=== PATIENT | female | born 2005 | race Caucasian/White ===

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

== ENCOUNTER → 2025-06-28 | Outpatient (CLI) | payer BC, SELFPAY ==
--- OUTSIDE RECORDS SUMMARY | 2025-06-28 11:46 | XMS RPT_ITS | CCD ---
Author Organization [facility] Care Team Providers [facility] Name Role Phone Katelin Morel MD Primary Care Provider Dr. Mel Fabian Primary Care Provider Dr. Mel Fabian Referring Provider MARY Kline Attending Provider Katelin Morel MD Primary Care Provider Dean Jackson MD Unavailable Katelin Morel MD Primary Care Provider Dean Jackson MD Unavailable Dean Jackson MD Unavailable Katelin Morel MD Primary Care Provider MARÍA SALEEM Attending Unavailable KATELIN MOREL Primary Care Unavailable LESLYE GALICIA Referring Unavailable Dr. Katelin Morel MD Primary Care Provider Dr. Katelin Morel MD Referring Provider Heriberto Kline Attending Provider Katelin Morel Primary Care Unavailable Heriberto Kline Attending Unavailable Katelin Morel Referring Unavailable Justina Brooks Attending Unavailable Katelin Morel Referring Unavailable Katelin Morel Primary Care Unavailable Shaw Lucero MD Primary Care Provider LAUREN FOSTER Attending Unavailable SHAW LUCERO Primary Care Unavailable LAUREN FOSTER Referring Unavailable SHAW LUCERO Primary Care Unavailable BEAU MARIE Attending Unavailable BEAU MARIE Referring Unavailable KATELIN MOREL Primary Care Unavailable BEAU MARIE Referring Unavailable KATELIN MOREL C Primary Care Unavailable AILIN GALO Attending Unavailable AILIN GALO Referring Unavailable JUVENAL MORELA C Primary Care Unavailable MARIEBEAU MARIN Attending Unavailable JUVENAL MORELA C Primary Care Unavailable MORELJUVENALA C Referring Unavailable MOREL, KATELIN C Primary Care Unavailable JACKELIN REGALADO Attending Unavailable KATELIN MOREL C Primary Care Unavailable MARIEBEAU MARIN P Referring Unavailable MARIEBEAU MARIN P Referring Unavailable JUVENAL MORELA C Primary Care Unavailable JUVENAL MORELA C Primary Care Unavailable JEMMA PALUMBO Referring Unavailable MOREL, KATELIN C Primary Care Unavailable PHYSICIAN, NONE Primary Care Physician Unavailab le WOOD DO~[id number], WOOD VICKI A Attending Unavailable WOOD DO~[id number], WOOD VICKI A Admitting Unavailable JUVENAL MORELA Primary Care Unavailable YULIA BAUM, JUAN Consulting Unavailable UYLIA BAUM, JUAN Consulting Unavailable ADRIEL, KATELIN Consulting Unavailable MOREL, KATELIN Consulting Unavailable WOOD DO, VICKI A Consulting Unavailable WOOD DO, VICKI A Consulting Unavailable MONIKA DO, BEN N Consulting Unavailabl e WOOD DO~[id number], WOOD VICKI A Attending Unavailable WOOD DO~[id number], WOOD VICKI A Admitting Unavailable NONE, NONE Primary Care Unavailable MONIKA DO BEN N Consulting Unavailabl e NONE, NONE Consulting Unavailable NURSEREFERRAL, NURSEREFERRAL Consulting Anaid vailable WOOD DO, VICKI A Consulting Unavailable WOOD DO, VICKI A Consulting Unavailable PHYSICIAN, NONE Primary Care Unavailable GOLDMANSUBHA GALVIN-BLU, ALYSSIA Attending Unavail able GOLDMAN SCALES INSPECTOR-SENIOR BENEFITS ANALYST, ALYSSIA Attending Unavail able PHYSICIAN, NONE Primary Care Unavailable Allergies Allergy Classification Reported Allergen(s) Allergy Type Date of Onset Reaction(s) Facility (20 sources) Seasonal allergy; Translations: [SEASONAL ALLERGIES] Propensity to adverse reactions 8 Shortness of Breath, Cough [facility] Medications Current Medications Medication Drug Class(es) Dates Sig (Normalized) Sig (Original) Administered Medications Medication Order MAR Action Action Date Dose Rate Site tuberculin skin test (TST-PPD), purified protein derivative, intradermal Intradermal Given 04/03/2024 10:05 EDT 0.1 mL Right Lower Forearm (1 source) Administered Medications Medication Order MAR Action Action Date Dose Rate Site tuberculin skin test (TST-PPD), purified protein derivative, intradermal Intradermal Given 04/03/2024 10:05 EDT 0.1 mL Right Lower Forearm Administered Medications Medication Order MAR Action Action Date Dose Rate Site tuberculin skin test (TST-PPD), purified protein derivative, intradermal Intradermal Given 03/26/2024 15:30 EDT 0.1 mL Left Lower Forearm (1 source) Administered Medications Medication Order MAR Action Action Date Dose Rate Site tuberculin skin test (TST-PPD), purified protein derivative, intradermal Intradermal Given 03/26/2024 15:30 EDT 0.1 mL Left Lower Forearm [id number] actuat albuterol 0.09 mg/actuat metered dose inhaler (20 sources) beta2-Adrenergic Agonist Start: 01-12-2022 End: 06-19-2024 take 2 puff(s) by inhalation every six hours as needed for wheezing albuterol HFA (PROVENTIL HFA, VENTOLIN HFA) 90 mcg/actuation inhaler Inhale 2 Puffs as instructed every 6 hours as needed for wheezing/shortness of breath. 1 Each 03/21/2024 Active Start: 01-11-2022 End: 01-12-2022 take 2 puff(s) by inhalation every six hours as needed for wheezing ProAir RespiClick 90 mcg/actuation breath activated (albuterol sulfate) Inhale 2 Puffs as instructed every 6 hours as needed for wheezing/shortness of breath. 1 Inhaler 0 01/11/2022 01/12/2022 Discontinued Start: 11-26-2020 Albuterol Sulf ate Active 2 INH INHALATION EVERY 6 HOURS November 26, 2020 4:07pm Start: 11-26-2020 Albuterol Sulf ate 90 mcg/actuation aerosol powdr breath activated Active 2 NMA INHALATION EVERY 6 HOURS as needed for sob November 26, 2020 1:00am Start: 06-01-2020 End: 09-01-2022 albuterol HFA (PROVENTIL HFA , VENTOLIN HFA) 90 mcg/actuation inhaler Inhale 2 Puffs as instructed. 0 06/01/2020 09/01/2022 Discontinued (Duplicate Entry) Comment on above: Inhale 2 Puffs as in structed every 6 hours as needed for wheezing/shortness of breath. Inhale 2 Puffs as in structed. Albuterol (Eqv-Proventil HFA) 90 mcg/inh inhalation aerosol (2 sources) Start: take 2 puff(s) by inhalation four times daily as needed Albuterol (Eqv-Proventil HFA) 90 mcg/inh inhalation aerosol USE 2 PUFFS USING INHALER 4 TIMES A DAY FOR 3 DAYS THEN ONLY NEEDED FOR COUGH. Start Date: 06/12/25 Status: Ordered Medication Dispense Status: Completed Total Allowed Fills: 1 Fills Dispensed: 0 cetirizine hydrochloride 10 mg oral capsule (9 sources) Histamine-1 Receptor Antagonist Start: take 1 capsule by mouth once daily Cetirizine (Zyrtec) 10 mg capsule Active 10 MG PO DAILY November 26, 2020 4:08pm Start: 09-21-2020 End: 11-23-2023 take 1 tablet by mouth once daily cetirizine (ZYRTEC) 10 mg tablet Take 1 tablet by mouth once daily. 0 09/21/2020 11/23/2023 Discontinued Comment on above: Take 1 tablet by [facility] once daily. dextromethorphan hydrobromide 1 mg/ml oral solution (1 source) Uncompetitive P-kiszzb-W-aspartate Receptor Antagonist, Sigma-1 Agonist Start: take 10 mg by mouth every six hours as needed Dextromethorphan Hbr (Vicks Dayquil Cough) 5 mg/5 mL syrup Active 10 mg PO EVERY 6 HOURS as needed September 20, 2022 1:00am fludrocortisone acetate 0.1 mg oral tablet (7 sources) Start: 024 End: take 1 tablet by mouth once daily fludrocortisone (FLORINEF) 0.1 mg tablet Take 1 tablet by mouth once daily. 30 tablet 2 10/22/2024 01/20/2025 Active FLUoxetine 40 mg oral capsule (20 sources) Serotonin Reuptake Inhibitor Start: 023 End: FLUoxetine 40 mg oral capsule Dose : 40 mg = 1 cap(s), Oral, qDay, # 90 cap(s), 0 Refill(s) Start Date: 06/12/25 Status: Ordered Medication Dispense Status: Completed Quantity: 90.0 Unit: cap(s) Total Allowed Fills: 1 Fills Dispensed: 0 Start: 07-13-2023 End: 08-19-2023 take 2 tablets by mouth once daily, then take 3 tablets by mouth once daily FLUoxetine 10 mg tablet Take 2 tablets by mouth once daily for 7 days, THEN 3 tablets once daily. 90 tablet 1 07/13/2023 08/19/2023 Active Start: 06-09-2023 End: 08-08-2023 take 1 tablet by mouth once daily FLUOXETINE 10 mg tablet TAKE 1 TABLET BY MOUTH EVERY DAY 90 tablet 1 07/03/2023 07/13/2023 Discontinued Comment on above: Take 1 tablet by [facility] once daily. Take 2 tablets by [facility] once daily for 7 days, THEN 3 tablets once daily. TAKE 1 TABLET BY LAURYN EVERY DAY Take 1 capsule by [facility] once daily. hydrOXYzine hydrochloride 25 mg oral tablet (13 sources) Antihistamine Start: 11-23-19 End: 02-21-20 take 1 tablet by mouth every twenty-four hours as needed hydrOXYzine HCl (ATARAX) 25 mg tablet Take 1 tablet by mouth at bedtime as needed. 90 tablet 0 11/23/2023 02/21/2024 Active Start: 07-13-2023 End: 09-08-2023 take 1 tablet by mouth every eight hours as needed hydrOXYzine HCl (ATARAX) 25 mg tablet TAKE 1 TABLET BY MOUTH THREE TIMES DAILY NEEDED FOR ANXIETY (AND SLEEP DIFFICULTIES.). 270 tablet 1 08/09/2023 09/08/2023 Active Comment on above: Take 1 tablet by mouth three times daily as needed for anxiety (and sleep difficulties.). Take 1 tablet by lauryn at bedtime as needed. ibuprofen 200 mg oral capsule (2 sources) Nonsteroidal Anti-inflammatory Drug Start: 018 take 200 mg by mouth three times daily Ibuprofen Active 200 MG PO THREE TIMES A DAY May 02, 2018 4:24pm iv contrast (will be provided with radiology test) (4 sources) Start: 024 End: 025 inject 1 dose intravenously once iv contrast (will be provided with radiology test) MRI Brain Inject, intravenously, once for 1 dose.No IV access, insert saline lock prior to beginning of sedation, infusion, injection of imaging exam.Discontinue saline lock post exam. If Pt. has a central line or IVAD, may access for administration according to line specific nursing protocol.Once exam is complete flush line and de-access according to line specific nursing protocol in the MR contrast administration guidelines link 1 Each 10/22/2024 10/23/2024 Active Start: 10-22-2024 End: 10-23-2024 iv contrast (will be provide d with radiology test) MRV Brain Inject, intravenously, once for 1 dose. No IV access, insert saline lock prior to the beginning of sedation, infusion, injection of imaging exam. Discontinue saline lock post exam. If Pt. has a central line or IVAD, may access for administration according to line specific nursing protocol. Once exam is complete flush line and de-access according to line specific nursing protocol in the MR contrast administration guidelines link. 1 Each 10/22/2024 10/23/2024 Active midodrine hydrochloride 5 mg oral tablet (20 sources) alpha-Adrenergic Agonist Start: 06-11-2024 End: 06-10-2026 take 1 tablet by mouth three times daily midodrine 5 mg oral tablet TAKE 1 TABLET BY MOUTH THREE TIMES A DAY Start Date: 06/12/25 Status: Ordered Medication Dispense Status: Completed Total Allowed Fills: 1 Fills Dispensed: 0 Start: 10-17-2023 End: 06-11-2024 take 1 tablet by mouth three times daily Midodrine 2.5 mg tablet Active 2.5 mg PO THREE TIMES A DAY March 13, 2024 12:00am Comment on above: Take 1 tablet by lauryn th three times a day. take 1 tablet by lauryn three times a day pantoprazole 40 mg delayed release oral tablet (20 sources) Proton Pump Inhibitor take 1 tablet by mouth once daily pantoprazole DR (PROTONIX) 40 mg tablet Take 40 mg by mouth once daily. Active Comment on above: Take 40 mg by mouth once daily. perflutren lipid microspheres 1.3 mL in NaCl (PF) 0.9% 10 mL injection (DEFINITY) (16 sources) Start: 2 End: 4 perflutren lipid microspheres 1.3 mL in NaCl (PF) 0.9% 10 mL injection (DEFINITY) rizatriptan 10 mg oral tablet (5 sources) Serotonin-1b and Serotonin-1d Receptor Agonist Start: 4 End: 5 take 1 tablet by mouth every two hours as needed for headache rizatriptan (MAXALT) 10 mg tablet Take 1 tablet (10 mg) by mouth as needed (at onset of headache. May repeat after 2 hours.). Do not exceed 30 mg per day. 10 tablet 2 10/22/2024 11/21/2024 Active 125 ml sodium chloride 9 mg/ml prefilled syringe (16 sources) Start: 2 End: 4 sodium chloride 0.9 % (flush) 10 mL (BD POSIFLUSH) sodium fluoride 0.011 mg/mg toothpaste (20 sources) Start: 4 sodium fluoride 1.1 % dental cream DISPENSE A SMALL AMOUNT INTO TOOTH SLOT TRAY AND WEAR FOR 5 MINUTES 02/28/2024 Active traZODone hydrochloride 50 mg oral tablet (20 sources) Serotonin Reuptake Inhibitor Start: 5 take 1 tablet by mouth once daily at bedtime traZODone 50 mg oral tablet TAKE 1 TABLET BY MOUTH EVERYDAY AT BEDTIME Start Date: 06/12/25 Status: Ordered Medication Dispense Status: Completed Total Allowed Fills: 1 Fills Dispensed: 0 Start: 04-30-2024 End: 08-02-2024 take 1 tablet by mouth once daily at bedtime traZODone (DESYREL) 50 mg tablet Take 1 tablet by mouth daily at bedtime. 90 tablet 1 08/02/2024 Active Completed/Discontinued Medications Medication Drug Class(es) Dates Sig (Normalized) Sig (Original) acetylcholine 10% solution - [facility] (2 sources) Start: 01-02-2023 acetylcholine 10% solution - [facility] albuterol 0.833 mg/ml / ipratropium bromide 0.167 mg/ml inhalation solution (1 source) Anticholinergic, beta2-Adrenergic Agonist Start: 07-01-2022 End: 07-06-2022 take 1 mL by inhalation every four hours Ipratropium-Albute rol 0.5 mg-3 mg(2.5 mg base)/3 mL solution for nebulization Discontinued 3 mL INHALATION Q4H 180 5 0 July 01, 2022 12:00am July 05, 2022 12:00am July 06, 2022 12:03am azithromycin 250 mg oral tablet (1 source) Macrolide Antimicrobial Start: 07-01-2022 End: 08-11-2022 take 2-5 tablets by mouth once daily Azithromycin 250 mg tablet Discontinued 0 PO .COMPLEX 6 0 July 01, 2022 12:00am August 11, 2022 7:52am take 500 mg today (day 1), then 250 mg for 4 days (days 2-5) PO benzonatate 100 mg oral capsule (2 sources) Non-narcotic Antitussive Start: 06-11-2018 End: 02-27-2019 take 100 mg by mouth three times daily Benzonatate Discontinued 100 MG PO THREE TIMES A DAY June 11, 2018 4:16pm February 27, 2019 4:08pm Dexamethasone (2 sources) Corticosteroid Start: 10-12-2019 End: 07-18-2020 Dexamethasone Discontinued 0 PO per package directions October 12, 2019 10:49am July 18, 2020 10:56am PO PER PKG DIR Start: 10-12-2019 End: 07-18-2020 Dexamethasone 1.5 mg (21 tab s) tablets,dose pack Discontinued 0 PO per package directions 21 October 12, 2019 1:00am July 18, 2020 10:56am PO PER PKG DIR 120 actuat fluticasone propionate 0.11 mg/actuat metered dose inhaler (20 sources) Corticosteroid Start: 01-10-2022 End: 03-21-2024 take 2 puff(s) by inhalation twice daily as needed fluticasone (FLOVENT HFA) 110 mcg/actuation inhaler Inhale 2 Puffs as instructed two times a day as needed (seasonal allergies). 0 01/10/2022 03/21/2024 Discontinued Start: 01-10-2022 End: 09-01-2022 FLOVENT HFA 110 mcg/actuatio n inhaler Comment on above: Inhale 2 Puffs as in structed twice daily. methylPREDNISolone 4 mg oral tablet (1 source) Corticosteroid Start: 2021 End: 2021 take 1 tablet by mouth once Methylprednisolone (Medrol (Ken)) 4 mg tablets,dose pack Discontinued 4 mg PO per package directions 21 6 0 July 01, 2022 12:00am July 06, 2022 12:00am July 07, 2022 12:03am omeprazole 20 mg delayed release oral tablet (7 sources) Proton Pump Inhibitor End: 2021 Omeprazole Magnesium 20 mg tablet Take 20 mg by mouth. 0 09/01/2022 Discontinued (Changing Therapy/Dosage Form) Comment on above: Take 20 mg by mouth. polymyxin b [id number] unt/ml / trimethoprim 1 mg/ml ophthalmic solution (1 source) Dihydrofolate Reductase Inhibitor Antibacterial, Polymyxin-class Antibacterial Start: 2022 End: 2022 Polymyxin B Sulf-Trimethoprim (Polytrim) 10,000 unit- 1 mg/mL drops Discontinued 1 NMA OPHTHALMIC Q3H 10 7 0 February 03, 2023 12:00am February 09, 2023 12:00am February 10, 2023 12:04am while awake; do not exceed 6 doses in 24 hours predniSONE 10 mg oral tablet (4 sources) Start: 2021 End: 2022 predniSONE (DELTASONE) 10 mg tablet sulfamethoxazole 800 mg / trimethoprim 160 mg oral tablet (2 sources) Dihydrofolate Reductase Inhibitor Antibacterial, Sulfonamide Antimicrobial Start: 2019 End: 2020 take 1 tablet by mouth twice daily Sulfamethoxazole-Trimet hoprim Discontinued 1 TABLET PO TWICE A DAY 10 July 20, 2020 5:31pm November 26, 2020 4:07pm Start: 07-20-2020 End: 11-26-2020 Sulfamethoxazole-Trimethopri m 800-160 mg tablet Discontinued 1 {tbl} PO TWICE A DAY 10 0 July 20, 2020 12:00am November 26, 2020 4:07pm Problems Active Problems Problem Classification Problem Date Documented Date Episodic/Chronic Abdominal pain (4 sources) Left flank pain; Translations: [Unspecified abdominal pain] 04-10-2024 Episodic Administrative/socia l admission (3 sources) Special examination status; Translations: [Encounter for examination for participation in sport] Onset: 04-30-2025 05-20-2020 Episodic Anxiety disorders (6 sources) Generalized anxiety disorder; Translations: [Generalized anxiety disorder] Chronic Asthma (1 source) Asthmatic bronchitis; Translations: [Unspecified asthma with (acute) exacerbation] 07-01-2022 Chronic Blindness and vision defects (2 sources) Visual impairment; Translations: [Unspecified visual loss] Onset: 10-22-2024 10-22-2024 Chronic Cardiac dysrhythmias (7 sources) Postural orthostatic tachycardia syndrome ; Translations: [POTS (postural orthostatic tachycardia syndrome)] Chronic Cardiac dysrhythmias (1 source) Tachycardia; Translations: [Tachycardia, unspecified] Episodic Chronic obstructive pulmonary disease and bronchiectasis (2 sources) Bronchitis; Translations: [Bronchitis, not specified as acute or chronic] 06-11-2018 Episodic Conditions associated with dizziness or vertigo (6 sources) Dizziness; Translations: [Dizziness and giddiness] Episodic Esophageal disorders (20 sources) Gastroesophageal reflux disease; Translations: [Gastro-esophageal reflux disease without esophagitis] Onset: 05-08-2024 03-21-2024 Chronic Headache; including migraine (3 sources) Tension-type headache; Translations: [Tension-type headache, unspecified, not intractable] Chronic Immunizations and screening for infectious disease (20 sources) Patient encounter status; Translations: [Encounter for screening for COVID-19] Onset: 06-10-2025 Episodic Inflammation; infection of eye (except that caused by tuberculosis or sexually transmitteddisease) (1 source) Acute infectious conjunctivitis; Translations: [Unspecified acute conjunctivitis, unspecified eye] 02-03-2023 Episodic Malaise and fatigue (1 source) Fatigue; Translations: [Other fatigue] Episodic Menstrual disorders (4 sources) Irregular periods; Translations: [Irregular menstruation, unspecified] Onset: 06-10-2025 06-10-2025 Chronic Mood disorders (5 sources) Severe major depression, single episode, without psychotic features; Translations: [Major depressive disorder, single episode, severe without psychotic features] 06-08-2023 Chronic Nervous system congenital anomalies (4 sources) Disorder of autonomic nervous system; 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 Other circulatory disease (1 source) Low blood pressure; Translations: [Hypotension, unspecified] 06-14-2024 Episodic Other ear and sense organ disorders (1 source) Tinnitus of left ear; Translations: [Tinnitus, left ear] Episodic Other endocrine disorders (1 source) Hypoglycemia; Translations: [Hypoglycemia, unspecified] 01-12-2024 Chronic Other injuries and conditions due to external causes (4 sources) Injury of nose; Translations: [Unspecified injury of nose, initial encounter] 12-27-2024 Episodic Other injuries and conditions due to external causes (1 source) Injury of head; Translations: [Unspecified injury of head, initial encounter] 12-27-2024 Episodic Other nervous system disorders (1 source) Idiopathic peripheral neuropathy; Translations: [Hereditary and idiopathic neuropathy, unspecified] Chronic Other nervous system disorders (1 source) Polyneuropathy; Translations: [Polyneuropathy, unspecified] Chronic Other nervous system disorders (1 source) Neuropathy; Translations: [Polyneuropathy, unspecified] Chronic Other nervous system disorders (1 source) Skin sensation disturbance; Translations: [Unspecified disturbances of skin sensation] Episodic Other nervous system disorders (1 source) Tremor; Translations: [Tremor, unspecified] Episodic Other nervous system disorders (2 sources) Intermittent tremor; Translations: [Tremor, unspecified] 01-24-2024 Episodic Other non-traumatic joint disorders (1 source) Pain in wrist; Translations: [Pain in unspecified wrist] 08-11-2022 Episodic Other nutritional; endocrine; and metabolic disorders (1 source) History of iron deficiency; Translations: [Personal history of other endocrine, nutritional and metabolic disease] 06-10-2025 Episodic Other nutritional; endocrine; and metabolic disorders (1 source) Personal history of other endocrine, nutritional and metabolic disease; Translations: [History of iron deficiency] Onset: 06-10-2025 Episodic Other upper respiratory disease (1 source) Nasal discharge; Translations: [Other specified disorders of nose and nasal sinuses] 10-26-2024 Episodic Other upper respiratory disease (1 source) Nasal congestion; Translations: [Nasal congestion] 10-26-2024 Episodic Other upper respiratory disease (1 source) Nasal congestion; Translations: [Nasal congestion] Onset: 04-30-2025 Episodic Other upper respiratory disease (1 source) Other specified disorders of nose and nasal sinuses; Translations: [Other specified disorders of nose and nasal sinuses] Onset: 04-30-2025 Episodic Residual codes; unclassified (1 source) Insomnia; Translations: [Insomnia, unspecified] Episodic Residual codes; unclassified (1 source) Pale complexion; Translations: [Pallor] 01-24-2024 Episodic Residual codes; unclassified (2 sources) Difficulty sleeping ; Translations: [Sleep disorder, unspecified] 04-30-2024 Episodic Residual codes; unclassified (1 source) Pain; Translations: [Pain, unspecified] 08-11-2022 Episodic Screening and history of mental health and substance abuse codes (2 sources) Encounter for screening for depression; Translations: [Encounter for screening examination for other mental health and behavioral disorders] Onset: 06-10-2025 Episodic Sprains and strains (10 sources) Strain of knee; Translations: [Strain of unspecified muscle(s) and tendon(s) at lower leg level, right leg, initial encounter] 08-11-2022 Episodic Superficial injury; contusion (1 source) Contusion of nose; Translations: [Contusion of nose, initial encounter] 12-27-2024 Episodic Unclassified (1 source) OPENED IN ERROR 06-27-2023 Unclassified (1 source) NO SHOW 01-24-2024 Unclassified (1 source) Patient encounter status 06-10-2025 Unclassified (1 source) POTS (postural orthostatic tachycardia syndrome); Translations: [POTS (postural orthostatic tachycardia syndrome)] Onset: 10-22-2024 Unclassified (1 source) Chronic migraine with aura without status migrainosus, not intractable; Translations: [Chronic migraine with aura without status migrainosus, not intractable] Onset: 10-22-2024 Unclassified (1 source) ENCOUNT FOR SCREENING FOR COVID-19; Translations: [ENCOUNT FOR SCREENING FOR COVID-19] Onset: 09-09-2024 Past or Other Problems Problem Classification Problem Date Documented Da te Episodic/Chronic Nutritional deficiencies (3 sources) Nutritional deficiency state; Translations: [Nutritional deficiency, unspecified] Onset: 10-22-2024 Episodic Other circulatory disease (1 source) Hypotension, unspecified; Translations: [Hypotension, unspecified hypotension type] Onset: 06-14-2024 Episodic Other injuries and conditions due to external causes (1 source) Unspecified injury of nose, initial encounter; Translations: [Nasal injury, initial encounter] Onset: 12-27-2024 Episodic Other upper respiratory infections (9 sources) Viral upper respiratory tract infection; Translations: [Acute upper respiratory infection, unspecified] Onset: 09-04-2024 10-26-2024 Episodic Residual codes; unclassified (3 sources) Transient alteration of awareness; Translations: [Transient alteration of awareness] Onset: 10-22-2024 10-22-2024 Episodic Syncope (16 sources) Loss of consciousness; Translations: [Syncope and collapse] Onset: 10-22-2024 Episodic Unclassified (1 source) 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 COMPARISON: None HISTORY: ORDERING SYSTEM PROVIDED HISTORY: Reason for Exam: ovarian lesion? per pt was told this at ED appt but no TVUS completed. All images are recorded and archived. FINDINGS: Measurements: Uterus: 7.1 x 5.7 x 4.4 cm Endometrial stripe: 8 mm Right Ovary:By 0.7 x 5.2 x 4.5 cm Left Ovary: 3.5 x 2.4 x 2.6 cm Ultrasound Findings: Uterus: Uterus demonstrates normal myometrial echotexture. Endometrial stripe: Endometrial stripe is within normal limits. Right Ovary: Right ovary contains a septated anechoic focus measuring 4.7 x 4.4 x 3.4 cm. No solid component identified. Left Ovary: Left ovary is within normal limits. Both ovaries demonstrate appropriate venous and arterial blood flow with Doppler assessment. Free Fluid: No evidence of free fluid. IMPRESSION: 1. 4.7 cm septated cyst right ovary. Recommend follow-up pelvic US in 3-6 months. 2. No acute pelvic process. 3. Normal Doppler flow within the ovaries. Interpreted by: Trip Garduno DO Preliminary Report By: Trip Garduno DO Electronically signed By Trip Garduno DO Dictated Date: 06/25/2025 9:46:37 AM Prelim Date: 06/25/2025 9:48:34 AM Sign Date: 06/25/2025 9:48:34 AM Ordering Provider: ALYSSIA GOLDMAN [facility] CBC W Auto Differential pane l (Bld)on 06-21-2025 Basophils (Bld) [#/Vol] 0.05 10*3/uL Normal <=0.70 [facility] Comment on above: Performed By: #### 5 7021-8 #### [facility] [address] [place] [address] [employer] GRANTIA [id number] Basophils/100 WBC (Bld) 0.5 % Normal <=2.0 [facility] Comment on above: Performed By: #### 5 7021-8 #### [facility] [address] [place] [address] [employer] - [employer] GRANTIA [id number] Eosinophils (Bld) [#/Vol] 0.30 10*3/uL Normal <=0.70 [facility] Comment on above: Performed By: #### 5 7021-8 #### [place] [address] [place] [address] [employer] - [employer] CABRERA [id number] Eosinophils/100 WBC (Bld) 3.1 % Normal <=10.0 [facility] Comment on above: Performed By: #### 5 7021-8 #### [place] [address] [place] [address] [employer] GRANTIA [id number] Erythrocyte distribution width (RBC) [Entitic vol] 42.0 fL Normal 36.4-46.3 [facility] Comment on above: Performed By: #### 5 7021-8 #### [place] [address] [place] [address] [employer] - [employer] GRANTIA [id number] Hematocrit (Bld) [Volume fraction] 34.7 % Low 37.0-47.0 [facility] Comment on above: Performed By: #### 5 7021-8 #### [facility] [address] [place] [address] Director [employer] - [employer] CABRERA [id number] Hemoglobin (Bld) [Mass/Vol] 11.8 g/dL Low 12.0-16.0 [facility] Comment on above: Performed By: #### 5 7021-8 #### [place] [address] [place] [address] [employer] CABRERA [id number] Immature granulocytes (Bld) [#/Vol] 0.03 10*3/uL Normal <=0.10 [facility] Comment on above: Performed By: #### 5 7021-8 #### [place] [address] [facility]. [place] [address] Director Of [employer] - [employer] Ledesma CLIA [id number] Immature granulocytes/100 WBC (Bld) 0.30 % Normal <=1.50 [facility] Comment on above: Performed By: #### 5 7021-8 #### [address] [place] [address] Director Of [employer] - [employer] Ledesma CLIA [id number] Lymphocytes (Bld) [#/Vol] 2.52 10*3/uL Normal 1.20-3.40 [facility] Comment on above: Performed By: #### 5 7021-8 #### [address] [place] [address] Director [employer] - [employer] Ledesma CLIA [id number] Lymphocytes/100 WBC (Bld) 26.4 % Normal 20.0-40.0 [facility] Comment on above: Performed By: #### 5 7021-8 #### [address] [place] [address] [employer] - [employer] GRANTIA [id number] MCH (RBC) [Entitic mass] 28.0 pg Normal 27.0-31.0 [facility] Comment on above: Performed By: #### 5 7021-8 #### [address] [place] [address] Director [employer] - [employer] Ledesma CLIA [id number] MCHC (RBC) [Mass/Vol] 34.0 g/dL Normal 32.0-36.0 [facility] Comment on above: Performed By: #### 5 7021-8 #### [address] [place] [address] Director Of [employer] - [employer] Ledesma CLIA [id number] MCV (RBC) [Entitic vol] 82.2 fL Normal 80.0-100.0 [facility] Comment on above: Performed By: #### 5 7021-8 #### [facility] [address] [place] [address] Director Of [employer] - [employer] Ledesma CLIA [id number] Monocytes (Bld) [#/Vol] 0.79 10*3/uL High 0.10-0.60 [facility] Comment on above: Performed By: #### 5 7021-8 #### [address] [place] [address] Director [employer] - [employer] Ledesma CLIA [id number] Monocytes/100 WBC (Bld) 8.3 % High <=8.0 [facility] Comment on above: Performed By: #### 5 7021-8 #### [address] [place] [address] Director [employer] - [employer] Ledesma CLIA [id number] Neutrophils (Bld) [#/Vol] 5.85 10*3/uL Normal 1.40-6.50 [facility] Comment on above: Performed By: #### 5 7021-8 #### [address] [place] [address] Director Of [employer] - [employer] Ledesma CLIA [id number] Neutrophils/100 WBC (Bld) 61.4 % Normal 50.0-70.0 [facility] Comment on above: Performed By: #### 5 7021-8 #### [address] [place] [address] Director Of [employer] - [employer] Ledesma CLIA [id number] Nucleated RBC (Bld) [#/Vol] 0.00 10*3/uL Normal <=0.10 [facility] Comment on above: Performed By: #### 5 7021-8 #### [address] [place] [address] Director [employer] - [employer] Ledesma CLIA [id number] Platelet mean volume (Bld) [Entitic vol] 9.7 fL Normal 9.0-13.0 [facility] Comment on above: Performed By: #### 5 7021-8 #### [facility] [address] [place] [address] Director [employer] - [employer] Ledesma CLIA [id number] Platelets (Bld) [#/Vol] 257 10*3/uL Normal 130-400 [facility] Comment on above: Performed By: #### 5 7021-8 #### [facility] [address] [place] [address] Director Of [employer] - [employer] Nicholasrell CLIA [id number] RBC (Bld) [#/Vol] 4.22 10*6/uL Normal 4.00-6.30 [facility] Comment on above: Performed By: #### 5 7021-8 #### [facility] [address] [facility] [place] [address] [facility] [id number] WBC (Bld) [#/Vol] 9.54 10*3/uL Normal 4.80-10.80 [facility] Comment on above: Performed By: #### 5 7021-8 #### [address] [place] [address] Director Of [employer] - [employer] Nicholasrell CLIA [id number] CT ABDOMEN AND PELVIS WITH C [facility] 06-21-2025 CT ABDOMEN AND PELVIS WITH CONTRAST EXAMINATION: CT ABDOMEN AND PELVIS WITH CONTRAST, 06/21/2025 1:25 AM PDT HISTORY: Abdominal pain COMPARISON: CT abdomen/pelvis 09/01/2023. TECHNIQUE: CT scan of the abdomen and pelvis was performed following IV contrast. CT dose reduction technique was used, including Automated Exposure Control. Total exam DLP 242.05 mGy-cm. FINDINGS: The lung bases are clear. The abdominal aorta is normal in caliber. There are several stable tiny nonenhancing liver lesions, consistent with simple cysts. No focal lesions in the spleen, kidneys, adrenal glands, and pancreas. No abnormal bowel dilation. The appendix is normal in caliber. There is a heterogeneous right adnexal lesion which has a somewhat tubular shape and is surrounded by free fluid. This lesion measures approximately 6.2 x 3.8 x 3.5 cm. There are small amounts of free fluid in the bilateral paracolic gutters and in the pelvic cul-de-sac. No abdominal or pelvic lymphadenopathy. No extraluminal free air. IMPRESSION: Heterogeneous right adnexal lesion which has a somewhat tubular shape and is surrounded by free fluid, in addition to small scattered areas of free fluid in the pelvis and lower abdomen. This raises question of a dilated fallopian tube, ruptured ovarian cyst, or tubo-ovarian abscess. Pelvic ultrasound is recommended. Normal [facility] Comprehensive metabolic 2000 panelon 06-21-2025 Albumin [Mass/Vol] 3.6 g/dL Normal 3.4-5.0 [facility] Comment on above: Performed By: #### 2 4323-8, LIPASE #### [facility] [address] [place] [address] [employer] - [employer] Ledesma CLIA [id number] ALP [Catalytic activity/Vol] 55 U/L Normal 50-136 [facility] Comment on above: Performed By: #### 2 4323-8, LIPASE #### [address] [place] [address] [employer] - [employer] Ledesma CLIA [id number] ALT [Catalytic activity/Vol] 17 U/L Normal 14-59 [facility] Comment on above: Performed By: #### 2 4323-8, LIPASE #### [place] [address] [place] [address] Director [employer] - [employer] Ledesma CLIA [id number] Anion gap [Moles/Vol] 10.0 mmol/L Normal <=15.0 [facility] Comment on above: Performed By: #### 2 4323-8, LIPASE #### [facility] [address] [place] [address] Director [employer] - [employer] Ledesma CLIA [id number] AST [Catalytic activity/Vol] 28 U/L Normal 15-37 [facility] Comment on above: Performed By: #### 2 4323-8, LIPASE #### [facility] [address] [place] [address] [employer] - [employer] Ledesma CLIA [id number] Bilirubin [Mass/Vol] 0.4 mg/dL Normal 0.2-1.0 [facility] Comment on above: Performed By: #### 2 4323-8, LIPASE #### [facility] [address] [place] [address] [employer] - [employer] Ledesma CLIA [id number] Calcium [Mass/Vol] 8.9 mg/dL Normal 8.5-10.1 [facility] Comment on above: Performed By: #### 2 4323-8, LIPASE #### [facility] [address] [place] [address] [employer] - [employer] Ledesma CLIA [id number] Chloride [Moles/Vol] 104 mmol/L Normal 98-107 [facility] Comment on above: Performed By: #### 2 4323-8, LIPASE #### [facility] [address] [place] [address] [employer] - [employer] Ledesma CLIA [id number] CO2 [Moles/Vol] 26 mmol/L Normal 21-32 [facility] Comment on above: Performed By: #### 2 4323-8, LIPASE #### [facility] [address] [place] [address] Director [employer] - [employer] Ledesma CLIA [id number] Creatinine [Mass/Vol] 0.72 mg/dL Normal 0.51-0.95 [facility] Comment on above: Performed By: #### 2 4323-8, LIPASE #### [facility] [address] [place] [address] Director [employer] - [employer] Ledesma CLIA [id number] GFR/1.73 sq M.predicted MDRD (S/P/Bld) [Vol rate/Area] mL/min/{1.73_m2} Normal >=60 [facility] Comment on above: Performed By: #### 2 4323-8, LIPASE #### [facility] [address] [place] [address] Director [employer] - [employer] Ledesma CLIA [id number] Glucose [Mass/Vol] 85 mg/dL Normal 74-106 [facility] Comment on above: Performed By: #### 2 4323-8, LIPASE #### [facility] [address] [place] [address] [employer] CABRERA [id number] HGFR GLOMERULAR FILTRATION RATE INTERPRETATION~The eGFR is calculated using the MDRD equation.~This equation has been validated in patients with chronic kidney disease;~however, it underestimates the GFR in healthy patients with GFR's over 60 mL/min.~The equation is not valid in children under the age of 18.~NOTE: Criteria for Chronic Kidney Disease:~ ~1. Kidney damage for at least three months, as defined~by structural or functional abnormalities of the kidney,~with or without decreased glomerular filtration rate, manifested by either:~* Pathological abnormalities or~* Markers of Kidney damage, including abnormalities in~the composition of the blood or urine or abnormalities in imaging tests.~ ~2. GFR <60 mL/min/1.73 m squared for at least three months, with or without kidney damage.~ Normal [facility] Comment on above: Performed By: #### 2 4323-8, LIPASE #### [facility] [address] [place] [address] [employer] CABRERA [id number] Potassium [Moles/Vol] 3.6 mmol/L Normal 3.5-5.1 [facility] Comment on above: Performed By: #### 2 4323-8, LIPASE #### [facility] [address] [place] [address] [employer] CABRERA [id number] Protein [Mass/Vol] 7.0 g/dL Normal 6.4-8.2 [facility] Comment on above: Performed By: #### 2 4323-8, LIPASE #### [facility] [address] [place] [address] [employer] - [employer] GRANTIA [id number] Sodium [Moles/Vol] 140 mmol/L Normal 136-145 [facility] Comment on above: Performed By: #### 2 4323-8, LIPASE #### [facility] [address] [place] [address] [employer] CABRERA [id number] Urea nitrogen [Mass/Vol] 12 mg/dL Normal 7-17 [facility] Comment on above: Performed By: #### 2 4323-8, LIPASE #### [facility] [address] [place] [address] [employer] GRANTIA [id number] LIPASEon 06-21-2025 LIPASES 36 U/L Normal 13-75 [facility] Comment on above: Performed By: #### 2 4323-8, LIPASE #### [facility] [address] [place] [address] [employer] GRANTIA [id number] URINALYSIS with reflex to CU LTUREon 06-21-2025 DOMO Normal [facility] Comment on above: Performed By: #### U AR #### [facility] [address] [place] [address] [employer] GRANTIA [id number] Performed for [facility] [address] [place], [place] [address] ASP Normal [facility] Comment on above: Performed By: #### U AR #### [facility] [address] [place] [address] [employer] GRANTIA [id number] Performed for [facility] [address] [place], [place] [address] Bacteria LM Ql (Urine sed) Normal TRACE [facility] Comment on above: Performed By: #### U AR #### [facility] [address] [place] [address] Director [employer] - [employer] Ledesma CLIA [id number] Performed for [facility] [address] [place], [place] [address] Bilirubin (U) [Mass/Vol] Negative Normal NEGATIVE [facility] Comment on above: Performed By: #### U AR #### [facility] [address] [place] [address] Director [employer] GRANTIA [id number] Performed for [facility] [address] [place], [place] [address] BROAD Normal [facility] Comment on above: Performed By: #### U AR #### [facility] [address] [place], [place] [address] [employer] CABRERA [id number] Performed for [facility] [address] [place], [place] [address] Calcium carbonate crystals LM Ql (Urine sed) Normal NONE SEEN [facility] Comment on above: Performed By: #### U AR #### [facility] [address] [place] [address] [employer] CABRERA [id number] Performed for [facility] [address] [place], [place] [address] Calcium oxalate crystals LM Ql (Urine sed) Normal FEW [facility] Comment on above: Performed By: #### U AR #### [facility] [address] [place] [address] [employer] CABRERA [id number] Performed for [facility] [address] [place], [place] [address] Calcium phosphate crystals LM Ql (Urine sed) Normal NONE SEEN [facility] Comment on above: Performed By: #### U AR #### [facility] [address] [place] [address] [employer] CABRERA [id number] Performed for [facility] [address] [place], [place] [address] Clarity (U) Clear Normal CLEAR [facility] Comment on above: Performed By: #### U AR #### [facility] [address] [place], [place] [address] [employer] CABRERA [id number] Performed for [facility] [address] [place], [place] [address] Color (U) Yellow Normal YELLOW [facility] Comment on above: Performed By: #### U AR #### [facility] [address] [place], [place] [address] [employer] CABRERA [id number] Performed for [facility] [address] [place], [place] [address] Cystine crystals LM.HPF (Urine sed) [#/Area] Normal NONE SEEN [facility] Comment on above: Performed By: #### U AR #### [facility] [address] [place], [place] [address] [employer] CABRERA [id number] Performed for [facility] [address] [place], [place] [address] EPIC Normal [facility] Comment on above: Performed By: #### U AR #### [facility] [address] [place], [place] [address] [employer] CABRERA [id number] Performed for [facility] [address] [place], [place] [address] Epithelial cells.renal LM.HPF (Urine sed) [#/Area] Normal NONE SEEN [facility] Comment on above: Performed By: #### U AR #### [facility] [address] [place] [address] [employer] CABRERA [id number] Performed for [facility] [address] [place], [place] [address] FAT Normal [facility] Comment on above: Performed By: #### U AR #### [facility] [address] [place] [address] [employer] CABRERA [id number] Performed for [facility] [address] [place], [place] [address] Fatty casts LM.LPF (Urine sed) [#/Area] Normal NONE SEEN [facility] Comment on above: Performed By: #### U AR #### [facility] [address] [place], [place] [address] [employer] CABRERA [id number] Performed for [facility] [address] [place], [place] [address] Glucose Test strip (U) [Mass/Vol] Negative Normal NEGATIVE [facility] Comment on above: Performed By: #### U AR #### [facility] [address] [place] [address] [employer] CABRERA [id number] Performed for [facility] [address] [place], [place] [address] GRAN Normal [facility] Comment on above: Performed By: #### U AR #### [facility] [address] [place], [place] [address] [employer] CABRERA [id number] Performed for [facility] [address] [place], [place] [address] HMICRO MICROSCOPIC Normal [facility] Comment on above: Performed By: #### U AR #### [facility] [address] [place], [place] [address] [employer] CABRERA [id number] Performed for [facility] [address] [place], [place] [address] Hyaline casts (Urine sed) [#/Area] Normal 0-8 [facility] Comment on above: Performed By: #### U AR #### [facility] [address] [place] [address] [employer] CABRERA [id number] Performed for [facility] [address] [place], [place] [address] Ketones (U) [Mass/Vol] Negative Normal NEGATIVE [facility] Comment on above: Performed By: #### U AR #### [facility] [address] [place], [place] [address] [employer] CABRERA [id number] Performed for [facility] [address] [place], [place] [address] Leucine crystals LM Ql (Urine sed) Normal NONE SEEN [facility] Comment on above: Performed By: #### U AR #### [facility] [address] [place], [place] [address] [employer] CABRERA [id number] Performed for [facility] [address] [place], [place] [address] Leukocyte esterase Qn (U) Negative Normal TRACE [facility] Comment on above: Performed By: #### U AR #### [facility] [address] [place], [place] [address] [employer] CABRERA [id number] Performed for [facility] [address] [place], [place] [address] Microscopic observation Gram stain Nom (Unsp spec) Normal NONE SEEN [facility] Comment on above: Performed By: #### U AR #### [facility] [address] [place], [place] [address] [employer] CABRERA [id number] Performed for [facility] [address] [place], [place] [address] Mucus Ql (Urine sed) Normal TRACE [facility] Comment on above: Performed By: #### U AR #### [facility] [address] [place], [place] [address] [employer] CABRERA [id number] Performed for [facility] [address] [place], [place] [address] Nitrite Ql (U) Negative Normal NEGATIVE [facility] Comment on above: Performed By: #### U AR #### [facility] [address] [place] [address] [employer] CABRERA [id number] Performed for [facility] [address] [place], [place] [address] OVFB Normal [facility] Comment on above: Performed By: #### U AR #### [facility] [address] [place], [place] [address] [employer] CABRERA [id number] Performed for [facility] [address] [place], [place] [address] pH (U) 7.0 [pH] Normal 5.5-7.5 [facility] Comment on above: Performed By: #### U AR #### [facility] [address] [place], [place] [address] [employer] GRANTIA [id number] Performed for [facility] [address] [place], [place] [address] Protein (U) [Mass/Vol] Negative Normal NEGATIVE [facility] Comment on above: Performed By: #### U AR #### [facility] [address] [place] [address] [employer] CABRERA [id number] Performed for [facility] [address] [place], [place] [address] RBC (U) [#/Vol] Negative Normal NEGATIVE [facility] Comment on above: Performed By: #### U AR #### [facility] [address] [place], [place] [address] [employer] CABRERA [id number] Performed for [facility] [address] [place], [place] [address] RBC casts LM.LPF (Urine sed) [#/Area] Normal NONE SEEN [facility] Comment on above: Performed By: #### U AR #### [facility] [address] [place] [address] [employer] CABRERA [id number] Performed for [facility] [address] [place], [place] [address] RBC LM.HPF (Urine sed) [#/Area] Normal 0-4 [facility] Comment on above: Performed By: #### U AR #### [facility] [address] [place] [address] [employer] CABRERA [id number] Performed for [facility] [address] [place], [place] [address] RBCC Normal [facility] Comment on above: Performed By: #### U AR #### [facility] [address] [place] [address] [employer] CABRERA [id number] Performed for [facility] [address] [place], [place] [address] Specific gravity (U) [Rel density] 1.020 Normal 1.010-1.035 [facility] Comment on above: Performed By: #### U AR #### [facility] [address] [place] [address] Director Of Restaurant Operations - Beth CABRERA [id number] Performed for [facility] [address] [place], [place] [address] Spermatozoa LM Ql (Urine sed) Normal NONE SEEN [facility] Comment on above: Performed By: #### U AR #### [facility] [address] [place] [address] Director Of Restaurant Operations - Beth CABRERA [id number] Performed for [facility] [address] [place], [place] [address] SQUAMOUS EPITHELIALS Normal 0-5 [facility] Comment on above: Performed By: #### U AR #### [facility] [address] [place] [address] Director Of Restaurant Operations - Beth CABRERA [id number] Performed for [facility] [address] [place], [place] [address] Transitional cells LM.LPF (Urine sed) [#/Area] Normal NONE SEEN [facility] Comment on above: Performed By: #### U AR #### [facility] [address] [place] [address] Director Of Restaurant Operations - Beth CABRERA [id number] Performed for [facility] [address] [place], [place] [address] TRIP PHOSPHATE CRYST Normal [facility] Comment on above: Performed By: #### U AR #### [facility] [address] [place] [address] Director Of Restaurant Operations - Beth CABRERA [id number] Performed for [facility] [address] [place], [place] [address] Tyrosine crystals LM Ql (Urine sed) Normal NONE SEEN [facility] Comment on above: Performed By: #### U AR #### [facility] [address] [place] [address] Director Of Restaurant Operations - Beth CABRERA [id number] Performed for [facility] [address] [place], [place] [address] Urate crystals LM Ql (Urine sed) Normal NONE SEEN [facility] Comment on above: Performed By: #### U AR #### [facility] [address] [place] [address] Director Of Restaurant Operations - Beth CABRERA [id number] Performed for [facility] [address] [place], [place] [address] Urobilinogen Qn (U) Normal <=1.0 [facility] Comment on above: Result Comment: 1.0 E.U./dL Performed By: #### U AR #### [facility] [address] [place] [address] Director Of Restaurant Operations - Beth CABRERA [id number] Performed for [facility] [address] [place], [place] [address] Waxy casts LM Ql (Urine sed) Normal NONE SEEN [facility] Comment on above: Performed By: #### U AR #### [facility] [address] [place] [address] Director Of Restaurant Operations - Beth CABRERA [id number] Performed for [facility] [address] [place], [place] [address] WBC casts LM.LPF (Urine sed) [#/Area] Normal NONE SEEN [facility] Comment on above: Performed By: #### U AR #### [facility] [address] [place] [address] Director Of Restaurant Operations - Beht CABRERA [id number] Performed for [facility] [address] [place], [place] [address] WBC LM.HPF (Urine sed) [#/Area] Normal 0-5 [facility] Comment on above: Performed By: #### U AR #### [facility] [address] [place] [address] Director Of Restaurant Operations - Beth CABRERA [id number] Performed for [facility] [address] [place], [place] [address] Yeast.budding LM.HPF (Urine sed) [#/Area] Normal NONE SEEN [facility] Comment on above: Performed By: #### U AR #### [facility] [address] [place] [address] Director Of Restaurant Operations - Beth CABRERA [id number] Performed for [facility] [address] [place], [place] [address] Yeast.pseudohyphae LM Ql (Urine sed) Normal NONE SEEN [facility] Comment on above: Performed By: #### U AR #### [facility] [address] [place] [address] Director Of Restaurant Operations - Beth CABRERA [id number] Performed for [facility] [address] [place], [place] [address] URINE QUALITATIVEo n 06-21-2025 HCG ( test) Ql (U) Negative Normal NEGATIVE [facility] Comment on above: Performed By: #### 2 106-3 #### [facility] [address] [place], [place] [address] Director Of Restaurant Operations - Beth CABRERA [id number] 17OHPon 06-19-2025 17-OH Progesterone LCMS 173 ng/dL Normal [facility] Comment on above: Result Comment: Adul t Female Follicular 15 - 70 Luteal 35 - 290 This test was developed and its performance characteristics determined by [facility]. It has not been cleared or approved by the Food and Drug Administration. Performed At: [address] [id number] Archie Alcala MD Ph:[phone] Performed By: #### 0 [address] #### [address] [address] #### E2, LH, TESTO, FSH #### [place] [id number] E2on 06-12-2025 Estradiol Level 535.09 pg/mL Normal [facility] Comment on above: Result Comment: Adult Female E2 Reference Ranges: Follicular phase 19.5 - 144.2 pg/mL Midcycle 63.9 - 356.7 pg/mL Luteal phase 55.8 - 214.2 pg/mL Post menopausal 0 - 33.2 pg/mL Performed By: #### 0 [address]673 #### [address] [address] #### E2, LH, TESTO, FSH #### [place] [id number] FSHon 06-12-2025 FSH 4.3 mIU/mL Normal [facility] Comment on above: Result Comment: Adul t Female FSH Reference Ranges (09/15/99): Follicular phase 2.5 - 10.2 mIU/mL Midcycle phase 3.4 - 33.4 mIU/mL Luteal phase 1.5 - 9.1 mIU/mL Post menopausal 23.0 -116.3 mIU/mL Adult Male: 1.4 - 18.1 mIU/mL Performed By: #### 0 [address] #### [facility] [address] [place], [place] [address] #### E2, LH, TESTO, FSH #### [facility] [address] [place] [address] LABORATORYOrdered By: SYSTEM SYSTEM on 06-12-2025 E2 [Mass/Vol] 535.09 pg/mL Invalid Interpretation Code [facility] Comment on above: Interpretive Data: Adult Female E2 Reference Ranges: Follicular phase 19.5 - 144.2 pg/mL Midcycle 63.9 - 356.7 pg/mL Luteal phase 55.8 - 214.2 pg/mL Post menopausal 0 - 33.2 pg/mL Follitropin Qn 4.3 m[IU]/mL Invalid Interpretation Code [facility] Comment on above: Interpretive Data: A dult Female FSH Reference Ranges (09/15/99): Follicular phase 2.5 - 10.2 mIU/mL Midcycle phase 3.4 - 33.4 mIU/mL Luteal phase 1.5 - 9.1 mIU/mL Post menopausal 23.0 -116.3 mIU/mL Adult Male: 1.4 - 18.1 mIU/mL Lutropin Qn 19.9 m[IU]/mL Invalid Interpretation Code [facility] Comment on above: Interpretive Data: * *Note - New Reference Range in effect 20 Adult Female LH Reference Ranges: Follicular phase 1.9 - 12.5 mIU/mL Midcycle phase 8.7 - 76.3 mIU/mL Luteal phase 0.5 - 16.9 mIU/mL Post menopausal 5.0 - 55.2 mIU/mL Testosterone [Mass/Vol] 27.20 ng/dL Normal 15.06 - 42.41 ng/dL [facility] Comment on above: Interpretive Data: N ormal Reference Ranges for Females: Female Premenopause Org83-995.01-47.94 ng/dL Female Postmenopause Rai77-38<7.00-45.62 ng/dL LHon 06-12-2025 LH 19.9 mIU/mL Normal [facility] Comment on above: Result Comment: No te - New Reference Range in effect 20 Adult Female LH Reference Ranges: Follicular phase 1.9 - 12.5 mIU/mL Midcycle phase 8.7 - 76.3 mIU/mL Luteal phase 0.5 - 16.9 mIU/mL Post menopausal 5.0 - 55.2 mIU/mL Performed By: #### 0 [address]60 #### [address] [address] #### E2, LH, TESTO, FSH #### [place] [address] TESTOon 06-12-2025 Testosterone Lvl 27.20 ng/dL Normal 15.06-42.41 [facility] Comment on above: Result Comment: Norm al Reference Ranges for Females: Female Premenopause Age 21-60 9.01-47.94 ng/dL Female Postmenopause Age 45-89 <7.00-45.62 ng/dL Performed By: #### 0 [address] #### [place] [address] #### E2, LH, TESTO, FSH #### [place] [address] CBC W Auto Differential pane l (Bld)on 06-10-2025 Basophils (Bld) [#/Vol] 0.05 10*3/uL Normal <0.11 [facility] Comment on above: Order Comment: Speci men Type: BLOOD SPECIMENOrdering Facility: [facility] Address: [address] [place] [address] Performed By: #### 5 7021-8 ####[facility] LABCLIA [id number] [address] [place] Basophils/100 WBC (Bld) 0.6 % Normal [facility] Comment on above: Order Comment: Speci men Type: BLOOD SPECIMENOrdering Facility: [facility] Address: [address] [place] [address] Performed By: #### 5 7021-8 ####[facility]CLIA [id number] [address], [place] [address] [place] Differential cell count method Nom (Bld) Auto Normal [facility] Comment on above: Order Comment: Speci men Type: BLOOD SPECIMENOrdering Facility: [facility] Address: [address] [place] [address] Performed By: #### 5 7021-8 ####[facility]CLIA [id number] [address], [place] [address] [place] Eosinophils (Bld) [#/Vol] 0.26 10*3/uL Normal <0.46 [facility] Comment on above: Order Comment: Speci men Type: BLOOD SPECIMENOrdering Facility: [facility] Address: [address] [place] [address] Performed By: #### 5 7021-8 ####[facility]CLIA [id number] [place] [address] [place] Eosinophils/100 WBC (Bld) 3.2 % Normal [facility] Comment on above: Order Comment: Speci men Type: BLOOD SPECIMENOrdering Facility: [facility] Address: [address] [place] [address] Performed By: #### 5 7021-8 ####[facility] [id number] [address], [place] [address] [place] Erythrocyte distribution width (RBC) [Ratio] 13.7 % Normal 11.5-15.0 [facility] Comment on above: Order Comment: Speci men Type: BLOOD SPECIMENOrdering Facility: [facility] Address: [address] [place] [address] Performed By: #### 5 7021-8 ####[facility]IA [id number] [address], [facility] [place] Hematocrit (Bld) [Volume fraction] 33.8 % Low 36.0-46.0 [facility] Comment on above: Order Comment: Speci men Type: BLOOD SPECIMENOrdering Facility: [facility] Address: [address] [place] [address] Performed By: #### 5 7021-8 ####[facility]CLIA [id number] [place] [address] [place] Hemoglobin (Bld) [Mass/Vol] 11.4 g/dL Low 11.5-15.5 [facility] Comment on above: Order Comment: Speci men Type: BLOOD SPECIMENOrdering Facility: [facility] Address: [address] [place] [address] Performed By: #### 5 7021-8 ####[facility] LABCLIA [id number] [place] [address] [place] Immature granulocytes (Bld) [#/Vol] 10*3/uL Normal <0.10 [facility] Comment on above: Order Comment: Speci men Type: BLOOD SPECIMENOrdering Facility: [facility] Address: [address] [place] [address] Performed By: #### 5 7021-8 ####[facility] LABCLIA [id number] [place] [address] [place] Immature granulocytes/100 WBC (Bld) 0.2 % Normal [facility] Comment on above: Order Comment: Speci men Type: BLOOD SPECIMENOrdering Facility: [facility] Address: [address] [place] [address] Performed By: #### 5 7021-8 ####[facility]CLIA [id number] [place] [id number] [place] Lymphocytes (Bld) [#/Vol] 1.96 10*3/uL Normal 1.00-4.00 [facility] Comment on above: Order Comment: Speci men Type: BLOOD SPECIMENOrdering Facility: [facility] Address: [address] [place] [address] Performed By: #### 5 7021-8 ####[facility] LABCLIA [id number] [place] [address] [place] Lymphocytes/100 WBC (Bld) 24.1 % Normal [facility] Comment on above: Order Comment: Speci men Type: BLOOD SPECIMENOrdering Facility: [facility] Address: [address] [place] [address] Performed By: #### 5 7021-8 ####[facility] LABIA [id number] [place] [address] [place] MCH (RBC) [Entitic mass] 28.3 pg Normal 26.0-34.0 [facility] Comment on above: Order Comment: Speci men Type: BLOOD SPECIMENOrdering Facility: [facility] Address: [address] [place] [address] Performed By: #### 5 7021-8 ####[facility] [id number] [place] [address] [place] MCHC (RBC) [Mass/Vol] 33.7 g/dL Normal 30.5-36.0 [facility] Comment on above: Order Comment: Speci men Type: BLOOD SPECIMENOrdering Facility: [facility] Address: [address] [place] [address] Performed By: #### 5 7021-8 ####[facility] [id number] [place] [address] [place] MCV (RBC) [Entitic vol] 83.9 fL Normal 80.0-100.0 [facility] Comment on above: Order Comment: Speci men Type: BLOOD SPECIMENOrdering Facility: [facility] Address: [address] [place] [address] Performed By: #### 5 7021-8 ####[facility] LABIA [id number] [place] [address] [place] Monocytes (Bld) [#/Vol] 0.58 10*3/uL Normal <0.87 [facility] Comment on above: Order Comment: Speci men Type: BLOOD SPECIMENOrdering Facility: [facility] Address: [address] [place] [address] Performed By: #### 5 7021-8 ####[facility]CLIA [id number] [address] [address] [place] Monocytes/100 WBC (Bld) 7.1 % Normal [facility] Comment on above: Order Comment: Speci men Type: BLOOD SPECIMENOrdering Facility: [facility] Address: [address] [place] [address] Performed By: #### 5 7021-8 ####[facility]CLIA [id number] [address], [facility] [place] Neutrophils (Bld) [#/Vol] 5.26 10*3/uL Normal 1.45-7.50 [facility] Comment on above: Order Comment: Speci men Type: BLOOD SPECIMENOrdering Facility: [facility] Address: [address] [place] [address] Performed By: #### 5 7021-8 ####[facility]CLIA [id number] [place] [id number] [place] Neutrophils/100 WBC (Bld) 64.8 % Normal [facility] Comment on above: Order Comment: Speci men Type: BLOOD SPECIMENOrdering Facility: [facility] Address: [address] [place] [address] Performed By: #### 5 7021-8 ####[facility]CLIA [id number] [address] [address] [place] Nucleated RBC (Bld) [#/Vol] 10*3/uL Normal <0.01 [facility] Comment on above: Order Comment: Speci men Type: BLOOD SPECIMENOrdering Facility: [facility] Address: [address] [place], [place] [address] Performed By: #### 5 7021-8 ####[facility] LABCLIA [id number] [place] [address] [place] Nucleated RBC/100 WBC (Bld) [Ratio] 0.0 /100 WBC Normal [facility] Comment on above: Order Comment: Speci men Type: BLOOD SPECIMENOrdering Facility: [facility] Address: [address] [place] [address] Performed By: #### 5 7021-8 ####[facility] LABCLIA [id number] [place] [address] [place] Platelet mean volume (Bld) [Entitic vol] 10.6 fL Normal 9.0-12.7 [facility] Comment on above: Order Comment: Speci men Type: BLOOD SPECIMENOrdering Facility: [facility] Address: [address] [place] [address] Performed By: #### 5 7021-8 ####[facility]IA [id number] [place] [address] [place] Platelets (Bld) [#/Vol] 268 10*3/uL Normal 150-400 [facility] Comment on above: Order Comment: Speci men Type: BLOOD SPECIMENOrdering Facility: [facility] Address: [address] [place] [address] Performed By: #### 5 7021-8 ####[facility] LABIA [id number] [place] [address] [place] RBC (Bld) [#/Vol] 4.03 10*6/uL Normal 3.90-5.20 [facility] Comment on above: Order Comment: Speci men Type: BLOOD SPECIMENOrdering Facility: [facility] Address: [address] [place] [address] Performed By: #### 5 7021-8 ####[facility] LABCLIA [id number] [place] [address] [place] WBC (Bld) [#/Vol] 8.13 10*3/uL Normal 3.70-11.00 [facility] Comment on above: Order Comment: Speci men Type: BLOOD SPECIMENOrdering Facility: [facility] Address: [address] [place] [address] Performed By: #### 5 7021-8 ####[facility] LABCLIA [id number] [place]A RICO [address] [facility] CNOVon 06-10-2025 CNOV Office Visit (INTMWS) ARELYJOSAFAT Jg ([id number]) 3 F Date Time Provider Department 06/10/25 3:20 PM LAUREN FOSTER INTMWS During your visit today, we recorded the following information about you: Pulse Respiration Blood pressure Weight 76/minute 16/minute 100/68 82.1 kg Height 1.665 m Lauren Foster APRN.JOURNALISM INSTRUCTOR 06/10/2025 4:42 PM Signed Subjective Patient ID: Nicole is a 19 year old female who presents for Establish Care. HPI Nicole Mcgee is a 19-year-old female with a history of POTS, anxiety, depression, and anemia, presenting for an initial visit and evaluation of menometrorrhagia and epistaxis. Menometrorrhagia: - Three menstrual periods within the last three weeks. - First period ended on 05/15; currently on the third period. - Each period lasts 3-5 days with heavy bleeding. - Reports one episode of bleeding through a super tampon within an hour. - Denies previous intermenstrual spotting. - Not currently seeing a package line operator; previous visit was 1-2 years ago. - Denies sexual activity; hesitant about using oral contraceptives due to potential side effects and concerns about exacerbating POTS. - Experiencing acne breakouts. Epistaxis: - Epistaxis 2-3 times daily for the past week. - Bleeding occurs from both nostrils, lasting from 30 seconds to a few minutes. - Denies use of supplemental oxygen or nasal devices. Anemia: - Taking iron supplements every other day, but reports inconsistent adherence. - Denies constipation or other side effects from iron supplementation. POTS: - Managed with midodrine, reports it is helpful. - Stays active and increases dietary sodium intake. Anxiety and Depression: - Managed with fluoxetine (Prozac), reports improvement. - Previously saw a psychiatrist via online visits; plans to resume once school schedule is settled. Reactive Hypoglycemia: - Suspected diagnosis; seen by rheumatology but found visits too expensive. - Eating and drinking normally. - Family history of diabetes. 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 - Expected graduation in 2027. Objective BP 100/68 Pulse 76 Resp 16 Ht 166.5 cm (5' 5.55) Wt 82.1 kg (181 lb) LMP 04/17/2024 (Approximate) BMI 29.62 kg/m? Physical Exam Vitals and nursing note reviewed. Constitutional: Appearance: Normal appearance. HENT: Head: Normocephalic and atraumatic. Eyes: Conjunctiva/sclera: Conjunctivae normal. Neck: Thyroid: No thyroid mass or thyromegaly. Vascular: Normal carotid pulses. No carotid bruit or JVD. Cardiovascular: Rate and Rhythm: Normal rate and regular rhythm. Pulses: Carotid pulses are 2+ on the right side and 2+ on the left side. Radial pulses are 2+ on the right side and 2+ on the left side. Heart sounds: Normal heart sounds. Pulmonary: Effort: Pulmonary effort is normal. Breath sounds: Normal breath sounds. Abdominal: General: Bowel sounds are normal. Palpations: Abdomen is soft. Musculoskeletal: Right lower leg: No edema. Left lower leg: No edema. Skin: General: Skin is warm and dry. Neurological: General: No focal deficit present. Mental Status: She is alert and oriented to person, place, and time. Latest Ref Rng 06/12/2024 06/14/2024 10/22/2024 WBC 3.70 - 11.00 k/uL 8.78 8.82 RBC 3.90 - 5.20 m/uL 4.40 4.73 Hemoglobin 11.5 - 15.5 g/dL 11.5 12.3 Hematocrit 36.0 - 46.0 % 35.9 (L) 38.0 MCV 80.0 - 100.0 fL 81.6 80.3 MCH 26.0 - 34.0 pg 26.1 26.0 MCHC 30.5 - 36.0 g/dL 32.0 32.4 RDW-CV 11.5 - 15.0 % 14.0 14.8 Platelet Count 150 - 400 k/uL 285 285 MPV 9.0 - 12.7 fL 10.2 10.2 Neut% % 66.5 64.0 Abs Neut (ANC) 1.45 - 7.50 k/uL 5.84 5.64 Lymph% % 22.9 24.1 Abs Lymph 1.00 - 4.00 k/uL 2.01 2.13 Freestone% % 6.7 7.7 Abs Freestone <0.87 k/uL 0.59 0.68 Eosin% % 3.2 3.5 Abs Eosin <0.46 k/uL 0.28 0.31 Baso% % 0.5 0.5 Abs Baso <0.11 k/uL 0.04 0.04 Immature Gran % % 0.2 0.2 IMMATURE GRANS (ABS) <0.10 k/uL <0.03 <0.03 NRBC /100 WBC 0.0 0.0 Absolute nRBC <0.01 k/uL <0.01 <0.01 DTYPE Auto Auto Protein, Total 6.3 - 8.0 g/dL 7.6 7.6 Albumin 3.9 - 4.9 g/dL 4.3 4.5 Calcium 8.5 - 10.2 mg/dL 9.7 9.5 Bilirubin, Total 0.2 - 1.3 mg/dL <0.2 (L) 0.2 Alkaline Phosphatase 34 - 123 U/L 70 64 AST 13 - 35 U/L 27 25 ALT 7 - 38 U/L 22 14 Glucose 74 - 99 mg/dL 80 72 (L) BUN 7 - 21 mg/dL 11 15 Creatinine 0.58 - 0.96 mg/dL 0.67 0.73 Sodium 136 - 144 mmol/L 137 137 Potassium 3.7 - 5.1 mmol/L 4.2 4.3 Chloride 98 - 107 mmol/L 102 103 CO2 22 - 30 mmol/L 25 22 Anion Gap 8 - 15 mmol/L 10 12 eGFR >=60 mL/min/1.73m? 129 121 TB Nil <=8.00 IU/mL <0.00 TB1 Ag minus Nil <0.35 IU/mL 0.00 TB2 Ag minus Nil <0.35 IU/mL 0.00 TB Result Negative Mitogen minus Nil >=0.50 IU/mL >10.00 TB Interpretation Infection with M. tuberculosis complex is unlikely. If latent tuberculosis infec (more content not included)... Normal [facility] Comprehensive metabolic 2000 panelon 06-10-2025 Albumin [Mass/Vol] 4.2 g/dL Normal 3.9-4.9 [facility] Comment on above: Order Comment: Speci men Type: BLOOD SPECIMENOrdering Facility: [facility] Address: [address] [place] [address] Performed By: #### 2 4323-8, 78950-4, 3034-6, 3016-3 ####[facility] LABIA [id number] [place] [address] [place] ALP [Catalytic activity/Vol] 59 U/L Normal 34-123 [facility] Comment on above: Order Comment: Speci men Type: BLOOD SPECIMENOrdering Facility: [facility] Address: [address] [place] [address] Performed By: #### 2 4323-8, 95586-5, 3034-6, 3016-3 ####[facility] LABIA [id number] [place] [address] [place] ALT [Catalytic activity/Vol] 16 U/L Normal 7-38 [facility] Comment on above: Order Comment: Speci men Type: BLOOD SPECIMENOrdering Facility: [facility] Address: [address] [place] [address] Performed By: #### 2 4323-8, 42936-1, 3034-6, 3016-3 ####[facility] LABIA [id number] [place] [id number] [place] Anion gap [Moles/Vol] 11 mmol/L Normal 8-15 [facility] Comment on above: Order Comment: Speci men Type: BLOOD SPECIMENOrdering Facility: [facility] Address: [address] [place] [address] Performed By: #### 2 4323-8, 17829-9, 3034-6, 3016-3 ####[facility] LABCLIA [id number] [place] [id number] [place] AST [Catalytic activity/Vol] 22 U/L Normal 13-35 [facility] Comment on above: Order Comment: Speci men Type: BLOOD SPECIMENOrdering Facility: [facility] Address: [address] [place] [address] Performed By: #### 2 4323-8, 47098-6, 3034-6, 3016-3 ####[facility] LABIA [id number] [place] [address] [place] Bilirubin [Mass/Vol] 0.3 mg/dL Normal 0.2-1.3 [facility] Comment on above: Order Comment: Speci men Type: BLOOD SPECIMENOrdering Facility: [facility] Address: [address] [place] [address] Performed By: #### 2 4323-8, 18066-1, 3034-6, 3016-3 ####[facility] LABCLIA [id number] [place] [id number] [place] Calcium [Mass/Vol] 9.6 mg/dL Normal 8.5-10.2 [facility] Comment on above: Order Comment: Speci men Type: BLOOD SPECIMENOrdering Facility: [facility] Address: [address] [place] [address] Performed By: #### 2 4323-8, 91681-4, 3034-6, 3016-3 ####[facility] LABCLIA [id number] [place] [id number] [place] Chloride [Moles/Vol] 102 mmol/L Normal 98-107 [facility] Comment on above: Order Comment: Speci men Type: BLOOD SPECIMENOrdering Facility: [facility] Address: [address] [place] [address] Performed By: #### 2 4323-8, 77617-1, 3034-6, 3016-3 ####[facility] LABCLIA [id number] [place] [address] [place] CO2 [Moles/Vol] 25 mmol/L Normal 22-30 [facility] Comment on above: Order Comment: Speci men Type: BLOOD SPECIMENOrdering Facility: [facility] Address: [address] [place] [address] Performed By: #### 2 4323-8, 31123-5, 3034-6, 3016-3 ####[facility] LABIA [id number] [place] [address] [place] Creatinine [Mass/Vol] 0.68 mg/dL Normal 0.58-0.96 [facility] Comment on above: Order Comment: Speci men Type: BLOOD SPECIMENOrdering Facility: [facility] Address: [address] [place] [address] Performed By: #### 2 4323-8, 19470-1, 3034-6, 3016-3 ####[facility] LABIA [id number] [place] [address] [place] eGFRcr SerPlBld CKD-EPI 2020 128 mL/min/1.73m??? Normal >=60 [facility] Comment on above: Order Comment: Speci men Type: BLOOD SPECIMENOrdering Facility: [facility] Address: [address] [place] [address] Result Comment: Pearl mated Glomerular Filtration Rate (eGFR) is calculated using the 2020 CKD-EPI creatinine equation. This equation utilizes serum creatinine, sex, and age as parameters. The creatinine assay has traceable calibration to isotope dilution-mass spectrometry. Refer to KDIGO guidelines for clinical interpretation. In patients with unstable renal function, e.g. those with acute kidney injury, the eGFR may not accurately reflect actual GFR. Performed By: #### 2 4323-8, 80785-5, 3033-6, 6-3 ####[facility] LABCLIA [id number] [facility]K [id number] [place] [address] [place] Glucose [Mass/Vol] 77 mg/dL Normal 74-99 [facility] Comment on above: Order Comment: Wilian gomez Type: BLOOD SPECIMENOrdering Facility: [facility] Address: [address] [place] [address] Result Comment: The [place] Diabetes Association (ADA) provides guidance for cutoff values for fasting glucose and random glucose. The ADA defines fasting as no caloric intake for at least 8 hours. Fasting plasma glucose results between 100 to 125 mg/dL indicate increased risk for diabetes (prediabetes). Fasting plasma glucose results greater than or equal to 126 mg/dL meet the criteria for diagnosis of diabetes. In the absence of unequivocal hyperglycemia, results should be confirmed by repeat testing. In a patient with classic symptoms of hyperglycemia or hyperglycemic crisis, random plasma glucose results greater than or equal to 200 mg/dL meet the criteria for diagnosis of diabetes. Reference: Standards of Medical Care in Diabetes 2016, [place] Diabetes Association. Diabetes Care. 2016.39(Suppl 1). Performed By: #### 2 4323-8, 01279-9, 3033-6, 6-3 ####[facility] LABCLIA [id number] [facility]UES[facility]ALK [address] [address] [place] Potassium [Moles/Vol] 4.2 mmol/L Normal 3.7-5.1 [facility] Comment on above: Order Comment: Wilian gomez Type: BLOOD SPECIMENOrdering Facility: [facility] Address: [address] [place] [address] Performed By: #### 2 4323-8, 05844-2, 3033-6, 6-3 ####[facility] LABCLIA [id number] [facility] EASTK [id number] [place] [address] [place] Protein [Mass/Vol] 7.2 g/dL Normal 6.3-8.0 [facility] Comment on above: Order Comment: Speci men Type: BLOOD SPECIMENOrdering Facility: [facility] Address: [address] [place] [address] Performed By: #### 2 4323-8, 26483-5, 3034-6, 3016-3 ####[facility] LABCLIA [id number] [place] [address] [place] Sodium [Moles/Vol] 138 mmol/L Normal 136-144 [facility] Comment on above: Order Comment: Speci men Type: BLOOD SPECIMENOrdering Facility: [facility] Address: [address] [place] [address] Performed By: #### 2 4323-8, 14886-2, 3034-6, 3016-3 ####[facility] LABIA [id number] [place] [address] [place] Urea nitrogen [Mass/Vol] 8 mg/dL Normal 7-21 [facility] Comment on above: Order Comment: Speci men Type: BLOOD SPECIMENOrdering Facility: [facility] Address: [address] [place] [address] Performed By: #### 2 4323-8, 71529-8, 3034-6, 3016-3 ####[facility] LABIA [id number] [place] [id number] [place] Ferritin SerPl-mCncon 2024 Ferritin [Mass/Vol] 16.7 ng/mL Normal 14.7-205.1 [facility] Comment on above: Order Comment: Speci men Type: BLOOD SPECIMENOrdering Facility: [facility] Address: [address] [place] [address] Performed By: #### 2 276-4 ####[facility] LABCLIA [id number] [place] [id number] [place] HCV Ab Ser Qlon 06-10-2025 HCV Ab Ql (S) Negative Normal Negative [facility] Comment on above: Order Comment: Speci men Type: BLOOD SPECIMENOrdering Facility: [facility] Address: [address] [place] [address] Result Comment: The result suggests no evidence of infection with Hepatitis C virus. Should recent infection be suspected, repeat testing may be considered 4-6 weeks after this draw. Performed By: #### 1 6128-1 ####[facility] LABIA [id number] [place] [address] [place] Iron and Iron binding capaci ty panelon 06-10-2025 Iron [Mass/Vol] 90 ug/dL Normal 41-186 [facility] Comment on above: Order Comment: Speci men Type: BLOOD SPECIMENOrdering Facility: [facility] Address: [address] [place] [address] Performed By: #### 2 4323-8, 64494-9, 3034-6, 3016-3 ####[facility] LABIA [id number] [place] [address] [place] Iron binding capacity [Mass/Vol] 411 ug/dL High 232-386 [facility] Comment on above: Order Comment: Speci men Type: BLOOD SPECIMENOrdering Facility: [facility] Address: [address] [place] [address] Performed By: #### 2 4323-8, 22605-1, 3034-6, 3016-3 ####[facility] LABIA [id number] [place] [id number] [place] Iron/TIBC [Molar ratio] 21.9 % Normal 15.0-57.0 [facility] Comment on above: Order Comment: Speci men Type: BLOOD SPECIMENOrdering Facility: [facility] Address: [address] [place] [address] Performed By: #### 2 4323-8, 40173-3, 3034-6, 3016-3 ####[facility] LABCLIA [id number] [address] [address] [place] TSH SerPl-aCncon 06-10-2025 TSH Qn 1.710 m[IU]/L Normal 0.510-4.300 [facility] Comment on above: Order Comment: Wilian gomez Type: BLOOD SPECIMENOrdering Facility: [facility] Address: [address] [place] [address] Result Comment: If t he patient is , TSH reference range varies by gestational period: First Trimester (weeks 9-12): 0.180-2.990 mIU/L Second Trimester: 0.110-3.980 mIU/L Third Trimester: 0.480-4.710 mIU/L Ming García et al. A Practical Approach for the Verifications and Determination of Site- and Trimester-Specific Reference Intervals for Thyroid Function tests in . Thyroid, 2019:29:3:412-420. Armand Arredondo, et al. 2017 Guidelines of the [place] Thyroid Association for the Diagnosis and Management of Thyroid Disease during and the . Thyroid, 2017:27:3:315-389. Performed By: #### 2 4323-8, 09769-4, 3034-6, 3016-3 ####[facility] LABIA [id number] [address] [address] [place] Transferrin SerPl-mCncon Transferrin [Mass/Vol] 350 mg/dL Normal 200-360 [facility] Comment on above: Order Comment: Wilian gomez Type: BLOOD SPECIMENOrdering Facility: [facility] Address: [address] [place], [place] [address] Performed By: #### 2 4323-8, 73325-5, 3034-6, 3016-3 ####[facility] [id number] [address] [address] [place] Urgent Care Visit Reporton 0 04-30-2025 Urgent Care Visit Report [facility] [address] , [address] [place], [place] [address] OFFICE VISIT Date of Service: 04/30/25 MR#: [id number] Acct: [id number] Name: JOSAFAT MCGEE Rep #: [id number] : 2005 Provider: MARY Fowler Age/Sex: 19/F Location: [facility] Status: Signed Intake Vital Signs 10/26/24 09:53 Height 5 ft 7 in Intake Visit Reasons: PE/NON DOT PHYSICAL/[place] Chief Complaint: [place] Physical Allergies No Known Allergies Allergy (Verified 10/26/24 10:27) Nurse's Note: [place] Physical [facility] Medical History (Updated 04/30/25 @ 15:43 by MARY Benz) Physical exam, pre-employment Sprain of right hand Vertigo POTS (postural orthostatic tachycardia syndrome) Acute frontal sinusitis, unspecified Contact with and (suspected) exposure to other viral communicable diseases URI (upper respiratory infection) Right wrist sprain Sprain of right index finger Sprain of right thumb Encounter for screening for COVID-19 Hx of ovarian cyst Seasonal allergies Asthma 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 Family History Unknown Diabetes Hypertension CAD (coronary artery disease) Cancer Heart disease CVA (cerebral vascular accident) Non Hodgkin's lymphoma Alzheimer's dementia Social History current occupation: [employer] Smoking Status: Never smoker alcohol intake: never substance use type: does not use what type of physical activity do you participate in: aerobics and weight training seatbelt use: always HPI HPI Chief Complaint: [place] Physical Details: JOSAFAT MCGEE, is a 19 F who presents to the office today for Office Procedures Physical Exam Coding PE Coding Pre-employment PE: Yes Coding Level of Care Code Attention Class C Driver Diagnoses Physical exam, pre-employment Z02.1 Assessment and Plan Assessment and Plan (1) Physical exam, pre-employment: Status: Acute 04/30/25 1544 Date Heriberto M Wyles PA PA Cosigner Signature: Date (if applicable) CC: Normal [facility] CNOVon 12-27-2024 CNOV Office Visit (UCWSTR) JOSAFAT MCGEE ([id number]) 3 F Date Time Provider Department 12/27/24 9:00 AM JEMMA PALUMBO [facility] During your visit today, we recorded the following information about you: Temperature Pulse Respiration Blood pressure 98.1 degrees 59/minute 18/minute 109/76 Weight 78.9 kg Jemma Palumbo APRN.SENIOR BENEFITS ANALYST 12/27/2024 10:42 AM Signed This note was created using Eurofficeriter. Subjective Josafat Mcgee is a 19 year old female. 19 year old female with PMH GRAHAM presents for nasal injury Acute onset 12/25/24 She was stunting while cheerleding Endorses that the formation fell, Ultimately another persons head struck hers +injury to nose +laceration +swelling Denies LOC Denies headache Denies neck pain Denies abdominal pain Denies N/V/D Denies seeking medical treatment at that time Just want to see if it is broke or not The history is provided by the patient. No foreign language instructor was used. Head Injury The incident occurred 2 days ago. The injury mechanism was a direct blow. There was no loss of consciousness. The volume of blood lost was minimal. The quality of the pain is described as sharp. The pain is at a severity of 5/10. The pain is moderate. The pain has been constant since the injury. Pertinent negatives include no numbness, no blurred vision, no vomiting, no tinnitus, no disorientation, no weakness and no memory loss. Treatment prior to arrival: n/a. She has tried nothing for the symptoms. The treatment provided no relief. PAST MEDICAL HISTORY Diagnosis Date Asthma Family history of seizure disorder Ovarian cyst POTS (postural orthostatic tachycardia syndrome) Seasonal allergies Vasovagal syncope PAST SURGICAL HISTORY Procedure Laterality Date FINGER SURGERY HX ALLERGIES Seasonal Allergies MEDICATIONS fludrocortisone (FLORINEF) 0.1 mg tablet Take 1 tablet by mouth once daily. FLUoxetine (PROZAC) 40 mg capsule Take 1 capsule by mouth once daily. traZODone (DESYREL) 50 mg tablet Take 1 tablet by mouth daily at bedtime. sodium fluoride 1.1 % dental cream DISPENSE A SMALL AMOUNT INTO TOOTH SLOT TRAY AND WEAR FOR [address] (PROTONIX) 40 mg tablet Take 40 mg by mouth once daily. albuterol HFA (PROVENTIL HFA, VENTOLIN HFA) 90 mcg/actuation inhaler Inhale 2 Puffs as instructed every 6 hours as needed for wheezing/shortness of breath. FAMILY HISTORY Problem Relation Age of Onset other (Venous insufficiency) Mother No Known Problems Father Arthritis Maternal Grandmother Coronary Artery Disease Maternal Grandfather COPD Maternal Grandfather Diabetes Maternal Grandfather Hypertension Maternal Grandfather Hypoglycemia Paternal Grandmother other (non-Hodgkins lymphoma) Paternal Grandmother Coronary Artery Disease Paternal Grandfather Social History Tobacco Use Smoking status: Never Smokeless tobacco: Never Vaping Use Vaping status: Never Used Substance Use Topics Alcohol use: Not Currently Drug use: Never Review of Systems Constitutional: Negative for activity change, diaphoresis, fatigue and fever. HENT: Negative for tinnitus. +nasal injury Eyes: Negative for blurred vision. Respiratory: Negative for apnea, cough, choking, chest tightness and shortness of breath. Cardiovascular: Negative for chest pain, palpitations and leg swelling. Gastrointestinal: Negative for abdominal pain, diarrhea, nausea and vomiting. Musculoskeletal: Negative for arthralgias, back pain and gait problem. Skin: Negative for color change, pallor, rash and wound. Allergic/Immunologic : Negative for environmental allergies, food allergies and immunocompromised state. Neurological: Negative for dizziness, facial asymmetry, weakness, numbness and headaches. Hematological: Negative for adenopathy. Does not bruise/bleed easily. Psychiatric/Behavior al: Negative for agitation, behavioral problems and memory loss. Objective BP 109/76 Pulse (!) 59 Temp 36.7 ?C (98.1 ?F) Resp 18 Wt 78.9 kg (173 lb 15.1 oz) LMP 04/17/2024 (Approximate) SpO2 100% BMI 28.08 kg/m? Physical Exam Vitals and nursing note reviewed. Constitutional: General: She is not in acute distress. Appearance: Normal appearance. She is normal weight. She is not ill-appearing, toxic-appearing or diaphoretic. HENT: Head: Normocephalic and atraumatic. Comments: NO periorbital ecchymoses Right Ear: Ear canal and external ear normal. Left Ear: Ear canal and external ear normal. Nose: Nose normal. No congestion or rhinorrhea. Mouth/Throat: Mouth: Mucous membranes are moist. Pharynx: No oropharyngeal exudate or posterior oropharyngeal erythema. Eyes: General: Right eye: No discharge. Left eye: No discharge. Extraocular Movements: Extraocular movements intact. Conjunctiva/sclera: Conjunctivae normal. Pupils: Pupils are equal (more content not included)... 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 TECHNIQUE: XR NASAL BONES 3V PA/LAT X2 COMPARISON: None FINDINGS: Nasal bone is intact. No fracture. Paranasal sinuses, mastoid air cells and nasal cavities are clear. No foreign body. IMPRESSION: No acute abnormality Hand Laster: BJ Transcribe Date/Time: Dec 27 2024 9:10A Dictated by : ZACK RIOS MD This examination was interpreted and the report reviewed and electronically signed by: ZACK RIOS MD on Dec 27 2024 9:10AM EST [id number] Normal [facility] XR Nasal bones 3 [facility] Radiology Study observation (narrative) [facility] IMPRESSION: No acute abnormality Hand Laster: PSCB Transcribe Date/Time: Dec 27 2024 9:10A Dictated by : ZACK RIOS MD This examination was interpreted and the report reviewed and electronically signed by: ZACK RIOS MD on Dec 27 2024 9:10AM [facility] DIVISION OF RADIOLOGY * * *Final Report* * * DATE OF EXAM: Dec 27 2024 9:08AM WOX [id number] - XR NASAL BONES 3V PA/LAT X2 / PROCEDURE REASON: Nasal injury, initial encounter * * * * Physician Interpretation * * * * PROCEDURE: Nasal lungs INDICATION: Nasal injury, initial encounter .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 TECHNIQUE: XR NASAL BONES 3V PA/LAT X2 COMPARISON: None FINDINGS: Nasal bone is intact. No fracture. Paranasal sinuses, mastoid air cells and nasal cavities are clear. No foreign body. 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 TECHNIQUE: XR NASAL BONES 3V PA/LAT X2 COMPARISON: None FINDINGS: Nasal bone is intact. No fracture. Paranasal sinuses, mastoid air cells and nasal cavities are clear. No foreign body. IMPRESSION IMPRESSION: No acute abnormality Hand Laster: PSCB Transcribe Date/Time: Dec 27 2024 9:10A Dictated by : ZACK RIOS MD This examination was interpreted and the report reviewed and electronically signed by: ZACK RIOS MD on Dec 27 2024 9:10AM EST [facility] XR Nasal bones 3 ViewsOrdere d By: [facility] Provider on 12-27-2024 [facility] Urgent Care Visit Reporton 0 10-26-2024 Urgent Care Visit Report [facility] [address], [address] [place] [address] OFFICE VISIT Date of Service: 10/26/24 MR#: [id number] Acct: [id number] Name: JOSAFAT MCGEE Rep #: [id number] : 2005 Provider: OSMAN Brooks Age/Sex: 19/F Location: [facility] Status: Signed Intake Vital Signs 10/26/24 09:53 10/26/24 10:20 Height 5 ft 7 in BP 102/68 Blood Pressure Location Rt brachial Position Sitting Respiration 12 Pulse 97 Pulse Source NIBP Temp 100.0 F H Temp Source Oral Pulse Oximetry (%) 97 Oxygen Delivery Method room air Intake Visit Reasons: SORE THROAT/COUGH Chief Complaint: sore throat/cough Skin Washer Required: No Is patient in pain?: No Allergies No Known Allergies Allergy (Verified 10/26/24 10:27) Medications ???Medication ???Instructions ???Recorded ???Confirmed ???Type ibuprofen 200 mg capsule 200 mg PO TID PRN Pain 05/02/18 02/03/23 History albuterol sulfate 90 mcg/actuation 2 inh inhalation Q6H PRN sob 11/26/20 02/03/23 History breath activated powder inhaler cetirizine 10 mg capsule (Zyrtec) 10 mg PO DAILY PRN allergies 11/26/20 02/03/23 History dextromethorphan HBr 5 mg/5 mL 10 mg PO Q6H PRN 09/20/22 02/03/23 History oral syrup (Vicks DayQuil Cough) fluoxetine 40 mg capsule 40 mg PO QDAY 03/13/24 03/13/24 History midodrine 2.5 mg tablet 2.5 mg PO TID 03/13/24 03/13/24 History Is last menstrual period known: No Post menopausal: No Patient : No Have you fallen in the past year?: No PFSH Medical History (Updated 10/26/24 @ 10:37 by OSMAN Dacosta) Sprain of right hand Vertigo POTS (postural orthostatic tachycardia syndrome) Acute frontal sinusitis, unspecified Contact with and (suspected) exposure to other viral communicable diseases URI (upper respiratory infection) Right wrist sprain Sprain of right index finger Sprain of right thumb Encounter for screening for COVID-19 Hx of ovarian cyst Seasonal allergies Asthma 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 Family History Unknown Diabetes Hypertension CAD (coronary artery disease) Cancer Heart disease CVA (cerebral vascular accident) Non Hodgkin's lymphoma Alzheimer's dementia Social History current occupation: [employer] Smoking Status: Never smoker alcohol intake: never substance use type: does not use what type of physical activity do you participate in: aerobics and weight training seatbelt use: always HPI HPI Chief Complaint: sore throat/cough Details: JOSAFAT MCGEE, is a 19 F who presents to the office today for sore throat and cough, patient states had flu on Monday, her symptoms for sore throat, cough and bilat ear pain began on Monday. Patient declined viral testing. -did not test for flu- just thought flu because she gets every year -works at [employer]- discussed risk of covid/flu/rsv- she still declined testing -sx bilateral ear pain, headache, ST of and on, congestion, runny nose, cough wet- yellow -no fever or chills- didn't know had temp right now -+ myalgias -sob on occasion hx of asthma- laying down and activity- no resp distress -last albuterol inhaler use yesterday -would like an atb ROS Const Constitutional: Positive for other (ROS negative x6 except what was placed in HPI) Exam Const General: cooperative, comfortable and no acute distress Orientation: alert, awake and oriented x3 HENMT Head: normal to inspection and normocephalic Ears: hearing grossly normal bilaterally, external ears normal and TM's normal bilaterally Nose: external nose normal and other (+ congestion and rhinorrhea- moderate ) Face and sinus: normal facial exam, sinuses nontender and face symmetric Mouth: oral mucosae normal, lip normal, tongue normal, oropharynx normal and moist mucous membranes Throat: posterior oropharynx normal, tonsils normal, uvula midline and postnasal drainage Neck Neck: normal visual inspection, full ROM and no lymphadenopathy Resp Effort Inspection: normal respiratory effort, able to speak in complete sentences and symmetric chest movement Auscultation: Bilateral: Clear to Auscultation, Left: Clear to Auscultation and Right: Clear to Auscultation Other: talking in full sentences- no resp distress Cardio Rate: regular rate Rhythm: regular rhythm Heart Sounds: S1 normal and S2 normal GI Auscultation: normal bowel sounds Palpation: soft Skin General: no rashes or lesions noted and turgor normal Neuro General: patient alert, patient awake and patient oriented x3 Cognition: normal cognition Speech: speech normal Psych (more content not included)... [facility] [facility] Telephone (PEDSWS) JOSAFAT MCGEE ([id number]) 3 F Date Time Provider Department 10/24/24 KATELIN MOREL PEDSWS During your visit today, we recorded the following information about you: Allergies As of Date: 10/24/2024 Noted Allergy Reaction SEASONAL ALLERGIES 01/12/2008 3 - Cough Date Reviewed: 10/22/2024 Reviewed by: Beau Marie APRN.[facility] - Fully Assessed Prescriptions as of 10/29/2024 - fludrocortisone (FLORINEF) 0.1 mg tablet Take 1 tablet by mouth once daily. - rizatriptan (MAXALT) 10 mg tablet Take 1 tablet (10 mg) by mouth as needed (at onset of headache. May repeat after 2 hours.). Do not exceed 30 mg per day. - FLUoxetine (PROZAC) 40 mg capsule Take 1 capsule by mouth once daily. - traZODone (DESYREL) 50 mg tablet Take 1 tablet by mouth daily at bedtime. - sodium fluoride 1.1 % dental cream DISPENSE A SMALL AMOUNT INTO TOOTH SLOT TRAY AND WEAR FOR 5 MINUTES - albuterol HFA (PROVENTIL HFA, VENTOLIN HFA) 90 mcg/actuation inhaler Inhale 2 Puffs as instructed every 6 hours as needed for wheezing/shortness of breath. - pantoprazole DR (PROTONIX) 40 mg tablet Take 40 mg by mouth once daily. Problem List As Of Date 10/24/2024 Noted Resolved Gastroesophageal reflux disease [K21.9] 05/08/2024 Encounter Status:Closed by KATELIN MOREL on 10/29/24 Normal [facility] CBC W Auto Differential pane l (Bld)on 10-22-2024 Basophils (Bld) [#/Vol] 0.04 10*3/uL Normal <0.11 [facility] Comment on above: Order Comment: Speci men Type: BLOOD SPECIMENOrdering Facility: [facility] Address: [address] [place] [address] Performed By: #### 5 7021-8 ####[facility] LABCLIA [id number] [place] [address] [place] Basophils/100 WBC (Bld) 0.5 % Normal [facility] Comment on above: Order Comment: Speci men Type: BLOOD SPECIMENOrdering Facility: [facility] Address: [address] [place] [address] Performed By: #### 5 7021-8 ####[facility] LABCLIA [id number] [place] [address] [place] Differential cell count method Nom (Bld) Auto Normal [facility] Comment on above: Order Comment: Speci men Type: BLOOD SPECIMENOrdering Facility: [facility] Address: [address] [place] [address] Performed By: #### 5 7021-8 ####[facility] LABCLIA [id number] [place] [address] [place] Eosinophils (Bld) [#/Vol] 0.31 10*3/uL Normal <0.46 [facility] Comment on above: Order Comment: Speci men Type: BLOOD SPECIMENOrdering Facility: [facility] Address: [address] [place] [address] Performed By: #### 5 7021-8 ####[facility] LABCLIA [id number] [place] [id number] [place] Eosinophils/100 WBC (Bld) 3.5 % Normal [facility] Comment on above: Order Comment: Speci men Type: BLOOD SPECIMENOrdering Facility: [facility] Address: [address] [place] [address] Performed By: #### 5 7021-8 ####[facility] LABCLIA [id number] [place] [address] [place] Erythrocyte distribution width (RBC) [Ratio] 14.8 % Normal 11.5-15.0 [facility] Comment on above: Order Comment: Speci men Type: BLOOD SPECIMENOrdering Facility: [facility] Address: [address] [place] [address] Performed By: #### 5 7021-8 ####[facility] LABCLIA [id number] [place] [address] [place] Hematocrit (Bld) [Volume fraction] 38.0 % Normal 36.0-46.0 [facility] Comment on above: Order Comment: Speci men Type: BLOOD SPECIMENOrdering Facility: [facility] Address: [address] [place] [address] Performed By: #### 5 7021-8 ####[facility] LABCLIA [id number] [place] [address] [place] Hemoglobin (Bld) [Mass/Vol] 12.3 g/dL Normal 11.5-15.5 [facility] Comment on above: Order Comment: Speci men Type: BLOOD SPECIMENOrdering Facility: [facility] Address: [address] [place] [address] Performed By: #### 5 7021-8 ####[facility] LABCLIA [id number] [place] [address] [place] Immature granulocytes (Bld) [#/Vol] 10*3/uL Normal <0.10 [facility] Comment on above: Order Comment: Speci men Type: BLOOD SPECIMENOrdering Facility: [facility] Address: [address] [place] [address] Performed By: #### 5 7021-8 ####[facility] LABCLIA [id number] [place] [address] [place] Immature granulocytes/100 WBC (Bld) 0.2 % Normal [facility] Comment on above: Order Comment: Speci men Type: BLOOD SPECIMENOrdering Facility: [facility] Address: [address] [place] [address] Performed By: #### 5 7021-8 ####[facility] LABIA [id number] [place] [address] [place] Lymphocytes (Bld) [#/Vol] 2.13 10*3/uL Normal 1.00-4.00 [facility] Comment on above: Order Comment: Speci men Type: BLOOD SPECIMENOrdering Facility: [facility] Address: [address] [place] [address] Performed By: #### 5 7021-8 ####[facility] LABIA [id number] [place] [address] [place] Lymphocytes/100 WBC (Bld) 24.1 % Normal [facility] Comment on above: Order Comment: Speci men Type: BLOOD SPECIMENOrdering Facility: [facility] Address: [address] [place] [address] Performed By: #### 5 7021-8 ####[facility] LABCLIA [id number] [place] [address] [place] MCH (RBC) [Entitic mass] 26.0 pg Normal 26.0-34.0 [facility] Comment on above: Order Comment: Speci men Type: BLOOD SPECIMENOrdering Facility: [facility] Address: [address] [place] [address] Performed By: #### 5 7021-8 ####[facility] LABCLIA [id number] [place] [address] [place] MCHC (RBC) [Mass/Vol] 32.4 g/dL Normal 30.5-36.0 [facility] Comment on above: Order Comment: Speci men Type: BLOOD SPECIMENOrdering Facility: [facility] Address: [address] [place] [address] Performed By: #### 5 7021-8 ####[facility] LABIA [id number] [place] [address] [place] MCV (RBC) [Entitic vol] 80.3 fL Normal 80.0-100.0 [facility] Comment on above: Order Comment: Speci men Type: BLOOD SPECIMENOrdering Facility: [facility] Address: [address] [place] [address] Performed By: #### 5 7021-8 ####[facility] LABCLIA [id number] [place] [address] [place] Monocytes (Bld) [#/Vol] 0.68 10*3/uL Normal <0.87 [facility] Comment on above: Order Comment: Speci men Type: BLOOD SPECIMENOrdering Facility: [facility] Address: [address] [place] [address] Performed By: #### 5 7021-8 ####[facility] LABIA [id number] [place] [address] [place] Monocytes/100 WBC (Bld) 7.7 % Normal [facility] Comment on above: Order Comment: Speci men Type: BLOOD SPECIMENOrdering Facility: [facility] Address: [address] [place] [address] Performed By: #### 5 7021-8 ####[facility] LABCLIA [id number] [place] [address] [place] Neutrophils (Bld) [#/Vol] 5.64 10*3/uL Normal 1.45-7.50 [facility] Comment on above: Order Comment: Speci men Type: BLOOD SPECIMENOrdering Facility: [facility] Address: [address] [place] [address] Performed By: #### 5 7021-8 ####[facility] LABCLIA [id number] [place] [address] [place] Neutrophils/100 WBC (Bld) 64.0 % Normal [facility] Comment on above: Order Comment: Speci men Type: BLOOD SPECIMENOrdering Facility: [facility] Address: [address] [place] [address] Performed By: #### 5 7021-8 ####[facility] LABCLIA [id number] [place] [address] [place] Nucleated RBC (Bld) [#/Vol] 10*3/uL Normal <0.01 [facility] Comment on above: Order Comment: Speci men Type: BLOOD SPECIMENOrdering Facility: [facility] Address: [address] [place] [address] Performed By: #### 5 7021-8 ####[facility] LABCLIA [id number] [place] [address] [place] Nucleated RBC/100 WBC (Bld) [Ratio] 0.0 /100 WBC Normal [facility] Comment on above: Order Comment: Speci men Type: BLOOD SPECIMENOrdering Facility: [facility] Address: [address] [place] [address] Performed By: #### 5 7021-8 ####[facility] LABCLIA [id number] [place] [address] [place] Platelet mean volume (Bld) [Entitic vol] 10.2 fL Normal 9.0-12.7 [facility] Comment on above: Order Comment: Speci men Type: BLOOD SPECIMENOrdering Facility: [facility] Address: [address] [place] [address] Performed By: #### 5 7021-8 ####[facility] LABCLIA [id number] [place] [address] [place] Platelets (Bld) [#/Vol] 285 10*3/uL Normal 150-400 [facility] Comment on above: Order Comment: Speci men Type: BLOOD SPECIMENOrdering Facility: [facility] Address: [address] [place] [address] Performed By: #### 5 7021-8 ####[facility] [id number] [place] [address] [place] RBC (Bld) [#/Vol] 4.73 10*6/uL Normal 3.90-5.20 [facility] Comment on above: Order Comment: Speci men Type: BLOOD SPECIMENOrdering Facility: [facility] Address: [address] [place] [address] Performed By: #### 5 7021-8 ####[facility] [id number] [place] [address] [place] WBC (Bld) [#/Vol] 8.82 10*3/uL Normal 3.70-11.00 [facility] Comment on above: Order Comment: Speci men Type: BLOOD SPECIMENOrdering Facility: [facility] Address: [address] [place] [address] Performed By: #### 5 7021-8 ####[facility] [id number] [place] [address] [place] CNOVon 10-22-2024 CNOV Office Visit (NENMMN) JOSAFAT MCGEE ([id number]) 3 F Date Time Provider Department 10/22/24 11:00 AM BEAU MARIE NENMMN During your visit today, we recorded the following information about you: Pulse Blood pressure Weight Height 70/minute 107/59 83.2 kg 1.676 m Beau Marie, SCALES INSPECTOR.SENIOR BENEFITS ANALYST 10/22/2024 11:46 AM Signed [facility] Neuromuscular Medicine Follow-Up/Establishe d Patient Visit Chief Complaint/Issues: Josafat Mcgee is a 19 year old handed right-handed female seen in the [facility] for Neuromuscular medicine for: Follow up POTS Brief HPI /Most Recent Department Assessment and Plan: Seen most recently for follow up 06/14/2024: In the interim did not increase midodrine dose, taking 2.5 mg TID. Reports having some episodes of hypotension SBP 80s mmHg without trigger. We discuss she will keep a log and let me know if this recurs. Will check labs today. 1) Labs 2) Increase midodrine 5 mg TID Today, October 22, 2024: Patient roomed over 7 minutes into visit slot due to late arrival. Portions of history, exam, and plan are shortened to accommodate this. Recommended patient make another appointment to discuss additional concerns not addressed today. Since last visit, she was has had a few episodes where she has darkening of vision fading to black, lasting less than a minute total. Reports this has happened while seated and resting, or laying down. Estimates in total, she has had 5+ episodes in the span 2-3 months. After the episode she does get a headache. She does typically get headaches pretty often. Had an episode of high BP and high HR, was on steroids and breathing treatments at that time (08/2024). BP is back to normal on midodrine, taking 5 mg TID. Headache Description Onset: Teens Total headache days per month: Almost daily (has been high frequency for ~2 months) Headache free days: Yes Duration of attacks: 1 hour - 5 hours Severity of headaches? Mild-severe Onset to Peak: build up over time Location: frontal region Aura: Gets vision darkening lasting ~1-2 minutes, followed by a headache within 5 minutes. Accompanying symptoms: photophobia, phonophobia, nausea. Quality:pressure and squeezing. Worse with activity: Yes Triggers: Strong smells (marijuana smoke) Cough/sneeze/valsalv a as trigger: No Positional changes: No Most common time of day for headache to begin: Anytime A few months ago had a fainting episode. She had been flying. Had prodromal symptoms of feeling zoney, spinning dizziness. She sometimes has loss of awareness. Santa Claus like she was going to pass out but didn't. Mom says she looked pale. She was sweating. Her fingers locked up. She was able to communicate that she felt faint, but then was zoning out. Reports she does not remember this. Sometimes has zoning out episodes where she does pass out, and sometimes has zoning out where she does not lose consciousness but may stare off, feels unaware of what is going on around her. Most recent episode of passing out was before her final exams a few weeks ago. She was in her room getting ready, was in bed, sat up to get ready. She felt lightheaded and the room was spinning. Unsure how long she is typically unconscious. Never had incontinence, mouth maceration. Sometimes she is a little confused after events, but not always. She feels wiped out and fatigued, sometimes has to sleep. After an event she can move and talk normally. No history of concussions. Maternal grandmother has a history of seizures, and would also have fainting spells which were undiagnosed. PMH PAST MEDICAL HISTORY Diagnosis Date Asthma Ovarian cyst POTS (postural orthostatic tachycardia syndrome) Seasonal allergies Vasovagal syncope PAST SURGICAL HISTORY Procedure Laterality Date FINGER SURGERY HX ALLERGIES Allergen Reactions Seasonal Allergies Cough Social History Tobacco Use Smoking status: Never Smokeless tobacco: Never Vaping Use Vaping status: Never Used Substance Use Topics Alcohol use: Not Currently Drug use: Never FAMILY HISTORY Problem Relation Age of Onset other (Venous insufficiency) Mother No Known Problems Father Arthritis Maternal Grandmother Coronary Artery Disease Maternal Grandfather COPD Maternal Grandfather Diabetes Maternal Grandfather Hypertension Maternal Grandfather Hypoglycemia Paternal Grandmother other (non-Hodgkins lymphoma) Paternal Grandmother Coronary Artery Disease Paternal Grandfather Current management of orthostatic condition Conservative Measures: Increased water intake (2-2.5 liters of water daily) Increased salt intake (3-5 grams daily) Compression stockings Cardiac Rehab / Progressive exercise Shared medical appointment with Dr. Ean Webb head of bed Continue armand (more content not included)... Normal [facility] Josse 10-22-2024 BLUN Telephone (NENMMN) ANAMARIASHAWN ZULETAGAJULIA Gregorio ([id number]) 3 F Date Time Provider Department 10/22/24 BEAU MARIE NENMMN During your visit today, we recorded the following information about you: Wil Doan RN 10/22/2024 1:01 PM Signed Per request per JADE Grant.SENIOR BENEFITS ANALYST , patient called to inform her that Beau states : that we can fax the referral I placed to an outside facility if she finds an Epileptologist she would prefer to see closer to home. Patient replied that she thinks everything got worked out. She has an appointment 10-25-23 with [facility] as noted below. Message forwarded to JADE Grant.BLU Doan RN, BSN Allergies As of Date: 10/22/2024 Noted Allergy Reaction SEASONAL ALLERGIES 01/12/2008 3 - Cough Date Reviewed: 10/22/2024 Reviewed by: Beau Marie, SCALES INSPECTOR.SENIOR BENEFITS ANALYST - Fully Assessed Prescriptions as of 10/22/2024 - iv contrast (will be provided with radiology test) MRI Brain Inject, intravenously, once for 1 dose.No IV access, insert saline lock prior to beginning of sedation, infusion, injection of imaging exam.Discontinue saline lock post exam. If Pt. has a central line or IVAD, may access for administration according to line specific nursing protocol.Once exam is complete flush line and de-access according to line specific nursing protocol in the MR contrast administration guidelines link - iv contrast (will be provided with radiology test) MRV Brain Inject, intravenously, once for 1 dose. No IV access, insert saline lock prior to the beginning of sedation, infusion, injection of imaging exam. Discontinue saline lock post exam. If Pt. has a central line or IVAD, may access for administration according to line specific nursing protocol. Once exam is complete flush line and de-access according to line specific nursing protocol in the MR contrast administration guidelines link. - fludrocortisone (FLORINEF) 0.1 mg tablet Take 1 tablet by mouth once daily. - rizatriptan (MAXALT) 10 mg tablet Take 1 tablet (10 mg) by mouth as needed (at onset of headache. May repeat after 2 hours.). Do not exceed 30 mg per day. - FLUoxetine (PROZAC) 40 mg capsule Take 1 capsule by mouth once daily. - traZODone (DESYREL) 50 mg tablet Take 1 tablet by mouth daily at bedtime. - sodium fluoride 1.1 % dental cream DISPENSE A SMALL AMOUNT INTO TOOTH SLOT TRAY AND WEAR FOR 5 MINUTES - albuterol HFA (PROVENTIL HFA, VENTOLIN HFA) 90 mcg/actuation inhaler Inhale 2 Puffs as instructed every 6 hours as needed for wheezing/shortness of breath. - pantoprazole DR (PROTONIX) 40 mg tablet Take 40 mg by mouth once daily. Problem List As Of Date 10/22/2024 Noted Resolved Gastroesophageal reflux disease [K21.9] 05/08/2024 Encounter Status:Closed by WIL DOAN on 10/22/24 Normal [facility] Comprehensive metabolic 2000 panelon 10-22-2024 Albumin [Mass/Vol] 4.5 g/dL Normal 3.9-4.9 [facility] Comment on above: Order Comment: Speci men Type: BLOOD SPECIMENOrdering Facility: [facility] Address: [address] [place] [address] Performed By: #### 2 276-4, 13060-4, 25139-5 ####[facility] LABCLIA [id number] [facility] [place] [id number] [address] [place] ALP [Catalytic activity/Vol] 64 U/L Normal 34-123 [facility] Comment on above: Order Comment: Speci men Type: BLOOD SPECIMENOrdering Facility: [facility] Address: [address] [place] [address] Performed By: #### 2 276-4, 20400-7, 92841-3 ####[facility] LABCLIA [id number] [place] [id number] [place] ALT [Catalytic activity/Vol] 14 U/L Normal 7-38 [facility] Comment on above: Order Comment: Speci men Type: BLOOD SPECIMENOrdering Facility: [facility] Address: [address] [place] [address] Performed By: #### 2 276-4, 04203-3, 78331-3 ####[facility] LABCLIA [id number] [place] [address] [place] Anion gap [Moles/Vol] 12 mmol/L Normal 8-15 [facility] Comment on above: Order Comment: Speci men Type: BLOOD SPECIMENOrdering Facility: [facility] Address: [address] [place] [address] Performed By: #### 2 276-4, 83547-4, 68388-3 ####[facility] LABCLIA [id number] [place] [address] [place] AST [Catalytic activity/Vol] 25 U/L Normal 13-35 [facility] Comment on above: Order Comment: Speci men Type: BLOOD SPECIMENOrdering Facility: [facility] Address: [address] [place] [address] Performed By: #### 2 276-4, 25511-0, 81040-4 ####[facility] LABCLIA [id number] [place] [address] [place] Bilirubin [Mass/Vol] 0.2 mg/dL Normal 0.2-1.3 [facility] Comment on above: Order Comment: Speci men Type: BLOOD SPECIMENOrdering Facility: [facility] Address: [address] [place] [address] Performed By: #### 2 276-4, 70750-6, 93519-2 ####[facility] LABCLIA [id number] [place] [id number] [place] Calcium [Mass/Vol] 9.5 mg/dL Normal 8.5-10.2 [facility] Comment on above: Order Comment: Speci men Type: BLOOD SPECIMENOrdering Facility: [facility] Address: [address] [place] [address] Performed By: #### 2 276-4, 17311-7, 17967-8 ####[facility] LABCLIA [id number] [place] [id number] [place] Chloride [Moles/Vol] 103 mmol/L Normal 98-107 [facility] Comment on above: Order Comment: Speci men Type: BLOOD SPECIMENOrdering Facility: [facility] Address: [address] [place] [address] Performed By: #### 2 276-4, 08156-9, 67394-5 ####[facility] LABCLIA [id number] [place] [address] [place] CO2 [Moles/Vol] 22 mmol/L Normal 22-30 [facility] Comment on above: Order Comment: Speci men Type: BLOOD SPECIMENOrdering Facility: [facility] Address: [address] [place] [address] Performed By: #### 2 276-4, 85074-8, 35399-1 ####[facility] LABCLIA [id number] [place] [address] [place] Creatinine [Mass/Vol] 0.73 mg/dL Normal 0.58-0.96 [facility] Comment on above: Order Comment: Speci men Type: BLOOD SPECIMENOrdering Facility: [facility] Address: [address] [place] [address] Performed By: #### 2 276-4, 19159-5, 87549-4 ####[facility] LABCLIA [id number] [address] [address] [place] Creatinine and Glomerular filtration rate.predicted panel (S/P/Bld) 121 mL/min/1.73m??? Normal >=60 [facility] Comment on above: Order Comment: Wilian gomez Type: BLOOD SPECIMENOrdering Facility: [facility] Address: [address] [place] [address] Result Comment: Pearl mated Glomerular Filtration Rate (eGFR) is calculated using the 2020 CKD-EPI creatinine equation. This equation utilizes serum creatinine, sex, and age as parameters. The creatinine assay has traceable calibration to isotope dilution-mass spectrometry. Refer to KDIGO guidelines for clinical interpretation. In patients with unstable renal function, e.g. those with acute kidney injury, the eGFR may not accurately reflect actual GFR. Performed By: #### 2 276-4, 03174-1, 53102-6 ####[facility] LABIA [id number] [place] [address] [place] Glucose [Mass/Vol] 72 mg/dL Low 74-99 [facility] Comment on above: Order Comment: Wilian gomez Type: BLOOD SPECIMENOrdering Facility: [facility] Address: [address] [place] [address] Result Comment: The [place] Diabetes Association (ADA) provides guidance for cutoff values for fasting glucose and random glucose. The ADA defines fasting as no caloric intake for at least 8 hours. Fasting plasma glucose results between 100 to 125 mg/dL indicate increased risk for diabetes (prediabetes). Fasting plasma glucose results greater than or equal to 126 mg/dL meet the criteria for diagnosis of diabetes. In the absence of unequivocal hyperglycemia, results should be confirmed by repeat testing. In a patient with classic symptoms of hyperglycemia or hyperglycemic crisis, random plasma glucose results greater than or equal to 200 mg/dL meet the criteria for diagnosis of diabetes. Reference: Standards of Medical Care in Diabetes 2016, [place] [employer] Association. Diabetes Care. 2016.39(Suppl 1). Performed By: #### 2 276-4, 52844-9, 88470-5 ####[facility] LABIA [id number] [place] [id number] [place] Potassium [Moles/Vol] 4.3 mmol/L Normal 3.7-5.1 [facility] Comment on above: Order Comment: Speci men Type: BLOOD SPECIMENOrdering Facility: [facility] Address: [address] [place] [address] Performed By: #### 2 276-4, 09702-8, 71082-3 ####[facility] LABCLIA [id number] [place] [address] [place] Protein [Mass/Vol] 7.6 g/dL Normal 6.3-8.0 [facility] Comment on above: Order Comment: Speci men Type: BLOOD SPECIMENOrdering Facility: [facility] Address: [address] [place] [address] Performed By: #### 2 276-4, 11152-1, 79180-6 ####[facility] LABCLIA [id number] [place] [address] [place] Sodium [Moles/Vol] 137 mmol/L Normal 136-144 [facility] Comment on above: Order Comment: Speci men Type: BLOOD SPECIMENOrdering Facility: [facility] Address: [address] [place] [address] Performed By: #### 2 276-4, 33138-9, 05629-7 ####[facility] LABCLIA [id number] [place] [address] [place] Urea nitrogen [Mass/Vol] 15 mg/dL Normal 7-21 [facility] Comment on above: Order Comment: Speci men Type: BLOOD SPECIMENOrdering Facility: [facility] Address: [address] [place] [address] Performed By: #### 2 276-4, 98652-5, 32667-7 ####[facility] LABCLIA [id number] [place] [id number] [place] Ferritin SerPl-mCncon 2023 Ferritin [Mass/Vol] 14.1 ng/mL Low 14.7-205.1 [facility] Comment on above: Order Comment: Speci men Type: BLOOD SPECIMENOrdering Facility: [facility] Address: [address] [place], [place] [address] Performed By: #### 2 276-4, 04002-4, 62025-8 ####[facility] LABCLIA [id number] [place] [id number] [place] Iron and Iron binding capaci ty panelon 10-22-2024 Iron [Mass/Vol] 67 ug/dL Normal 41-186 [facility] Comment on above: Order Comment: Speci men Type: BLOOD SPECIMENOrdering Facility: [facility] Address: [address] [place] [address] Performed By: #### 2 276-4, 97886-7, 20679-0 ####[facility] LABIA [id number] [place] [address] [place] Iron binding capacity [Mass/Vol] 470 ug/dL High 232-386 [facility] Comment on above: Order Comment: Speci men Type: BLOOD SPECIMENOrdering Facility: [facility] Address: [address] [place] [address] Performed By: #### 2 276-4, 24011-4, 70460-3 ####[facility] LABIA [id number] [place] [address] [place] Iron/TIBC [Molar ratio] 14.3 % Low 15.0-57.0 [facility] Comment on above: Order Comment: Speci men Type: BLOOD SPECIMENOrdering Facility: [facility] Address: [address] [place] [address] Performed By: #### 2 276-4, 26538-8, 48031-5 ####[facility] LABIA [id number] [place] [id number] [place] CHEST AND LATERAL OR 2 VIEWS on 09-04-2024 CHEST AND LATERAL OR 2 VIEWS EXAM: CHEST AND LATERAL OR 2 VIEWS REASON FOR EXAM: Female, 19 years, shortness of breath or wheezing. TECHNIQUE: PA and lateral views of the chest are performed. COMPARISON: None. FINDINGS: The lungs are expanded and clear. Normal pleura. Normal size heart. Normal mediastinum and laura. Normal visualized pulmonary arteries. Normal visualized aortic arch and descending thoracic aorta. Normal visualized thoracic spine. Normal visualized ribs, clavicles, and shoulders. There is no demonstrated abnormality of the visualized soft tissue structures of the upper abdomen. IMPRESSION: Normal examination of the chest. Normal [facility] VIRAL RESPIRATORY QUAD PLEXo n 09-04-2024 CORONAVIRUS 19 Not detected Normal NOT DETECTED [facility] Comment on above: Performed By: #### Q UADPLX #### [facility] [address] [place] [address] Director Of Restaurant Operations - Beth CABRERA [id number] Influenza A Not detected Normal NOT DETECTED [facility] Comment on above: Performed By: #### Q UADPLX #### [facility] [address] [place] [address] Director Of Restaurant Operations - Beth CABRERA [id number] Influenza B Not detected Normal NOT DETECTED [facility] Comment on above: Performed By: #### Q UADPLX #### [facility] [address] [place] [address] Director Of Restaurant Operations - Beth CABRERA [id number] RSV Ag Ql (Nose) Not detected Normal NOT DETECTED [facility] Comment on above: Performed By: #### Q UADPLX #### [facility] [address] [facility] [place] [address] Director Of Restaurant Operations - Beth CABRERA [id number] [facility] 06-20-[address] [facility] Telephone (PEDSWS) JOSAFAT MCGEE ([id number]) 3 F Date Time Provider Department 06/20/24 KATELIN MOREL PEDSWS During your visit today, we recorded the following information about you: Allergies As of Date: 06/20/2024 Noted Allergy Reaction SEASONAL ALLERGIES 01/12/2008 3 - Cough Date Reviewed: 06/14/2024 Reviewed by: Beau Pineda APRN.SENIOR BENEFITS ANALYST - Fully Assessed Primary Visit Diagnosis:Iron deficiency [E61.1] Order(s):IRON AND TIBC [SQIRON] Order #: [id number] FUTURE FERRITIN [SQFERR] Order #: [id number] FUTURE COMPLETE BLOOD COUNT AND DIFFERENTIAL [SQCBCDIF] Order #: [id number] FUTURE Prescriptions as of 06/20/2024 - midodrine (PROAMITINE) 5 mg tablet Take 1 tablet by mouth three times a day. - traZODone (DESYREL) 50 mg tablet TAKE 1 TABLET BY MOUTH EVERYDAY AT BEDTIME - FLUoxetine (PROZAC) 40 mg capsule Take 1 capsule by mouth once daily. - sodium fluoride 1.1 % dental cream DISPENSE A SMALL AMOUNT INTO TOOTH SLOT TRAY AND WEAR FOR 5 MINUTES - albuterol HFA (PROVENTIL HFA, VENTOLIN HFA) 90 mcg/actuation inhaler Inhale 2 Puffs as instructed every 6 hours as needed for wheezing/shortness of breath. - pantoprazole DR (PROTONIX) 40 mg tablet Take 40 mg by mouth once daily. Problem List As Of Date 06/20/2024 Noted Resolved Gastroesophageal reflux disease [K21.9] 05/08/2024 Encounter Status:Closed by KATELIN MOREL on 06/20/24 Normal [facility] CBC W Auto Differential pane l (Bld)on 06-14-2024 Basophils (Bld) [#/Vol] 0.04 10*3/uL [facility] Basophils/100 WBC (Bld) 0.5 % [facility] Differential cell count method Nom (Bld) Auto [facility] Eosinophils (Bld) [#/Vol] 0.28 10*3/uL [facility] Eosinophils/100 WBC (Bld) 3.2 % [facility] Erythrocyte distribution width (RBC) [Ratio] 14.0 % 11.5 - 15.0 % [facility] Hematocrit (Bld) [Volume fraction] 35.9 % Low 36.0 - 46.0 % [facility] Hemoglobin (Bld) [Mass/Vol] 11.5 g/dL 11.5 - 15.5 g/dL [facility] Immature granulocytes (Bld) [#/Vol] NINF [facility] Immature granulocytes/100 WBC (Bld) 0.2 % [facility] Interpretation and review of laboratory results Abnormal [facility] Lymphocytes (Bld) [#/Vol] 2.01 10*3/uL [facility] Lymphocytes/100 WBC (Bld) 22.9 % [facility] MCH (RBC) [Entitic mass] 26.1 pg 26.0 - 34.0 pg [facility] MCHC (RBC) [Mass/Vol] 32.0 g/dL 30.5 - 36.0 g/dL [facility] MCV (RBC) [Entitic vol] 81.6 fL 80.0 - 100.0 fL [facility] Monocytes (Bld) [#/Vol] 0.59 10*3/uL [facility] Monocytes/100 WBC (Bld) 6.7 % [facility] Neutrophils (Bld) [#/Vol] 5.84 10*3/uL [facility] Neutrophils/100 WBC (Bld) 66.5 % [facility] Nucleated RBC (Bld) [#/Vol] NINF [facility] Nucleated RBC/100 WBC (Bld) [Ratio] 0.0 % /100 WBC [facility] Platelet mean volume (Bld) [Entitic vol] 10.2 fL 9.0 - 12.7 fL [facility] Platelets (Bld) [#/Vol] 285 10*3/uL [facility] RBC (Bld) [#/Vol] 4.40 10*6/uL 3.90 - 5.2 0 m/uL [facility] WBC (Bld) [#/Vol] 8.78 10*3/uL [facility] Basophils (Bld) [#/Vol] 0.04 10*3/uL Normal <0.11 [facility] Comment on above: Order Comment: Speci men Type: BLOOD SPECIMENOrdering Facility: [facility] Address: [address] [place] [address] Performed By: #### 5 7021-8 ####[facility] LABCLIA [id number] [address] [place] Basophils/100 WBC (Bld) 0.5 % Normal [facility] Comment on above: Order Comment: Speci men Type: BLOOD SPECIMENOrdering Facility: [facility] Address: [address] [place] [address] Performed By: #### 5 7021-8 ####[facility] LABCLIA [id number] [place] [address] [place] Differential cell count method Nom (Bld) Auto Normal [facility] Comment on above: Order Comment: Speci men Type: BLOOD SPECIMENOrdering Facility: [facility] Address: [address] [place] [address] Performed By: #### 5 7021-8 ####[facility] LABCLIA [id number] [place] [address] [place] Eosinophils (Bld) [#/Vol] 0.28 10*3/uL Normal <0.46 [facility] Comment on above: Order Comment: Speci men Type: BLOOD SPECIMENOrdering Facility: [facility] Address: [address] [place] [address] Performed By: #### 5 7021-8 ####[facility] LABCLIA [id number] [place] [address] [place] Eosinophils/100 WBC (Bld) 3.2 % Normal [facility] Comment on above: Order Comment: Speci men Type: BLOOD SPECIMENOrdering Facility: [facility] Address: [address] [place] [address] Performed By: #### 5 7021-8 ####[facility] LABCLIA [id number] [place] [address] [place] Erythrocyte distribution width (RBC) [Ratio] 14.0 % Normal 11.5-15.0 [facility] Comment on above: Order Comment: Speci men Type: BLOOD SPECIMENOrdering Facility: [facility] Address: [address] [place] [address] Performed By: #### 5 7021-8 ####[facility] LABCLIA [id number] [place] [address] [place] Hematocrit (Bld) [Volume fraction] 35.9 % Low 36.0-46.0 [facility] Comment on above: Order Comment: Speci men Type: BLOOD SPECIMENOrdering Facility: [facility] Address: [address] [place] [address] Performed By: #### 5 7021-8 ####[facility] LABCLIA [id number] [place] [address] [place] Hemoglobin (Bld) [Mass/Vol] 11.5 g/dL Normal 11.5-15.5 [facility] Comment on above: Order Comment: Speci men Type: BLOOD SPECIMENOrdering Facility: [facility] Address: [address] [place] [address] Performed By: #### 5 7021-8 ####[facility] LABCLIA [id number] [place] [address] [place] Immature granulocytes (Bld) [#/Vol] 10*3/uL Normal <0.10 [facility] Comment on above: Order Comment: Speci men Type: BLOOD SPECIMENOrdering Facility: [facility] Address: [address] [place] [address] Performed By: #### 5 7021-8 ####[facility] LABCLIA [id number] [place] [address] [place] Immature granulocytes/100 WBC (Bld) 0.2 % Normal [facility] Comment on above: Order Comment: Speci men Type: BLOOD SPECIMENOrdering Facility: [facility] Address: [address] [place] [address] Performed By: #### 5 7021-8 ####[facility] LABCLIA [id number] [place] [address] [place] Lymphocytes (Bld) [#/Vol] 2.01 10*3/uL Normal 1.00-4.00 [facility] Comment on above: Order Comment: Speci men Type: BLOOD SPECIMENOrdering Facility: [facility] Address: [address] [place] [address] Performed By: #### 5 7021-8 ####[facility] LABCLIA [id number] [place] [address] [place] Lymphocytes/100 WBC (Bld) 22.9 % Normal [facility] Comment on above: Order Comment: Speci men Type: BLOOD SPECIMENOrdering Facility: [facility] Address: [address] [place] [address] Performed By: #### 5 7021-8 ####[facility] LABCLIA [id number] [place] [address] [place] MCH (RBC) [Entitic mass] 26.1 pg Normal 26.0-34.0 [facility] Comment on above: Order Comment: Speci men Type: BLOOD SPECIMENOrdering Facility: [facility] Address: [address] [place] [address] Performed By: #### 5 7021-8 ####[facility] LABIA [id number] [place] [address] [place] MCHC (RBC) [Mass/Vol] 32.0 g/dL Normal 30.5-36.0 [facility] Comment on above: Order Comment: Speci men Type: BLOOD SPECIMENOrdering Facility: [facility] Address: [address] [place] [address] Performed By: #### 5 7021-8 ####[facility] LABCLIA [id number] [place] [address] [place] MCV (RBC) [Entitic vol] 81.6 fL Normal 80.0-100.0 [facility] Comment on above: Order Comment: Speci men Type: BLOOD SPECIMENOrdering Facility: [facility] Address: [address] [place] [address] Performed By: #### 5 7021-8 ####[facility] LABCLIA [id number] [place] [address] [place] Monocytes (Bld) [#/Vol] 0.59 10*3/uL Normal <0.87 [facility] Comment on above: Order Comment: Speci men Type: BLOOD SPECIMENOrdering Facility: [facility] Address: [address] [place] [address] Performed By: #### 5 7021-8 ####[facility] LABCLIA [id number] [place] [address] [place] Monocytes/100 WBC (Bld) 6.7 % Normal [facility] Comment on above: Order Comment: Speci men Type: BLOOD SPECIMENOrdering Facility: [facility] Address: [address] [place] [address] Performed By: #### 5 7021-8 ####[facility] LABCLIA [id number] [place] [address] [place] Neutrophils (Bld) [#/Vol] 5.84 10*3/uL Normal 1.45-7.50 [facility] Comment on above: Order Comment: Speci men Type: BLOOD SPECIMENOrdering Facility: [facility] Address: [address] [place] [address] Performed By: #### 5 7021-8 ####[facility] LABCLIA [id number] [place] [address] [place] Neutrophils/100 WBC (Bld) 66.5 % Normal [facility] Comment on above: Order Comment: Speci men Type: BLOOD SPECIMENOrdering Facility: [facility] Address: [address] [place] [address] Performed By: #### 5 7021-8 ####[facility] LABCLIA [id number] [place] [address] [place] Nucleated RBC (Bld) [#/Vol] 10*3/uL Normal <0.01 [facility] Comment on above: Order Comment: Speci men Type: BLOOD SPECIMENOrdering Facility: [facility] Address: [address] [place] [address] Performed By: #### 5 7021-8 ####[facility] LABCLIA [id number] [place] [address] [place] Nucleated RBC/100 WBC (Bld) [Ratio] 0.0 /100 WBC Normal [facility] Comment on above: Order Comment: Speci men Type: BLOOD SPECIMENOrdering Facility: [facility] Address: [address] [place] [address] Performed By: #### 5 7021-8 ####[facility] LABCLIA [id number] [place] [address] [place] Platelet mean volume (Bld) [Entitic vol] 10.2 fL Normal 9.0-12.7 [facility] Comment on above: Order Comment: Speci men Type: BLOOD SPECIMENOrdering Facility: [facility] Address: [address] [place] [address] Performed By: #### 5 7021-8 ####[facility] LABCLIA [id number] [place] [address] [place] Platelets (Bld) [#/Vol] 285 10*3/uL Normal 150-400 [facility] Comment on above: Order Comment: Speci men Type: BLOOD SPECIMENOrdering Facility: [facility] Address: [address] [place] [address] Performed By: #### 5 7021-8 ####[facility] LABCLIA [id number] [place] [address] [place] RBC (Bld) [#/Vol] 4.40 10*6/uL Normal 3.90-5.20 [facility] Comment on above: Order Comment: Speci men Type: BLOOD SPECIMENOrdering Facility: [facility] Address: [address] [place] [address] Performed By: #### 5 7021-8 ####[facility] LABIA [id number] [place] [address] [place] WBC (Bld) [#/Vol] 8.78 10*3/uL Normal 3.70-11.00 [facility] Comment on above: Order Comment: Speci men Type: BLOOD SPECIMENOrdering Facility: [facility] Address: [address] [place] [address] Performed By: #### 5 7021-8 ####[facility] LABCLIA [id number] [address] [place] CNOVon 06-14-2024 CNOV Office Visit (NEADMN) JOSAFAT MCGEE ([id number]) 3 F Date Time Provider Department 06/14/24 12:00 PM BEAU PINEDA During your visit today, we recorded the following information about you: Pulse Blood pressure Weight Height 74/minute 114/65 85.2 kg 1.676 m Beau Pineda, SCALES INSPECTOR.SENIOR BENEFITS ANALYST 06/14/2024 12:[address] [facility] Follow-Up/Establishe d Patient Visit Chief Complaint/Issues: Josafat Mcgee is a 18 year old handed right-handed female seen in the [facility] for: Follow up POTS Brief HPI /Most Recent Department Assessment and Plan: Seen initially for symptom onset after undiagnosed viral illness in 2019. EPS tilt in 10/2022 demonstrating POTS and vasovagal syncope. Also reported vertiginous symptoms consistent with BPPV, as well as aural fullness and L sided tinnitus. Reportedly had unilateral hearing loss on local audiogram, but ENT did not recommend MRI IAC. Seen most recently for follow up 01/12/2024: Midodrine 2.5 mg TID started last visit, and working very well in the interim. She reports having syncopal episodes only ~1x per week. She does note more issues with low BG. We discuss reactive hypoglycemia is a common occurrence with POTS and ANS dysfunction. She does endorse some intermittent paresthesias, will monitor BG at home (does have a monitor). 1) Labs 2) Consult to endocrinology 3) Dietary considerations: -Try to eat smaller, more frequent meals (4-6x per day). -Try for lower carb diet. 4) Reactive hypoglycemia info sent via [facility] --- Endocrinology follow up, 02/16/2024, Dr. Pedraza: ASSESSMENT : 18 year old female who is presenting for evaluation of hypoglycemia, which has been ruled out from further investigation due to blood glucose levels recorded on glucometer, showing lowest being 74 mg/dl which is normal. Due to multiple symptoms, we checked 24 hr urine catecholamines and metanephrines however the lab only ran metanephrines which are normal. I discussed repeating 24 hr urine catecholamines to rule out the reason for her symptoms related to endocrine issues. Also discussed this is a rare entity that we are checking for. I explained that we checked metabolites of two neurotransmitters, but not the other one (dopamine) She prefers to not do the urine collection again for the test due to rarity of the condition and metabolites being normal expecting the catecholamines will also be normal. I have reordered the labs in case she would liek to do, as she was okay to do the test initially She asks again about hypoglycemia due to blood glucose levels in 70s, and again I explained this is not concerning for hypoglycemia especially in a non-diabetic. FOLLOW UP: 1 week if doing labs, otherwise PRN --- Today, June 14, 2024: Since last visit, has had a few flare ups of symptoms. Was having lower blood pressure last week. BP is getting 87/47 mmHg. This was while laying down, resting but not sleeping. Not sick, menstrual cycle, over-heated. She had felt cold all day. Has been very hydrated. Currently doing 5 mg TID. Has still been taking 2.5 mg TID since last appointment. PMH PAST MEDICAL HISTORY No date: Asthma No date: Ovarian cyst No date: POTS (postural orthostatic tachycardia syndrome) No date: Seasonal allergies No date: Vasovagal syncope PAST SURGICAL HISTORY No date: FINGER SURGERY HX ALLERGIES Allergen Reactions Seasonal Allergies Cough Social History Tobacco Use Smoking status: Never Smokeless tobacco: Never Vaping Use Vaping status: Never Used Substance Use Topics Alcohol use: Not Currently Drug use: Never FAMILY HISTORY Problem Relation Age of Onset other (Venous insufficiency) Mother No Known Problems Father Arthritis Maternal Grandmother Coronary Artery Disease Maternal Grandfather COPD Maternal Grandfather Diabetes Maternal Grandfather Hypertension Maternal Grandfather Hypoglycemia Paternal Grandmother other (non-Hodgkins lymphoma) Paternal Grandmother Coronary Artery Disease Paternal Grandfather Current management of orthostatic condition Conservative Measures: Increased water intake (2-2.5 liters of water daily) Increased salt intake (3-5 grams daily) Compression stockings Cardiac Rehab / Progressive exercise Shared medical appointment with Dr. Ean Webb head of bed Continue with mental health care Medications Current Outpatient Medications on File Prior to Visit Medication Sig midodrine (PROAMITINE) 5 mg tablet Take 1 tablet by mouth three times a day. traZODone (DESYREL) 50 mg tablet TAKE 1 TABLET BY MOUTH EVERYDAY AT BEDTIME FLUoxetine (PROZAC) 40 mg capsule Take 1 capsule by mouth once daily. sodium fluoride 1.1 % dental cream DISPENSE A SMALL AMOUNT INTO TOOTH SLOT TRAY AND WEAR FOR (more content not included)... Normal [facility] Comprehensive metabolic 2000 panelon 06-14-2024 Albumin [Mass/Vol] 4.3 g/dL Normal 3.9-4.9 [facility] [facility] Comment on above: Order Comment: Wilian gomez Type: BLOOD SPECIMENOrdering Facility: [facility] Address: [address] [place] [address] Performed By: #### 2 4323-8, 11070-0, 3024-7, 3016-3 ####[facility] LABCLIA [id number] [place] [address] [place] ALP [Catalytic activity/Vol] 70 U/L Normal 34-123 [facility] Comment on above: Order Comment: Wilian gomez Type: BLOOD SPECIMENOrdering Facility: [facility] Address: [address] [place] [address] Performed By: #### 2 4323-8, 22813-6, 3024-7, 3016-3 ####[facility] LABCLIA [id number] [place] [address] [place] ALT [Catalytic activity/Vol] 22 U/L Normal 7-38 [facility] Comment on above: Order Comment: Speci men Type: BLOOD SPECIMENOrdering Facility: [facility] Address: [address] [place] [address] Performed By: #### 2 4323-8, 46370-3, 3024-7, 3016-3 ####[facility] LABCLIA [id number] [place] [address] [place] Anion gap [Moles/Vol] 10 mmol/L Normal 8-15 [facility] Comment on above: Order Comment: Speci men Type: BLOOD SPECIMENOrdering Facility: [facility] Address: [address] [place] [address] Performed By: #### 2 4323-8, 78511-7, 3024-7, 3016-3 ####[facility] LABCLIA [id number] [place] [address] [place] AST [Catalytic activity/Vol] 27 U/L Normal 13-35 [facility] Comment on above: Order Comment: Speci men Type: BLOOD SPECIMENOrdering Facility: [facility] Address: [address] [place] [address] Performed By: #### 2 4323-8, 17031-9, 3024-7, 3016-3 ####[facility] LABCLIA [id number] [place] [address] [place] Bilirubin [Mass/Vol] mg/dL Low 0.2-1.3 [facility] Comment on above: Order Comment: Speci men Type: BLOOD SPECIMENOrdering Facility: [facility] Address: [address] [place], [place] [address] Performed By: #### 2 4323-8, 00261-7, 3024-7, 3016-3 ####[facility] LABCLIA [id number] [address] [address] [place] Calcium [Mass/Vol] 9.7 mg/dL Normal 8.5-10.2 [facility] Comment on above: Order Comment: Speci men Type: BLOOD SPECIMENOrdering Facility: [facility] Address: [address] [place], [place] [address] Performed By: #### 2 4323-8, 96098-0, 3024-7, 3016-3 ####[facility] LABIA [id number] [place] [address] [place] Chloride [Moles/Vol] 102 mmol/L Normal 98-107 [facility] Comment on above: Order Comment: Speci men Type: BLOOD SPECIMENOrdering Facility: [facility] Address: [address] [place] [address] Performed By: #### 2 4323-8, 97015-3, 3024-7, 3016-3 ####[facility] LABIA [id number] [place] [address] [place] CO2 [Moles/Vol] 25 mmol/L Normal 22-30 [facility] Comment on above: Order Comment: Speci men Type: BLOOD SPECIMENOrdering Facility: [facility] Address: [address] [place], [place] [address] Performed By: #### 2 4323-8, 25109-0, 3024-7, 3016-3 ####[facility] LABIA [id number] [place] [id number] [place] Creatinine [Mass/Vol] 0.67 mg/dL Normal 0.58-0.96 [facility] Comment on above: Order Comment: Speci men Type: BLOOD SPECIMENOrdering Facility: [facility] Address: [facility] [place] [id number] Performed By: #### 2 4323-8, 32663-0, 3024-7, 3016-3 ####[facility] LABIA [id number] [place] [address] [place] Creatinine and Glomerular filtration rate.predicted panel (S/P/Bld) 129 mL/min/1.73m??? Normal >=60 [facility] Comment on above: Order Comment: Wilian gomez Type: BLOOD SPECIMENOrdering Facility: [facility] Address: [address] [place] [address] Result Comment: Pearl mated Glomerular Filtration Rate (eGFR) is calculated using the 2020 CKD-EPI creatinine equation. This equation utilizes serum creatinine, sex, and age as parameters. The creatinine assay has traceable calibration to isotope dilution-mass spectrometry. Refer to KDIGO guidelines for clinical interpretation. In patients with unstable renal function, e.g. those with acute kidney injury, the eGFR may not accurately reflect actual GFR. Performed By: #### 2 4323-8, 92628-8, 3024-7, 3016-3 ####[facility] LABCLIA [id number] [place] [id number] [place] Glucose [Mass/Vol] 80 mg/dL Normal 74-99 [facility] Comment on above: Order Comment: Wilian gomez Type: BLOOD SPECIMENOrdering Facility: [facility] Address: [address] [place] [address] Result Comment: The [place] Diabetes Association (ADA) provides guidance for cutoff values for fasting glucose and random glucose. The ADA defines fasting as no caloric intake for at least 8 hours. Fasting plasma glucose results between 100 to 125 mg/dL indicate increased risk for diabetes (prediabetes). Fasting plasma glucose results greater than or equal to 126 mg/dL meet the criteria for diagnosis of diabetes. In the absence of unequivocal hyperglycemia, results should be confirmed by repeat testing. In a patient with classic symptoms of hyperglycemia or hyperglycemic crisis, random plasma glucose results greater than or equal to 200 mg/dL meet the criteria for diagnosis of diabetes. Reference: Standards of Medical Care in Diabetes 2016, [place] [employer] Association. Diabetes Care. 2016.39(Suppl 1). Performed By: #### 2 4323-8, 18080-6, 3024-7, 3016-3 ####[facility] LABCLIA [id number] [address] [address] [place] Potassium [Moles/Vol] 4.2 mmol/L Normal 3.7-5.1 [facility] Comment on above: Order Comment: Speci men Type: BLOOD SPECIMENOrdering Facility: [facility] Address: [address] [place] [address] Performed By: #### 2 4323-8, 51809-2, 3024-7, 6-3 ####[facility] LABIA [id number] [place] [id number] [place] Protein [Mass/Vol] 7.6 g/dL Normal 6.3-8.0 [facility] Comment on above: Order Comment: Speci men Type: BLOOD SPECIMENOrdering Facility: [facility] Address: [address] [place] [address] Performed By: #### 2 4323-8, 10718-8, 3024-7, 6-3 ####[facility] LABIA [id number] [place] [id number] [place] Sodium [Moles/Vol] 137 mmol/L Normal 136-144 [facility] Comment on above: Order Comment: Speci men Type: BLOOD SPECIMENOrdering Facility: [facility] Address: [address] [place], [place] [address] Performed By: #### 2 4323-8, 80367-6, 3024-7, 3016-3 ####[facility] LABCLIA [id number] [address] [address] [place] Urea nitrogen [Mass/Vol] 11 mg/dL Normal 7-21 [facility] Comment on above: Order Comment: Speci men Type: BLOOD SPECIMENOrdering Facility: [facility] Address: [address] [place] [address] Performed By: #### 2 4323-8, 90764-8, 3024-7, 3016-3 ####[facility] LABCLIA [id number] [address] [address] [place] Ferritin SerPl-mCncon 2023 Ferritin [Mass/Vol] 13.7 ng/mL Low 14.7-205.1 [facility] Comment on above: Order Comment: Speci men Type: BLOOD SPECIMENOrdering Facility: [facility] Address: [address] [place] [address] Performed By: #### 2 276-4 ####[facility] LABCLIA [id number] [place] [address] [place] Iron and Iron binding capaci ty panelon 06-14-2024 Iron [Mass/Vol] 31 ug/dL Low 41-186 [facility] Comment on above: Order Comment: Speci men Type: BLOOD SPECIMENOrdering Facility: [facility] Address: [address] [place] [address] Performed By: #### 2 4323-8, 45303-5, 3024-7, 3016-3 ####[facility] LABIA [id number] [place] [address] [place] Iron binding capacity [Mass/Vol] 464 ug/dL High 232-386 [facility] Comment on above: Order Comment: Speci men Type: BLOOD SPECIMENOrdering Facility: [facility] Address: [address] [place] [address] Performed By: #### 2 4323-8, 31073-4, 3024-7, 3016-3 ####[facility] LABCLIA [id number] [place] [id number] [place] Iron/TIBC [Molar ratio] 6.7 % Low 15.0-57.0 [facility] Comment on above: Order Comment: Speci men Type: BLOOD SPECIMENOrdering Facility: [facility] Address: [address] [place] [address] Performed By: #### 2 4323-8, 59695-7, 3024-7, 3016-3 ####[facility] LABCLIA [id number] [place] [address] [place] T4 Free SerPl-mCncon 024 Free T4 [Mass/Vol] 1.0 ng/dL Normal 0.9-1.7 [facility] Comment on above: Order Comment: Wilian gomez Type: BLOOD SPECIMENOrdering Facility: [facility] Address: [address] [place] [address] Performed By: #### 2 4323-8, 02154-4, 3024-7, 3016-3 ####[facility] LABCLIA [id number] [place] [address] [place] TSH SerPl-aCncon 06-14-2024 TSH Qn 2.320 m[IU]/L Normal 0.510-4.300 [facility] Comment on above: Order Comment: Wilian gomez Type: BLOOD SPECIMENOrdering Facility: [facility] Address: [address] [place] [address] Result Comment: If t he patient is , TSH reference range varies by gestational period: First Trimester (weeks 9-12): 0.180-2.990 mIU/L Second Trimester: 0.110-3.980 mIU/L Third Trimester: 0.480-4.710 mIU/L Ming García et al. A Practical Approach for the Verifications and Determination of Site- and Trimester-Specific Reference Intervals for Thyroid Function tests in . Thyroid, 2019:29:3:412-420. Armand Arredondo, et al. 2017 Guidelines of the [place] Thyroid Association for the Diagnosis and Management of Thyroid Disease during and the . Thyroid, 2017:27:3:315-389. Reference ranges were not locally established for this patient's age group. The normal values are based on the following source: Tyler W, Ondina V. Reference Ranges for Adults and Children: Pre-analytical Considerations. [facility] Performed By: #### 2 4323-8, 47465-8, 3024-7, 3016-3 ####[facility] LABCLIA [id number] [facility] [place] [address] [place] ANES POSTPROC EVALon 024 ANES POSTPROC EVAL HNO ID: [id number] Author: KAMRAN LÓPEZ MD Service: Anesthesiology Author Type: Anesthesiologist Type: Anesthesia Postprocedure Evaluation Filed: 05/08/2024 15:03 Note Text: POST ANESTHESIA EVALUATION NOTE : 2005 Procedure Summary Date: 05/08/24 Room / Location: [facility] Anesthesia Start: 1424 Anesthesia Stop: 1447 Procedure: EGD DIAGNOSTIC Diagnosis: Gastroesophageal reflux disease, unspecified whether esophagitis present (Heartburn) Scheduled Providers: Timur Bello MD; Ritika Mcintyre MD; María Saleem APRN.[employer]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 Last Vitals Vitals Value Taken Time BP 95/51 05/08/24 1445 Temp 36.1 ?C (97 ?F) 05/08/24 1444 Pulse 56 05/08/24 1458 Resp 21 05/08/24 1458 SpO2 97 % 05/08/24 1458 Vitals shown include unfiled device data. Post Anesthesia Patient Status Patient Evaluation: PACU. PACU/ICU Patient Condition: stable. Anticipated Disposition: phase 2 then home. Neurological Status: aware and responsive. Pulmonary Status: breathing comfortably on room air Airway Control: returned to baseline unsupported. Cardiovascular Status: stable. Pain Management: clinically adequate - multimodal analgesia pain management approach Postoperative Hydration: acceptable. Intraoperative Events: no significant anesthesia events Recommendation: continue current plan of care. Anesthesia Observations No Documentation SIGNATURE: Kamran López MD PATIENT NAME: Josafat Mcgee DATE: May 08, 2024 TIME: 2:59 PM CSN: [id number] Normal [facility] ANES PRE-OPon 05-08-2024 ANES PRE-OP HNO ID: [id number] Author: KAMRAN LÓPEZ MD Service: Anesthesiology Author Type: Anesthesiologist Type: Anesthesia Preprocedure Evaluation Filed: 05/08/2024 16:49 Note Text: ANESTHESIOLOGY DAY OF SURGERY NOTE : 2005 Procedure Information Date/Time: 05/08/24 1500 Scheduled providers: Timur Bello MD; Ritika Mcintyre MD; María Saleem APRN.SALES SYSTEMS ENGINEER Procedure: EGD DIAGNOSTIC Location: [facility] Estimated body mass index is 29.6 kg/m? as calculated from the following: Height as of this encounter: 170.2 cm (5' 7). Weight as of this encounter: 85.7 kg (189 lb). Most recent hematocrit and potassium results: Hematocrit 39.9 01/12/2022 Potassium 4.2 01/12/2024 Relevant Problems No relevant active problems I - PHYSICAL EVALUATION AIRWAY Patient intubated: No. Tracheostomy tube not present Mallampati: I. TM distance: >3 FB. Neck ROM: full ROM without neurological symptoms. Mouth opening: adequate. Short neck: no. Thick neck: no Correia present: no DENTAL Dental findings: teeth intact. Additional exam findings: no II - ANESTHESIA PLAN ASA Score: 2 Anesthetic Plan: MAC The patient is not a current smoker. NPO Status: adequate Beta Kirby Monitoring Plan Monitoring plan: standard ASA. Post Procedure Analgesic Plan Postoperative analgesic plan: parenteral or oral opioids. Informed Consent Anesthetic risks, benefits, alternatives, personnel and consent discussed: yes. Patient / Responsible Libertarian agrees to proceed: yes Patient / Surrogate agrees to blood products: blood products not planned Significant changes in the patient condition since the History and Physical, not otherwise documented in primary service progress note: no. Potential Anesthesia issues that may suggest increased risk of complications or contraindication to planned procedure: none. Vitals Value Taken Time BP 111/66 05/08/24 1302 Pulse 65 05/08/24 1302 Resp 16 05/08/24 1302 Temp 37.1 ?C (98.8 ?F) 05/08/24 1302 SpO2 99 % 05/08/24 1302 Outpatient Medications as of 05/08/2024 Medication Sig FLUoxetine (PROZAC) 40 mg capsule Take 1 capsule by mouth once daily. traZODone (DESYREL) 50 mg tablet Take 1 tablet by mouth daily at bedtime. sodium fluoride 1.1 % dental cream DISPENSE A SMALL AMOUNT INTO TOOTH SLOT TRAY AND WEAR FOR 5 MINUTES albuterol HFA (PROVENTIL HFA, VENTOLIN HFA) 90 mcg/actuation inhaler Inhale 2 Puffs as instructed every 6 hours as needed for wheezing/shortness of breath. midodrine (PROAMATINE) 2.5 mg tablet take 1 tablet by mouth three times a day pantoprazole DR (PROTONIX) 40 mg tablet Take 40 mg by mouth once daily. No current facility-administere d medications on file as of 05/08/2024. I have interviewed and examined the patient. I have reviewed the medical record and/or the pre-anesthesia evaluation, pertinent labs, and test results. This contains updated information obtained within 48 hours of Surgery/Procedure. SIGNATURE: Ritika Mcintyre MD PATIENT NAME: Josafat Mcgee DATE: May 08, 2024 TIME: 1:41 PM CSN: [id number] Normal [facility] EGD Study observation Roseanna mckay 05-08-2024 [facility] Patient Name: Josafat Mcgee Procedure Date: 05/08/2024 2:10 PM Date of : 2005 Admit Type: Outpatient Age: 18 Room: [facility] Gender: Female Note Status: Finalized Attending MD: Timur Bello MD, [id number] Procedure: Upper GI endoscopy Indications: Heartburn, Suspected gastro-esophageal reflux disease Providers: Timur Bello MD Patient Profile: This is a 18 year old female. Refer to note in patient chart for documentation of history and physical. Referring Physician: Leslye Galicia MD (Referring MD) Medicines: See the Anesthesia note for documentation of the administered medications Complications: No immediate complications. Estimated blood loss: Minimal. Requesting Provider: Procedure: Pre-Anesthesia Assessment: - Prior to the procedure, a History and Physical was performed, and patient medications and allergies were reviewed. The patient's tolerance of previous anesthesia was also reviewed. The risks and benefits of the procedure and the sedation options and risks were discussed with the patient. All questions were answered, and informed consent was obtained. Prior Anticoagulants: The patient has taken no anticoagulant or antiplatelet agents. ASA Grade Assessment: II - A patient with mild systemic disease. After reviewing the risks and benefits, the patient was deemed in satisfactory condition to undergo the procedure. After obtaining informed consent, the endoscope was passed under direct vision. Throughout the procedure, the patient's blood pressure, pulse, and oxygen saturations were monitored continuously. The Endoscope was introduced through the mouth, and advanced to the second part of duodenum. The upper GI endoscopy was accomplished without difficulty. The patient tolerated the procedure well. Moderate Sedation: The following parameters were monitored: oxygen saturation, heart rate, blood pressure, respiratory rate, EKG, adequacy of pulmonary ventilation, and response to care. MAC anesthesia was administered by the anesthesia team. Total Procedure Duration: 0 hours 6 minutes 0 seconds Findings: The Z-line was regular and was found 40 cm from the incisors. Biopsies were taken with a cold forceps for histology. The entire examined stomach was normal. Biopsies were taken with a cold forceps for Helicobacter pylori testing. The examined duodenum was normal. Biopsies for histology were taken with a cold forceps for evaluation of celiac disease. Impression: - Z-line regular, 40 cm from the incisors. Biopsied. - Normal stomach. Biopsied. - Normal examined duodenum. Biopsied. Recommendation: - Patient has a contact number available for emergencies. The signs and symptoms of potential delayed complications were discussed with the patient. Return to normal activities tomorrow. Written discharge instructions were provided to the patient. - Patient has a contact number available for emergencies. The signs and symptoms of potential delayed complications were discussed with the patient. Return to normal activities tomorrow. Written discharge instructions were provided to the patient. - Resume previous diet. - Continue present medications. - Await pathology results. - Repeat upper endoscopy PRN for surveillance. - Return to my office at appointment to be scheduled. Procedure Code(s): --- Professional --- 49349, Esophagogastroduoden oscopy, flexible, transoral; with biopsy, single or multiple Diagnosis Code(s): --- Professional --- R12, Heartburn CPT copyright 2020 [place] [employer]. All rights reserved. The codes documented in this report are preliminary an (more content not included)... [facility] Study observation (narrative) [facility] HISTORY PHYSICALon 4 HISTORY PHYSICAL HNO ID: [id number] Author: TIMUR BELLO MD Service: General Surgery Author Type: Physician Type: H&P Filed: 05/08/2024 14:24 Note Text: HISTORY AND PHYSICAL Josafat Mcgee 2005 REFERRING PHYSICIAN: Katelin Morel MD CHIEF COMPLAINT: Consult (GERD and chest pain. ) HPI: The patient is a 18 year old female referred for endoscopy. Josafat notes severe heartburn. This has been going on for about a year, but worsening in frequency and severity. She complains of a burning acid sensation and points to her esophagus. She also states that she will regurgitate solid food at times, but tried to prevent this. She notes water brash. She has tried antacid medications without much improved. She denies blood in emesis. She denies swallowing difficulties. She also note intermittent RUQ abdominal pain that radiates to the back. Josafat has not undergone prior endoscopy. PAST MEDICAL HISTORY PAST MEDICAL HISTORY Diagnosis Date Asthma Ovarian cyst POTS (postural orthostatic tachycardia syndrome) Seasonal allergies Vasovagal syncope PAST SURGICAL HISTORY PAST SURGICAL HISTORY Procedure Laterality Date FINGER SURGERY HX CURRENT MEDICATIONS Current Outpatient Medications Medication Sig sodium fluoride 1.1 % dental cream DISPENSE A SMALL AMOUNT INTO TOOTH SLOT TRAY AND WEAR FOR 5 MINUTES albuterol HFA (PROVENTIL HFA, VENTOLIN HFA) 90 mcg/actuation inhaler Inhale 2 Puffs as instructed every 6 hours as needed for wheezing/shortness of breath. midodrine (PROAMATINE) 2.5 mg tablet take 1 tablet by mouth three times a day FLUoxetine (PROZAC) 40 mg capsule Take 1 capsule by mouth once daily. pantoprazole DR (PROTONIX) 40 mg tablet Take 40 mg by mouth once daily. No current facility-administere d medications for this visit. ALLERGIES: Seasonal Allergies PERSONAL HISTORY: SOCIAL HISTORY Social History Tobacco Use Smoking status: Never Smokeless tobacco: Never Vaping Use Vaping Use: Never used Substance Use Topics Alcohol use: Not Currently Drug use: Never FAMILY HISTORY FAMILY HISTORY Problem Relation Age of Onset other (Venous insufficiency) Mother No Known Problems Father Arthritis Maternal Grandmother Coronary Artery Disease Maternal Grandfather COPD Maternal Grandfather Diabetes Maternal Grandfather Hypertension Maternal Grandfather Hypoglycemia Paternal Grandmother other (non-Hodgkins lymphoma) Paternal Grandmother Coronary Artery Disease Paternal Grandfather The review of systems data was entered by the nurse and reviewed by me Nursing Notes: Qi Bowman RN 04/08/2024 4:20 PM Signed REVIEW OF SYSTEMS: General: The patient NOTES fatigue, denies weight loss, denies weight gain, denies feeling hot, and NOTES feelings of cold. Eyes: The patient denies glaucoma, denies eye injury/surgery, wears glasses or contacts. Ear/Nose/Throat: The patient denies allergies, NOTES hayfever, denies ear infections, and denies bloody noses. Cardiovascular: The patient NOTES chest pain, denies heart disease, denies high blood pressure,denies cardiac stent, denies prior heart attack, denies irregular heart beat, denies high cholesterol, denies poor circulation, denies heart failure, other cardiac issues, denies claudication, denies cold feet, denies peripheral arterial stent. Respiratory: The patient denies tuberculosis, NOTES pneumonia, denies frequent cough, denies pulmonary embolism, NOTES shortness of breath, and denies coughing up blood. Gastrointestinal: The patient denies difficulty swallowing, NOTES acid reflux, denies ulcers, denies vomiting, denies jaundice/hepatitis, denies gallbladder problems, denies black or tarry stools, denies hemorrhoids, denies bleeding from rectum, denies diverticulitis, denies constipation, denies diarrhea, denies loss of stool control, and denies hernias. Kidney/Bladder: The patient denies kidney stones, NOTES urine infections, and denies bloody urine. Skin: The patient denies a history of skin cancer, denies bleeding/changing moles, and denies a history of skin rash. Neurologic: The patient denies a history of epilepsy/convulsions , denies headaches, denies head/spinal injuries, and denies stroke/TIA. Psychiatric: The patient denies psychiatric medications, NOTES depression, and denies voices, denies substance abuse. Endocrine: The patient denies thyroid disorders, denies diabetes, and denies hormonal problems. Hematologic: The patient denies a history of bruising, denies bleeding, and denies anemia, denies blood clots. Infections: The patient denies a history of measles and mumps, denies rheumatic fever, and denies sexually transmitted diseases. Musculoskeletal: The patient denies back pain/injury, denies back problems, denies sciatica, denies knee/foot trouble, denies arthritis, or denies gout. When was patient's last Mammogram screening? N/A Last Colonoscopy: None Rhon (more content not included)... Normal [facility] SURGICAL PATHOLOGYon 024 CASE REPORT [facility] Comment on above: Order Comment: Wilian gomez Type: TISSUE SPECIMEN Ordering Facility: [facility] Address: [address] [place] [address] Result Comment: Surg ical Pathology Report Case: [id number] Authorizing Provider: Timur Bello MD Collected: 05/08/2024 02:33 PM Ordering Location: [facility] Received: 05/08/2024 03:35 PM Pathologist: Divine Stone MD Specimens: A) - Small Bowel, Duodenum, Biopsy B) - Stomach, Biopsy, hp C) - Esophagus, Distal, Biopsy Performed By: #### S #### [facility] CLIA [id number] [address] [place] [address] FINAL DIAGNOSIS [facility] Comment on above: Order Comment: Wilian gomez Type: TISSUE SPECIMEN Ordering Facility: [facility] Address: [address] [place] [address] Result Comment: A. S mall Bowel, Duodenum, Biopsy -Duodenal mucosa with normal villous architecture and no significant histopathologic changes B. Stomach, Biopsy -Gastric oxyntic mucosa with no significant histopathologic changes, negative for Helicobacter pylori type organisms. C. Esophagus, Distal, Biopsy -Squamous mucosa with no significant histopathologic changes. Performed By: #### S #### [facility] CLIA [id number] [address] [place] [address] FINAL PERFORMING LAB [facility] Comment on above: Order Comment: Wilian gomez Type: TISSUE SPECIMEN Ordering Facility: [facility] Address: [address] [place] [address] Result Comment: Diag nostic interpretation performed at [facility], [address] [place] [address] CLIA# [id number] Community Outreach Director: Timothy H. Henricks, M.D. Performed By: #### S #### [facility] CLIA [id number] [address] [place] [address] [place] GROSS DESCRIPTION Normal [facility] Comment on above: Order Comment: Speci men Type: TISSUE SPECIMEN Ordering Facility: [facility] Address: [address] [place] [address] Result Comment: A. S mall Bowel, Duodenum, Biopsy Received in formalin is one piece of berger, soft tissue measuring 0.3 x 0.2 x 0.2 cm. Totally submitted in one cassette. B. Stomach, Biopsy Received in formalin is one piece of berger, soft tissue measuring 0.6 x 0.2 x 0.1 cm. Totally submitted in one cassette. C. Esophagus, Distal, Biopsy Received in formalin are multiple pieces of berger-white, soft tissue aggregating to 1.3 x 0.3 x 0.1 cm. Totally submitted in one cassettes. DB May 09, 2024 12:13 AM Gross examination performed at [facility], [address] [place] [address] Performed By: #### S #### [facility] CLIA [id number] [address] [place] [address] [place] Upper GI endoscopyon 17-2 024 Upper GI endoscopy [facility] G[facility]intestinal [facility] Patient Name: Josafat Mcgee Procedure Date: 05/08/2024 2:10 PM Date of : 2005 Admit Type: Outpatient Age: 18 Room: [facility] Gender: Female Note Status: Finalized Attending MD: Timur Bello MD, [id number] Procedure: Upper GI endoscopy Indications: Heartburn, Suspected gastro-esophageal reflux disease Providers: Timur Bello MD Patient Profile: This is a 18 year old female. Refer to note in patient chart for documentation of history and physical. Referring Physician: Leslye Galicia MD (Referring MD) Medicines: See the Anesthesia note for documentation of the administered medications Complications: No immediate complications. Estimated blood loss: Minimal. Requesting Provider: Procedure: Pre-Anesthesia Assessment: - Prior to the procedure, a History and Physical was performed, and patient medications and allergies were reviewed. The patient's tolerance of previous anesthesia was also reviewed. The risks and benefits of the procedure and the sedation options and risks were discussed with the patient. All questions were answered, and informed consent was obtained. Prior Anticoagulants: The patient has taken no anticoagulant or antiplatelet agents. ASA Grade Assessment: II - A patient with mild systemic disease. After reviewing the risks and benefits, the patient was deemed in satisfactory condition to undergo the procedure. After obtaining informed consent, the endoscope was passed under direct vision. Throughout the procedure, the patient's blood pressure, pulse, and oxygen saturations were monitored continuously. The Endoscope was introduced through the mouth, and advanced to the second part of duodenum. The upper GI endoscopy was accomplished without difficulty. The patient tolerated the procedure well. Moderate Sedation: The following parameters were monitored: oxygen saturation, heart rate, blood pressure, respiratory rate, EKG, adequacy of pulmonary ventilation, and response to care. MAC anesthesia was administered by the anesthesia team. Total Procedure Duration: 0 hours 6 minutes 0 seconds Findings: The Z-line was regular and was found 40 cm from the incisors. Biopsies were taken with a cold forceps for histology. The entire examined stomach was normal. Biopsies were taken with a cold forceps for Helicobacter pylori testing. The examined duodenum was normal. Biopsies for histology were taken with a cold forceps for evaluation of celiac disease. Impression: - Z-line regular, 40 cm from the incisors. Biopsied. - Normal stomach. Biopsied. - Normal examined duodenum. Biopsied. Recommendation: - Patient has a contact number available for emergencies. The signs and symptoms of potential delayed complications were discussed with the patient. Return to normal activities tomorrow. Written discharge instructions were provided to the patient. - Patient has a contact number available for emergencies. The signs and symptoms of potential delayed complications were discussed with the patient. Return to normal activities tomorrow. Written discharge instructions were provided to the patient. - Resume previous diet. - Continue present medications. - Await pathology results. - Repeat upper endoscopy PRN for surveillance. - Return to my office at appointment to be scheduled. Procedure Code(s): --- Professional --- 78682, Esophagogastroduoden oscopy, flexible, transoral; with biopsy, single or multiple Diagnosis Code(s): --- Professional --- R12, Heartburn CPT copyright 2020 [employer]. All rights reserved. The codes documented in this report are preliminary and upon online banking specialist review may be revised to meet current compliance requirements. Attending Participation: I personally performed the entire procedure. Scope In: 2:32:04 PM Scope Out: 2:38:04 PM MD Timur Barroso MD 05/08/2024 2:40:59 PM This report has been signed electronically by Timur Bello MD Number of Addenda: 0 Note Initiated On: 05/08/2024 2:10 PM Estimated Blood Loss: Estimated blood loss was minimal. Normal [facility] US Abdomen RUQon 04-29-2024 IMPRESSION: Normal sonographic appearance of the right upper quadrant. Hand Laster: ROBERTS CHAPELB Transcribe Date/Time: Apr 29 2024 8:24A Dictated by : JAVI ABURTO MD This examination was interpreted and the report reviewed and electronically signed by: JAVI ABURTO MD on Apr 29 2024 8:35AM [facility] DIVISION OF RADIOLOGY * * *Final Report* * * DATE OF EXAM: Apr 29 2024 7:26AM WRU 1032 - US ABD RIGHT UPPER QUADRANT / PROCEDURE REASON: RUQ abdominal pain * * * * Physician Interpretation * * * * EXAMINATION: RIGHT UPPER QUADRANT ULTRASOUND CLINICAL HISTORY: Right upper quadrant pain TECHNIQUE: Sonography of the right upper quadrant was performed. Images were obtained and stored in a permanent archive and interpreted remotely. MQ: URUQ_2 COMPARISON: None. RESULT: Pancreas: Normal sonographic appearance. Portions obscured: tail Liver: Echotexture: Normal, homogeneous. Echogenicity: Normal Surface contour: Smooth Lesions: None. Biliary: No intrahepatic biliary duct dilation. CBD: 0.2 cm at the hilum. Gallbladder: Normal caliber -Contents: No cholelithiasis -Wall: Normal -Other: No pericholecystic fluid. Right Kidney: Normal cortical echogenicity. No hydronephrosis. Ascites: None. DIVISION OF RADIOLOGY Provider, [facility] [place] - 04/29/2024 * * *Final Report* * * DATE OF EXAM: Apr 29 2024 7:26AM WRU 1032 - US ABD RIGHT UPPER QUADRANT / PROCEDURE REASON: RUQ abdominal pain * * * * Physician Interpretation * * * * EXAMINATION: RIGHT UPPER QUADRANT ULTRASOUND CLINICAL HISTORY: Right upper quadrant pain TECHNIQUE: Sonography of the right upper quadrant was performed. Images were obtained and stored in a permanent archive and interpreted remotely. MQ: URUQ_2 COMPARISON: None. RESULT: Pancreas: Normal sonographic appearance. Portions obscured: tail Liver: Echotexture: Normal, homogeneous. Echogenicity: Normal Surface contour: Smooth Lesions: None. Biliary: No intrahepatic biliary duct dilation. CBD: 0.2 cm at the hilum. Gallbladder: Normal caliber -Contents: No cholelithiasis -Wall: Normal -Other: No pericholecystic fluid. Right Kidney: Normal cortical echogenicity. No hydronephrosis. Ascites: None. IMPRESSION IMPRESSION: Normal sonographic appearance of the right upper quadrant. Hand Laster: BJ Transcribe Date/Time: Apr 29 2024 8:24A Dictated by : JAVI ABURTO MD This examination was interpreted and the report reviewed and electronically signed by: JAVI ABURTO MD on Apr 29 2024 8:35AM EST [facility] Study observation (narrative) [facility] US Abdomen RUQOrdered By: Cydney santoro Provider on 04-29-2024 [facility] Comprehensive metabolic 2000 panelon 01-12-2024 Albumin [Mass/Vol] 4.4 g/dL 3.9 - 4.9 g/dL [facility] ALP [Catalytic activity/Vol] 75 U/L 34 - 123 U/L [facility] ALT [Catalytic activity/Vol] 16 U/L 7 - 38 U/L [facility] Anion gap [Moles/Vol] 12 mmol/L 9 - 18 mmol/L [facility] AST [Catalytic activity/Vol] 27 U/L 13 - 35 U/L [facility] Bilirubin [Mass/Vol] 0.2 mg/dL 0.2 - 1 .3 mg/dL [facility] Calcium [Mass/Vol] 9.6 mg/dL 8.5 - 10. 2 mg/dL [facility] Chloride [Moles/Vol] 102 mmol/L 97 - 10 5 mmol/L [facility] CO2 [Moles/Vol] 23 mmol/L 22 - 30 mmol/L [facility] Creatinine [Mass/Vol] 0.71 mg/dL 0.58 - 0.96 mg/dL [facility] Estimated Glomerular Filtration Rate 126 mL/min/1.73m >=60 mL/min/1.73m [facility] Glucose [Mass/Vol] 82 mg/dL 74 - 99 mg/dL [facility] Potassium [Moles/Vol] 4.2 mmol/L 3.7 - 5.1 mmol/L [facility] Protein [Mass/Vol] 7.6 g/dL 6.3 - 8.0 g/dL [facility] Sodium [Moles/Vol] 137 mmol/L 136 - 144 mmol/L [facility] Urea nitrogen [Mass/Vol] 12 mg/dL 7 - 21 mg/dL [facility] HbA1c (Bld)on 01-12-2024 Average glucose Estimated from glycated hemoglobin (Bld) [Mass/Vol] 100 mg/dL [facility] HbA1c (Bld) [Mass fraction] 5.1 % 4.3 - 5.6 % [facility] CNOVon 04-07-2022 CNOV Office Visit (NEPEFV) NICOLE MCGEE ([id number]) 3 F Date Time Provider Department 04/07/22 1:00 PM MILAGRO HENDERSON During your visit today, we recorded the following information about you: Temperature Weight Height 97.6 degrees 77 kg 1.676 m Milagro Henderson MD 04/09/2022 10:36 AM Signed 16 1/2 year old Nicole Mcgee was seen in Pediatric Neurology clinic on 04/07/22 as a f/u of her prior visit on 01/12/22. She was accompanied by her mother. Background history: Nicole is a 16 1/2 year old girl with the following: ? - suspected dysautonomia symptomatic from 12/2016 when she had her first presyncope, she had covid in 06/2021 hence symptoms were not temporally related to covid - anxiety, never in counseling - LD in reading comprehension, gets extra help in school - hypermobility of joints - easy bruisability ? In the first visit with me in 12/2021 her neurological exam was normal except for impaired vibration sense distally in the LEs which brings up a possibility of neuropathy ( although it is somewhat odd that she has no other concomitant abnormality on exam and also that this would mean she has both small and large fiber involvement which is again odd ). Orthostatic vitals showed postural hypotension but I had a suspicion the very first SBP done in supine was slightly high owing to some anxiety as she came into the clinic. On recheck at the cardiology visit there vitals did not show any abnormal orthostatic change. Labs that day showed vit D borderline low, was advised supplementation, also TIBC was slightly high, hence advised MV+iron. ? ? ? Interval history: Cardiology eval with review of echo and Holter from previous hospital normal. On review it was noted that she uses a dieting ted, that she cannot keep up with regular meals owing to her schedule. Was suggested to see Adolescent Med which was not done. Borderline vit D level, iron studies normal except slightly high TIBC. Not started MV+iron or vit D. Had a syncope in 01/2022, was on a cruise to the [facility], was with her friends, felt dizzy and light-headed, vision became blurry, passed out when she got up to standing, does not recall any more details. Continues to feel dizzy ~ 2 times a week, always related to getting to upright posture. Drinks 60-70 oz water a day. Takes salt tabs daily. Did not start compression stockings. ROS: Constitutional: appetite normal, insomnia Eyes: glasses for myopia and astigmatism ENT: failed hearing test at ENT visit, will be rechecked GI: neg : neg Resp: neg Cardio: chest pain or palpitations postural or on walking better Hem: easy bruising no longer Allergy: as above Endocrine: 11 lbs weight gain in the last 3 months Musculoskeletal: right shoulder pops, hypermobility of some joints Neuro: as above Psych: anxiety and sadness just the same, did not see psychology as advised Skin: neg Home meds: Omeprazole Cetirizine Albuterol PRN Salt sticks 2 tabs in AM Social: She lives with both parents. Has a brother. Will start 12th grade at [employer] and [employer]. Will continue to be on IEP for reading comprehension. Last report card shows As and Bs. 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 Exam: General: Well-looking Weight 77 kg Orthostatic vitals: Supine BP 103/59, HR 78 Standing BP 99/59, HR 89 Spine normal curvature Neurologic: Mental state: alert and co-operative Cranial nerves: B/L pupils equal and reactive, visual mcdowell and fundi normal, ocular movts normal, V-motor and sensory normal, no facial weakness, grossly hearing normal, palatal movts normal, XI-normal, tongue normal Motor: bulk, tone and strength normal in all extremities Sensory: normal light touch, temp and position sense, vibration sense impaired in the distal LEs, also diminished pinprick sensation in the distal LEs compared to UEs DTRs: normal and symmetric Plantars: B/L flexor No abnormal cerebellar signs Gait: normal including stressed gait and tandem Romberg: negative Impression: Nicole is a 16 1/2 year old girl with the following: ? - suspected dysautonomia symptomatic from 12/2016 when she had her first presyncope, she had covid in 06/2021 hence symptoms were not temporally related to covid, continues to feel postural dizziness, in the interim had 1 syncope - anxiety, not started counseling - LD in reading comprehension, gets extra help in school - hypermobility of joints - easy bruisability, no longer an issue Her neurological exam is significant for diminution of pinprick and vibration sense in the distal LEs bringing up a possibility of peripheral neuropathy. Plan: Start MV+iron Start vit (more content not included)... Normal [facility] No Panel Informationon 01-29 POC SARS CoV-2 Antigen Negative [facility] Work Phone: Progress Noteon 09-22-2021 Blintze Roller Authentication Interface Message Text We had the pleasure of seeing Josafat Mcgee in the Heart Center at [facility] on September 22, 2021. As you know, Josafat is a 16 y.o. female seen in evaluation for dizziness and tachycardia. She was last seen by my colleague, Dr. Cheema, on December 18, 2020 for symptoms of non-cardiac chest pain. Josafat is accompanied by her mother who assisted in providing the history. She notes an almost 1 year history of dizziness, lightheadedness, and blurry vision primarily associated with position change. There is a possible history of syncope while taking a prolonged hot shower several months ago. There is no history of syncope with exertion. Josafat also notes daily palpitations occurring before or after her dizziness. She reports heart rates of 140-150 beats per minute by Apple Watch at times. Josafat notes unchanged intermittent sharp sternal chest pain. There is no history of shortness of breath or exertional intolerance. Past medical history was reviewed and is significant for asthma, allergic rhinitis, and GERD. Current medications are omeprazole, cetirizine, fluticasone, and albuterol. There are no known allergies. On review of systems, 10 of 14 systems were reviewed and were negative other than noted above. Family history was reviewed and is negative for congenital heart disease, premature coronary artery disease, and sudden . On review of social history Josafat lives with her family in [place], [place]. Physical exam showed: Weight 75.5 kg, 93 %ile (Z= 1.46) based on CDC (Girls, 2-20 Years) [id number] data using vitals from 09/22/2021. Height 165.1 cm, 63 %ile (Z= 0.33) based on [facility] [place][NOTE 2] (Girls, 2-20 Years) [id number] data based on Stature recorded on 09/22/2021. Heart rate was 80 beats per minute, respiratory rate was 16 breaths per minute, and blood pressure was 109/61 mmHg. In general, Josafat is acyanotic, well developed, well nourished, and in no acute distress. HEENT exam revealed that mucous membranes are moist. There is no thyromegaly or cervical lymphadenopathy. Respirations are comfortable. There is no use of accessory muscles. There are no retractions. Auscultation reveals good air movement bilaterally without wheezes, rales, or rhonchi. On palpation of the precordium, there are no lifts, heaves, or thrills. Auscultation reveals regular rate and rhythm with a normal S1 and physiologically split S2. There is no ejection click. There is no murmur, gallop, or rub. Radial and posterior tibial pulses are 2+, with no delay. Abdomen is soft, non-tender, and non-distended. There is no abdominal bruit. Liver is not palpable. Spleen is not palpable. Extremity exam reveals no cyanosis, clubbing, or edema. Extremities are warm and well perfused. Neurologic exam is grossly intact. There are no rashes or bruises on skin exam. A 12-lead ECG performed today that I personally reviewed is normal with sinus rhythm and a ventricular rate of 77, TX interval of 177 msec, QRS duration of 87 msec, QTc of 423 msec, QRS axis of +52 degrees, no atrial enlargement, no ventricular hypertrophy, and no ST/T changes. DIAGNOSES: 1. Orthostatic dizziness. A. Normal ECG. B. Normal echocardiogram (December 18, 2020). 2. Palpitations. ASSESSMENT: Josafat is a 16 y.o. female with symptoms most consistent with orthostatic dizziness with a normal cardiac examination, ECG, and echocardiogram. She will likely benefit from increased hydration. A trial of medication therapy with Florinef was also discussed. We will also evaluate for palpitations by Holter monitor. RECOMMENDATIONS: 1. Continue primary medical care as directed. 2. Recommend that Josafat drink a minimum of 80-100 ounces of caffeine free fluid daily. Discussed trial of Florinef. 3. No activity restrictions from a cardiovascular perspective. 4. No scheduled cardiology follow-up is required at this time. We will follow-up the Holter monitor results by Kurtis and arrange additional follow-up as needed or if Florinef trial is desired. Total encounter time was 40 minutes, which includes chart review, counseling, documentation and/or coordination of care. Normal [facility] Progress Noteon 08-24-2021 Blintze Roller Authentication Interface Message Text Patient ID: Josafat Mcgee is a 16 y.o. female. Her chief complaint(s) include: Fatigue Assessment 1. Near syncope 2. Dizziness 3. Tachycardia with heart rate 141-160 beats per minute Plan Josafat was seen today for fatigue. Diagnoses and all orders for this visit: Near syncope - Orthostatic blood pressure - AMB Referral To Cardiology; Future Dizziness - AMB Referral To Cardiology; Future Tachycardia with heart rate 141-160 beats per minute - AMB Referral To Cardiology; Future Orthostatics showed patient had significant increase in heart rate with change in position from lying down, sitting and standing. Instructed patient on importance of drinking at least 60 to 80 oz of fluids per day. To also increase salt in diet for now. Will have patient follow up with cardiology for further evaluation. Make sure to not skip meals and get plenty of sleep. Return if symptoms worsen or fail to improve. Subjective She is accompanied by her mother. Independent history obtained from mother (and patient). Fatigue This problem is new. The duration has been 1 year. The onset has been gradual (happening off/on). The patient's symptoms have included fatigue, headaches and abdominal pain. The patient's symptoms have included no fever, no decreased appetite, no decreased fluid intake (getting about 40oz/day), no difficulty sleeping, no congestion, no rhinorrhea, no sore throat, no cough, no bilateral ear pain, no diarrhea and no vomiting. (Near syncope, sometimes has sharp pain/chest discomfort). There have been no previous interventions. Review of Systems Cardiovascular: Positive for syncope. Objective Vital Signs 08/24/21 1524 08/24/21 1613 BP: 102/67 Pulse: 82 Weight: 75.5 kg Height: 165.1 cm Blood pressure (lay flat for > or equal to 5 minutes): 108/69 Pulse (lay flat for > or equal to 5 minutes): 77 Blood Pressure (stand at 1 minute interval): 107/75 Pulse (stand at 1 minute interval): 95 Blood Pressure (stand at 3 minute interval): 111/71 Pulse (stand at 3 minute interval): 105 Body mass index is 27.7 kg/m . Physical Exam Constitutional: She appears well. She is active. No distress. HENT: Head: Atraumatic. Ears: Right Ear: Tympanic membrane normal. Left Ear: Tympanic membrane normal. Nose: No nasal discharge. Mouth/Throat: Mucous membranes are moist. No pharynx erythema. Eyes: Conjunctivae are normal. Cardiovascular: Normal rate and regular rhythm. Heart murmur not heard. Pulmonary/Chest: Breath sounds normal. There is normal air entry. Neurological: She is alert. Coordination (slightly unsteady when standing on one foot) abnormal. Gait normal. Vitals reviewed: Blood pressure 102/67, pulse 82, height 165.1 cm, weight 75.5 kg. Normal [facility] Progress Noteon 12-22-2020 Blintze Roller Authentication Interface Message Text Patient ID: Josafat Mcgee is a 15 y.o. female. Her chief complaint(s) include: 15 YEAR WELL CHILD Assessment 1. Encounter for routine child health examination without abnormal findings 2. Exercise counseling 3. Encounter for dietary counseling and surveillance 4. Need for vaccination 5. Mild persistent asthma without complication Plan Josafat was seen today for 15 year well child. Diagnoses and all orders for this visit: Encounter for routine child health examination without abnormal findings - PHQ9 Assessment With Score - Health Risk Assessment - CRAFFT Exercise counseling Encounter for dietary counseling and surveillance Need for vaccination - Meningococcal ACWY (MENACTRA) - Influenza Vaccine 0.5 mL >= 6 mo Quadrivalent (PF) Mild persistent asthma without complication - fluticasone (FLOVENT HFA) 110 MCG/ACT 110 mcg inhaler; Inhale 2 Puffs into the lungs 2 times daily Mother gave verbal consent for menactra vaccine and influenza vaccine. Will hold until next year for the MenB. Discussed with patient the elevated PHQ-9 score. Patient states that the score is higher than what she is currently feeling since it asked questions from over the last year. She states she is doing much better over the last several months. I discussed counseling with her but she declined that at this time. Patient also not wanting to start medication. She has good support at home and feels she can talk with her mother if concerns. Patient denies any current suicidal ideations and in my clinical judgement is safe to go home. Will follow up in 1 to 2 months/sooner if worsening or concerns. Patient's asthma not under good control at this time. Will add flovent to regiment to better help with controlling her symptoms. Continue with the albuterol as needed. Asthma action plan updated. Return in about 1 year (around 12/22/2021) for well check, Form in bin, needs copy of vaccines for school/daycare. Subjective She is unaccompanied. 15 YEAR WELL CHILD Home: Josafat eats meals with family, has an adult to turn to for help and is permitted and able to make independent decisions. Josafat has no home risk identified and does not pay the bills. Education: Josafat is in 10th grade and is doing well, is getting along with peers, is meeting expectations and earns A's & B's. Eating: Josafat limits fast food, drinks non-sweetened liquids and has a calcium source. Josafat does not eat regular meals including fruits and vegetables and does not eat breakfast. Activities & Sports: Josafat has a job (going to start at [employer]), performs at least 1 hour of physical activity daily, plays team sports (cheerleading), participates in music programs (choir) and has drivers license. Josafat engages in screen time more than 2 hours daily. Drugs: Josafat does not use tobacco, does not use drugs, does not use alcohol and does not vape. Safety: Josafat has a violence free home, has peer relationships free from violence and uses seat belt. Josafat does not use helmet and does not use phone/text while driving. Sex: The patient has never had a sexual partner. The patient is interested in males. The patient has never had sex. The patient's sexual orientation is heterosexual. The patient's gender identity is cisgender. Suicidality: Josafat has ways to cope with stress, displays self-confidence, has problems with sleep, has depression (some) and has anxiety. Josafat does not have mood swings, has no suicidal ideation (not anymore), has no homicidal ideation and is not engaged in counseling. PHQ-9 Score: 17 Menstruation (Menarche: age 12) Menstruation: regular periods and moderate cramping Output Urine and Stool Pattern: Urine and Stool Pattern: Normal stool pattern, no constipation, normal urine pattern, no nocturnal enuresis. Stool Consistency: soft Sleep Sleeping Difficulty: difficulty falling asleep Hours of sleep at a time: 6 (to 8 hours if she's dian) Teen Anticipatory Guidance The following anticipatory guidance was reviewed during the visit: Nutrition: limit junk food/fast food and soft drinks. Safety: home safety and use safety helmet/gear with activities. Social: avoid or limit screen time and parental limits and consequences for unacceptable behavior. Health: age appropriate dental care, age appropriate sleep habits, elevated noise and hearing, avoid situations where drugs and alcohol are present, how to resist peer pressure to smoke, drink, use drugs, ask questions if concerned about feelings for same or opposite sex, contraception/practi ce safe sex/ use condoms, practice abstinence- the safest way to prevent and STDs, discuss athletic conditioning/ weight training/weight supplements, learn to manage time and activities and be responsible for attendance/ homework/ course selection. Screenings Previous Vaccine Reactions: No. Life events information wa (more content not included)... Normal [facility] Progress Noteon 12-18-2020 Blintze Roller Authentication Interface Message Text Josafat is a 15 y.o. female who is being seen today for a consultative service at the request of Inactive Address Pcp for our opinion or medical advice regarding chest pain. She is brought in by her mother who assisted in providing the history. History of Presenting Illness: Since past June 2020 , Josafat has been having intermittent chest pains. She describes a sharp sensation over the middle of the chest and left lower rib area which does not radiate to other parts of his body. Josafat has noticed that the sensation worsens with movement and improves with rest. The last episode was last night while getting ready for bed. She also has had intermittent tachycardia, up to 162 bpm at rest, reported by her smart watch. Josafat has undergone extensive workup of her symptoms without a clear cause yet. Josafat is thought to have had COVID-19 in September 2019. Her symptoms included fever, cough, shortness of breath, headache and fatigue and myalgia for about a week. She had about 7 days of fever. She was not hospitalized. Non-Cardiac ROS: GENERAL: No weight loss, lethargy, or fevers. SKIN: Negative for lesions or rashes All other systems reviewed and are negative except as detailed above. Past Medical/Surgical History: Patient Active Problem List Diagnosis Asthma, intermittent Allergic rhinitis, cause unspecified Finger lesion BMI (body mass index), pediatric, 85% to less than 95% for age Past Medical History: Diagnosis Date Allergy Asthma Allergy induced Fractures Past Surgical History: Procedure Laterality Date WRIST GANGLION EXCISION Left 01/25/2017 Excision mass radial aspect proximal interphalangeal joint left middle finger performed [place] Clark [place] [facility] [place] Medications: Current Outpatient Medications Medication Sig Dispense Refill albuterol (VENTOLIN) (2.5 MG/3ML) 0.083% nebulizer solution Use 3 mL (2.5 mg) by nebulization every 4 hours as needed for Shortness of Breath or Other (cough) 100 Ampule 1 albuterol 108 (90 Base) MCG/ACT inhaler Inhale 2 Puffs into the lungs every 6 hours as needed for Wheezing Use with spacer. 1 Inhaler 1 cetirizine (ZYRTEC) 10 MG tablet Take 1 Tab (10 mg) by mouth daily 30 Tab 11 fluticasone (FLONASE) 50 MCG/ACT nasal spray 1 [place] by Each Nare route daily 16 g 11 No current facility-administere d medications for this visit. Allergies: No Known Allergies Family History: Maternal grandfather has coronary artery disease. Paternal grandfather had stents placed. The family history is otherwise negative for congenital heart disease, sudden unexplained , arrhythmia, long QT syndrome, unexplained drowning, aneurysms, heart transplantation or pacemaker requirement at a young age on the maternal or paternal side of the family. Social History: Lives at home with family. Physical Exam: BP 124/61 (BP Site: Right Arm, Patient Position: Sitting, BP Cuff Size: Lg Adult) Pulse 81 Resp 28 Ht 166 cm Wt 76.5 kg BMI 27.76 kg/m GENERAL APPEARANCE: alert, in no distress SKIN: Acyanotic, no rash SKEL: No pectus HEENT: Normal sclera, moist mucus membranes. PULM: Lungs are clear to auscultation and there is no grunting, flaring or retracting CARDIAC: The precordium is normally active. No heave or thrill. The rate was regular with normal S1 and a physiologically splitting S2. No systolic, diastolic, or continuous murmurs in the supine, sitting, standing positions. No clicks, rub or gallop rhythm. Normal heart rate variability with position. ABDOMEN: Soft, non-tender with liver edge not palpable below the right costal margin EXTREMITIES: Normal upper and lower extremity pulses with no brachio-femoral delay; normal perfusion. No clubbing or peripheral edema Studies: 1. EKG (12/18/2020): Normal sinus rhythm. No pre-excitation, or ectopy. Normal QTc interval. No abnormalities in axes, intervals, or voltages (Normal ECG) 2. Echocardiogram (12/18/2020): Normal cardiac structure and function. IMPRESSION AND PLAN: 1. Chest pain does not appear to cardiac in etiology 2. No additional cardiac testing indicated at this time. 3. She has tenderness to palpation, consider musculoskeletal etiology as partly responsible for symptoms. If no improvement, with conservative measurements, may be reasonable to look into slipping rib. 4. No obvious contraindication to surgery or general anesthesia 5. Follow up with pediatric cardiology: As needed Trip Cheema MD Normal [facility] Transglutaminase IgAon 11-12 Transglutaminase IgA <1.2 Normal <4.0 (Negative) [facility] Comment on above: Order Comment: Is th is specimen being sent to an external lab?->No [id number]&Blood^\S\^Vein&Vein Result Comment: Test Performed by: [facility] [address] [place] [address] Transportation Associate: Steven Herring M.D. Ph.D.; CLIA# [id number] Performed By: #### T RGLA #### [place] [address] Immunoglobulin Aon 1 Immunoglobulin A 169 mg/dL Normal 61-348 [facility] Comment on above: Order Comment: Is th is specimen being sent to an external lab?->No [id number]&Blood^\S\^Vein&Vein Performed By: #### I GA #### [place] [address] C-Reactive Proteinon 021 C-Reactive Protein 0.5 mg/dL Normal 0.0-1.0 [facility] Comment on above: Order Comment: Is th is specimen being sent to an external lab?->No [id number]&Blood^\S\^Vein&Vein Result Comment: CRP determinations in neonates should be interpreted with caution. CRP may be elevated in circumstances not associated with inflammation (e.g. difficult delivery, pneumothorax). In premature neonates CRP levels may not rise to abnormal levels even if sepsis is present; some speculate that immature liver function decreases the ability to generate a CRP response. Performed By: #### C RP #### [place] [address] Comp Metabolic Panelon 11-10 Albumin [Mass/Vol] 4.9 g/dL High 3.2-4.5 [facility] Comment on above: Order Comment: Is th is specimen being sent to an external lab?->No [id number]&Blood^\S\^Vein&Vein Performed By: #### C MP #### [address] [address] ALP [Catalytic activity/Vol] 63 U/L Normal 48-111 [facility] Comment on above: Order Comment: Is th is specimen being sent to an external lab?->No [id number]&Blood^\S\^Vein&Vein Performed By: #### C MP #### [address] [address] ALT [Catalytic activity/Vol] 15 U/L Normal 0-31 [facility] Comment on above: Order Comment: Is th is specimen being sent to an external lab?->No [id number]&Blood^\S\^Vein&Vein Performed By: #### C MP #### [place] [address] AST [Catalytic activity/Vol] 20 U/L Normal 0-31 [facility] Comment on above: Order Comment: Is th is specimen being sent to an external lab?->No [id number]&Blood^\S\^Vein&Vein Performed By: #### C MP #### [place] [address] Bili,Total 0.5 mg/dl Normal 0.0-1.0 [facility] Comment on above: Order Comment: Is th is specimen being sent to an external lab?->No [id number]&Blood^\S\^Vein&Vein Performed By: #### C MP #### [place] [address] Calcium [Mass/Vol] 10.0 mg/dL Normal 7.6-11.0 [facility] Comment on above: Order Comment: Is th is specimen being sent to an external lab?->No [id number]&Blood^\S\^Vein&Vein Performed By: #### C MP #### [place] [address] Chloride [Moles/Vol] 99 mmol/L Normal 96-108 [facility] Comment on above: Order Comment: Is th is specimen being sent to an external lab?->No [id number]&Blood^\S\^Vein&Vein Performed By: #### C MP #### [place] [address] CO2 [Moles/Vol] 28.1 mmol/L Normal 22.0-29.0 [facility] Comment on above: Order Comment: Is th is specimen being sent to an external lab?->No [id number]&Blood^\S\^Vein&Vein Performed By: #### C MP #### [place] [address] Creatinine [Mass/Vol] 0.69 mg/dL Normal 0.50-1.00 [facility] Comment on above: Order Comment: Is th is specimen being sent to an external lab?->No [id number]&Blood^\S\^Vein&Vein Result Comment: Premature 0.3-1.0 mg/dL Performed By: #### C MP #### [place] [address] Glucose [Mass/Vol] 76 mg/dL Normal 70-99 [facility] Comment on above: Order Comment: Is th is specimen being sent to an external lab?->No [id number]&Blood^\S\^Vein&Vein Result Comment: Criteria for Diagnosis of Diabetes(Effective 03/28/11): Fasting specimen (no caloric intake for at least 8 hours). <100 mg/dl Normal 100-125 mg/dl Increased Risk for Diabetes >125 mg/dl Diagnostic for Diabetes Random Glucose (any time of day without regard to last meal). >=200 mg/dl plus Classic Symptoms of Diabetes Performed By: #### C MP #### [place] [address] Potassium [Moles/Vol] 4.1 mmol/L Normal 3.3-5.1 [facility] Comment on above: Order Comment: Is th is specimen being sent to an external lab?->No [id number]&Blood^\S\^Vein&Vein Performed By: #### C MP #### [place] [address] Protein [Mass/Vol] 8.4 g/dL High 6.0-8.0 [facility] Comment on above: Order Comment: Is th is specimen being sent to an external lab?->No [id number]&Blood^\S\^Vein&Vein Performed By: #### C MP #### [place] [address] Sodium [Moles/Vol] 137 mmol/L Normal 133-145 [facility] Comment on above: Order Comment: Is th is specimen being sent to an external lab?->No [id number]&Blood^\S\^Vein&Vein Performed By: #### C MP #### [place] [address] Urea nitrogen [Mass/Vol] 11 mg/dL Normal 4-19 [facility] Comment on above: Order Comment: Is th is specimen being sent to an external lab?->No [id number]&Blood^\S\^Vein&Vein Performed By: #### C MP #### [place] [address] Complete Blood Counton 11-10 Differential Complete Automated Normal [facility] Comment on above: Order Comment: Is th is specimen being sent to an external lab?->No [id number]&Blood^\S\^Vein&Vein Performed By: #### C BC #### [place] [address] Basophils/100 WBC (Bld) 0.60 % Normal 0.00-1.00 [facility] Comment on above: Order Comment: Is th is specimen being sent to an external lab?->No [id number]&Blood^\S\^Vein&Vein Performed By: #### C BC #### [place] [address] Eosinophils/100 WBC (Bld) 1.60 % Normal 0.00-3.00 [facility] Comment on above: Order Comment: Is th is specimen being sent to an external lab?->[place] [address]&Blood^\S\^Vein&Vein Performed By: #### C BC #### [place] [address] Erythrocyte distribution width (RBC) [Ratio] 12.8 % Normal 0.0-14.4 [facility] Comment on above: Order Comment: Is th is specimen being sent to an external lab?->No 21177&Blood^\S\^Vein&Vein Performed By: #### C BC #### [place] [address] Hematocrit (Bld) [Volume fraction] 38.4 % Normal 37.0-46.0 [facility] Comment on above: Order Comment: Is th is specimen being sent to an external lab?->No 53357&Blood^\S\^Vein&Vein Performed By: #### C BC #### [place] [address] Hemoglobin (Bld) [Mass/Vol] 13.2 g/dL Normal 12.0-15.0 [facility] Comment on above: Order Comment: Is th is specimen being sent to an external lab?->No [id number]&Blood^\S\^Vein&Vein Performed By: #### C BC #### [place] [address] Immature granulocytes/100 WBC (Bld) 0.20 % Normal [facility] Comment on above: Order Comment: Is th is specimen being sent to an external lab?->No 31060&Blood^\S\^Vein&Vein Result Comment: Danielle ture Granulocyte Percent includes promyelocytes, myelocytes, and metamyelocytes. IG% > 1.0 indicates a left shift is present. With automated differentials, bands are included in the neutrophil count and not in the Immature Granulocyte Percent. Performed By: #### C BC #### [address] [id number] Lymphocytes/100 WBC (Bld) 23.5 % Low 25.0-45.0 [facility] Comment on above: Order Comment: Is th is specimen being sent to an external lab?->[place] 54973&Blood^\S\^Vein&Vein Performed By: #### C BC #### [address] [address] MCH (RBC) [Entitic mass] 28.4 pg Normal 25.0-35.0 [facility] Comment on above: Order Comment: Is th is specimen being sent to an external lab?->No [id number]&Blood^\S\^Vein&Vein Performed By: #### C BC #### [address] [address] MCHC 34.4 % Normal 31.0-37.0 [facility] Comment on above: Order Comment: Is th is specimen being sent to an external lab?->No 11984&Blood^\S\^Vein&Vein Performed By: #### C BC #### [address] [id number] MCV (RBC) [Entitic vol] 82.8 fL Normal 78.0-96.0 [facility] Comment on above: Order Comment: Is th is specimen being sent to an external lab?->No [id number]&Blood^\S\^Vein&Vein Performed By: #### C BC #### [address] [id number] Monocytes/100 WBC (Bld) 5.70 % Normal 3.00-6.00 [facility] Comment on above: Order Comment: Is th is specimen being sent [place] an [place]?->[place] [id number]&Blood^\S\^Vein&Vein Performed By: #### C BC #### [address] [address] Neutrophils (Bld) [#/Vol] 6.4 10*3/uL Normal 1.8-7.5 [facility] Comment on above: Order Comment: Is th is specimen being sent to an external lab?->[place] [address]97&Blood^\S\^Vein&Vein Performed By: #### C BC #### [address] [address] Neutrophils/100 WBC (Bld) 68.4 % High 34.0-64.0 [facility] Comment on above: Order Comment: Is th is specimen being [place] an [place]?->[place] [id number]&Blood^\S\^Vein&Vein Performed By: #### C BC #### [address] [address] Nucleated RBC/100 WBC (Bld) [Ratio] 0.0 % Normal -1.0-0.0 [facility] Comment on above: Order Comment: Is th is specimen being sent to an external lab?->[place] [id number]&Blood^\S\^Vein&Vein Performed By: #### C BC #### [address] [address] Platelet mean volume (Bld) [Entitic vol] 10.0 fL Normal [facility] Comment on above: Order Comment: Is th is specimen being sent [place] an [place]?->[place] [address]&Blood^\S\^Vein&Vein Result Comment: MPV is platelet range and age dependent Performed By: #### C BC #### [address] [address] Platelets (Bld) [#/Vol] 313 10*3/uL Normal 150-450 [facility] Comment on above: Order Comment: Is th is specimen being sent to an external lab?->No 21890&Blood^\S\^Vein&Vein Performed By: #### C BC #### [place] [address] RBC 4.64 10E12/L Normal 4.10-4.80 [facility] Comment on above: Order Comment: Is th is specimen being sent to an external lab?->[place] [address]96&Blood^\S\^Vein&Vein Performed By: #### C BC #### [place] [address] WBC (Bld) [#/Vol] 9.4 10*3/uL Normal 4.5-13.0 [facility] Comment on above: Order Comment: Is th is specimen being sent to an external lab?->No 44579&Blood^\S\^Vein&Vein Performed By: #### C BC #### [place] [address] ESRon 11-10-2020 ESR Sed Rate 34 mm Normal [facility] Comment on above: Order Comment: Is th is specimen being sent to an external lab?->No 46785&Blood^\S\^Vein&Vein Performed By: #### S RATE #### [address] [address] Interpretation ----- Normal [facility] Comment on above: Order Comment: Is th is specimen being sent to an external lab?->No 85021&Blood^\S\^Vein&Vein Result Comment: Male Female Child 0-13 Child 0-13 Adult 0- 9 Adult 0-20 Performed By: #### S RATE #### [place] [address] HCG, Serumon 11-10-2020 HCG, Serum Negative Normal [facility] Comment on above: Order Comment: Is th is specimen being sent [place] an [place]?->[place] [id number]&Blood^\S\^Vein&Vein Result Comment: Nonp regnant females and males-Negative females-Positive Performed By: #### H CGS #### [facility] [address] [place] [address] Lipaseon 11-10-2020 Lipase [Catalytic activity/Vol] 24 U/L Normal 16-63 [facility] Comment on above: Order Comment: Is th is specimen being sent to an external lab?->No [id number]&Blood^\S\^Vein&Vein Performed By: #### L IPAS #### [facility] [address] [place] [address] Progress Noteon 11-10-2020 [employer]intze Roller Authentication Interface Message Text Patient ID: Josafat Mcgee is a 15 y.o. female. Her chief complaint(s) include: Abdominal Pain (most on left side, right sometimes, lower belly, random times-- note for school to have inhaler on her at all times) Assessment 1. Lower abdominal pain Plan Josafat was seen today for abdominal pain. Diagnoses and all orders for this visit: Lower abdominal pain - Venipuncture - C-reactive protein - Immunoglobulin A - Transglutaminase IgA - Complete Blood Count - Comprehensive metabolic panel - ESR - Lipase - hCG, serum; Future - hCG, serum Return for Well Visit and as needed. Will get labs for further assessment of abdominal pain. If no clear etiology based on labs, will plan for abdominal US for further evaluation, especially with hx painful ovarian cyst in the past. If no clear etiology from labs/US, will refer to GI for further evaluation. Subjective HPI Comments: Abdominal pain, sometimes severe and cause her to bend forward/curl up, cry from the pain. Seen for side pain a few months ago. Feels like the pain lately is different, a little lower in her abdomen. Now pain is mostly lower left abdomen, sometimes right abdomen. Coming and going, sometimes worse than others. Lasts minutes, variable. Doesn't seem to be related to certain foods. Happening a few times per week. Bad pain 5 days ago, was sitting petting the dogs when it happened. Sharp pain, crampy. Had ruptured ovarian cyst in the past. Eating okay. Normal urination and stools. No pain with urination or blood in urine. No back pain. Periods are okay. LMP was 10/31. No severe cramps. Last 3-4 days. No very heavy bleeding. Denies sexual activity. Pain relieved somewhat by curling into a ball. Lying flat or standing straight makes it worse. No vomiting. Sometimes nausea. No diarrhea or constipation. Occasionally gets pain that shoots up into chest. Was very sick in 10/10. Mom wondering if she had COVID then. Had flu A in 11/2019. Abdominal Pain The location of the pain is in the lower abdomen. The symptoms are aggravated by lying down. Symptoms are relieved by bending forward. Associated symptoms include nausea (sometimes). Associated symptoms do not include fever, fatigue, decreased appetite, weight loss, pallor, rash, headaches, sore throat, respiratory complaint, diarrhea, vomiting, amenorrhea, dark urine, dysuria, hematuria, urinary changes, vaginal bleeding and vaginal discharge. She is accompanied by her mother. Primary Care Review of Systems Objective Vital Signs 11/10/20 1536 Temp: 36.6 C (97.8 F) TempSrc: Temporal Weight: 77 kg There is no height or weight on file to calculate BMI. Physical Exam Constitutional: She appears well. She is active. No distress. HENT: Head: Atraumatic. Nose: No nasal discharge. Mouth/Throat: Mucous membranes are moist. Eyes: Conjunctivae are normal. Cardiovascular: Normal rate and regular rhythm. Heart murmur not heard. Pulmonary/Chest: Effort normal and breath sounds normal. There is normal air entry. No respiratory distress. She has no wheezes. She has no rhonchi. She has no rales. Abdominal: Soft. Bowel sounds are normal. She exhibits no distension and no mass. There is abdominal tenderness (mild generalized). There is no rebound and no guarding. Musculoskeletal: No pain, swelling, or limited range of motion at any joint. General: No tenderness. Comments: No CVA tenderness. Neurological: She is alert. She exhibits normal muscle tone. Gait normal. Skin: Capillary refill takes less than 3 seconds. Skin is warm. Skin is not pale. Findings: No rash. Normal [facility] Vital Signs Date Time Vital Sign Value Performing Clinician Johana orozco 06-10-2025 15:23-0400 Body height 166.5 cm Lauren Foster SCALES INSPECTOR.JOURNALISM INSTRUCTOR Work Phone: [facility] 06-10-2025 15:23-0400 Body mass index (BMI) [Ratio] 29.62 kg/m2 Lauren Foster SCALES INSPECTOR.JOURNALISM INSTRUCTOR Work Phone: [facility] 06-10-2025 15:23-0400 Body weight 82.1 kg Lauren Foster SCALES INSPECTOR.JOURNALISM INSTRUCTOR Work Phone: [facility] 06-10-2025 15:23-0400 Diastolic blood pressure 68 mm[Hg] Lauren Foster SCALES INSPECTOR.JOURNALISM INSTRUCTOR Work Phone: [facility] 06-10-2025 15:23-0400 Heart rate 76 /min Lauren Foster SCALES INSPECTOR.JOURNALISM INSTRUCTOR Work Phone: [facility] 06-10-2025 15:23-0400 Respiratory rate 16 /min Lauren Foster SCALES INSPECTOR.JOURNALISM INSTRUCTOR Work Phone: [facility] 06-10-2025 15:23-0400 Systolic blood pressure 100 mm[Hg] Lauren Foster SCALES INSPECTOR.JOURNALISM INSTRUCTOR Work Phone: [facility] 12-27-2024 08:50-0500 Body mass index (BMI) [Ratio] 28.08 kg/m2 Jemma Palumbo SCALES INSPECTOR.SENIOR BENEFITS ANALYST Work Phone: [facility] 12-27-2024 08:50-0500 Body temperature 98.1 [degF] Jemma Palumbo SCALES INSPECTOR.SENIOR BENEFITS ANALYST Work Phone: [facility] 12-27-2024 08:50-0500 Body weight 78.9 kg Jemma Palumbo SCALES INSPECTOR.SENIOR BENEFITS ANALYST Work Phone: [facility] 12-27-2024 08:50-0500 Diastolic blood pressure 76 mm[Hg] Jemma Palumbo SCALES INSPECTOR.SENIOR BENEFITS ANALYST Work Phone: [facility] 12-27-2024 08:50-0500 Heart rate 59 /min Jemma Palumbo SCALES INSPECTOR.SENIOR BENEFITS ANALYST Work Phone: [facility] 12-27-2024 08:50-0500 Respiratory rate 18 /min Jemma Palumbo SCALES INSPECTOR.SENIOR BENEFITS ANALYST Work Phone: [facility] 12-27-2024 08:50-0500 SaO2% (BldA) [Mass fraction] 100 % Jemma Palumbo SCALES INSPECTOR.SENIOR BENEFITS ANALYST Work Phone: [facility] 12-27-2024 08:50-0500 Systolic blood pressure 109 mm[Hg] Jemma Palumbo SCALES INSPECTOR.SENIOR BENEFITS ANALYST Work Phone: [facility] 10-22-2024 11:04-0500 Body height 167.6 cm Beau Marie SCALES INSPECTOR.SENIOR BENEFITS ANALYST Work Phone: [facility] 10-22-2024 11:04-0500 Body mass index (BMI) [Ratio] 29.61 kg/m2 Beau Marie SCALES INSPECTOR.SENIOR BENEFITS ANALYST Work Phone: [facility] 10-22-2024 11:04-0500 Body weight 83.2 kg Beau Marie SCALES INSPECTOR.SENIOR BENEFITS ANALYST Work Phone: [facility] 10-22-2024 11:04-0500 Diastolic blood pressure 59 mm[Hg] Beau Marie SCALES INSPECTOR.SENIOR BENEFITS ANALYST Work Phone: [facility] 10-22-2024 11:04-0500 Heart rate 70 /min Beau Marie SCALES INSPECTOR.SENIOR BENEFITS ANALYST Work Phone: [facility] 10-22-2024 11:04-0500 SaO2% (BldA) [Mass fraction] 100 % Beau Marie SCALES INSPECTOR.SENIOR BENEFITS ANALYST Work Phone: [facility] 10-22-2024 11:04-0500 Systolic blood pressure 107 mm[Hg] Beau Marie SCALES INSPECTOR.SENIOR BENEFITS ANALYST Work Phone: [facility] 06-14-2024 11:31-0400 Body height 167.6 cm Beau Benny SCALES INSPECTOR.SENIOR BENEFITS ANALYST Work Phone: [facility] 06-14-2024 11:31-0400 Body mass index (BMI) [Ratio] 30.32 kg/m2 Beau Benny SCALES INSPECTOR.SENIOR BENEFITS ANALYST Work Phone: [facility] 06-14-2024 11:31-0400 Body weight 85.2 kg Beau Pineda SCALES INSPECTOR.SENIOR BENEFITS ANALYST Work Phone: [facility] 06-14-2024 11:31-0400 Diastolic blood pressure 65 mm[Hg] Beau Pineda SCALES INSPECTOR.SENIOR BENEFITS ANALYST Work Phone: [facility] 06-14-2024 11:31-0400 Heart rate 74 /min Beau Pineda SCALES INSPECTOR.SENIOR BENEFITS ANALYST Work Phone: [facility] 06-14-2024 11:31-0400 SaO2% (BldA) [Mass fraction] 98 % Beau Pineda SCALES INSPECTOR.SENIOR BENEFITS ANALYST Work Phone: [facility] 06-14-2024 11:31-0400 Systolic blood pressure 114 mm[Hg] Beau Pineda SCALES INSPECTOR.SENIOR BENEFITS ANALYST Work Phone: [facility] 05-08-2024 15:41-0400 Body temperature 97.9 [degF] Timur Bello MD Work Phone: [facility] 05-08-2024 15:41-0400 Diastolic blood pressure 59 mm[Hg] Timur Bello MD Work Phone: [facility] 05-08-2024 15:41-0400 Respiratory rate 18 /min Timur Bello MD Work Phone: [facility] 05-08-2024 15:41-0400 SaO2% (BldA) [Mass fraction] 100 % Timur Bello MD Work Phone: [facility] 05-08-2024 15:41-0400 Systolic blood pressure 102 mm[Hg] Timur Bello MD Work Phone: [facility] 05-08-2024 15:30-0400 Heart rate 49 /min Timur Bello MD Work Phone: [facility] 05-08-2024 13:02-0400 Body height 170.2 cm Timur Bello MD Work Phone: [facility] 05-08-2024 13:02-0400 Body mass index (BMI) [Ratio] 29.6 kg/m2 Timur Bello MD Work Phone: [facility] 05-08-2024 13:02-0400 Body weight 85.73 kg Timur Bello MD Work Phone: [facility] 04-08-2024 16:17-0400 Body height 170.2 cm Leslye Galicia MD Work Phone: [facility] 04-08-2024 16:17-0400 Body mass index (BMI) [Ratio] 29.7 kg/m2 Leslye Galicia MD Work Phone: [facility] 04-08-2024 16:17-0400 Body temperature 97.39 [degF] Leslye Galicia MD Work Phone: [facility] 04-08-2024 16:17-0400 Body weight 86 kg Leslye Galicia MD Work Phone: [facility] 04-08-2024 16:17-0400 Diastolic blood pressure 58 mm[Hg] Leslye Galicia MD Work Phone: [facility] 04-08-2024 16:17-0400 Heart rate 86 /min Leslye Galicia MD Work Phone: [facility] 04-08-2024 16:17-0400 SaO2% (BldA) [Mass fraction] 99 % Leslye Galicia MD Work Phone: [facility] 04-08-2024 16:17-0400 Systolic blood pressure 98 mm[Hg] Leslye Galicia MD Work Phone: [facility] 03-21-2024 11:35-0400 Body height 166 cm Katelin Morel MD Work Phone: [facility] 03-21-2024 11:35-0400 Body mass index (BMI) [Ratio] 30.66 kg/m2 Katelin Morel MD Work Phone: [facility] 03-21-2024 11:35-0400 Body temperature 97.5 [degF] Katelin Morel MD Work Phone: [facility] 03-21-2024 11:35-0400 Body weight 84.48 kg Katelin Morel MD Work Phone: [facility] 03-21-2024 11:35-0400 Diastolic blood pressure 72 mm[Hg] Katelin Morel MD Work Phone: [facility] 03-21-2024 11:35-0400 Heart rate 70 /min Katelin Morel MD Work Phone: [facility] 03-21-2024 11:35-0400 Respiratory rate 16 /min Katelin Morel MD Work Phone: [facility] 03-21-2024 11:35-0400 Systolic blood pressure 106 mm[Hg] Katelin Morel MD Work Phone: [facility] 02-16-2024 16:36-0400 Body height 167.6 cm Kristen Pedraza MD Work Phone: [facility] 02-16-2024 16:36-0400 Body mass index (BMI) [Ratio] 30.02 kg/m2 Kristen Pedraza MD Work Phone: [facility] 02-16-2024 16:36-0400 Body weight 84.37 kg Kristen Pedraza MD Work Phone: [facility] 02-16-2024 16:36-0400 Diastolic blood pressure 78 mm[Hg] Kristen Pedraza MD Work Phone: [facility] 02-16-2024 16:36-0400 Heart rate 74 /min Kristen Pedraza MD Work Phone: [facility] 02-16-2024 16:36-0400 Respiratory rate 18 /min Krisetn Pedraza MD Work Phone: [facility] 02-16-2024 16:36-0400 SaO2% (BldA) [Mass fraction] 98 % Kristen Pedraza MD Work Phone: [facility] 02-16-2024 16:36-0400 Systolic blood pressure 108 mm[Hg] Kristen Pedraza MD Work Phone: [facility] 01-12-2024 11:18-0400 Body height 167.6 cm Beau Martinezman SCALES INSPECTOR.SENIOR BENEFITS ANALYST Work Phone: [facility] 01-12-2024 11:18-0400 Body weight 72.58 kg Beau Pineda SCALES INSPECTOR.SENIOR BENEFITS ANALYST Work Phone: [facility] 01-12-2024 11:18-0400 Diastolic blood pressure 57 mm[Hg] Beau Pineda SCALES INSPECTOR.SENIOR BENEFITS ANALYST Work Phone: [facility] 01-12-2024 11:18-0400 Heart rate 59 /min Beau Martinezmendoza MATTHEWN.SENIOR BENEFITS ANALYST Work Phone: [facility] 01-12-2024 11:18-0400 SaO2% (BldA) [Mass fraction] 99 % Beau Pineda SCALES INSPECTOR.SENIOR BENEFITS ANALYST Work Phone: [facility] 01-12-2024 11:18-0400 Systolic blood pressure 103 mm[Hg] Beau Pineda SCALES INSPECTOR.SENIOR BENEFITS ANALYST Work Phone: [facility] 06-08-2023 10:26-0400 Body height 166.8 cm Katelin Morel MD Work Phone: [facility] 06-08-2023 10:26-0400 Body mass index (BMI) [Percentile] Per age and sex 91.59 % Katelin Morel MD Work Phone: [facility] 06-08-2023 10:26-0400 Body temperature 98.2 [degF] Katelin Morel MD Work Phone: [facility] 06-08-2023 10:26-0400 Body weight 79.15 kg Katelin Morel MD Work Phone: [facility] 06-08-2023 10:26-0400 Diastolic blood pressure 52 mm[Hg] Katelin Morel MD Work Phone: [facility] 06-08-2023 10:26-0400 Heart rate 88 /min Katelin Morel MD Work Phone: [facility] 06-08-2023 10:26-0400 Respiratory rate 18 /min Katelin Morel MD Work Phone: [facility] 06-08-2023 10:26-0400 Systolic blood pressure 104 mm[Hg] Katelin Morel MD Work Phone: [facility] 01-12-2023 09:21-0400 Body height 170.2 cm Beau Benny GALVIN.SENIOR BENEFITS ANALYST Work Phone: [facility] 01-12-2023 09:21-0400 Body mass index (BMI) [Percentile] Per age and sex 84.81 % Beaumiky Pineda APRN.SENIOR BENEFITS ANALYST Work Phone: [facility] 01-12-2023 09:21-0400 Body weight 74.84 kg Beau Benny APRN.SENIOR BENEFITS ANALYST Work Phone: [facility] 01-12-2023 09:21-0400 Diastolic blood pressure 64 mm[Hg] Beaumiky Pineda APRN.SENIOR BENEFITS ANALYST Work Phone: [facility] 01-12-2023 09:21-0400 Heart rate 84 /min Beau Martinezmendzoa GALVIN.SENIOR BENEFITS ANALYST Work Phone: [facility] 01-12-2023 09:21-0400 Systolic blood pressure 93 mm[Hg] Beau Martinezmendoza GALVIN.SENIOR BENEFITS ANALYST Work Phone: [facility] 09-29-2022 08:45-0500 Body height 167.6 cm Shantell Albright MD Work Phone: [facility] 09-29-2022 08:45-0500 Body mass index (BMI) [Percentile] Per age and sex 89.63 % Shantell Albright MD Work Phone: [facility] 09-29-2022 08:45-0500 Body temperature 97.2 [degF] Shantell Albright MD Work Phone: [facility] 09-29-2022 08:45-0500 Body weight 76.48 kg Shantell Albright MD Work Phone: [facility] 09-29-2022 08:45-0500 Diastolic blood pressure 63 mm[Hg] Shantell Albright MD Work Phone: [facility] 09-29-2022 08:45-0500 Heart rate 78 /min Shantell Albright MD Work Phone: [facility] 09-29-2022 08:45-0500 Systolic blood pressure 107 mm[Hg] Shantell Albright MD Work Phone: [facility] 09-01-2022 08:51-0500 Body height 167.6 cm Dean Jackson MD Work Phone: [facility] 09-01-2022 08:51-0500 Body mass index (BMI) [Percentile] Per age and sex 90.3 % Dean Jackson MD Work Phone: [facility] 09-01-2022 08:51-0500 Body weight 77.11 kg Dean Jackson MD Work Phone: [facility] 09-01-2022 08:51-0500 Heart rate 55 /min Daen Jackson MD Work Phone: [facility] 04-07-2022 12:51-0400 Body height 167.6 cm Milagro Henderson MD Work Phone: [facility] 04-07-2022 12:51-0400 Body mass index (BMI) [Percentile] Per age and sex 90.67 % Milagro Henderson MD Work Phone: [facility] 04-07-2022 12:51-0400 Body temperature 97.59 [degF] Milagro Henderson MD Work Phone: [facility] 04-07-2022 12:51-0400 Body weight 76.97 kg Milagro Henderson MD Work Phone: [facility] 04-07-2022 12:51-0400 SaO2% (BldA) [Mass fraction] 99 % Milagro Henderson MD Work Phone: [facility] 01-12-2022 11:43-0400 Body height 166.4 cm Vlad Boyce MD Work Phone: [facility] 01-12-2022 11:43-0400 Body mass index (BMI) [Percentile] Per age and sex 86.84 % Vlad Boyce MD Work Phone: [facility] 01-12-2022 11:43-0400 Body temperature 97.9 [degF] Vlad Boyce MD Work Phone: [facility] 01-12-2022 11:43-0400 Body weight 71.8 kg Vlad Boyce MD Work Phone: [facility] 01-12-2022 11:43-0400 Respiratory rate 20 /min Vlad Boyce MD Work Phone: [facility] 01-12-2022 11:43-0400 SaO2% (BldA) [Mass fraction] 100 % Vlad Boyce MD Work Phone: [facility] Encounters Encounter Date Encounter Type Care Provider Facility Start: 06-25-2025 End: 06-25-2025 ambulatory NONE PHYSICIAN Facility:[facility] Start: 06-25-2025 End: 06-25-2025 Patient encounter procedure ALYSSIA GOLDMAN SCALES INSPECTOR-SENIOR BENEFITS ANALYST [facility] Start: 06-21-2025 End: 06-21-2025 Emergency department patient visit KAYLAH ADRIAN DO~[id number] Facility:[facility] Start: 06-12-2025 End: 06-12-2025 ambulatory ALYSSIA GOLDMAN APRN-BLU Facility:[facility] Start: 06-12-2025 End: 06-12-2025 Patient encounter procedure ALYSSIA GOLDMAN APRN-SENIOR BENEFITS ANALYST [facility] Start: 06-10-2025 End: 06-10-2025 ambulatory [facility] Facility:[facility] Start: 06-10-2025 End: 06-10-2025 Patient encounter procedure Lauren Foster KAMAR.JOURNALISM INSTRUCTOR Work Phone: [facility] Comment on above: Routine medical exam (Primary Dx); History of iron deficiency; Irregular menses; POTS (postural orthostatic tachycardia syndrome); Screening for depression; Encounter for screening examination for other mental health and behavioral disorders; Encounter for immunization; Screening for STD (sexually transmitted disease); Special screening examination for viral disease; Anxiety and depression; Menorrhagia with irregular cycle Start: 06-10-2025 End: 06-10-2025 Patient encounter status Lauren Foster SCALES INSPECTOR.JOURNALISM INSTRUCTOR Work Phone: [facility] Start: 06-10-2025 End: 06-10-2025 ambulatory [facility] Facility:[facility] Start: 06-10-2025 Encounter for genera l adult medical examination without abnormal findings [facility] Start: 06-09-2025 End: 06-09-2025 ambulatory Katelin Morel MD Work Phone: [facility] Comment on above: Period issues Start: 04-30-2025 End: 04-30-2025 Patient encounter procedure Heriberto Molina [place] [facility] Work Phone: Start: 04-30-2025 End: 04-30-[address] Katelin Morel MD Work Phone: [facility] Start: 12-27-2024 End: 12-27-2024 ambulatory KATELIN MOREL Facility:[facility] Start: 12-27-2024 End: 12-27-2024 Patient encounter procedure Jemma Palumbo SCALES INSPECTOR.SENIOR BENEFITS ANALYST Work Phone: [facility] Comment on above: Nasal injury, initia l encounter (Primary Dx); Contusion of nose, initial encounter; Injury of head, initial encounter Start: 12-27-2024 End: 12-27-2024 Subsequent hospital visit by physician [facility] Work Phone: Radiology Comment on above: Nasal injury, initia l encounter [S09.92XA] Start: 11-12-2024 End: 11-14-2024 ambulatory Katelin Morel MD Work Phone: [facility] Comment on above: Physical Start: 11-07-2024 End: 11-07-2024 ambulatory BEAUMIKY WRIGHTING Facility:[facility] Start: 10-26-2024 End: 10-26-2024 ambulatory Justina Brooks Facility:[facility] Start: 10-25-2024 End: 10-25-2024 Telemedicine consultation with patient Jackelin Regalado MD Work Phone: Neurology Start: 10-25-2024 End: 10-25-2024 ambulatory Jackelin Regalado MD Work Phone: Neurology Comment on above: Syncope, unspecified syncope type (Primary Dx); Transient loss of consciousness; Transient alteration of awareness Start: 10-24-2024 End: 10-29-2024 Telephone encounter Katelin Morel MD Work Phone: [facility] Start: 10-22-2024 End: 10-22-2024 Telephone encounter Beau Marie APRN.SENIOR BENEFITS ANALYST Work Phone: Neurology Start: 10-22-2024 End: 10-22-2024 ambulatory KATELIN MOREL Facility:[facility] Start: 10-22-2024 End: 10-22-2024 ambulatory BEAU MARIE Facility:[facility] Start: 10-22-2024 End: 10-22-2024 Patient encounter procedure Beau Marie SCALES INSPECTOR.SENIOR BENEFITS ANALYST Work Phone: Neurology Comment on above: POTS (postural ortho static tachycardia syndrome) (Primary Dx); Vision loss; Chronic migraine with aura without status migrainosus, not intractable; Transient loss of consciousness; Transient alteration of awareness Start: 09-23-2024 End: 09-24-2024 ambulatory Beau Marie SCALES INSPECTOR.SENIOR BENEFITS ANALYST Work Phone: Neurology Comment on above: Upcoming visit Start: 09-23-2024 End: 09-24-2024 E-mail encounter from caregiver Beau Marie APRN.SENIOR BENEFITS ANALYST Work Phone: Neurology Start: 09-04-2024 End: 09-04-2024 Emergency department patient visit BNE Masha FRANK DO Facility:[facility] Start: 08-02-2024 End: 08-02-2024 ambulatory AILIN GALO Facility:[facility] Start: 08-02-2024 End: 08-02-2024 [facility] Ailin Pride Vikramyoandydany SCALES INSPECTOR.SENIOR BENEFITS ANALYST Work Phone: Psychiatry Comment on above: EFRAÍN (generalized anx iety disorder) (Primary Dx); Recurrent major depressive disorder, in partial remission (HCC); Sleep difficulties Start: 07-31-2024 End: 08-01-2024 ambulatory Beau Marie SCALES INSPECTOR.SENIOR BENEFITS ANALYST Work Phone: Neurology Comment on above: POTS question Start: 07-04-2024 End: 07-04-2024 Refill Beau Pineda APRN.SENIOR BENEFITS ANALYST Work Phone: Neurology Comment on above: Med Change Request Start: 06-20-2024 End: 06-20-2024 Telephone encounter Katelin Morel MD Work Phone: [facility] Start: 06-17-2024 End: 06-17-2024 ambulatory Beau Pineda SCALES INSPECTOR.SENIOR BENEFITS ANALYST Work Phone: Neurology Comment on above: Labs Start: 06-17-2024 End: 06-17-2024 E-mail encounter from caregiver Beau Pineda APRN.SENIOR BENEFITS ANALYST Work Phone: Neurology Start: 06-14-2024 End: 06-14-2024 ambulatory BEAU MARIE Facility:[facility] Start: 06-14-2024 End: 06-14-2024 Patient encounter procedure Beau Pineda APRN.SENIOR BENEFITS ANALYST Work Phone: Neurology Comment on above: POTS (postural ortho static tachycardia syndrome) (Primary Dx); Hypotension, unspecified hypotension type Start: 06-13-2024 End: 06-14-2024 ambulatory Katelin Morel MD Work Phone: [facility] Comment on above: Immunization Start: 06-03-2024 ambulatory Beau donaldson APRN.SENIOR BENEFITS ANALYST Work Phone: Neurology Comment on above: Blood pressure Start: 05-24-2024 Refill Ailin sandoval SCALES INSPECTOR.SENIOR BENEFITS ANALYST Work Phone: Psychiatry Comment on above: Med Change Request Start: 05-19-2024 End: 06-12-2024 ambulatory Katelin Morel MD Work Phone: [facility] [place] Comment on above: Physical Start: 05-08-2024 ambulatory [facility] Facility:[facility] Start: 05-08-2024 End: 05-08-2024 Subsequent hospital visit by physician Timur Bello MD Work Phone: [facility] Comment on above: Gastroesophageal ref lux disease, unspecified whether esophagitis present [K21.9] Start: 05-02-2024 Telephone encounter Leslye Block MD Work Phone: General Surgery Comment on above: Patient Update Start: 04-30-2024 End: 04-30-2024 [facility] Ailin Galo SCALES INSPECTOR.SENIOR BENEFITS ANALYST Work Phone: Psychiatry Comment on above: EFRAÍN (generalized anx iety disorder) (Primary Dx); Major depressive disorder, recurrent episode, moderate (HCC); Sleep difficulties Start: 04-29-2024 End: 04-29-2024 Subsequent hospital visit by physician [facility] Work Phone: Radiology Comment on above: RUQ abdominal pain [ R10.11] Start: 04-08-2024 End: 04-08-2024 Patient encounter procedure Leslye Galicia MD Work Phone: General Surgery Comment on above: Gastroesophageal ref lux disease, unspecified whether esophagitis present; RUQ abdominal pain Start: 04-05-2024 End: 04-05-2024 Patient encounter procedure Nurse Dinesh Julien [facility] Comment on above: Screening-pulmonary TB (Primary Dx) Start: 04-03-2024 End: 04-03-2024 Patient encounter procedure Nurse Dinesh Julien [facility] Comment on above: Encounter for TB tin e test (Primary Dx) Start: 03-29-2024 End: 03-29-2024 Patient encounter procedure Nurse Pedshirley Julien [facility] Comment on above: PPD screening test ( Primary Dx) Start: 03-26-2024 End: 03-26-2024 Patient encounter procedure [facility] Comment on above: PPD screening test ( Primary Dx) Start: 03-21-2024 End: 03-21-2024 Patient encounter procedure Katelin Morel MD Work Phone: [facility] Comment on above: Encounter for genera l adult medical examination without abnormal findings (Primary Dx); Screening-pulmonary TB; Gastroesophageal reflux disease, unspecified whether esophagitis present Start: 03-21-2024 End: 03-21-2024 Patient encounter status Katelin Morel MD Work Phone: [facility] Start: 02-16-2024 End: 02-16-2024 Patient encounter procedure Kristen Pedraza MD Work Phone: Endocrinology Comment on above: Occasional tremors ( Primary Dx) Start: 01-25-2024 ambulatory Kristen Pedraza MD Work Phone: Endocrinology Comment on above: Repeat Urine Lab Start: 01-25-2024 E-mail encounter fro m caregiver Kristen Pedraza MD Work Phone: [facility] Start: 01-24-2024 End: 01-24-2024 ambulatory Ailin Galo APRN.SENIOR BENEFITS ANALYST Work Phone: Psychiatry Comment on above: NO SHOW (Primary Dx) Start: 01-24-2024 End: 01-24-2024 Telemedicine consultation with patient Ailin Galo APRN.SENIOR BENEFITS ANALYST Work Phone: [facility] Start: 01-23-2024 Telephone encounter Kristen Pedraza MD Work Phone: Endocrinology Comment on above: Patient Question ( H our urine done incorrectly) Start: 01-12-2024 ambulatory Beau donaldson APRN.SENIOR BENEFITS ANALYST Work Phone: Neurology Comment on above: Reactive hypoglycemi a info Start: 01-12-2024 E-mail encounter fro m caregiver Beau Pineda APRN.SENIOR BENEFITS ANALYST Work Phone: [facility] Start: 01-12-2024 End: 01-12-2024 Patient encounter procedure Beau Pineda SCALES INSPECTOR.SENIOR BENEFITS ANALYST Work Phone: Neurology Comment on above: POTS (postural ortho static tachycardia syndrome) (Primary Dx); Hypoglycemia; Vasovagal syncope Start: 01-08-2024 Refill Beau donaldson SCALES INSPECTOR.SENIOR BENEFITS ANALYST Work Phone: Neurology Comment on above: Refill Request Start: 12-15-2023 ambulatory Beau donaldson SCALES INSPECTOR.SENIOR BENEFITS ANALYST Work Phone: Neurology Comment on above: Medical Single Start: 12-13-2023 ambulatory Katelin Morel MD Work Phone: [facility] Comment on above: POTS Start: 11-23-2023 End: 11-23-2023 [facility] Ailin J Rajguru SCALES INSPECTOR.SENIOR BENEFITS ANALYST Work Phone: Psychiatry Comment on above: EFRAÍN (generalized anx iety disorder) (Primary Dx); Major depressive disorder, recurrent episode, moderate (HCC) Start: 08-09-2023 Refill Ailin J Joyr u SCALES INSPECTOR.SENIOR BENEFITS ANALYST Work Phone: Psychiatry Comment on above: Med Change Request Start: 07-13-2023 End: 07-13-2023 [facility] Ailin J Rajguru SCALES INSPECTOR.SENIOR BENEFITS ANALYST Work Phone: Psychiatry Comment on above: EFRAÍN (generalized anx iety disorder) (Primary Dx); Severe episode of recurrent major depressive disorder, without psychotic features (HCC) Start: 06-15-2023 ambulatory Katie Wade RN Neurolog y Start: 06-15-2023 E-mail encounter fro m caregiver Katie Wade RN [facility] Start: 06-09-2023 ambulatory Katelin Morel MD Work Phone: [facility] Comment on above: medication Start: 06-09-2023 E-mail encounter fro m caregiver Katelin Morel MD Work Phone: [facility] Start: 06-08-2023 Telephone encounter Radha west [facility] Work Phone: Psychology Start: 06-08-2023 End: 06-08-2023 Patient encounter procedure Katelin Morel MD Work Phone: [facility] [place] Comment on above: Current severe episo de of major depressive disorder without psychotic features without prior episode (HCC) (Primary Dx) Start: 01-23-2023 Orders Only Dean Jackson MD Work Phone: Cardiology Comment on above: POTS (postural ortho static tachycardia syndrome) (Primary Dx) Start: 01-12-2023 End: 01-12-2023 ambulatory [facility] Comment on above: Procedure Start: 01-12-2023 End: 01-12-2023 Patient encounter procedure Autonomic 2 Neur Main [facility] Start: 01-12-2023 End: 01-12-2023 ambulatory [facility] Comment on above: Procedure Start: 01-12-2023 End: 01-12-2023 Patient encounter procedure Autonomic 2 Neur Main [facility] Comment on above: POTS (postural ortho static tachycardia syndrome) (Primary Dx); Transient loss of consciousness; Dizziness; Orthostatic lightheadedness; Left-sided tinnitus; Disturbance of skin sensation; Fatigue, unspecified type; Tremulousness; Tension headache; Migraine with aura and without status migrainosus, not intractable Start: 01-09-2023 Telephone encounter Colin walker DO Work Phone: Neurology Comment on above: Procedure (Autonomic Med Prep For Autonomic Testing 01/12-QSART & ANS W/O TILT ) Start: 01-02-2023 End: 01-02-2023 ambulatory Dean Jackson MD Work Phone: Cardiology Comment on above: POTS (postural ortho static tachycardia syndrome) (Primary Dx); Transient loss of consciousness Start: 01-02-2023 End: 01-02-2023 Telemedicine consultation with patient Dean Jackson MD Work Phone: [facility] Start: 11-01-2022 End: 11-01-2022 Patient encounter procedure Syncope Opd Nurse Work Phone: Cardiology Comment on above: Transient loss of co nsciousness (Primary Dx); Dizziness; Lightheaded Start: 09-29-2022 End: 09-29-2022 Patient encounter procedure Shantell Albright MD Work Phone: Rheumatology Comment on above: Positive JUANITA (antinu clear antibody) (Primary Dx); Neuropathy Start: 09-01-2022 End: 09-01-2022 Patient encounter procedure Dean Jackson MD Work Phone: Cardiology Comment on above: Transient loss of co nsciousness (Primary Dx); Dizziness; Lightheaded Start: 04-22-2022 Telephone encounter Milagro haley MD Work Phone: Neurology Comment on above: Results (JUANITA +) Start: 04-19-2022 Orders Only Milagro Henderson MD Work Phone: Neurology Comment on above: Peripheral polyneuro grzegorz (Primary Dx) Start: 04-07-2022 End: 04-07-2022 Patient encounter procedure Milagro Henderson MD Work Phone: Neurology Comment on above: Idiopathic periphera l neuropathy (Primary Dx); Dysautonomia (HCC) Start: 02-07-2022 End: 02-07-[address] [facility] Start: 01-29-2022 End: 01-29-[address] Mel Fabian Work Phone: [facility] Start: 01-14-2022 Telephone encounter Milagro haley MD Work Phone: Neurology Comment on above: Results Start: 01-12-2022 Telephone encounter Milagro haley MD Work Phone: Neurology Comment on above: Treatment Planning ( non-pharmacologic treatment recommendations) Start: 01-12-2022 End: 01-12-2022 Patient encounter procedure Vlad Boyce MD Work Phone: Pediatric Cardiology Comment on above: Dysautonomia (HCC) ( Primary Dx); Generalized anxiety disorder; Poor nutrition; Insomnia, unspecified type; Tachycardia Start: 01-11-2022 Refill Katelin Morel MD Work Phone: [facility] [place] Comment on above: Refill Request Start: 01-10-2022 Refill Katelin Morel MD Work Phone: [facility] [place] Comment on above: Refill Request Procedures Date Procedure Procedure Detail Performing Clinician Start: 06-10-2025 Adult depression screening assessment Lauren Foster SCALES INSPECTOR.JOURNALISM INSTRUCTOR Work Phone: Start: 12-27-2024 Radex nasal bones complete minimum 3 views Jemma Palumbo SCALES INSPECTOR.SENIOR BENEFITS ANALYST Work Phone: Start: 05-08-2024 Esophagogastroduodenoscopy transoral diagnostic Leslye Galicia MD Work Phone: Start: 04-29-2024 Us abdominal real time w/image limited Leslye Galicia MD Work Phone: Start: 04-03-2024 Skin test tuberculosis intradermal Gonzalo Marcial MD Work Phone: Start: 03-26-2024 Skin test tuberculosis intradermal Gonzalo Marcial MD Work Phone: Start: 03-21-2024 Adult depression screening assessment Beau Marie SCALES INSPECTOR.SENIOR BENEFITS ANALYST Work Phone: Start: 02-07-[address] Mel Oreilly er Work Phone: Vascular neoplasm of skin (disorder) ALYSSIA CAROLINAKINSON SCALES INSPECTOR-SENIOR BENEFITS ANALYST Plan of Treatment Date Care Activity Detail Author Start: 07-11-2026 Urine microalbumin profile DTaP,Tdap,Td Vaccine (7 - Td or Tdap) [facility] Start: 06-10-2026 Anxiety Screening Anxiety Screening [facility] Start: 06-10-2026 Depression Screening Depression Screening [facility] Start: 06-10-2026 GC (Gonorrhea) Screening (18-) GC (Gonorrhea) Screening (18-) [facility] Comment on above: Postponed from 2022 (Postponed - N ot Clinically Indicated) Start: 06-10-2026 Screening for Chlamydia trachomatis Chlamydia Screening (-) [facility] Comment on above: Postponed from 2022 (Declined at t his time) Start: 06-23-2025 Influenza vaccination Influenza Vaccine (#1) [facility] Start: 06-10-2025 End: 06-10-2025 Patient encounter procedure 06/10/2025 3:20 PM EDT Office Visit [facility] [address] [facility] [place] [address] Lauren Foster APRN.JOURNALISM INSTRUCTOR [address] [place] [address] transfer from [facility] [place] Comment on above: transfer from [facility] Start: 06-10-2025 End: 09-09-2025 CBC W Auto Differential panel - Blood [facility] Comment on above: Expected: 06/10/2025, Expires: Start: 06-10-2025 End: 09-09-2025 Comprehensive metabolic 2000 panel - Serum or Plasma [facility] Comment on above: Expected: 06/10/2025, Expires: Start: 06-10-2025 End: 09-09-2025 Ferritin [Mass/volume] in Serum or Plasma [facility] Comment on above: Expected: 06/10/2025, Expires: Start: 06-10-2025 End: 09-09-2025 Hepatitis C virus Ab [Presence] in Serum [facility] Comment on above: Expected: 06/10/2025, Expires: Start: 06-10-2025 End: 09-09-2025 Iron and Iron binding capacity panel - Serum or Plasma [facility] Comment on above: Expected: 06/10/2025, Expires: Start: 06-10-2025 End: 09-09-2025 Thyrotropin [Units/volume] in Serum or Plasma [facility] Comment on above: Expected: 06/10/2025, Expires: Start: 06-10-2025 End: 09-09-2025 Transferrin [Mass/volume] in Serum or Plasma [facility] Comment on above: Expected: 06/10/2025, Expires: Start: 03-21-2025 Anxiety Screening Anxiety Screening [facility] Start: 03-21-2025 Depression Screening Depression Screening [facility] Start: 01-31-2025 End: 01-31-2025 Follow-up encounter Psychiatry Comment on above: 6 month follow up Start: 11-22-2024 End: 02-21-2025 Comprehensive metabolic 2000 panel - Serum or Plasma COMPREHENSIVE METABOLIC PANEL Lab Routine Vision loss Expected: 11/22/2024, Expires: 02/21/2025 [facility] Comment on above: Expected: 11/22/2024, Expires: Start: 11-07-2024 End: 11-07-2024 Patient encounter procedure 11/07/2024 8:00 AM EST Office Visit Neurology [address] [place] [address] Transient loss of consciousness [R55] Neurology Comment on above: Transient loss of consciousness [R55] Start: 11-01-2024 End: 11-01-2024 Patient encounter procedure 11/01/2024 9:00 AM EST Appointment [facility] [address] [place] [id number] Vision loss [H54.7] [facility] Comment on above: Vision loss [H54.7] Start: 10-25-2024 End: 10-25-2024 Patient encounter procedure 10/25/2024 3:00 PM EST [facility] [address] [place] [address] Jackelin Regalado MD [address] [facility] [address] [place] [address] New Consult H/D need consult for driving. Neurology Comment on above: New Consult H/D need consult for driving . Start: 10-22-2024 End: 01-21-2025 Comprehensive metabolic 2000 panel - Serum or Plasma [facility] Comment on above: Expected: 10/22/2024, Expires: Start: 10-22-2024 End: 10-22-2024 Patient encounter procedure Neurology Comment on above: Follow up Start: 09-22-2024 End: 12-22-2024 CBC W Auto Differential panel - Blood COMPLETE BLOOD COUNT AND DIFFERENTIAL Lab Routine Iron deficiency Expected: 09/22/2024, Expires: 12/22/2024 [facility] Comment on above: Expected: 09/22/2024, Expires: Start: 09-22-2024 End: 12-22-2024 Ferritin [Mass/volume] in Serum or Plasma FERRITIN Lab Routine Iron deficiency Expected: 09/22/2024, Expires: 12/22/2024 [facility] Comment on above: Expected: 09/22/2024, Expires: Start: 09-22-2024 End: 12-22-2024 Iron and Iron binding capacity panel - Serum or Plasma IRON AND TIBC Lab Routine Iron deficiency Expected: 09/22/2024, Expires: 12/22/2024 [facility] Work Phone: Comment on above: Expected: 09/22/2024, Expires: Start: 08-02-2024 End: 08-02-2024 Follow-up encounter 08/02/2024 8:00 AM EDT [facility] Psychiat[facility] [address] [place] [phone] Ailin Galo, SCALES INSPECTOR.SENIOR BENEFITS ANALYST [address] [place] [address] follow up 2 months [facility]N/[facility]on Psychiatry Comment on above: follow up 2 months EFRAÍN/depresson Start: 07-01-2024 End: 07-01-2024 Follow-up encounter 07/01/2024 9:30 AM EDT [facility] Psychiat[facility] [address] [place] [phone] Ailin Galo, SCALES INSPECTOR.SENIOR BENEFITS ANALYST [address] [place] [phone] follow up 2 months EFRAÍN/depresson Psychiatry Comment on above: follow up 2 months EFRAÍN/depresson Start: 06-26-2024 End: 06-26-2024 Patient encounter procedure 06/26/2024 3:45 PM EDT Appointment [facility] [address] [place] [id number] Leslye Galicia MD [address] [facility] [place] [address] cannot be done in [place] - only [facility] - see note [facility] Comment on above: cannot be done in [place] - only [facility] - see note Start: 06-23-2024 Covid-19 Vaccine () Covid-19 Vaccine () [facility] Start: 06-23-2024 Covid-19 Vaccine () Covid-19 Vaccine () [facility] Start: 06-23-2024 Influenza vaccination [facility] Start: 06-14-2024 End: 09-13-2024 Comprehensive metabolic 2000 panel - Serum or Plasma [facility] Comment on above: Expected: 06/14/2024, Expires: Start: 06-14-2024 End: 09-13-2024 Ferritin [Mass/volume] in Serum or Plasma [facility] Comment on above: Expected: 06/14/2024, Expires: Start: 06-14-2024 End: 09-13-2024 Iron and Iron binding capacity panel - Serum or Plasma [facility] Work Phone: Comment on above: Expected: 06/14/2024, Expires: Start: 06-14-2024 End: 09-13-2024 Thyrotropin [Units/volume] in Serum or Plasma [facility] Comment on above: Expected: 06/14/2024, Expires: Start: 06-14-2024 End: 09-13-2024 Thyroxine (T4) free [Mass/volume] in Serum or Plasma [facility] Comment on above: Expected: 06/14/2024, Expires: Start: 06-14-2024 End: 06-14-2024 Patient encounter procedure 06/14/2024 12:00 PM EDT Office Visit Neurology [address] [place] [address] Beau Pineda, SCALES INSPECTOR.SENIOR BENEFITS ANALYST [address] [place] [phone] 3 month follow up Neurology Comment on above: 3 month follow up Start: 05-09-2024 End: 05-09-2024 Patient encounter procedure 05/09/2024 8:00 AM EDT Appointment [facility] [address] [place] [address] Leslye Galicia MD [address] [place] [phone] [facility] Start: 04-30-2024 End: 04-30-2024 Follow-up encounter 04/30/2024 9:30 AM EDT [facility] Psychiat[facility] [address] [place] [phone] Ailin Galo, SCALES INSPECTOR.SENIOR BENEFITS ANALYST [address] [place] [address] 3 MONTH FOLLOW UP Psychiatry Comment on above: 3 MONTH FOLLOW UP Start: 04-29-2024 End: 04-29-2024 Patient encounter procedure 04/29/2024 7:00 AM EDT Appointment Radiology [address] [place], [place] [phone] [facility] Comment on above: [facility] Start: 04-08-2024 End: 04-08-2024 Patient encounter procedure 04/08/2024 4:15 PM EDT Office Visit General Surgery [address] [place], [place] [phone] Leslye Galicia MD [address] [place] [phone] Gastroesophageal reflux disease, unspecified whether esophagitis present [K21.9] General Surgery Comment on above: Gastroesophageal reflux disease, unspeci fied whether esophagitis present [K21.9] Start: 04-05-2024 End: 04-05-2024 Patient encounter procedure 04/05/2024 4:00 PM EDT Office Visit [facility] [address] [place] [address] tb read [facility] Comment on above: tb read Start: 04-03-2024 End: 04-03-2024 Patient encounter procedure 04/03/2024 10:00 AM EDT Office Visit [facility] [address] [address] tb test [facility] Comment on above: tb test Start: 03-29-2024 End: 03-29-2024 Patient encounter procedure 03/29/2024 9:00 AM EDT Office Visit [facility] [address] [address] ppd reading [facility] Comment on above: ppd reading Start: 03-21-2024 End: 06-20-2024 BLOOD TB SCREEN BLOOD TB SCREEN Lab Routine Screening-pulmonary TB Expected: 03/21/2024, Expires: 06/20/2024 [facility] Work Phone: Comment on above: Expected: 03/21/2024, Expires: Start: 02-16-2024 End: 05-17-2024 CATECHOLAMINES FRACTIONATED, URINE FREE CATECHOLAMINES FRACTIONATED, URINE FREE Lab Routine Occasional tremors Expected: 02/16/2024, Expires: 05/17/2024 [facility] Comment on above: Expected: 02/16/2024, Expires: Start: 01-24-2024 End: 04-24-2024 CATECHOLAMINES FRACTIONATED, URINE FREE CATECHOLAMINES FRACTIONATED, URINE FREE Lab Routine Occasional tremors Pallor Expected: 01/24/2024, Expires: 04/24/2024 [facility] Work Phone: Comment on above: Expected: 01/24/2024, Expires: Start: 10-23-2023 Behavioral Health Screening Behavioral Health Screening [facility] Start: 10-23-2023 Depression Assessment Depression Assessment [facility] Start: 2023 Urine microalbumin profile DTaP,Tdap,Td Vaccine (1 - Tdap) [facility] Start: 06-23-2023 Covid-19 Vaccine () Covid-19 Vaccine () [facility] Start: 06-23-2023 Influenza vaccination [facility] Start: 01-12-2023 End: 03-14-2023 25-hydroxyvitamin D3 [Mass/volume] in Serum or Plasma VITAMIN D 25 HYDROXY Lab Routine Fatigue, unspecified type Expected: 01/12/2023, Expires: 03/14/2023 [facility] Work Phone: Comment on above: Expected: 01/12/2023, Expires: Start: 01-12-2023 End: 03-14-2023 Alpha tocopherol [Mass/volume] in Serum or Plasma VITAMIN E/TOCOPHEROL Lab Routine Tremulousness Expected: 01/12/2023, Expires: 03/14/2023 [facility] Work Phone: Comment on above: Expected: 01/12/2023, Expires: 3 Start: 01-12-2023 End: 03-14-2023 Ceruloplasmin [Mass/volume] in Serum or Plasma CERULOPLASMIN BLD Lab Routine Tremulousness Expected: 01/12/2023, Expires: 03/14/2023 [facility] Work Phone: Comment on above: Expected: 01/12/2023, Expires: Start: 01-12-2023 End: 03-14-2023 Hemoglobin A1c in Blood HGB A1C Lab Routine Fatigue, unspecified type Expected: 01/12/2023, Expires: 03/14/2023 [facility] Work Phone: Comment on above: Expected: 01/12/2023, Expires: 3 Start: 01-12-2023 End: 03-14-2023 HIV 1+2 Ab [Presence] in Serum or Plasma by Immunoassay HIV 1 2 COMBO(AG/AB),WITH REFLEX TO DIFFERENTIATION Lab Routine Fatigue, unspecified type Expected: 01/12/2023, Expires: 03/14/2023 [facility] Work Phone: Comment on above: Expected: 01/12/2023, Expires: 3 Start: 10-23-2022 DEPRESSION ASSESSMENT DEPRESSION ASSESSMENT [facility] Start: 2022 Anxiety Screening Anxiety Screening [facility] Start: 2022 CHLAMYDIA SCREENING (18) CHLAMYDIA SCREENING (18) [facility] Start: 2022 Depression Screening Depression Screening [facility] Start: 2022 GC (GONORRHEA) SCREENING (1824) GC (GONORRHEA) SCREENING (1824) [facility] Start: 2022 HEPATITIS C SCREENING HEPATITIS C SCREENING [facility] Start: 2022 Hepatitis C screening Hepatitis C Screening [facility] Start: 2022 HIV SCREENING HIV SCREENING [facility] Start: 2022 Screening for Chlamydia trachomatis Chlamydia Screening () [facility] Start: 06-23-2022 Influenza vaccination [facility] Start: 04-19-2022 End: 06-19-2022 PORPHOBILINOGEN UR PORPHOBILINOGEN UR Lab Routine Peripheral polyneuropathy Expected: 04/19/2022, Expires: 06/19/2022 [facility] Work Phone: Comment on above: Expected: 04/19/2022, Expires: 2 Start: 04-09-2022 End: 06-09-2022 CELIAC SCREEN WITH REFLEX CELIAC SCREEN WITH REFLEX Lab Routine Idiopathic peripheral neuropathy Expected: 04/09/2022, Expires: 06/09/2022 [facility] Work Phone: Comment on above: Expected: 04/09/2022, Expires: 2 Start: 04-09-2022 End: 06-09-2022 Cobalamin (Vitamin B12) [Mass/volume] in Serum or Plasma VITAMIN B12 BLOOD Lab Routine Idiopathic peripheral neuropathy Expected: 04/09/2022, Expires: 06/09/2022 [facility] Work Phone: Comment on above: Expected: 04/09/2022, Expires: 2 Start: 04-09-2022 End: 06-09-2022 Erythrocyte sedimentation rate SED RATE WESTERGREN Lab Routine Idiopathic peripheral neuropathy Expected: 04/09/2022, Expires: 06/09/2022 [facility] Work Phone: Comment on above: Expected: 04/09/2022, Expires: 2 Start: 04-09-2022 End: 06-09-2022 HEAVY METALS SCRN BL HEAVY METALS SCRN BL Lab Routine Idiopathic peripheral neuropathy Expected: 04/09/2022, Expires: 06/09/2022 [facility] Work Phone: Comment on above: Expected: 04/09/2022, Expires: 2 Start: 04-09-2022 End: 06-09-2022 Hemoglobin A1c in Blood HGB A1C Lab Routine Idiopathic peripheral neuropathy Expected: 04/09/2022, Expires: 06/09/2022 [facility] Work Phone: Comment on above: Expected: 04/09/2022, Expires: 2 Start: 04-09-2022 End: 06-09-2022 Nuclear Ab [Presence] in Serum by Immunoassay JUANITA BLOOD Lab Routine Idiopathic peripheral neuropathy Expected: 04/09/2022, Expires: 06/09/2022 [facility] Work Phone: Comment on above: Expected: 04/09/2022, Expires: 2 Start: 04-09-2022 End: 06-09-2022 PORPHOBILINOGEN UR PORPHOBILINOGEN UR Lab Routine Idiopathic peripheral neuropathy Expected: 04/09/2022, Expires: 06/09/2022 [facility] Work Phone: Comment on above: Expected: 04/09/2022, Expires: 2 Start: 04-09-2022 End: 06-09-2022 VITAMIN B1 (THIAMINE), WHOLE BLOOD VITAMIN B1 (THIAMINE), WHOLE BLOOD Lab Routine Idiopathic peripheral neuropathy Expected: 04/09/2022, Expires: 06/09/2022 [facility] Work Phone: Comment on above: Expected: 04/09/2022, Expires: 2 Start: 10-23-2021 DEPRESSION ASSESSMENT DEPRESSION ASSESSMENT [facility] Start: 07-28-2021 COVID-19 VACCINE (3 - Booster for Pfizer series) COVID-19 VACCINE (3 - Booster for Pfizer series) [facility] Start: 06-23-2021 Influenza vaccination INFLUENZA (#1) [facility] Start: 04-22-2021 COVID-19 VACCINE (3 - Booster for Pfizer series) COVID-19 VACCINE (3 - Booster for Pfizer series) [facility] Start: 04-22-2021 COVID-19 VACCINE (3 - Pfizer series) COVID-19 VACCINE (3 - Pfizer series) [facility] Start: 2020 Meningococcal B Vaccine (1 of 2 - Standard) Meningococcal B Vaccine (1 of 2 - Standard) [facility] Start: 2020 Meningococcal B Vaccine: Consider Based On Risk (1 of 2 - Patient Seeks Protection) Meningococcal B Vaccine: Consider Based On Risk (1 of 2 - Patient Seeks Protection) [facility] Start: 2020 MENINGOCOCCAL B: Consider based on risk (1 of 2 - Patient Seeks Protection) MENINGOCOCCAL B: Consider based on risk (1 of 2 - Patient Seeks Protection) [facility] Start: 2020 MENINGOCOCCAL CONJUGATE (1 - 2-dose series) MENINGOCOCCAL CONJUGATE (1 - 2-dose series) [facility] Start: 2019 CHLAMYDIA SCREENING (<18) CHLAMYDIA SCREENING (<18) [facility] Start: 2019 GC (GONORRHEA) SCREENING (<18) GC (GONORRHEA) SCREENING (<18) [facility] Start: 2018 PEDS TO ADULT TRANSITION ANNUAL ASSESSMENT PEDS TO ADULT TRANSITION ANNUAL ASSESSMENT [facility] Start: 2016 Adult depression screening assessment DEPRESSION SCREENING [facility] Start: 2016 PEDS TO ADULT TRANSITION INITIAL DISCUSSION PEDS TO ADULT TRANSITION INITIAL DISCUSSION [facility] Start: 2015 HPV VACCINE (1 - 2-dose series) HPV VACCINE (1 - 2-dose series) [facility] Start: 2014 MENINGOCOCCAL B: Consider based on risk (1 of 2 - Risk Bexsero 2-dose series) MENINGOCOCCAL B: Consider based on risk (1 of 2 - Risk Bexsero 2-dose series) [facility] Start: 2013 HPV VACCINE (1 - 2-dose series) HPV VACCINE (1 - 2-dose series) [facility] Start: 2011 Urine microalbumin profile DTAP,TDAP,TD (1 - Tdap) [facility] Start: 2005 MMR (1 of 2 - Standard series) MMR (1 of 2 - Standard series) [facility] Start: 2005 VARICELLA (1 of 2 - 2-dose childhood series) VARICELLA (1 of 2 - 2-dose childhood series) [facility] Start: 2004 POLIO (1 of 3 - 4-dose series) POLIO (1 of 3 - 4-dose series) [facility] Start: 2004 HEPATITIS B (1 of 3 - 3-dose primary series) [facility] Start: 2004 Hepatitis B Vaccine (1 of 3 - 3-dose series) Hepatitis B Vaccine (1 of 3 - 3-dose series) [facility] CARDIAC REHAB II OUT PT ([place], [place]) CARDIAC REHAB II OUTPT ([place], [place]) BIC Routine POTS (postural orthostatic tachycardia syndrome) Transient loss of consciousness Ordered: 01/02/2023 [facility] Work Phone: Comment on above: Ordered: 01/02/2023 Cardiovascular funct ion eval w/tilt table w/mntr TILT TABLE EVALUATION Cardiology Routine Transient loss of consciousness Dizziness Lightheaded Ordered: 09/01/2022 [facility] Work Phone: Comment on above: Ordered: 09/01/2022 CREATININE 24 HR UR CREATININE 2 4 HR UR Lab Routine Occasional tremors Pallor Ordered: 01/24/2024 [facility] Work Phone: Comment on above: Ordered: 01/24/2024 CREATININE, 24 HOUR URINE CREATI NINE, 24 HOUR URINE Lab Routine Occasional tremors Ordered: 02/16/2024 [facility] Work Phone: Comment on above: Ordered: 02/16/2024 ECG COMPLETE ECG COMPLETE ECG Routine Orthostatic hypotension 09/01/2022 8:19 AM EST [facility] Work Phone: End: 01-24-2024 ECG COMPLETE ECG COMPLETE ECG Routine POTS (postural orthostatic tachycardia syndrome) 1 Occurrences starting 01/23/2023 until 01/24/2024 [facility] Work Phone: Comment on above: 1 Occurrences starting 01/23/2023 until 01/24/2024 End: 09-01-2023 Echocardiography ECHO Cardiology Routine Transient loss of consciousness Dizziness Lightheaded 1 Occurrences starting 09/01/2022 until 09/01/2023 [facility] Work Phone: Comment on above: 1 Occurrences starting 09/01/2022 until 09/01/2023 End: 04-09-2025 EGD DIAGNOSTIC EGD DIAGNOSTIC Endoscopy Routine Gastroesophageal reflux disease, unspecified whether esophagitis present 1 Occurrences starting 04/09/2024 until 04/09/2025 [facility] Comment on above: 1 Occurrences starting 04/09/2024 until 04/09/2025 End: 10-22-2025 EPIL EEG LONG EPIL EEG LONG NEUROLOGY Routine Transient loss of consciousness Transient alteration of awareness 1 Occurrences starting 10/22/2024 until 10/22/2025 [facility] Comment on above: 1 Occurrences starting 10/22/2024 until 10/22/2025 MENINGOCOCCAL B VACC INE (BEXSERO) MENINGOCOCCAL B VACCINE (BEXSERO) Immunization/Injection Routine Routine medical exam Encounter for immunization Ordered: 06/10/2025 [facility] Work Phone: Comment on above: Ordered: 06/10/2025 METANEPHRINES 24H UR METANEPHRIN ES 24H UR Lab Routine Occasional tremors Pallor Ordered: 01/24/2024 [facility] Work Phone: Comment on above: Ordered: 01/24/2024 End: 11-21-2025 MR Brain WO and W contrast IV MRI BRAIN WO/W IVCON Radiology Routine Vision loss Chronic migraine with aura without status migrainosus, not intractable Transient loss of consciousness Transient alteration of awareness 1 Occurrences starting 10/22/2024 until 11/21/2025 [facility] Work Phone: Comment on above: 1 Occurrences starting 10/22/2024 until 11/21/2025 End: 11-21-2025 MRA Head veins WO and W contrast IV MRV BRAIN WO/W IVCON Radiology Routine Vision loss Chronic migraine with aura without status migrainosus, not intractable 1 Occurrences starting 10/22/2024 until 11/21/2025 [facility] Comment on above: 1 Occurrences starting 10/22/2024 until 11/21/2025 NEURO CARDIO AUTONOM IC REFLEX W/WO TILT NEURO CARDIO AUTONOMIC REFLEX W/WO TILT Procedures Routine POTS (postural orthostatic tachycardia syndrome) Transient loss of consciousness Ordered: 01/02/2023 [facility] Work Phone: Comment on above: Ordered: 01/02/2023 NEURO QSART NEURO QSART Proc edures Routine POTS (postural orthostatic tachycardia syndrome) Transient loss of consciousness Ordered: 01/02/2023 [facility] Work Phone: Comment on above: Ordered: 01/02/2023 SURGICAL PATHOLOGY [facility] Work Phone: Comment on above: Release Upon Ordering for 1 Occurrences starting 05/08/2024, 1 completed End: 05-08-2025 US Abdomen RUQ US ABD RIGHT UPPER QUADRANT Radiology Routine RUQ abdominal pain 1 Occurrences starting 04/08/2024 until 05/08/2025 [facility] Work Phone: Comment on above: 1 Occurrences starting 04/08/2024 until 05/08/2025 [facility] Immunizations Immunization Date Immunization Notes Care Provider Fa [facility] 08-15-2024 influenza virus vaccine, unspecified formulation Katelin Morel MD Work Phone: [facility] 04-03-2024 tuberculin skin test ; purified protein derivative solution, intradermal Katelin Morel MD Work Phone: [facility] 03-26-2024 tuberculin skin test ; purified protein derivative solution, intradermal Katelin Morel MD Work Phone: [facility] 02-25-2021 COVID-19 original vaccine, age 12+ yr, monovalent ([employer] - PURPLE TOP) Katelin Morel MD Work Phone: [facility] 02-04-2021 COVID-19 original vaccine, age 12+ yr, monovalent ([employer] - PURPLE TOP) Katelin Morel MD Work Phone: [facility] 12-22-2020 influenza, injectabl e, quadrivalent, preservative free Shantell Albright MD Work Phone: [facility] 12-22-2020 meningococcal polysaccharide (groups A, C, Y and W-135) diphtheria toxoid conjugate vaccine (MCV4P) Shantell Albright MD Work Phone: [facility] 12-22-2020 influenza virus vaccine, unspecified formulation Ailin Galo APRN.SENIOR BENEFITS ANALYST Work Phone: [facility] 03-06-2018 Human Papillomavirus 9-valent vaccine Katelin Morel MD Work Phone: [facility] 05-11-2017 Human Papillomavirus 9-valent vaccine Katelin Morel MD Work Phone: [facility] 07-11-2016 influenza, injectabl e, quadrivalent, preservative free Shantell Albright MD Work Phone: [facility] 07-11-2016 meningococcal polysaccharide (groups A, C, Y and W-135) diphtheria toxoid conjugate vaccine (MCV4P) Shantell Albright MD Work Phone: [facility] 07-11-2016 tetanus toxoid, redu brain diphtheria toxoid, and acellular pertussis vaccine, adsorbed Katelin Morel MD Work Phone: [facility] 07-25-2013 influenza, seasonal, injectable Katelin Morel MD Work Phone: [facility] 07-24-2012 influenza, seasonal, injectable Katelin Morel MD Work Phone: [facility] 07-13-2011 influenza virus vaccine, whole virus Katelin Morel MD Work Phone: [facility] 07-15-2009 diphtheria, tetanus toxoids and acellular pertussis vaccine, unspecified formulation Katelin Morel MD Work Phone: [facility] 07-15-2009 influenza virus vaccine, whole virus Katelin Morel MD Work Phone: [facility] 07-15-2009 measles, mumps and rubella virus vaccine Katelin Morel MD Work Phone: [facility] 07-15-2009 poliovirus vaccine, inactivated Katelin Morel MD Work Phone: [facility] 07-15-2009 varicella virus vaccine Katelin Morel MD Work Phone: [facility] 07-16-2008 influenza virus vaccine, whole virus Katelin Morel MD Work Phone: [facility] 07-12-2007 hepatitis A vaccine, pediatric/adolescent dosage, 2 dose schedule Katelin Morel MD Work Phone: [facility] 07-03-2006 hepatitis A vaccine, pediatric/adolescent dosage, 2 dose schedule Katelin Morel MD Work Phone: [facility] 12-05-2005 diphtheria, tetanus toxoids and acellular pertussis vaccine, unspecified formulation Katelin Morel MD Work Phone: [facility] 12-05-2005 pneumococcal conjuga te vaccine, 7 valent Katelin Morel MD Work Phone: [facility] 12-05-2005 varicella virus vaccine Katelin Morel MD Work Phone: [facility] 09-13-2005 haemophilus influenz ae type b conjugate and Hepatitis B vaccine Katelin Morel MD Work Phone: [facility] 07-04-2005 haemophilus influenz ae type b conjugate and Hepatitis B vaccine Katelin Morel MD Work Phone: [facility] 07-04-2005 measles, mumps and rubella virus vaccine Katelin Morel MD Work Phone: [facility] 04-11-2005 poliovirus vaccine, inactivated Katelin Morel MD Work Phone: [facility] 01-03-2005 diphtheria, tetanus toxoids and acellular pertussis vaccine, unspecified formulation Katelin Morel MD Work Phone: [facility] 01-03-2005 haemophilus influenz ae type b conjugate and Hepatitis B vaccine Katelin Morel MD Work Phone: [facility] 01-03-2005 pneumococcal conjuga te vaccine, 7 valent Katelin Morel MD Work Phone: [facility] 2004 diphtheria, tetanus toxoids and acellular pertussis vaccine, unspecified formulation Katelin Morel MD Work Phone: [facility] 2004 haemophilus influenz ae type b vaccine, PRP-T conjugate Katelin Morel MD Work Phone: [facility] 2004 pneumococcal conjuga te vaccine, 7 valent Katelin Morel MD Work Phone: [facility] 2004 poliovirus vaccine, inactivated Katelin Morel MD Work Phone: [facility] 2004 diphtheria, tetanus toxoids and acellular pertussis vaccine, unspecified formulation Katelin Morel MD Work Phone: [facility] 2004 pneumococcal conjuga te vaccine, 7 valent Katelin Morel MD Work Phone: [facility] 2004 poliovirus vaccine, inactivated Katelin Morel MD Work Phone: [facility] 2004 hepatitis B vaccine, pediatric or pediatric/adolescent dosage Katelin Morel MD Work Phone: [facility] NEGATED: Highlighted row has not occurred!06-10-2025 meningococcal B vaccine, recombinant, OMV, adjuvanted Laurne Foster APRN.JOURNALISM INSTRUCTOR Work Phone: [facility] Comment on above: Deferred: Postponed Payers Date Payer Category Payer [facility] PPO [id number] 2024 Unknown [id number] 2024 Self-pay [id number] 2019 Private Health Insurance [id number] 2019 Private Health Insurance [id number] 2009 Unknown [facility] [id number] 2004 Unknown [id number] 2004 Unknown [id number] 2004 Unknown [id number] 2004 Unknown [id number] 1959 Unknown [id number] 1959 Unknown [id number] Unknown [facility] [id number] Unknown [id number] Unknown [id number] Social History Date Type Detail Facility Start: 01-29-2022 Tobacco smoking status [facility] Tobacco smoking consumption unknown [facility] Work Phone: Start: 2005 Sex Assigned At Female [facility] Start: 01-02-2022 End: 01-12-2023 Exposure to SARS-CoV-2 (event) Not sure [facility] Start: 01-12-2022 End: 06-12-2025 Tobacco smoking status NHIS Never smoked tobacco [facility] Start: 01-12-2022 End: 09-01-2022 Tobacco use and exposure Smokeless tobacco non-user [facility] Start: 09-01-2022 End: 06-10-2025 Alcohol intake Ex-drinker (finding) [facility] Start: 06-08-2023 End: 06-10-2025 History of Social function [facility] Start: 06-08-2023 End: 06-10-2025 Tobacco use panel [facility] Start: 09-23-2012 Adult Depression Screening Assessment 4 [facility] Start: 11-30-2021 Gender identity Identifies as female gender (finding) [facility] Start: 11-30-2021 Sexual orientation Heterosexual (finding) [facility] Has the [employer], or [employer] threatened to shut off services in your home in past 12Mo No [facility] Do you belong to any clubs or organizations such as adventism groups, unions, fraternal or athletic groups, or school groups? Yes [facility] Are you now , , , , never or living with a partner? Never [facility] How often to you hav e a drink containing alcohol? Never [facility] Do you feel stress - tense, restless, nervous, or anxious, or unable to sleep at night because your mind is troubled all the time - these days [OSQ] Only a little [facility] (I/We) worried angi er (my/our) food would run out before (I/we) got money to buy more. Never true [facility] How hard is it for y ou to pay for the very basics like food, housing, medical care, and heating Not very hard [facility] Do you feel stress - tense, restless, nervous, or anxious, or unable to sleep at night because your mind is troubled all the time - these days [OSQ] Very much [facility] Sexual Orientation [facility] [place] Sex Female (finding) [facility] Functional Status Date Assessment Result Facility 06-10-2025 Total score [AUDIT-C] 0 06/10/20 9:50 AM EDT User, Kurtis [facility] 06-10-2025 How often to you hav e a drink containing alcohol? Never 06/10/2025 9:50 AM EDT User, Cristinehart Never [facility] 06-10-2025 Functional status Patient does n ot drink 06/10/2025 9:50 AM EDT User, Geraldinet Patient does not drink [facility] 06-10-2025 How often do you hav e 6 or more drinks on 1 occasion? Never 06/10/2025 9:50 AM EDT [facility] Never [facility] Clinical Notes 01-10-2022 to 06-25-2025 Note Date & Type Note Facility 06-25-2025 Note Exam Date Time Procedure Performing Provider Status 06/25/25 7:42 AM US Pelvis Non-OB W/Transvaginal Shirley GARDUNO DO; Auth (Verified) [id number] ORIGINAL EXAMINATION: TRANSVAGINAL PELVIC ULTRASOUND 06/25/2025 TECHNIQUE: Transabdominal and transvaginal pelvic ultrasound was performed. COMPARISON: None HISTORY: ORDERING SYSTEM PROVIDED HISTORY: Reason for Exam: ovarian lesion? per pt was told this at ED appt but no TVUS completed. All images are recorded and archived. FINDINGS: Measurements: Uterus: 7.1 x 5.7 x 4.4 cm Endometrial stripe: 8 mm Right Ovary:By 0.7 x 5.2 x 4.5 cm Left Ovary: 3.5 x 2.4 x 2.6 cm Ultrasound Findings: Uterus: Uterus demonstrates normal myometrial echotexture. Endometrial stripe: Endometrial stripe is within normal limits. Right Ovary: Right ovary contains a septated anechoic focus measuring 4.7 x 4.4 x 3.4 cm. No solid component identified. Left Ovary: Left ovary is within normal limits. Both ovaries demonstrate appropriate venous and arterial blood flow with Doppler assessment. Free Fluid: No evidence of free fluid. IMPRESSION: 1. 4.7 cm septated cyst right ovary. Recommend follow-up pelvic US in 3-6 months. 2. No acute pelvic process. 3. Normal Doppler flow within the ovaries. Interpreted by: Trip Garduno DO Preliminary Report By: Trip Garduno DO Electronically signed By Trip Garduno DO Dictated Date: 06/25/2025 9:46:37 AM Prelim Date: 06/25/2025 9:48:34 AM Sign Date: 06/25/2025 9:48:34 AM Ordering Provider: ALYSSIA GOLDMAN [facility]08-21-2025 Evaluation + Plan note Diagnostic Tests Pending * 17-OH Progesterone LCMS 06/12/25 [facility] 08-19-2025 NoteHNO ID: [id number] Author: LAUREN FOSTER APRN.JOURNALISM INSTRUCTOR Service: ? Author Type: Nurse Specialist Type: Progress Notes Filed: 06/10/2025 16:42 Note Text: Subjective Patient ID: Nicole is a 19 year old female who presents for Establish Care. HPI Nicole Mcgee is a 19-year-old female with a history of POTS, anxiety, depression, and anemia, presenting for an initial visit and evaluation of menometrorrhagia and epistaxis. Menometrorrhagia: - Three menstrual periods within the last three weeks. - First period ended on 05/15; currently on the third period. - Each period lasts 3-5 days with heavy bleeding. - Reports one episode of bleeding through a super tampon within an hour. - Denies previous intermenstrual spotting. - Not currently seeing a package line operator; previous visit was 1-2 years ago. - Denies sexual activity; hesitant about using oral contraceptives due to potential side effects and concerns about exacerbating POTS. - Experiencing acne breakouts. Epistaxis: - Epistaxis 2-3 times daily for the past week. - Bleeding occurs from both nostrils, lasting from 30 seconds to a few minutes. - Denies use of supplemental oxygen or nasal devices. Anemia: - Taking iron supplements every other day, but reports inconsistent adherence. - Denies constipation or other side effects from iron supplementation. POTS: - Managed with midodrine, reports it is helpful. - Stays active and increases dietary sodium intake. Anxiety and Depression: - Managed with fluoxetine (Prozac), reports improvement. - Previously saw a psychiatrist via online visits; plans to resume once school schedule is settled. Reactive Hypoglycemia: - Suspected diagnosis; seen by rheumatology but found visits too expensive. - Eating and drinking normally. - Family history of diabetes. 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 - Expected graduation in 2027. Objective BP 100/68 Pulse 76 Resp 16 Ht 166.5 cm (5' 5.55) Wt 82.1 kg (181 lb) LMP 04/17/2024 (Approximate) BMI 29.62 kg/m? Physical Exam Vitals and nursing note reviewed. Constitutional: Appearance: Normal appearance. HENT: Head: Normocephalic and atraumatic. Eyes: Conjunctiva/sclera: Conjunctivae normal. Neck: Thyroid: No thyroid mass or thyromegaly. Vascular: Normal carotid pulses. No carotid bruit or JVD. Cardiovascular: Rate and Rhythm: Normal rate and regular rhythm. Pulses: Carotid pulses are 2+ on the right side and 2+ on the left side. Radial pulses are 2+ on the right side and 2+ on the left side. Heart sounds: Normal heart sounds. Pulmonary: Effort: Pulmonary effort is normal. Breath sounds: Normal breath sounds. Abdominal: General: Bowel sounds are normal. Palpations: Abdomen is soft. Musculoskeletal: Right lower leg: No edema. Left lower leg: No edema. Skin: General: Skin is warm and dry. Neurological: General: No focal deficit present. Mental Status: She is alert and oriented to person, place, and time. Latest Ref Rng 06/12/2024 06/14/2024 10/22/2024 WBC 3.70 - 11.00 k/uL 8.78 8.82 RBC 3.90 - 5.20 m/uL 4.40 4.73 Hemoglobin 11.5 - 15.5 g/dL 11.5 12.3 Hematocrit 36.0 - 46.0 % 35.9 (L) 38.0 MCV 80.0 - 100.0 fL 81.6 80.3 MCH 26.0 - 34.0 pg 26.1 26.0 MCHC 30.5 - 36.0 g/dL 32.0 32.4 RDW-CV 11.5 - 15.0 % 14.0 14.8 Platelet Count 150 - 400 k/uL 285 285 MPV 9.0 - 12.7 fL 10.2 10.2 Neut% % 66.5 64.0 Abs Neut (ANC) 1.45 - 7.50 k/uL 5.84 5.64 Lymph% % 22.9 24.1 Abs Lymph 1.00 - 4.00 k/uL 2.01 2.13 Freestone% % 6.7 7.7 Abs Freestone <0.87 k/uL 0.59 0.68 Eosin% % 3.2 3.5 Abs Eosin <0.46 k/uL 0.28 0.31 Baso% % 0.5 0.5 Abs Baso <0.11 k/uL 0.04 0.04 Immature Gran % % 0.2 0.2 IMMATURE GRANS (ABS) <0.10 k/uL <0.03 <0.03 NRBC /100 WBC 0.0 0.0 Absolute nRBC <0.01 k/uL <0.01 <0.01 DTYPE Auto Auto Protein, Total 6.3 - 8.0 g/dL 7.6 7.6 Albumin 3.9 - 4.9 g/dL 4.3 4.5 Calcium 8.5 - 10.2 mg/dL 9.7 9.5 Bilirubin, Total 0.2 - 1.3 mg/dL <0.2 (L) 0.2 Alkaline Phosphatase 34 - 123 U/L 70 64 AST 13 - 35 U/L 27 25 ALT 7 - 38 U/L 22 14 Glucose 74 - 99 mg/dL 80 72 (L) BUN 7 - 21 mg/dL 11 15 Creatinine 0.58 - 0.96 mg/dL 0.67 0.73 Sodium 136 - 144 mmol/L 137 137 Potassium 3.7 - 5.1 mmol/L 4.2 4.3 Chloride 98 - 107 mmol/L 102 103 CO2 22 - 30 mmol/L 25 22 Anion Gap 8 - 15 mmol/L 10 12 eGFR >=60 mL/min/1.73m? 129 121 TB Nil <=8.00 IU/mL <0.00 TB1 Ag minus Nil <0.35 IU/mL 0.00 TB2 Ag minus Nil <0.35 IU/mL 0.00 TB Result Negative Mitogen minus Nil >=0.50 IU/mL >10.00 TB Interpretation Infection with M. tuberculosis complex is unlikely. If latent tuberculosis infection is highly suspected, a negative result does not rule out the infection. Specimens from immunocompromised patients and those <5 years of age may show false negative results. In case of a contact investigation, please repeat 8-12 weeks after a known exposure. Iron 41 - 186 (more content not included)...[facility]08-19-2025 History of Present illness Narrative* Cristian LaurenKAMAR cardenas.JOURNALISM INSTRUCTOR - 06/10/2025 3:42 PM EDT Subjective Patient ID: Nicole is a 19 year old female who presents for Establish Care. HPI Nicole Mcgee is a 19-year-old female with a history of POTS, anxiety, depression, and anemia, presenting for an initial visit and evaluation of menometrorrhagia and epistaxis. Menometrorrhagia: - Three menstrual periods within the last three weeks. - First period ended on 05/15; currently on the third period. - Each period lasts 3-5 days with heavy bleeding. - Reports one episode of bleeding through a super tampon within an hour. - Denies previous intermenstrual spotting. - Not currently seeing a package line operator; previous visit was 1-2 years ago. - Denies sexual activity; hesitant about using oral contraceptives due to potential side effects and concerns about exacerbating POTS. - Experiencing acne breakouts. Epistaxis: - Epistaxis 2-3 times daily for the past week. - Bleeding occurs from both nostrils, lasting from 30 seconds to a few minutes. - Denies use of supplemental oxygen or nasal devices. Anemia: - Taking iron supplements every other day, but reports inconsistent adherence. - Denies constipation or other side effects from iron supplementation. POTS: - Managed with midodrine, reports it is helpful. - Stays active and increases dietary sodium intake. Anxiety and Depression: - Managed with fluoxetine (Prozac), reports improvement. - Previously saw a psychiatrist via online visits; plans to resume once school schedule is settled. Reactive Hypoglycemia: - Suspected diagnosis; seen by rheumatology but found visits too expensive. - Eating and drinking normally. - Family history of diabetes. 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 - Expected graduation in 2027. Objective BP 100/68 Pulse 76 Resp 16 Ht 166.5 cm (5' 5.55) Wt 82.1 kg (181 lb) LMP 04/17/2024 (Approximate) BMI 29.62 kg/m Physical Exam Vitals and nursing note reviewed. Constitutional: Appearance: Normal appearance. HENT: Head: Normocephalic and atraumatic. Eyes: Conjunctiva/sclera: Conjunctivae normal. Neck: Thyroid: No thyroid mass or thyromegaly. Vascular: Normal carotid pulses. No carotid bruit or JVD. Cardiovascular: Rate and Rhythm: Normal rate and regular rhythm. Pulses: Carotid pulses are 2+ on the right side and 2+ on the left side. Radial pulses are 2+ on the right side and 2+ on the left side. Heart sounds: Normal heart sounds. Pulmonary: Effort: Pulmonary effort is normal. Breath sounds: Normal breath sounds. Abdominal: General: Bowel sounds are normal. Palpations: Abdomen is soft. Musculoskeletal: Right lower leg: No edema. Left lower leg: No edema. Skin: General: Skin is warm and dry. Neurological: General: No focal deficit present. Mental Status: She is alert and oriented to person, place, and time. Latest Ref Rng 06/12/2024 06/14/2024 10/22/2024 WBC 3.70 - 11.00 k/uL 8.78 8.82 RBC 3.90 - 5.20 m/uL 4.40 4.73 Hemoglobin 11.5 - 15.5 g/dL 11.5 12.3 Hematocrit 36.0 - 46.0 % 35.9 (L) 38.0 MCV 80.0 - 100.0 fL 81.6 80.3 MCH 26.0 - 34.0 pg 26.1 26.0 MCHC 30.5 - 36.0 g/dL 32.0 32.4 RDW-CV 11.5 - 15.0 % 14.0 14.8 Platelet Count 150 - 400 k/uL 285 285 MPV 9.0 - 12.7 fL 10.2 10.2 Neut% % 66.5 64.0 Abs Neut (ANC) 1.45 - 7.50 k/uL 5.84 5.64 Lymph% % 22.9 24.1 Abs Lymph 1.00 - 4.00 k/uL 2.01 2.13 Freestone% % 6.7 7.7 Abs Freestone <0.87 k/uL 0.59 0.68 Eosin% % 3.2 3.5 Abs Eosin <0.46 k/uL 0.28 0.31 Baso% % 0.5 0.5 Abs Baso <0.11 k/uL 0.04 0.04 Immature Gran % % 0.2 0.2 IMMATURE GRANS (ABS) <0.10 k/uL <0.03 <0.03 NRBC /100 WBC 0.0 0.0 Absolute nRBC <0.01 k/uL <0.01 <0.01 DTYPE Auto Auto Protein, Total 6.3 - 8.0 g/dL 7.6 7.6 Albumin 3.9 - 4.9 g/dL 4.3 4.5 Calcium 8.5 - 10.2 mg/dL 9.7 9.5 Bilirubin, Total 0.2 - 1.3 mg/dL <0.2 (L) 0.2 Alkaline Phosphatase 34 - 123 U/L 70 64 AST 13 - 35 U/L 27 25 ALT 7 - 38 U/L 22 14 Glucose 74 - 99 mg/dL 80 72 (L) BUN 7 - 21 mg/dL 11 15 Creatinine 0.58 - 0.96 mg/dL 0.67 0.73 Sodium 136 - 144 mmol/L 137 137 Potassium 3.7 - 5.1 mmol/L 4.2 4.3 Chloride 98 - 107 mmol/L 102 103 CO2 22 - 30 mmol/L 25 22 Anion Gap 8 - 15 mmol/L 10 12 eGFR >=60 mL/min/1.73m 129 121 TB Nil <=8.00 IU/mL <0.00 TB1 Ag minus Nil <0.35 IU/mL 0.00 TB2 Ag minus Nil <0.35 IU/mL 0.00 TB Result Negative Mitogen minus Nil >=0.50 IU/mL >10.00 TB Interpretation Infection with M. tuberculosis complex is unlikely. If latent tuberculosis infection is highly suspected, a negative result does not rule out the infection. Specimens from immunocompromised patients and those <5 years of age may show false negative results. In case of a contactinvestigation, please repeat 8-12 weeks after a known exposure. Iron 41 - 186 ug/dL 31 (L) 67 TIBC 232 - 386 ug/dL 464 (H) 470 (H) Transferrin Saturation 15.0 - 57.0 % 6.7 (L) 14.3 (L) ACTH 7.2 - 63.3 pg/mL 21.9 Cortisol 4.8 - 19.5 ug/dL 16.0 Ferritin 14.7 - 205.1 ng/mL 13.7 (L) 14.1 (L) TSH 0.510 - 4.300 mIU/L 2.320 Free T4 0.9 - 1.7 ng/dL 1.0 1. Routine medical exam (Z00.00) - Discussed recommended screening tests for age group, including gonorrhea and chlamydia, but deferred due to lack of sexual activity. - Recommended hepatitis C screening. - Discussed meningococcal vaccine booster; patient has received 2 doses, last in 2020. 2. History of iron deficiency (Z86.39) - Patient inconsistently taking iron supplementation. - Order labs to assess current iron levels. - Advised patient to continue iron supplementation as prescribed. 3. Irregular menses (N92.6) 4. Menorrhagia with irregular cycle (N92.1) - Patient reports 3 menstrual periods in the last 3 weeks, each lasting 3-5 days with heavy bleeding. - Advised gynecological evaluation to rule out physical causes and discuss hormonal management options. - Discussed potential use of oral contraceptives for cycle regulation; patient expressed concerns about side effects and impact on POTS. - Order basic lab work to assess for underlying causes. 5. POTS (postural orthostatic tachycardia syndrome) (G90.A) - Patient currently taking midodrine; reports it is helpful. - Advised continued use of midodrine, compression socks when sitting for long periods, increased dietary sodium, and gradual position changes. 6. Screening for depression (Z13.31) 7. Encounter for screening examination for other mental health and behavioral disorders (Z13.39) 8. Anxiety and depression (F41.9) - Patient currently taking fluoxetine (Prozac) and reports improvement in symptoms. - Patient previously saw a psychiatrist via online visits; plans to resume once school schedule is determined. 9. Encounter for immunization (Z23) deferred to later date 10. Screening for STD (sexually transmitted disease) (Z11.3) 11. Special screening examination for viral disease (Z11.59) Not sexually active, deferred to later date 1 year follow up MD Lauren Ambriz APRN.JOURNALISM INSTRUCTOR [facility] [address], [address] [place] [address] OFFICE VISIT Date of Service: 04/30/25 MR#: [id number] Acct: [id number] Name: JOSAFAT MCGEE Rep #: [id number] : 2005 Provider: MARY Fowler Age/Sex: 19/F Location: [facility] Status: Signed Intake Vital Signs 10/26/24 09:53 Height 5 ft 7 in Intake Visit Reasons: PE/NON DOT PHYSICAL/TAMI Chief Complaint: Tami Physical Allergies No Known Allergies Allergy (Verified 10/26/24 10:27) Nurse's Note: Tami Physical [facility] Medical History (Updated 04/30/25 @ 15:43 by Heriberto HERNANDEZ, PA) Physical exam, pre-employment Sprain of right hand Vertigo POTS (postural orthostatic tachycardia syndrome) Acute frontal sinusitis, unspecified Contact with and (suspected) exposure to other viral communicable diseases URI (upper respiratory infection) Right wrist sprain Sprain of right index finger Sprain of right thumb Encounter for screening for COVID-19 Hx of ovarian cyst Seasonal allergies Asthma 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 Family History Unknown Diabetes Hypertension CAD (coronary artery disease) Cancer Heart disease CVA (cerebral vascular accident) Non Hodgkin's lymphoma Alzheimer's dementia Social History current occupation: [employer] Smoking Status: Never smoker alcohol intake: never substance use type: does not use what type of physical activity do you participate in: aerobics and weight training seatbelt use: always HPI HPI Chief Complaint: [place] Physical Details: JOSAFAT MCGEE, is a 19 F who presents to the office today for Office Procedures Physical Exam Coding PE Coding Pre-employment PE: Yes Coding Level of Care Code Attention Class C Driver Diagnoses Physical exam, pre-employment Z02.1 Assessment and Plan Assessment and Plan (1) Physical exam, pre-employment: Status: Acute 04/30/25 1544 s MARY HERNANDEZ> Date _ Heriberto HERNANDEZ Cosigner Signature: Date (if applicable) CC: ~ [facility]07-09-2025 Progress note Author Heriberto Molina [facility] Services Note Date/Time April 30, 2025 3:44p [facility] [address], [address] [place] [address] OFFICE VISIT Date of Service: 04/30/25 MR#: [id number] Acct: [id number] Name: JOSAFAT MCGEE Rep #: [id number] : 2005 Provider: MARY Fowler Age/Sex: 19/F Location: [facility] Status: Signed Intake Vital Signs 10/26/24 09:53 Height 5 ft 7 in Intake Visit Reasons: PE[facility] Chief Complaint: [place] Physical Allergies No Known Allergies Allergy (Verified 10/26/24 10:27) Nurse's Note: [place] Physical [facility] Medical History (Updated 04/30/25 @ 15:43 by MARY Benz) Physical exam, pre-employment Sprain of right hand Vertigo POTS (postural orthostatic tachycardia syndrome) Acute frontal sinusitis, unspecified Contact with and (suspected) exposure to other viral communicable diseases URI (upper respiratory infection) Right wrist sprain Sprain of right index finger Sprain of right thumb Encounter for screening for COVID-19 Hx of ovarian cyst Seasonal allergies Asthma 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 Family History Unknown Diabetes Hypertension CAD (coronary artery disease) Cancer Heart disease CVA (cerebral vascular accident) Non Hodgkin's lymphoma Alzheimer's dementia Social History current occupation: [employer] Smoking Status: Never smoker alcohol intake: never substance use type: does not use what type of physical activity do you participate in: aerobics and weight training seatbelt use: always HPI HPI Chief Complaint: [place] Physical Details: JOSAFAT MCGEE, is a 19 F who presents to the office today for Office Procedures Physical Exam Coding PE Coding Pre-employment PE: Yes Coding Level of Care Code Attention Estela Diagnoses Physical exam, pre-employment Z02.1 Assessment and Plan Assessment and Plan (1) Physical exam, pre-employment: Status: Acute 04/30/25 3255 <Electronically signed by Heriberto HERNANDEZ> Date _ Heriberto HERNANDEZ Cosigner Signature: Date (if applicable) CC: ~ [facility] Work Phone: [phone] 682-678503-07-2025 Instructions* Patient Instructions* Jemma Palumbo APRN.SENIOR BENEFITS ANALYST - 12/27/2024 9:23 AM EST R.I.C.E. The general care of your injury includes the following: Resting, Icing, Compressing and Elevating the injured area. Remember this as RICE. REST: Limit the use of the injured body part. ICE: By applying ice to the affected area, swelling and pain can be reduced. Place some ice cubes in a re-sealable (Ziploc) bag and add some water. Put a thin washcloth between the bag and your skin.Apply the ice bag to the area for at least 20 minutes. Do this at least 4 times per day. Using the ice for longer times and more frequently is OK. NEVER APPLY ICE DIRECTLY TO THE SKIN. COMPRESS: Compression means to apply pressure around the injured area such as with a splint, cast or an misbah bandage. Compression decreases swelling and improves comfort. Compression should be tight enough to relieve swelling but not so tight as to decrease circulation. Increasing pain, numbness, tingling, or change in skin color, are all signs of decreased circulation. ELEVATE: Elevate the injured part. For example, elevate your foot by placing it on a chair while sitting, or propping it up on pillows when lying down. documented in this encounterOhiohealth03-07-2025 History of Present illness Narrative* Milly Toth Tech - 12/27/2024 9:20 AM EST Radiology Service Progress Note PATIENT NAME: Josafat Mcgee DATE OF SERVICE: December 27, 2024 TIME: 8:58 AM PATIENT IDENTITY VERIFICATION COMPLETED USING TWO (2) IDENTIFIERS: Name and Date of confirmedby patient verbally. FALL SCREENING: Has the patient had 2 falls in the last year or 1 fall with injury or currently using an Ambulatory Assistive Device (Walker, Cane, Wheelchair, Crutches, etc.)? No PATIENT GENDER DATA: Assigned female at . status: : No status:NO. PATIENT RELEVANT IMPLANT DATA REVIEWED: Not Applicable PATIENT PRESENTS WITH AN IMPLANTABLE OR ATTACHED REAL ESTATE INVESTOR: No RADIOLOGY DEPARTMENT: General X-ray: Exam(s) Completed: Skull X-Ray Nasal Bones PERIPHERAL IV DATA: Not applicable SIGNED BY: Jessica White December 27, 2024 8:58 AM documented in this encounterOhiohealth03-07-2025 NoteHNO ID: [id number] Author: MILLY TOTH Tech Service: ? Author Type: Technologist Type: Progress Notes Filed: 12/27/2024 09:09 Note Text: Radiology Service Progress Note PATIENT NAME: Josafat Mcgee DATE OF SERVICE: December 27, 2024 TIME: 8:58 AM PATIENT IDENTITY VERIFICATION COMPLETED USING TWO (2) IDENTIFIERS: Name and Date of confirmed by patient verbally. FALL SCREENING: Has the patient had 2 falls in the last year or 1 fall with injury or currently using an Ambulatory Assistive Device (Walker, Cane, Wheelchair, Crutches, etc.)? No PATIENT GENDER DATA: Assigned female at . status: : No status: NO. PATIENT RELEVANT IMPLANT DATA REVIEWED: Not Applicable PATIENT PRESENTS WITH AN IMPLANTABLE OR ATTACHED REAL ESTATE INVESTOR: No RADIOLOGY DEPARTMENT: General X-ray: Exam(s) Completed: Skull X-Ray Nasal Bones PERIPHERAL IV DATA: Not applicable SIGNED BY: Jessica White December 27, 2024 8:58 [facility]03-07-2025 NoteHNO ID: [id number] Author: JEMMA PALUMBO APRN.SENIOR BENEFITS ANALYST Service: ? Author Type: Nurse Practitioner Type: Progress Notes Filed: 12/27/2024 10:42 Note Text: This note was created using [employer]. Shay Mcgee is a 19 year old female. 19 year old female with PMH GRAHAM presents for nasal injury Acute onset 12/25/24 She was stunting while cheerleding Endorses that the formation fell, Ultimately another persons head struck hers +injury to nose +laceration +swelling Denies LOC Denies headache Denies neck pain Denies abdominal pain Denies N/V/D Denies seeking medical treatment at that time Just want to see if it is broke or not The history is provided by the patient. No foreign language instructor was used. Head Injury The incident occurred 2 days ago. The injury mechanism was a direct blow. There was no loss of consciousness. The volume of blood lost was minimal. The quality of the pain is described as sharp. The pain is at a severity of 5/10. The pain is moderate. The pain has been constant since the injury. Pertinent negatives include no numbness, no blurred vision, no vomiting, no tinnitus, no disorientation, no weakness and no memory loss. Treatment prior to arrival: n/a. She has tried nothing for the symptoms. The treatment provided no relief. PAST MEDICAL HISTORY Diagnosis Date Asthma Family history of seizure disorder Ovarian cyst POTS (postural orthostatic tachycardia syndrome) Seasonal allergies Vasovagal syncope PAST SURGICAL HISTORY Procedure Laterality Date FINGER SURGERY HX ALLERGIES Seasonal Allergies MEDICATIONS fludrocortisone (FLORINEF) 0.1 mg tablet Take 1 tablet by mouth once daily. FLUoxetine (PROZAC) 40 mg capsule Take 1 capsule by mouth once daily. traZODone (DESYREL) 50 mg tablet Take 1 tablet by mouth daily at bedtime. sodium fluoride 1.1 % dental cream DISPENSE A SMALL AMOUNT INTO TOOTH SLOT TRAY AND WEAR FOR [address] (PROTONIX) 40 mg tablet Take 40 mg by mouth once daily. albuterol HFA (PROVENTIL HFA, VENTOLIN HFA) 90 mcg/actuation inhaler Inhale 2 Puffs as instructed every 6 hours as needed for wheezing/shortness of breath. FAMILY HISTORY Problem Relation Age of Onset other (Venous insufficiency) Mother No Known Problems Father Arthritis Maternal Grandmother Coronary Artery Disease Maternal Grandfather COPD Maternal Grandfather Diabetes Maternal Grandfather Hypertension Maternal Grandfather Hypoglycemia Paternal Grandmother other (non-Hodgkins lymphoma) Paternal Grandmother Coronary Artery Disease Paternal Grandfather Social History Tobacco Use Smoking status: Never Smokeless tobacco: Never Vaping Use Vaping status: Never Used Substance Use Topics Alcohol use: Not Currently Drug use: Never Review of Systems Constitutional: Negative for activity change, diaphoresis, fatigue and fever. HENT: Negative for tinnitus. +nasal injury Eyes: Negative for blurred vision. Respiratory: Negative for apnea, cough, choking, chest tightness and shortness of breath. Cardiovascular: Negative for chest pain, palpitations and leg swelling. Gastrointestinal: Negative for abdominal pain, diarrhea, nausea and vomiting. Musculoskeletal: Negative for arthralgias, back pain and gait problem. Skin: Negative for color change, pallor, rash and wound. Allergic/Immunologic: Negative for environmental allergies, food allergies and immunocompromised state. Neurological: Negative for dizziness, facial asymmetry, weakness, numbness and headaches. Hematological: Negative for adenopathy. Does not bruise/bleed easily. Psychiatric/Behavioral: Negative for agitation, behavioral problems and memory loss. Objective BP 109/76 Pulse (!) 59 Temp 36.7 ?C (98.1 ?F) Resp 18 Wt 78.9 kg (173 lb 15.1 oz) LMP 04/17/2024 (Approximate) SpO2 100% BMI 28.08 kg/m? Physical Exam Vitals and nursing note reviewed. Constitutional: General: She is not in acute distress. Appearance: Normal appearance. She is normal weight. She is not ill-appearing, toxic-appearing or diaphoretic. HENT: Head: Normocephalic and atraumatic. Comments: NO periorbital ecchymoses Right Ear: Ear canal and external ear normal. Left Ear: Ear canal and external ear normal. Nose: Nose normal. No congestion or rhinorrhea. Mouth/Throat: Mouth: Mucous membranes are moist. Pharynx: No oropharyngeal exudate or posterior oropharyngeal erythema. Eyes: General: Right eye: No discharge. Left eye: No discharge. Extraocular Movements: Extraocular movements intact. Conjunctiva/sclera: Conjunctivae normal. Pupils: Pupils are equal, round, and reactive to light. Cardiovascular: Rate and Rhythm: Normal rate and regular rhythm. Pulses: Normal pulses. Heart sounds: Normal heart sounds. No murmur heard. No friction rub. Pulmonary: Effort: Pulmonary effort is normal. No respiratory distress. Breath sounds: No (more content not included)...[facility] 12-27-2024 History of Present illness Narrative* Jemma Palumbo APRN.[facility] - 12/27/2024 8:53 AM EST Images from the original note were not included. This note was created using [employer]. Subjective Josafat Mcgee is a 19 year old female. 19 year old female with PMH GRAHAM presents for nasal injury Acute onset 12/25/24 She was stunting while cheerleding Endorses that the formation fell, Ultimately another persons head struck hers +injury to nose +laceration +swelling Denies LOC Denies headache Denies neck pain Denies abdominal pain Denies N/V/D Denies seeking medical treatment at that time Just want to see if it is broke or not The history is provided by the patient. No foreign language instructor was used. Head Injury The incident occurred 2 days ago. The injury mechanism was a direct blow. There was no loss of consciousness. The volume of blood lost was minimal. The quality of the pain is described as sharp. The pain is at a severity of 5/10. The pain is moderate. The pain has been constant since the injury. Pertinent negatives include no numbness, no blurred vision, no vomiting, no tinnitus, no disorientation, no weakness and no memory loss. Treatment prior to arrival: n/a. She has tried nothing for the symptoms. The treatment provided no relief. PAST MEDICAL HISTORY Diagnosis Date Asthma Family history of seizure disorder Ovarian cyst POTS (postural orthostatic tachycardia syndrome) Seasonal allergies Vasovagal syncope PAST SURGICAL HISTORY Procedure Laterality Date FINGER SURGERY HX ALLERGIES Seasonal Allergies MEDICATIONS fludrocortisone (FLORINEF) 0.1 mg tablet Take 1 tablet by mouth once daily. FLUoxetine (PROZAC) 40 mg capsule Take 1 capsule by mouth once daily. traZODone (DESYREL) 50 mg tablet Take 1 tablet by mouth daily at bedtime. sodium fluoride 1.1 % dental cream DISPENSE A SMALL AMOUNT INTO TOOTH SLOT TRAY AND WEAR FOR [address] (PROTONIX) 40 mg tablet Take 40 mg by mouth once daily. albuterol HFA (PROVENTIL HFA, VENTOLIN HFA) 90 mcg/actuation inhaler Inhale 2 Puffs as instructed every 6 hours as needed for wheezing/shortness of breath. FAMILY HISTORY Problem Relation Age of Onset other (Venous insufficiency) Mother No Known Problems Father Arthritis Maternal Grandmother Coronary Artery Disease Maternal Grandfather COPD Maternal Grandfather Diabetes Maternal Grandfather Hypertension Maternal Grandfather Hypoglycemia Paternal Grandmother other (non-Hodgkins lymphoma) Paternal Grandmother Coronary Artery Disease Paternal Grandfather Social History Tobacco Use Smoking status: Never Smokeless tobacco: Never Vaping Use Vaping status: Never Used Substance Use Topics Alcohol use: Not Currently Drug use: Never Review of Systems Constitutional: Negative for activity change, diaphoresis, fatigue and fever. HENT: Negative for tinnitus. +nasal injury Eyes: Negative for blurred vision. Respiratory: Negative for apnea, cough, choking, chest tightness and shortness of breath. Cardiovascular: Negative for chest pain, palpitations and leg swelling. Gastrointestinal: Negative for abdominal pain, diarrhea, nausea and vomiting. Musculoskeletal: Negative for arthralgias, back pain and gait problem. Skin: Negative for color change, pallor, rash and wound. Allergic/Immunologic: Negative for environmental allergies, food allergies and immunocompromised state. Neurological: Negative for dizziness, facial asymmetry, weakness, numbness and headaches. Hematological: Negative for adenopathy. Does not bruise/bleed easily. Psychiatric/Behavioral: Negative for agitation, behavioral problems and memory loss. Objective BP 109/76 Pulse (!) 59 Temp 36.7 C (98.1 F) Resp 18 Wt 78.9 kg (173 lb 15.1 oz) LMP 04/17/2024 (Approximate) SpO2 100% BMI 28.08 kg/m Physical Exam Vitals and nursing note reviewed. Constitutional: General: She is not in acute distress. Appearance: Normal appearance. She is normal weight. She is not ill-appearing, toxic-appearing or diaphoretic. HENT: Head: Normocephalic and atraumatic. Comments: NO periorbital ecchymoses Right Ear: Ear canal and external ear normal. Left Ear: Ear canal and external ear normal. Nose: Nose normal. No congestion or rhinorrhea. Mouth/Throat: Mouth: Mucous membranes are moist. Pharynx: No oropharyngeal exudate or posterior oropharyngeal erythema. Eyes: General: Right eye: No discharge. Left eye: No discharge. Extraocular Movements: Extraocular movements intact. Conjunctiva/sclera: Conjunctivae normal. Pupils: Pupils are equal, round, and reactive to light. Cardiovascular: Rate and Rhythm: Normal rate and regular rhythm. Pulses: Normal pulses. Heart sounds: Normal heart sounds. No murmur heard. No friction rub. Pulmonary: Effort: Pulmonary effort is normal. No respiratory distress. Breath sounds: Normal breath sounds. No stridor. No wheezing, rhonchi or rales. Chest: Chest wall: No tenderness. Abdominal: General: Abdomen is flat. There is no distension. Palpations: Abdomen is soft. There is no mass. Tenderness: There is no abdominal tenderness. There is no right CVA tenderness, left CVA tenderness, guarding or rebound. Hernia: No hernia is present. Musculoskeletal: General: No swelling, tenderness, deformity or signs of injury. Normal range of motion. Cervical back: Normal range of motion and neck supple. No rigidity. Right lower leg: No edema. Left lower leg: No edema. Lymphadenopathy: Cervical: No cervical adenopathy. Skin: General: Skin is warm and dry. Coloration: Skin is not jaundiced or pale. Findings: No bruising, erythema, lesion or rash. Neurological: General: No focal deficit present. Mental Status: She is alert and oriented to person, place, and time. Cranial Nerves: No cranial nerve deficit. Sensory: No sensory deficit. Motor: No weakness. Coordination: Coordination normal. Gait: Gait normal. Psychiatric: Mood and Affect: Mood normal. Behavior: Behavior normal. Thought Content: Thought content normal. Judgment: Judgment normal. Assessment and Plan ASSESSMENT/PLAN: 1. Nasal injury, initial encounter - ICD9: 959.09, ICD10: S09.92XA (primary diagnosis) +injury 2 days ago No red flags - XR NASAL BONES 3V PA/BOTH LAT 2. Contusion of nose, initial encounter - ICD9: 920, ICD10: S00.33XA RICE OTC analgesics F/u with ENT for continued sx or concerns 3. Injury of head, initial encounter - ICD9: 959.01, ICD10: S09.90XA Occurred 12/25/24 No LOC No red flags Discussed possibility for concussion, but that express care does not work that up Discussed red flags F/U with PCP Jemma Palumbo APRN.SENIOR BENEFITS ANALYST documented in this encounterOhiohealth01-21-2025 Telephone encounter Note * Telephone Encounter - Edgar Gamboa RN - 11/12/2024 4:55 PM EST Form at [facility] desk for review/signature Edgar aGmboa RN [facility]01-21-2025 Miscellaneous Notes* Telephone Encounter - Edgar Gamboa RN - 11/12/2024 4:55 PM EST Form at [facility] desk for review/signature Edgar Gamboa RN documented in this encounterOhiohealth01-03-2025 NoteHNO ID: [id number] Author: JACKELIN REGALADO MD Service: ? Author Type: Physician Type: Progress Notes Filed: 11/11/2024 21:25 Note Text: [facility] Patient Name: Josafat JULIEN Date of : 2005 Referring Provider: Beau Marie [address] [place] [address] INITIAL EPILEPSY CLINIC NOTE 10/25/2024 3:00 PM CHIEF COMPLAINT: New Patient HISTORY OF PRESENT ILLNESS Ms. Mcgee is a 19 year old right-handed female seen in [facility] for initial consultation. We had a visit using: [employer] I received consent from the patient to perform the visit using this platform. I have communicated my name and active licensure. The patient's identity and physical location were verified at the time of this visit. Either the patient or their legal technology sales representative has been informed of the risks and benefit of - and alternatives to - treatment through a remote evaluation and consents to proceed with the evaluation remotely. At today's visit, the patient is accompanied by: Corrine mother Handedness: right-handed Age of onset: No history of seizures Seizure History and Evolution Suicide screening mistakenly marked +ve Sometime in March 2024, she was on the plane. Not first time flying; no hx of anxiety with air travel. As it was landing, she started to feel lightheaded, sweaty and felt weak all over while she was still sitting in her seat. She has poor recollection of the events after it. Then she remembers being the first one to get off the plane given juice in Mother who was sitting two rows back, across her. She was pale, her hands were stiff for Had prodromal symptoms of feeling zoned, spinning dizziness. She sometimes has loss of awareness. Santa Claus like she was going to pass out but didn't. Mom says she looked pale and had a look of concern. She continued to speak with them but her voice seemed shaky. Never did she become unresponsive or pass out. Did seem little sweaty. These symptoms are similar to her pre-syncopal events that occur before passing out with her POTS. Last syncope from POTS was last month. However, what was different this time was that her pre-syncopal events dragged on w/o actual syncope. No events like that since the one above. She started to have new kinds of events ~3-4 months. - Zoning out: No warning/aura. Friends tell her that they were calling her name and she didn't respond the first or second time. Patient thinks she may have been lost in her thoughts. Has had 4-5 such events. No triggers Vision darkening: The vision starts to dim and within 30-60 seconds it becomes pitch black. Lasts like ~20 seconds and then slowly recovers. The entire event is 2-3 minutes. No associated pre-syncopal events. Total of 2-3 such events since they started. No triggers. Last one was ~1 month ago. FHx: Paternal grandmother had history of seizures. She also had severe anxiety and it was thought that her passing out and seizures could be from anxiety. Most recent episode of passing out was before her final exams a few weeks ago. She was in her room getting ready, was in bed, sat up to get ready. She felt lightheaded and the room was spinning. Unsure how long she is typically unconscious. Never had incontinence, mouth maceration. Sometimes she is a little confused after events, but not always. She feels wiped out and fatigued, sometimes has to sleep. After an event she can move and talk normally. She was sweating. Her fingers locked up. She was able to communicate that she felt faint, but then was zoning out. Reports she does not remember this. Total # of Current Anti-seizure Medications: 0 Side Effects to Current Anti-seizure Medications: NA Seizure Frequency at First Visit: Longest Seizure-free Interval: Number of seizure types: (Comment: 0) Hx of generalized tonic-clonic seizures: No Tongue bite: No Urine or Bowel Incontinence: No Triggers: N/A Postictal Deficits: No Status Epilepticus or clusters: No Postictal Agitation: No Seizure-related driving accidents: N/A Driving: No (Comment: Since 10/22/24) Lives Alone: No ED Visits in Last 3 Months: No Hospitalizations in Last 3 Months: No Highest Level of Education: Some college (Comment: [employer] in Nursing. 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[place] CURRENT OUTPATIENT ANTISEIZURE MEDICATIONS (as of the start of the encounter) None Prior Anti-seizure Therapies: Trial Adequacy: Max Daily Dose Achieved: Side Effects: Effectiveness: Comments: Comorbidities: Episode Description: Patient Entered Data: EPILEPSY SCORE 10/25/2024 7:40 AM 10/25/2024 7:40 AM 10/25/2024 7:39 AM First answer obtained - 09/28/2022 1:00 PM PHQ-9 SCORE - - - 16 [Moderately Severe Depression] EFRAÍN 2 SCORE 2 [Negative Anxiety Screen] - - - EFRAÍN 7 SCORE - (more content not included)...[facility]01-03-2025 History of Present illness Narrative* Jackelin Regalado MD - 10/25/2024 2:53 PM EST [facility] Patient Name: Josafat JULIEN Date of : 2005 Referring Provider: Beau Marie [address] [place] [address] INITIAL EPILEPSY CLINIC NOTE 10/25/2024 3:00 PM CHIEF COMPLAINT: New Patient HISTORY OF PRESENT ILLNESS Ms. Mcgee is a 19 year old right-handed female seen in [facility] for initial consultation. We had a visit using: [employer] I received consent from the patient to perform the visit using this platform. I have communicated my name and active licensure. The patient's identity and physical location wereverified at the time of this visit. Either the patient or their legal technology sales representative has been informed of the risks and benefit of - and alternatives to - treatment through a remote evaluation and consents to proceed with the evaluation remotely. At today's visit, the patient is accompanied by: mother [place] Handedness: right-handed Age of onset: No history of seizures Seizure History and Evolution Suicide screening mistakenly marked +ve Sometime in March 2024, she was on the plane. Not first time flying; no hx of anxiety with air travel. As it was landing, she started to feel lightheaded, sweaty and felt weak all over while she was still sitting in her seat. She has poor recollection of the events after it. Then she remembers beingthe first one to get off the plane given juice in Mother who was sitting two rows back, across her. She was pale, her hands were stiff for Had prodromal symptoms of feeling zoned, spinning dizziness. She sometimes has loss of awareness. Santa Claus like she was going to pass out but didn't. Mom says she looked pale and had a look of concern. She continued to speak with them but her voice seemed shaky. Never did she become unresponsive or pass out. Did seem little sweaty. These symptoms are similar to her pre-syncopal events that occur before passing out with her POTS. Last syncope from POTS was last month. However, what was different this time was that her pre-syncopal events dragged on w/o actual syncope. No events like that since the one above. She started to have new kinds of events ~3-4 months. - Zoning out: No warning/aura. Friends tell her that they were calling her name and she didn't respond the first or second time. Patient thinks she may have been lost in her thoughts. Has had 4-5 such events. No triggers Vision darkening: The vision starts to dim and within 30-60 seconds it becomes pitch black. Lasts like ~20 seconds and then slowly recovers. The entire event is 2-3 minutes. No associated pre-syncopal events. Total of 2-3 such events since they started. No triggers. Last one was ~1 month ago. FHx: Paternal grandmother had history of seizures. She also had severe anxiety and it was thought that her passing out and seizures could be from anxiety. Most recent episode of passing out was before her final exams a few weeks ago. She was in her room getting ready, was in bed, sat up to get ready. She felt lightheaded and the room was spinning. Unsure how long she is typically unconscious. Never had incontinence, mouth maceration. Sometimes she is a little confused after events, but not always. She feels wiped out and fatigued, sometimes has to sleep. After an event she can move and talk normally. She was sweating. Her fingers locked up. She was able to communicate that she felt faint, but then was zoning out. Reports she does not remember this. Total # of Current Anti-seizure Medications: 0 Side Effects to Current Anti-seizure Medications: NA Seizure Frequency at First Visit: Longest Seizure-free Interval: Number of seizure types: (Comment: 0) Hx of generalized tonic-clonic seizures: No Tongue bite: No Urine or Bowel Incontinence: No Triggers: N/A Postictal Deficits: No Status Epilepticus or clusters: No Postictal Agitation: No Seizure-related driving accidents: N/A Driving: No (Comment: Since 10/22/24) Lives Alone: No ED Visits in Last 3 Months: No Hospitalizations in Last 3 Months: No Highest Level of Education: Some college (Comment: [employer] in Nursing. 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[place] CURRENT OUTPATIENT ANTISEIZURE MEDICATIONS (as of the start of the encounter) None Prior Anti-seizure Therapies: Trial Adequacy: Max Daily Dose Achieved: Side Effects: Effectiveness: Comments: Comorbidities: Episode Description: Patient Entered Data: EPILEPSY SCORE 10/25/2024 7:40 AM 10/25/2024 7:40 AM 10/25/2024 7:39 AM First answer obtained - 21:00 PM PHQ-9 SCORE - - - 16 [Moderately Severe Depression] EFRAÍN 2 SCORE 2 [Negative Anxiety Screen] - - - EFRAÍN 7 SCORE - - - - QOLIE-10 SCORE (0=worst; 100=best QoL - higher scores represent better function) - - - - LSSS SCORE (0- no seizures 100- most severe possible seizures) - - - - C-SSRS SCREEN - - - - On average, how many hours of sleep do you get in a 24-hour period? - 5 - - PROMIS Sleep Disturbance T-SCORE - - - - Have you been diagnosed with Sleep Apnea? 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 - Systolic blood pressures were initially stable then decreased from 94 mmHg at start to 78 mmHg atend of tilt. - Diastolic blood pressures were initially stable then decreased from 60 mmHg at start to 50 mmHg at end of tilt. - Blood pressure upon return to supine position was 122/73 mmHg. - Heart rates increased from 80 bpm at start to 130 bpm at end of tilt. - Heart rate upon return to supine position was 80 bpm. - ECGs showed: sinus. - Patient signs/symptoms included: BLURRY VISION, CH. PAIN, DIZZINESS, FATIGUE, HEADACHE, HOT, LEG FATIGUE, SHORTNESS OF BREATH. - Overall: The test is positive and diagnostic for reflex vasovagal syncope with predominant vasodepressor response. The test is diagnostic for accentuated postural tachycardia. --- Echo 10/03/2022 CONCLUSIONS: - Exam indication: Syncope - The left ventricle is normal in size. Left ventricular systolic function is normal. EF = 65 5% (2D biplane) Normal left ventricular diastolic function. - The right ventricle is normal in size. Right ventricular systolic function is normal. - There are no significant valvular abnormalities. - Estimated right ventricular systolic pressure is 15 mmHg consistent with normal pulmonary artery pressures. Estimated right atrial pressure is 3 mmHg based on IVC assessment. - The patient has not had a prior [facility] echocardiographic exam for comparison. --- QSART 01/12/2023 QSART responses at left forearm, proximal leg, distal leg, and foot are normal. There is no evidence of a significant postganglionic sympathetic sudomotor abnormality like that seen in autonomic or small fiber neuropathy. --- ANS w/o 01/12/2023 Heart rate response to deep breathing is normal via the mean heart rate range (MHRR) and the E:I ratio. Heart rate response to the Valsalva maneuver, as assessed by the Valsalva ratio, is normal. Blood pressure responses to phase II and phase IV of the Valsalva maneuver are normal, in the setting of poor effort. Tilt portion of the test was not performed as per referring physician's request. This is a normal cardiovascular autonomic test panel. There is no evidence of a significant cardiovagal or cardiovascular adrenergic abnormality. Other caregivers: Primary Care Provider: Katelin Morel MD Current Outpatient Medications Medication Sig fludrocortisone (FLORINEF) 0.1 mg tablet Take 1 tablet by mouth once daily. rizatriptan (MAXALT) 10 mg tablet Take 1 tablet (10 mg) by mouth as needed (at onset of headache. May repeat after 2 hours.). Do not exceed 30 mg per day. FLUoxetine (PROZAC) 40 mg capsule Take 1 capsule by mouth once daily. traZODone (DESYREL) 50 mg tablet Take 1 tablet by mouth daily at bedtime. sodium fluoride 1.1 % dental cream DISPENSE A SMALL AMOUNT INTO TOOTH SLOT TRAY AND WEAR FOR 5 MINUTES albuterol HFA (PROVENTIL HFA, VENTOLIN HFA) 90 mcg/actuation inhaler Inhale 2 Puffs as instructed every 6 hours as needed for wheezing/shortness of breath. pantoprazole DR (PROTONIX) 40 mg tablet Take 40 mg by mouth once daily. No current facility-administered medications for this visit. ALLERGIES Allergen Reactions Seasonal Allergies Cough PAST MEDICAL HISTORY Diagnosis Date Asthma Family history of seizure disorder Ovarian cyst POTS (postural orthostatic tachycardia syndrome) Seasonal allergies Vasovagal syncope PAST SURGICAL HISTORY Procedure Laterality Date FINGER SURGERY HX FAMILY HISTORY Problem Relation Age of Onset other (Venous insufficiency) Mother No Known Problems Father Arthritis Maternal Grandmother Coronary Artery Disease Maternal Grandfather COPD Maternal Grandfather Diabetes Maternal Grandfather Hypertension Maternal Grandfather Hypoglycemia Paternal Grandmother other (non-Hodgkins lymphoma) Paternal Grandmother Coronary Artery Disease Paternal Grandfather SOCIAL HISTORY: -Lives in [place], [place] -Patient lives alone? 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 [facility] -Cigarette, alcohol, substance use: None -Functional status: independent in activities of daily living -Patient driving? No Since 10/22/24 Review of Systems VITAL SIGNS: LMP 04/17/2024 (Approximate) General Examination: General Exam Neurological Exam IMPRESSION: Young adult with history of POTS and tilt table test confirmed reflex vasovagal syncope, who was referred by her provider from neuromuscular clinic for an episode which raised doubt for an epileptic seizure. The experience of the episode was similar to her presyncopal symptoms. Patient does not have any specific risk factor for epilepsy; her maternal grandmother was thought to have spells due to anxiety. An EEG has already been ordered by the above-mentioned provider. Given patient's medical history and the description of the event, there is no clinical concern for epileptic seizure at this time. However, it is reasonable to undergo an EEG as part of diagnostic workup. No indication for ASM at this time. Classification Summary PLAN: - EEG as already ordered. If the EEG is negative, patient is released from the clinic. - No indication for ASM use at this time. Data reviewed as above including: electronic medical record Education Patient was given my clinic contact information. I discussed the risks, benefits and alternatives of the medical plan with the patient. Questions were answered. The patient agreed with the plan as discussed. FOLLOW-UP: Return if symptoms worsen or fail to improve. I spent a total of 60 minutes on the date of the service which included: preparing to see the patient [id number] patient care completing clinical documentation counseling and educating the patient/family/caregiver Jackelin Regalado MD cc: Primary Care Physician: Katelin Morel MD [id number] [facility] [id number] Referring: Beau Marie [address] [facility] [id number] Patient: Ms. Josafat Mcgee [id number] [facility] [place] [id number] documented in this encounterOhiohealth12-31-2024 Telephone encounter Note * Telephone Encounter - Wil Doan RN - 10/22/2024 12:56 PM EST Images from the original note were not included. Per request per JADE Grant.SENIOR BENEFITS ANALYST , patient called to inform her that Beau states : that we can fax the referral I placed to an outside facility if she finds an Epileptologist she would prefer to see closer to home. Patient replied that she thinks everything got worked out. She has an appointment 10-25-23 with [facility] as noted below. Message forwarded to BRIAN Grant RN, BSN [facility]12-31-2024 Miscellaneous Notes* Telephone Encounter - Wil Doan RN - 10/22/2024 12:56 PM EST Images from the original note were not included. Per request per JADE Grant.SENIOR BENEFITS ANALYST , patient called to inform her that Beau states : that we can fax the referral I placed to an outside facility if she finds an Epileptologist she would prefer to see closer to home. Patient replied that she thinks everything got worked out. She has an appointment 10-25-23 with [facility] as noted below. Message forwarded to BRIAN Grant RN, BSN documented in this encounterOhiohealth12-31-2024 Instructions* Patient Instructions* Beau Marie APRN.CNP - 10/22/2024 11:36 AM EST *Work up: 1) Labs -Today -1 month 2) EEG long 3) Imaging: -MRI Brain w/ wo -MRV Brain w/ wo 4) Consult to [facility] -No driving until seen + cleared by Epilepsy --- *Medication adjustments: 1) STOP midodrine 2) START fludrocortisone 0.1 mg once daily 3) Rizatriptan (Maxalt) 10 mg as needed for migraine rescue: -Take at onset of migraine. Can repeat the dose after 2 hours if symptoms persist. You can take maximum of 2 doses in a 24 hour period. -Not to be taken daily. Limit abortive (rescue medications) to 10 doses total per month. This includes your Triptan, as well as over the counter medications such as Tylenol, Ibuprofen, Alleve, or Excedrin. -Like all medications, Triptan medications have some potential side effect. You may experience painor tightness in the chest or throat. Some people have feelings of tingling, heat, flushing (rednessof face lasting a short time). Other symptoms include drowsiness, dizziness or fatigue. Like all medications there is a risk of allergic reaction. FLUDROCORTISONE Fludrocortisone (Florinef) is a medication designed to retain sodium and therefore retain water. Itincreases the blood volume and will aide in boosting the blood pressure. By increasing the blood pressure, patients can have less dizziness, lightheadedness, and fatigue associated with postural changes. Negative side effects include GI upset, water retention, and low potassium levels. Like all medications, there is some risk of allergic reaction. Please monitor the blood pressure closely while starting medication, and let me know if the medication is getting too high (systolic BP / top number >150). documented in this encounterOhiohealth12-31-2024 History of Present illness Narrative* Beau Marie APRN.BLU - 10/22/2024 11:00 AM EST Images from the original note were not included. [facility] Neuromuscular Medicine Follow-Up/Established Patient Visit Chief Complaint/Issues: Josafat Mcgee is a 19 year old handed right-handed female seen in the [facility] Neuromuscular medicine for: Follow up POTS Brief HPI /Most Recent Department Assessment and Plan: Seen most recently for follow up 06/14/2024: In the interim did not increase midodrine dose, taking 2.5 mg TID. Reports having some episodes of hypotension SBP 80s mmHg without trigger. We discuss she will keep a log and let me know if this recurs. Will check labs today. 1) Labs 2) Increase midodrine 5 mg TID Today, October 22, 2024: Patient roomed over 7 minutes into visit slot due to late arrival. Portions of history, exam, and plan are shortened to accommodate this. Recommended patient make another appointment to discuss additional concerns not addressed today. Since last visit, she was has had a few episodes where she has darkening of vision fading to black,lasting less than a minute total. Reports this has happened while seated and resting, or laying down. Estimates in total, she has had 5+ episodes in the span 2-3 months. After the episode she does get a headache. She does typically get headaches pretty often. Had an episode of high BP and high HR, was on steroids and breathing treatments at that time (08/2024). BP is back to normal on midodrine, taking 5 mg TID. Headache Description Onset: Teens Total headache days per month: Almost daily (has been high frequency for ~2 months) Headache free days: Yes Duration of attacks: 1 hour - 5 hours Severity of headaches? Mild-severe Onset to Peak: build up over time Location: frontal region Aura: Gets vision darkening lasting ~1-2 minutes, followed by a headache within 5 minutes. Accompanying symptoms: photophobia, phonophobia, nausea. Quality:pressure and squeezing. Worse with activity: Yes Triggers: Strong smells (marijuana smoke) Cough/sneeze/valsalva as trigger: No Positional changes: No Most common time of day for headache to begin: Anytime A few months ago had a fainting episode. She had been flying. Had prodromal symptoms of feeling zoney, spinning dizziness. She sometimes has loss of awareness. Santa Claus like she was going to pass out but didn't. Mom says she looked pale. She was sweating. Her fingers locked up. She was able to communicate that she felt faint, but then was zoning out. Reports she does not remember this. Sometimes has zoning out episodes where she does pass out, and sometimes has zoning out where she does not lose consciousness but may stare off, feels unaware of what is going on around her. Most recent episode of passing out was before her final exams a few weeks ago. She was in her room getting ready, was in bed, sat up to get ready. She felt lightheaded and the room was spinning. Unsure how long she is typically unconscious. Never had incontinence, mouth maceration. Sometimes she is a little confused after events, but not always. She feels wiped out and fatigued, sometimes has to sleep. After an event she can move and talk normally. No history of concussions. Maternal grandmother has a history of seizures, and would also have fainting spells which were undiagnosed. PMH PAST MEDICAL HISTORY Diagnosis Date Asthma Ovarian cyst POTS (postural orthostatic tachycardia syndrome) Seasonal allergies Vasovagal syncope PAST SURGICAL HISTORY Procedure Laterality Date FINGER SURGERY HX ALLERGIES Allergen Reactions Seasonal Allergies Cough Social History Tobacco Use Smoking status: Never Smokeless tobacco: Never Vaping Use Vaping status: Never Used Substance Use Topics Alcohol use: Not Currently Drug use: Never FAMILY HISTORY Problem Relation Age of Onset other (Venous insufficiency) Mother No Known Problems Father Arthritis Maternal Grandmother Coronary Artery Disease Maternal Grandfather COPD Maternal Grandfather Diabetes Maternal Grandfather Hypertension Maternal Grandfather Hypoglycemia Paternal Grandmother other (non-Hodgkins lymphoma) Paternal Grandmother Coronary Artery Disease Paternal Grandfather Current management of orthostatic condition Conservative Measures: Increased water intake (2-2.5 liters of water daily) Increased salt intake (3-5 grams daily) Compression stockings Cardiac Rehab / Progressive exercise Shared medical appointment with Dr. Ean Webb head of bed Continue with mental health care Medications Current Outpatient Medications on File Prior to Visit Medication Sig FLUoxetine (PROZAC) 40 mg capsule Take 1 capsule by mouth once daily. traZODone (DESYREL) 50 mg tablet Take 1 tablet by mouth daily at bedtime. midodrine (PROAMITINE) 5 mg tablet TAKE 1 TABLET BY MOUTH THREE TIMES A DAY sodium fluoride 1.1 % dental cream DISPENSE A SMALL AMOUNT INTO TOOTH SLOT TRAY AND WEAR FOR 5 MINUTES albuterol HFA (PROVENTIL HFA, VENTOLIN HFA) 90 mcg/actuation inhaler Inhale 2 Puffs as instructed every 6 hours as needed for wheezing/shortness of breath. pantoprazole DR (PROTONIX) 40 mg tablet Take 40 mg by mouth once daily. No current facility-administered medications on file prior to visit. Medications Current Outpatient Medications on File Prior to Visit Medication Sig FLUoxetine (PROZAC) 40 mg capsule Take 1 capsule by mouth once daily. traZODone (DESYREL) 50 mg tablet Take 1 tablet by mouth daily at bedtime. midodrine (PROAMITINE) 5 mg tablet TAKE 1 TABLET BY MOUTH THREE TIMES A DAY sodium fluoride 1.1 % dental cream DISPENSE A SMALL AMOUNT INTO TOOTH SLOT TRAY AND WEAR FOR [address] (PROTONIX) 40 mg tablet Take 40 mg by mouth once daily. albuterol HFA (PROVENTIL HFA, VENTOLIN HFA) 90 mcg/actuation inhaler Inhale 2 Puffs as instructed every 6 hours as needed for wheezing/shortness of breath. No current facility-administered medications on file prior to visit. Current Headache Medications: Preventative: None Abortive: Ibuprofen Tylenol Infrequently, 2-4x per month Headache Medications Tried Previously (failed): Preventative: *AED: -None *Anti-hypertensive: -Contraindicated due to hypotension *Anti-depressant: -Prozac (current) *CGRP/Gepant: -None Abortives: *NSAID: -Ibuprofen *Muscle Relaxant: -None *Triptan: -None *CGRP/Gepant: -None *Other: -None Medications tried previously (failed): Sodium chloride tablets Midodrine Relevant Work Up To Date EPS Tilt 11/01/22 * FINAL IMPRESSIONS * - The test was stopped early at 10 out of 45 minutes of 70 degree tilt. - Systolic blood pressures were initially stable then decreased from 94 mmHg at start to 78 mmHg atend of tilt. - Diastolic blood pressures were initially stable then decreased from 60 mmHg at start to 50 mmHg at end of tilt. - Blood pressure upon return to supine position was 122/73 mmHg. - Heart rates increased from 80 bpm at start to 130 bpm at end of tilt. - Heart rate upon return to supine position was 80 bpm. - ECGs showed: sinus. - Patient signs/symptoms included: BLURRY VISION, CH. PAIN, DIZZINESS, FATIGUE, HEADACHE, HOT, LEG FATIGUE, SHORTNESS OF BREATH. - Overall: The test is positive and diagnostic for reflex vasovagal syncope with predominant vasodepressor response. The test is diagnostic for accentuated postural tachycardia. --- Echo 10/03/2022 CONCLUSIONS: - Exam indication: Syncope - The left ventricle is normal in size. Left ventricular systolic function is normal. EF = 65 5% (2D biplane) Normal left ventricular diastolic function. - The right ventricle is normal in size. Right ventricular systolic function is normal. - There are no significant valvular abnormalities. - Estimated right ventricular systolic pressure is 15 mmHg consistent with normal pulmonary artery pressures. Estimated right atrial pressure is 3 mmHg based on IVC assessment. - The patient has not had a prior [facility] echocardiographic exam for comparison. --- QSART 01/12/2023 QSART responses at left forearm, proximal leg, distal leg, and foot are normal. There is no evidence of a significant postganglionic sympathetic sudomotor abnormality like that seen in autonomic or small fiber neuropathy. --- ANS w/o 01/12/2023 Heart rate response to deep breathing is normal via the mean heart rate range (MHRR) and the E:I ratio. Heart rate response to the Valsalva maneuver, as assessed by the Valsalva ratio, is normal. Blood pressure responses to phase II and phase IV of the Valsalva maneuver are normal, in the setting of poor effort. Tilt portion of the test was not performed as per referring physician's request. This is a normal cardiovascular autonomic test panel. There is no evidence of a significant cardiovagal or cardiovascular adrenergic abnormality. --- General Examination: BP 107/59 Pulse 70 Ht 167.6 cm (5' 6) Wt 83.2 kg (183 lb 6.8 oz) LMP 04/17/2024 (Approximate) SpO2 100% BMI 29.61 kg/m 10/22/24 1104 BP: 107/59 Pulse: 70 SpO2: 100% Weight: 83.2 kg (183 lb 6.8 oz) Height: 167.6 cm (5' 6) Neurological Examination: Exam not completed due to lateness. Subjective Patient-Entered Data: Composite Autonomic Symptom Score (COMPASS-31) Orthostatic Intolerance Orthostatic Intolerance Score: 24 (out of a weighted maximum of 40) Vasomotor Vasomotor Score: 0 (out of a weighted maximum of 5) Secretomotor Secretomotor Score: 6 (out of a weighted maximum of 15) GI GI Score: 4 (out of a weighted maximum of 25) Bladder Bladder Score: 3 (out of a weighted maximum of 10) Pupillomotor Pupillomotor Score: 3 (out of a weighted maximum of 5) COMPASS 31 Total Score: 40 (out of a weighted maximum of 100) COMPASS-31 Past Scores No data to display NM Treatment and Fall Risk PROMIS-10 08/01/2024 04/30/2024 PROMIS 10 Health, in general Fair Good Quality of life, in general Fair Good Physical health, in general Fair Very good Mental health, in general Fair Fair Social activities satisfaction Fair Fair Performing ADL's Mostly Completely Social role satisfaction Good Poor Pain, on average 3 2 Fatigue, on average Moderate Very severe Emotional problems Often Sometimes PHYSICAL Score 42.3 (Good) 44.9 (Good) MENTAL Score 33.8 (Fair) 38.8 (Fair) PHQ-9 10/21/2024 08/01/2024 PHQ-9 All Questions Little interest or pleasure in doing things: 1 1 Feeling down, depressed, or hopeless: 1 1 Trouble falling or staying asleep, or sleeping too much 2 1 Feeling tired or having little energy 3 3 Poor appetite or overeating 3 3 Feeling bad about yourself - or that you are a failure or have let yourself or your family down 3 1 Trouble concentrating on things, such as reading the newspaper or watching television 3 2 Moving or speaking so slowly that other people could have noticed. Or the opposite - being so fidgety or restless that you have been moving around a lot more than usual 3 0 Thoughts that you would be better off , or of hurting yourself in some way 1 0 PHQ-9 Score 20 12 (0-4) minimal depression (5-9) mild depression (10-14) moderate depression (15-19) moderately severe depression (20-27) severe depression EFRAÍN-7 10/21/2024 08/01/2024 EFRAÍN-7 All Questions Feeling nervous, anxious, or on edge More than half the days Several days Not being able to stop or control worrying Nearly Everyday Several days Worrying too much about different things More than half the days More than half the days Trouble relaxing More than half the days Several days Being so restless that it is hard to sit still Nearly Everyday Several days Becoming easily annoyed or irritable Several days Several days Feeling afraid, as if something awful might happen More than half the days Several days EFRAÍN-7 Score 15 8 (0-5) mild anxiety (6-10) moderate anxiety (11-15) moderately severe anxiety (16-21) severe anxiety Sleep 10/21/2024 01/10/2023 -- What is your average total sleep time per night over the past 4 weeks? 5 Hours What is your average total sleep time during the day over the past 4 weeks? 0 Hours Have you been diagnosed with sleep apnea? No Snore Loudly No Tired, fatigued or sleepy in daytime Yes Stop breathing or choking/gasping during sleep No High blood pressure No Probability of moderate-severe sleep apnea (%) SAPS V2 3 (Sleep study not recommended) 10/21/2024 Insomnia Severity Index Difficulty falling asleep 3 Difficulty staying asleep 3 Problem waking up too early 2 Satisfied/dissatisfied with current sleep pattern 3 Sleep interferes with daily functions 1 Sleep problems noticeable to others 1 Worried/distressed about current sleep problems 1 Score 14 Assessment & Plan 10/22/2024 - Neuromuscular, Beau Marie APRN.SENIOR BENEFITS ANALYST ASSESSMENT Josafat Mcgee is a 19 year old here today for follow up. Josafat Mcgee has a has a pastmedical history of Asthma, Ovarian cyst, POTS (postural orthostatic tachycardia syndrome), Seasonalallergies, and Vasovagal syncope. Seen initially for symptom onset after undiagnosed viral illness in 2019. EPS tilt in 10/2022 demonstrating POTS and vasovagal syncope. Also reported vertiginous symptoms consistent with BPPV, as well as aural fullness and L sided tinnitus. Reportedly had unilateral hearing loss on local audiogram, but ENT did not recommend MRI IAC. In the interim, had an episode of altered awareness. Occurred after flying, reports she felt lightheaded, spinning dizziness, and was not able to communicate. Her hands formed into a claw. She had memory loss surrounding the event. We discuss further she has some episodes of zoning out / staring spells during which she is unaware of what is happening around her. Events raise some concern for focal seizure. Maternal grandmother with history of seizures. Referral to [facility] epilepsy. Today we also discuss her headaches and new vision changes. Reports she has history of headaches since teens. Currently getting 20+ headaches per month in the last 2 months. Pain is frontal, pressure. Associated photophobia, phonophobia, nausea. On 5 occasions she had vision change described as dimming of vision and total vision loss lasting 1-2 minutes, followed by a headache. We discuss that while her headaches are c/w migraine, and this may represent migraine with aura, the duration is briefand atypical. We will obtain MRV to rule out any DVST contributing to these symptoms. MRI brain to assess for any structural abnormalities, especially in the setting of possible seizure activity. We also discuss the increase in headaches occurred in a similar timeframe to her increased midodrine dose, will trial switch to fludrocortisone. If no improvement, will add migraine preventative medication. PRN rizatriptan ordered for abortive today. PLAN *Work up: 1) Labs -Today -1 month 2) EEG long 3) Imaging: -MRI Brain w/ wo -MRV Brain w/ wo 4) Consult to [facility] Epilepsy -No driving / follow seizure precautions until seen + cleared by Epilepsy --- *Medication adjustments: -Medication info via AVS 1) STOP midodrine 2) START fludrocortisone 0.1 mg once daily 3) Rizatriptan (Maxalt) 10 mg as needed for migraine rescue 4) Consider adding headache preventative medication if no improvement of headaches on fludrocortisone (in 4-6 weeks) Return 3-6 months in person or VV. I spent a total of 40 minutes on the date of the service which included preparing to see the patient, [id number] patient care, completing clinical documentation, obtaining and/or reviewing separately obtained history, counseling and educating the patient/family/caregiver, and ordering medications, tests, or procedures. Beau Marie APRN.CNP Neuromuscular Medicine [address] [place] [address]. [id number] Appointment: [phone] documented in this encounterOhiohealth12-31-2024 NoteHNO ID: [id number] Author: BEAU MARIE APRN.CNP Service: ? Author Type: Nurse Practitioner Type: Progress Notes Filed: 10/22/2024 11:46 Note Text: [facility] Follow-Up/Established Patient Visit Chief Complaint/Issues: Josafat Mcgee is a 19 year old handed right-handed female seen in the [facility] for: Follow up POTS Brief HPI /Most Recent Department Assessment and Plan: Seen most recently for follow up 06/14/2024: In the interim did not increase midodrine dose, taking 2.5 mg TID. Reports having some episodes of hypotension SBP 80s mmHg without trigger. We discuss she will keep a log and let me know if this recurs. Will check labs today. 1) Labs 2) Increase midodrine 5 mg TID Today, October 22, 2024: Patient roomed over 7 minutes into visit slot due to late arrival. Portions of history, exam, and plan are shortened to accommodate this. Recommended patient make another appointment to discuss additional concerns not addressed today. Since last visit, she was has had a few episodes where she has darkening of vision fading to black, lasting less than a minute total. Reports this has happened while seated and resting, or laying down. Estimates in total, she has had 5+ episodes in the span 2-3 months. After the episode she does get a headache. She does typically get headaches pretty often. Had an episode of high BP and high HR, was on steroids and breathing treatments at that time (08/2024). BP is back to normal on midodrine, taking 5 mg TID. Headache Description Onset: Teens Total headache days per month: Almost daily (has been high frequency for ~2 months) Headache free days: Yes Duration of attacks: 1 hour - 5 hours Severity of headaches? Mild-severe Onset to Peak: build up over time Location: frontal region Aura: Gets vision darkening lasting ~1-2 minutes, followed by a headache within 5 minutes. Accompanying symptoms: photophobia, phonophobia, nausea. Quality:pressure and squeezing. Worse with activity: Yes Triggers: Strong smells (marijuana smoke) Cough/sneeze/valsalva as trigger: No Positional changes: No Most common time of day for headache to begin: Anytime A few months ago had a fainting episode. She had been flying. Had prodromal symptoms of feeling zoney, spinning dizziness. She sometimes has loss of awareness. Santa Claus like she was going to pass out but didn't. Mom says she looked pale. She was sweating. Her fingers locked up. She was able to communicate that she felt faint, but then was zoning out. Reports she does not remember this. Sometimes has zoning out episodes where she does pass out, and sometimes has zoning out where she does not lose consciousness but may stare off, feels unaware of what is going on around her. Most recent episode of passing out was before her final exams a few weeks ago. She was in her room getting ready, was in bed, sat up to get ready. She felt lightheaded and the room was spinning. Unsure how long she is typically unconscious. Never had incontinence, mouth maceration. Sometimes she is a little confused after events, but not always. She feels wiped out and fatigued, sometimes has to sleep. After an event she can move and talk normally. No history of concussions. Maternal grandmother has a history of seizures, and would also have fainting spells which were undiagnosed. PMH PAST MEDICAL HISTORY Diagnosis Date Asthma Ovarian cyst POTS (postural orthostatic tachycardia syndrome) Seasonal allergies Vasovagal syncope PAST SURGICAL HISTORY Procedure Laterality Date FINGER SURGERY HX ALLERGIES Allergen Reactions Seasonal Allergies Cough Social History Tobacco Use Smoking status: Never Smokeless tobacco: Never Vaping Use Vaping status: Never Used Substance Use Topics Alcohol use: Not Currently Drug use: Never FAMILY HISTORY Problem Relation Age of Onset other (Venous insufficiency) Mother No Known Problems Father Arthritis Maternal Grandmother Coronary Artery Disease Maternal Grandfather COPD Maternal Grandfather Diabetes Maternal Grandfather Hypertension Maternal Grandfather Hypoglycemia Paternal Grandmother other (non-Hodgkins lymphoma) Paternal Grandmother Coronary Artery Disease Paternal Grandfather Current management of orthostatic condition Conservative Measures: Increased water intake (2-2.5 liters of water daily) Increased salt intake (3-5 grams daily) Compression stockings Cardiac Rehab / Progressive exercise Shared medical appointment with Dr. Ean Webb head of bed Continue with mental health care Medications Current Outpatient Medications on File Prior to Visit Medication Sig FLUoxetine (PROZAC) 40 mg capsule Take 1 capsule by mouth once daily. traZODone (DESYREL) 50 mg tablet Take 1 tablet by mouth daily at bedtime. midodri (more content not included)...[facility] [place] [facility]10-11-2024 Instructions* Patient Instructions* Ailin Galo, KAMAR.[facility] - 08/02/2024 8:36 AM EDT Maru Craiggail, It was good to talk with you today. Below is a summary of the plan that we discussed during your appointment for reference. Of course, if you have any questions or concerns do not hesitate to reach out to me via a message or call. Ailin Melvin APRN.CNP PLAN AND FOLLOW UP: TREATMENT PLAN: Continue Prozac and Trazodone at the same dose. Utilize Hydroxyzine 10 mg as needed to address any break through episodes of anxiety. Discussed transitioning care back to primary care provider if patient continues to do well on the current combination of her medications. For those experiencing a suicidal crisis: --call the National Suicide Prevention Lifeline at 988 (648.570.6801) --text the Crisis Text Line (text HOME to 046260) --call 109 and let them know you are having a mental health crisis or go to your nearest Emergency Room for stabilization. --You can also call Mobile Crisis at [phone]. Next appointment: --Schedule in 6 months or sooner if needed -- You may call the department appointment line at [phone] to schedule your appointment. -- Please call my nurse at [phone] or send me a message in [employer] with any questions or concerns between appointments. documented in this encounterOhiohealth10-11-2024 NoteHNO ID: [id number] Author: AILIN GALO APRN.CNP Service: ? Author Type: Nurse Practitioner Type: Progress Notes Filed: 08/02/2024 08:36 Note Text: FOLLOW UP - PSYCHIATRIC PROGRESS NOTE PATIENT: Josafat Mcgee DATE: August 02, 2024 Visit Type: Virtual Visit utilizing two-way audio and video for at least a portion of the visit. Consent for virtual visit obtained verbally. Confidentiality limitations with virtual visits reviewed with the patient and guardian, if present, who have accepted the risk verbally prior to proceeding with encounter. I have communicated my name and active licensure. The patient's identity and physical location were verified at the time of this visit. Either the patient or their legal technology sales representative has been informed of the risks and benefits of -- and alternatives to -- treatment through a remote evaluation and consents to proceed with the evaluation remotely. All information is from Patient report except when noted. This evaluation is NOT intended for forensic, disability or child custody purposes. CC: Presenting today for follow up regarding psychiatric medication management. HPI: Treatment Plan from Last Visit on 04/30/2024: TREATMENT PLAN: Continue Prozac at the same dose. Discontinue Hydroxyzine 25 mg at bedtime due to lack of efficacy in helping patient stay asleep. Start Trazodone to help with sleep difficulties. Discussed taking it with a snack if patient notices concerns with sleep initiation. Continue Hydroxyzine 10 mg to address anxiety as needed. Today Josafat shares that I am good. Things have been going pretty good. I feel like the meds are honestly helping. Not feeling as depressed and hanging out with people more. Last time felt that her social battery was dying really quickly. Less anxiety about doing things in groups. Sleeping well with Trazodone. Taking it with a snack at bedtime. Managing the responsibilities related to caring for her grandmother and keeping up with her college work. She shares that she got the POTS diagnosis in 2022. Had a rough episode from that on Monday. Outside of that, she has been pretty active and has felt healthy overall. Denies concerns with her eating currently. Rarely uses the PRN hydroxyzine 10 mg tablet. Does not feel she needs it refilled at this time. Denies any side effects from Prozac and Trazodone. Interval Progress: Improved PATIENT DATA: Generalized Anxiety Disorder Scale (EFRAÍN-7) 03/21/2024 04/30/2024 08/01/2024 EFRAÍN - 7 SCORES Score 9 14 8 (0-4) minimal anxiety, (5-9) mild anxiety, (10-14) moderate anxiety, (15-21) severe anxiety Patient Health Questionnaire (PHQ-9) 03/19/2024 04/30/2024 08/01/2024 PHQ-9 Score 15 14 12 (0-4) minimal depression, (5-9) mild depression, (10-14) moderate depression, (15-19) moderately severe depression, (20-27) severe depression PAST MEDICAL HISTORY Diagnosis Date Asthma Ovarian cyst POTS (postural orthostatic tachycardia syndrome) Seasonal allergies Vasovagal syncope PAST SURGICAL HISTORY Procedure Laterality Date FINGER SURGERY HX ALLERGIES Allergen Reactions Seasonal Allergies Cough Current Outpatient Medications on File Prior to Visit Medication Sig midodrine (PROAMITINE) 5 mg tablet TAKE 1 TABLET BY MOUTH THREE TIMES A DAY traZODone (DESYREL) 50 mg tablet TAKE 1 TABLET BY MOUTH EVERYDAY AT BEDTIME FLUoxetine (PROZAC) 40 mg capsule Take 1 capsule by mouth once daily. sodium fluoride 1.1 % dental cream DISPENSE A SMALL AMOUNT INTO TOOTH SLOT TRAY AND WEAR FOR 5 MINUTES albuterol HFA (PROVENTIL HFA, VENTOLIN HFA) 90 mcg/actuation inhaler Inhale 2 Puffs as instructed every 6 hours as needed for wheezing/shortness of breath. pantoprazole DR (PROTONIX) 40 mg tablet Take 40 mg by mouth once daily. No current facility-administered medications on file prior to visit. ROS: See HPI PFSH: See HPI VITAL SIGNS: There were no vitals filed for this visit. Last 3 Encounter BP Readings: Date: BP: 06/14/2024 114/65 05/08/2024 99/56 05/08/2024 102/59 MENTAL STATUS EXAMINATION: Appearance: Well dressed, well groomed Behavior: Behaves appropriately during the encounter Social relatedness: Euthymic Speech/Language: The patient demonstrates appropriate tone, prosody, glenroy, phonetics, and syntax Mood: euthymic Affect: Full and appropriate to topic Orientation: Person, Place, Time and Situation Associations: Intact and linear Hallucinations: None Delusions: None Suicidal Ideation: No suicidal ideation, intent or plan. Homicidal Ideation: No homicidal ideation, intent or plan. Insight: Appropriate Judgment: Appropriate DATA REVIEWED: Psychiatric scales, Electronic medical record, Labs DIAGNOSIS: Efraín (generalized anxiety disorder) (primary encounter diagnosis) Recurrent major depressive disorder, in partial remission (hcc) Sleep difficulties GAF: -80-71 If sympto (more content not included)...[facility] [place] [facility] 08-02-2024 History of Present illness Narrative* Ailin Galo, KAMAR.SENIOR BENEFITS ANALYST - 08/02/2024 7:57 AM EDT Images from the original note were not included. FOLLOW UP - PSYCHIATRIC PROGRESS NOTE PATIENT: Josafat Mcgee DATE: August 02, 2024 Visit Type: Virtual Visit utilizing two-way audio and video for at least a portion of the visit. Consent for virtual visit obtained verbally. Confidentiality limitations with virtual visits reviewed with the patient and guardian, if present, who have accepted the risk verbally prior to proceeding wi th encounter. I have communicated my name and active licensure. The patient's identity and physicallocation were verified at the time of this visit. Either the patient or their legal technology sales representative has been informed of the risks and benefits of -- and alternatives to -- treatment through a remote evaluation and consents to proceed with the evaluation remotely. All information is from Patient report except when noted. This evaluation is NOT intended for forensic, disability or child custody purposes. CC: Presenting today for follow up regarding psychiatric medication management. HPI: Treatment Plan from Last Visit on 04/30/2024: TREATMENT PLAN: Continue Prozac at the same dose. Discontinue Hydroxyzine 25 mg at bedtime due to lack of efficacy in helping patient stay asleep. Start Trazodone to help with sleep difficulties. Discussed taking it with a snack if patient notices concerns with sleep initiation. Continue Hydroxyzine 10 mg to address anxiety as needed. Today Josafat shares that I am good. Things have been going pretty good. I feel like the meds are honestly helping. Not feeling as depressed and hanging out with people more. Last time felt that her social battery was dying really quickly. Less anxiety about doing things in groups. Sleeping well with Trazodone. Taking it with a snack at bedtime. Managing the responsibilities related to caring for her grandmother and keeping up with her collegework. She shares that she got the POTS diagnosis in 2022. Had a rough episode from that on Monday. Outside of that, she has been pretty active and has felt healthy overall. Denies concerns with her eating currently. Rarely uses the PRN hydroxyzine 10 mg tablet. Does not feel she needs it refilled at this time. Denies any side effects from Prozac and Trazodone. Interval Progress: Improved PATIENT DATA: Generalized Anxiety Disorder Scale (EFRAÍN-7) 03/21/2024 04/30/2024 08/01/2024 EFRAÍN - 7 SCORES Score 9 14 8 (0-4) minimal anxiety, (5-9) mild anxiety, (10-14) moderate anxiety, (15-21) severe anxiety Patient Health Questionnaire (PHQ-9) 03/19/2024 04/30/2024 08/01/2024 PHQ-9 Score 15 14 12 (0-4) minimal depression, (5-9) mild depression, (10-14) moderate depression, (15-19) moderately severe depression, (20-27) severe depression PAST MEDICAL HISTORY Diagnosis Date Asthma Ovarian cyst POTS (postural orthostatic tachycardia syndrome) Seasonal allergies Vasovagal syncope PAST SURGICAL HISTORY Procedure Laterality Date FINGER SURGERY HX ALLERGIES Allergen Reactions Seasonal Allergies Cough Current Outpatient Medications on File Prior to Visit Medication Sig midodrine (PROAMITINE) 5 mg tablet TAKE 1 TABLET BY MOUTH THREE TIMES A DAY traZODone (DESYREL) 50 mg tablet TAKE 1 TABLET BY MOUTH EVERYDAY AT BEDTIME FLUoxetine (PROZAC) 40 mg capsule Take 1 capsule by mouth once daily. sodium fluoride 1.1 % dental cream DISPENSE A SMALL AMOUNT INTO TOOTH SLOT TRAY AND WEAR FOR 5 MINUTES albuterol HFA (PROVENTIL HFA, VENTOLIN HFA) 90 mcg/actuation inhaler Inhale 2 Puffs as instructed every 6 hours as needed for wheezing/shortness of breath. pantoprazole DR (PROTONIX) 40 mg tablet Take 40 mg by mouth once daily. No current facility-administered medications on file prior to visit. ROS: See HPI PFSH: See HPI VITAL SIGNS: There were no vitals filed for this visit. Last 3 Encounter BP Readings: Date: BP: 06/14/2024 114/65 05/08/2024 99/56 05/08/2024 102/59 MENTAL STATUS EXAMINATION: Appearance: Well dressed, well groomed Behavior: Behaves appropriately during the encounter Social relatedness: Euthymic Speech/Language: The patient demonstrates appropriate tone, prosody, glenroy, phonetics, and syntax Mood: euthymic Affect: Full and appropriate to topic Orientation: Person, Place, Time and Situation Associations: Intact and linear Hallucinations: None Delusions: None Suicidal Ideation: No suicidal ideation, intent or plan. Homicidal Ideation: No homicidal ideation, intent or plan. Insight: Appropriate Judgment: Appropriate DATA REVIEWED: Psychiatric scales, Electronic medical record, Labs DIAGNOSIS: Efraín (generalized anxiety disorder) (primary encounter diagnosis) Recurrent major depressive disorder, in partial remission (hcc) Sleep difficulties GAF: -80-71 If symptoms are present, they are transient and expectable reactions to psychosocial stressors TREATMENT PLAN: Continue Prozac and Trazodone at the same dose. Utilize Hydroxyzine 10 mg as needed to address any break through episodes of anxiety. Discussed transitioning care back to primary care provider if patient continues to do well on the current combination of her medications. MEDICATION CHANGES: Current medication regimen unchanged. Risks and benefits of the medication, including any black box warnings, were discussed with the patient. Patient is aware to reach out with any questions, concerns, or worsening of symptoms prior to the next appointment. Patient educated on risks of substance use in combination with medications and advised that any substance use along with medications may alter their effectiveness. Follow Up: 6 months Medical Decision Making: Problems: Moderate: 2+ stable chronic illnesses Data: Unique source(s) for external note(s) reviewed: 3+ Independent interpretation of test from other physician/QHCP Risk: Moderate: Moderate risk from testing/treatment and Drug management Medical Decision Making Level: 4 - Moderate ADD ON PSYCHOTHERAPY CODE : No SIGNATURE: Ailin Galo APRN.CNP PATIENT NAME: Josafat Mcgee DATE: August 02, 2024 TIME: 8:00 AM documented in this encounterOhiohealth10-09-2024 Telephone encounter Note * Telephone Encounter - Char Vera RN - 07/31/2024 12:20 PM EDT Patient reporting that she is having issues with her eyes dimming and thought processes. Asking if she needs to address this in an appointment or be assessed in ER. Arti Vera RN, BSN [facility] Work Phone: 1(901) 886-353410-09-2024 Miscellaneous Notes* Telephone Encounter - Char Vera RN - 07/31/2024 12:20 PM EDT Patient reporting that she is having issues with her eyes dimming and thought processes. Asking if she needs to address this in an appointment or be assessed in ER. Arti Vera RN, BSN documented in this encounterOhiohealth09-12-2024 Telephone encounter Note * Telephone Encounter - Char Vera RN - 07/04/2024 2:50 PM EDT Last OV: 06/14/24 Last Refill: 06/11/24 FU OV: 10/22/24 Appropriate for refill routed to ES for review Arti Vera RN [facility] Work Phone: 1(396) 715-226709-12-2024 Miscellaneous Notes* Telephone Encounter - Char Vera RN - 07/04/2024 2:50 PM EDT Last OV: 06/14/24 Last Refill: 06/11/24 FU OV: 10/22/24 Appropriate for refill routed to ES for review Arti Vera RN documented in this encounterOhiohealth08-23-2024 Instructions* Patient Instructions* Beau Pineda APRN.CNP - 06/14/2024 12:23 PM EDT 1) Labs 2) Increase midodrine 5 mg 3x daily documented in this encounterOhiohealth08-23-2024 History of Present illness Narrative* Beau Pineda APRN.CNP - 06/14/2024 12:00 PM EDT Images from the original note were not included. [facility] Follow-Up/Established Patient Visit Chief Complaint/Issues: Josafat Mcgee is a 18 year old handed right-handed [facility]: Follow up POTS Brief HPI /Most Recent Department Assessment and Plan: Seen initially for symptom onset after undiagnosed viral illness in 2019. EPS tilt in 10/2022 demonstrating POTS and vasovagal syncope. Also reported vertiginous symptoms consistent with BPPV, as well as aural fullness and L sided tinnitus. Reportedly had unilateral hearing loss on local audiogram, but ENT did not recommend MRI IAC. Seen most recently for follow up 01/12/2024: Midodrine 2.5 mg TID started last visit, and working very well in the interim. She reports having syncopal episodes only ~1x per week. She does note more issues with low BG. We discuss reactive hypoglycemia is a common occurrence withPOTS and ANS dysfunction. She does endorse some intermittent paresthesias, will monitor BG at home (does have a monitor). 1) Labs 2) Consult to endocrinology 3) Dietary considerations: -Try to eat smaller, more frequent meals (4-6x per day). -Try for lower carb diet. 4) Reactive hypoglycemia info sent via [facility] --- Endocrinology follow up, 02/16/2024, Dr. Pedraza: ASSESSMENT : 18 year old female who is presenting for evaluation of hypoglycemia, which has been ruled out from further investigation due to blood glucose levels recorded on glucometer, showing lowest being 74 mg/dl which is normal. Due to multiple symptoms, we checked 24 hr urine catecholamines and metanephrines however the lab only ran metanephrines which are normal. I discussed repeating 24 hr urine catecholamines to rule out the reason for her symptoms related toendocrine issues. Also discussed this is a rare entity that we are checking for. I explained that we checked metabolites of two neurotransmitters, but not the other one (dopamine) She prefers to not do the urine collection again for the test due to rarity of the condition and metabolites being normal expecting the catecholamines will also be normal. I have reordered the labs in case she would liek to do, as she was okay to do the test initially She asks again about hypoglycemia due to blood glucose levels in 70s, and again I explained this isnot concerning for hypoglycemia especially in a non-diabetic. FOLLOW UP: 1 week if doing labs, otherwise PRN --- Today, June 14, 2024: Since last visit, has had a few flare ups of symptoms. Was having lower blood pressure last week. BP is getting 87/47 mmHg. This was while laying down, resting but not sleeping. Not sick, menstrual cycle, over-heated. She had felt cold all day. Has been very hydrated. Currently doing 5 mg TID. Has still been taking 2.5 mg TID since last appointment. PMH PAST MEDICAL HISTORY No date: Asthma No date: Ovarian cyst No date: POTS (postural orthostatic tachycardia syndrome) No date: Seasonal allergies No date: Vasovagal syncope PAST SURGICAL HISTORY No date: FINGER SURGERY HX ALLERGIES Allergen Reactions Seasonal Allergies Cough Social History Tobacco Use Smoking status: Never Smokeless tobacco: Never Vaping Use Vaping status: Never Used Substance Use Topics Alcohol use: Not Currently Drug use: Never FAMILY HISTORY Problem Relation Age of Onset other (Venous insufficiency) Mother No Known Problems Father Arthritis Maternal Grandmother Coronary Artery Disease Maternal Grandfather COPD Maternal Grandfather Diabetes Maternal Grandfather Hypertension Maternal Grandfather Hypoglycemia Paternal Grandmother other (non-Hodgkins lymphoma) Paternal Grandmother Coronary Artery Disease Paternal Grandfather Current management of orthostatic condition Conservative Measures: Increased water intake (2-2.5 liters of water daily) Increased salt intake (3-5 grams daily) Compression stockings Cardiac Rehab / Progressive exercise Shared medical appointment with Dr. Ean Webb head of bed Continue with mental health care Medications Current Outpatient Medications on File Prior to Visit Medication Sig midodrine (PROAMITINE) 5 mg tablet Take 1 tablet by mouth three times a day. traZODone (DESYREL) 50 mg tablet TAKE 1 TABLET BY MOUTH EVERYDAY AT BEDTIME FLUoxetine (PROZAC) 40 mg capsule Take 1 capsule by mouth once daily. sodium fluoride 1.1 % dental cream DISPENSE A SMALL AMOUNT INTO TOOTH SLOT TRAY AND WEAR FOR 5 MINUTES albuterol HFA (PROVENTIL HFA, VENTOLIN HFA) 90 mcg/actuation inhaler Inhale 2 Puffs as instructed every 6 hours as needed for wheezing/shortness of breath. pantoprazole DR (PROTONIX) 40 mg tablet Take 40 mg by mouth once daily. No current facility-administered medications on file prior to visit. Medications tried previously (failed): Sodium chloride tablets Midodrine Relevant Work Up To Date EPS Tilt 11/01/22 * FINAL IMPRESSIONS * - The test was stopped early at 10 out of 45 minutes of 70 degree tilt. - Systolic blood pressures were initially stable then decreased from 94 mmHg at start to 78 mmHg atend of tilt. - Diastolic blood pressures were initially stable then decreased from 60 mmHg at start to 50 mmHg at end of tilt. - Blood pressure upon return to supine position was 122/73 mmHg. - Heart rates increased from 80 bpm at start to 130 bpm at end of tilt. - Heart rate upon return to supine position was 80 bpm. - ECGs showed: sinus. - Patient signs/symptoms included: BLURRY VISION, CH. PAIN, DIZZINESS, FATIGUE, HEADACHE, HOT, LEG FATIGUE, SHORTNESS OF BREATH. - Overall: The test is positive and diagnostic for reflex vasovagal syncope with predominant vasodepressor response. The test is diagnostic for accentuated postural tachycardia. --- Echo 10/03/2022 CONCLUSIONS: - Exam indication: Syncope - The left ventricle is normal in size. Left ventricular systolic function is normal. EF = 65 5% (2D biplane) Normal left ventricular diastolic function. - The right ventricle is normal in size. Right ventricular systolic function is normal. - There are no significant valvular abnormalities. - Estimated right ventricular systolic pressure is 15 mmHg consistent with normal pulmonary artery pressures. Estimated right atrial pressure is 3 mmHg based on IVC assessment. - The patient has not had a prior CC echocardiographic exam for comparison. --- QSART 01/12/2023 QSART responses at left forearm, proximal leg, distal leg, and foot are normal. There is no evidence of a significant postganglionic sympathetic sudomotor abnormality like that seen in autonomic or small fiber neuropathy. --- ANS w/o 01/12/2023 Heart rate response to deep breathing is normal via the mean heart rate range (MHRR) and the E:I ratio. Heart rate response to the Valsalva maneuver, as assessed by the Valsalva ratio, is normal. Blood pressure responses to phase II and phase IV of the Valsalva maneuver are normal, in the setting of poor effort. Tilt portion of the test was not performed as per referring physician's request. This is a normal cardiovascular autonomic test panel. There is no evidence of a significant cardiovagal or cardiovascular adrenergic abnormality. --- General Examination: BP 114/65 (BP Site: Right Arm, BP Position: Sitting, BP Cuff Size: Small Adult) Pulse 74 Ht 167.6 cm (5' 6) Wt 85.2 kg (187 lb 13.3 oz) LMP 04/17/2024 (Approximate) SpO2 98% BMI 30.32 kg/m 06/14/24 1131 06/14/24 1220 06/14/24 1221 06/14/24 1222 BP: 114/65 Orthostatic BP: 111/58 112/59 106/58 BP Site: Right Arm BP Position: Sitting Supine Standing Standing BP Cuff Size: Small Adult Pulse: 74 Orthostatic Pulse: 66 101 98 SpO2: 98% Weight: 85.2 kg (187 lb 13.3 oz) Height: 167.6 cm (5' 6) Neurological Examination: Cognition The patient is alert and oriented. Lucid and organized in conversation. Able to provide detailed medical hx. Speech Speech is normal in fluency, volume, and clarity. No dysarthria. Content and syntax are coherent. Comprehension: Able to follow several step commands. Cranial Nerves PERRLA No ptosis. Visual mcdowell are full to confrontation. Extraocular movements are intact. No nystagmus. Facial motor exam is strong and symmetric. Equal sensation of trigeminal nerve - V1,V2, and V3. Soft palate elevation is symmetric, tongue is in midline, no tongue fasciculation. Neck range of motion is full. Trapezius Strength is symmetric, graded 5/5. Strength Right Left Shoulder Abduction 5/5 5/5 Elbow Flexion 5/5 5/5 Elbow Extension 5/5 5/5 Finger Flexion 5/5 5/5 Hip Flexion 5/5 5/5 Knee Flexion 5/5 5/5 Knee Extension 5/5 5/5 Ankle Dorsiflexion 5/5 5/5 Ankle Plantarflexion 5/5 5/5 Movement/Coordination Finger-to- nose-finger and xkyl-jf-hvab intact bilaterally. No evidence of ataxia arms. No limb dysmetria of arms and legs. No rigidity, cog wheeling, or bradykinesia. No tremors. No extrapyramidal findings or dystonia. Sensation Intact to temperature sensation at toes and fingers, bilaterally. Normal finger vibration and toe vibration. Reflexes Right Left Bicep 2/4 2/4 Tricep 2/4 2/4 Brachioradialis 2/4 2/4 Patella 2/4 2/4 Ankle 2/4 2/4 No Clonus. Negative Babinski (toes curl down). Wilcox sign not present. Gait Normal casual gait. Subjective Patient-Entered Data: Autonomic Screening COMPASS-31 Past Scores No data to display NM Treatment and Fall Risk PROMIS-10 04/30/2024 01/08/2024 PROMIS 10 Health, in general Good Fair Quality of life, in general Good Fair Physical health, in general Very good Good Mental health, in general Fair Poor Social activities satisfaction Fair Fair Performing ADL's Completely Moderately Social role satisfaction Poor Good Pain, on average 2 5 Fatigue, on average Very severe Very severe Emotional problems Sometimes Always PHYSICAL Score 44.9 (Good) 34.9 (Poor) MENTAL Score 38.8 (Fair) 28.4 (Poor) PHQ-9 04/30/2024 03/19/2024 PHQ-9 All Questions Little interest or pleasure in doing things 1 1 Feeling down, depressed, or hopeless 1 1 Trouble falling or staying asleep, or sleeping too much 3 3 Feeling tired or having little energy 1 3 Poor appetite or overeating 2 1 Feeling bad about yourself - or that you are a failure or have let yourself or your family down 1 1 Trouble concentrating on things, such as reading the newspaper or watching television 2 2 Moving or speaking so slowly that other people could have noticed. Or the opposite - being so fidgety or restless that you have been moving around a lot more than usual 2 2 Thoughts that you would be better off , or of hurting yourself in some way 1 1 PHQ-9 Score 14 15 (0-4) minimal depression (5-9) mild depression (10-14) moderate depression (15-19) moderately severe depression (20-27) severe depression EFRAÍN-7 04/30/2024 03/21/2024 EFRAÍN-7 All Questions Feeling nervous, anxious, or on edge More than half the days Several days Not being able to stop or control worrying More than half the days Several days Worrying too much about different things Nearly Everyday Several days Trouble relaxing More than half the days More than half the days Being so restless that it is hard to sit still Nearly Everyday More than half the days Becoming easily annoyed or irritable Several days Several days Feeling afraid, as if something awful might happen Several days Several days EFRAÍN-7 Score 14 9 (0-5) mild anxiety (6-10) moderate anxiety (11-15) moderately severe anxiety (16-21) severe anxiety Sleep 01/10/2023 -- Snore Loudly No Tired, fatigued or sleepy in daytime Yes Stop breathing or choking/gasping during sleep No High blood pressure No Probability of moderate-severe sleep apnea (%) SAPS V2 3 (Sleep study not recommended) No data to display Assessment & Plan 06/14/2024 - Neuromuscular, Beau Pineda APRN.[facility] ASSESSMENT Josafat Mcgee is a 18 year old here today for follow up. Josafat Mcgee has a has a pastmedical history of Asthma, Ovarian cyst, POTS (postural orthostatic tachycardia syndrome), Seasonalallergies, and Vasovagal syncope. Seen initially for symptom onset after undiagnosed viral illness in 2019. EPS tilt in 10/2022 demonstrating POTS and vasovagal syncope. Also reported vertiginous symptoms consistent with BPPV, as well as aural fullness and L sided tinnitus. Reportedly had unilateral hearing loss on local audiogram, but ENT did not recommend MRI IAC. In the interim did not increase midodrine dose, taking 2.5 mg TID. Reports having some episodes of hypotension SBP 80s mmHg without trigger. We discuss she will keep a log and let me know if this recurs. Will check labs today. PLAN 1) Labs 2) Increase midodrine 5 mg TID Return in about 3 months (around 09/14/2024), or VV ok. My impression and recommendations were discussed at length with the patient (and family members, ifpresent). The patient and family (if present) voiced understanding to my recommendations. All questions were answered. Medication side effects discussed as applicable. The patient was provided with adetailed after visit summary highlighting my impression and recommendations. I spent a total of 25 minutes on the date of the service which included preparing to see the patient, [id number] patient care, completing clinical documentation, obtaining and/or reviewing separately obtained history, performing a medically appropriate examination, counseling and educating the pat ient/family/caregiver, and ordering medications, tests, or procedures. Beau Pineda APRN.[facility] General Neurology [address] [place]. [address] Appointment: [phone] During our face to face clinical encounter we discussed my concerns neurologically in terms of diagnosis, impact on health and activities of living, and addressed questions. I tried to reassure the patient and also address questions. I explained to the patient to call if any questions, to review res ults, and I want to see them return for neurological follow up as mychart as next steps of communication is agreed upon Patient verbalizes understanding and I have addressed concerns and questions at this visit Patient has my contacts, educational material provided, and my chart sign up. After visit summary discussed. 1. This office note has been dictated and may contain minor typographic errors that escaped review. 2. The nursing staff and medical assistants are a major part of YOUR TREATMENT TEAM and will be handling your phone calls and inquiries, if any. Unless explicitly told otherwise at the time of your office visit, your study results and ensuing treatment plans will be discussed during your follow-up appointment. If you do not have a follow-up appointment and wish to discuss any issues directly withme, please feel free to obtain one. 3. It is my practice to not fill disability or any other insurance-related forms/documention. All of the office notes, study results, and other pertinent documentation generated as part of your evaluation will be available to you and to your Primary Care Physician (PCP). Use of this material to complete such forms will be at the discretion of your PCP/referring physician documented in this encounterOhiohealth08-23-2024 NoteHNO ID: [id number] Author: BEAU PINEDA APRN.CNP Service: ? Author Type: Nurse Practitioner Type: Progress Notes Filed: 06/14/2024 12:30 Note Text: [facility] Follow-Up/Established Patient Visit Chief Complaint/Issues: Josafat Mcgee is a 18 year old handed right-handed female seen in the [facility] for: Follow up POTS Brief HPI /Most Recent Department Assessment and Plan: Seen initially for symptom onset after undiagnosed viral illness in 2019. EPS tilt in 10/2022 demonstrating POTS and vasovagal syncope. Also reported vertiginous symptoms consistent with BPPV, as well as aural fullness and L sided tinnitus. Reportedly had unilateral hearing loss on local audiogram, but ENT did not recommend MRI IAC. Seen most recently for follow up 01/12/2024: Midodrine 2.5 mg TID started last visit, and working very well in the interim. She reports having syncopal episodes only ~1x per week. She does note more issues with low BG. We discuss reactive hypoglycemia is a common occurrence with POTS and ANS dysfunction. She does endorse some intermittent paresthesias, will monitor BG at home (does have a monitor). 1) Labs 2) Consult to endocrinology 3) Dietary considerations: -Try to eat smaller, more frequent meals (4-6x per day). -Try for lower carb diet. 4) Reactive hypoglycemia info sent via [facility] --- Endocrinology follow up, 02/16/2024, Dr. Pedraza: ASSESSMENT : 18 year old female who is presenting for evaluation of hypoglycemia, which has been ruled out from further investigation due to blood glucose levels recorded on glucometer, showing lowest being 74 mg/dl which is normal. Due to multiple symptoms, we checked 24 hr urine catecholamines and metanephrines however the lab only ran metanephrines which are normal. I discussed repeating 24 hr urine catecholamines to rule out the reason for her symptoms related to endocrine issues. Also discussed this is a rare entity that we are checking for. I explained that we checked metabolites of two neurotransmitters, but not the other one (dopamine) She prefers to not do the urine collection again for the test due to rarity of the condition and metabolites being normal expecting the catecholamines will also be normal. I have reordered the labs in case she would liek to do, as she was okay to do the test initially She asks again about hypoglycemia due to blood glucose levels in 70s, and again I explained this is not concerning for hypoglycemia especially in a non-diabetic. FOLLOW UP: 1 week if doing labs, otherwise PRN --- Today, June 14, 2024: Since last visit, has had a few flare ups of symptoms. Was having lower blood pressure last week. BP is getting 87/47 mmHg. This was while laying down, resting but not sleeping. Not sick, menstrual cycle, over-heated. She had felt cold all day. Has been very hydrated. Currently doing 5 mg TID. Has still been taking 2.5 mg TID since last appointment. PMH PAST MEDICAL HISTORY No date: Asthma No date: Ovarian cyst No date: POTS (postural orthostatic tachycardia syndrome) No date: Seasonal allergies No date: Vasovagal syncope PAST SURGICAL HISTORY No date: FINGER SURGERY HX ALLERGIES Allergen Reactions Seasonal Allergies Cough Social History Tobacco Use Smoking status: Never Smokeless tobacco: Never Vaping Use Vaping status: Never Used Substance Use Topics Alcohol use: Not Currently Drug use: Never FAMILY HISTORY Problem Relation Age of Onset other (Venous insufficiency) Mother No Known Problems Father Arthritis Maternal Grandmother Coronary Artery Disease Maternal Grandfather COPD Maternal Grandfather Diabetes Maternal Grandfather Hypertension Maternal Grandfather Hypoglycemia Paternal Grandmother other (non-Hodgkins lymphoma) Paternal Grandmother Coronary Artery Disease Paternal Grandfather Current management of orthostatic condition Conservative Measures: Increased water intake (2-2.5 liters of water daily) Increased salt intake (3-5 grams daily) Compression stockings Cardiac Rehab / Progressive exercise Shared medical appointment with Dr. Ean Webb head of bed Continue with mental health care Medications Current Outpatient Medications on File Prior to Visit Medication Sig midodrine (PROAMITINE) 5 mg tablet Take 1 tablet by mouth three times a day. traZODone (DESYREL) 50 mg tablet TAKE 1 TABLET BY MOUTH EVERYDAY AT BEDTIME FLUoxetine (PROZAC) 40 mg capsule Take 1 capsule by mouth once daily. sodium fluoride 1.1 % dental cream DISPENSE A SMALL AMOUNT INTO TOOTH SLOT TRAY AND WEAR FOR 5 MINUTES albuterol HFA (PROVENTIL HFA, VENTOLIN HFA) 90 mcg/actuation inhaler Inhale 2 Puffs as instructed every 6 hours as needed for wheezing/shortness of breath. pantoprazole DR (PROTONIX) 40 mg tablet Take 40 mg by mouth once daily. No current facilit (more content not included)...[facility] 06-14-2024 Telephone encounter Note* Telephone Encounter - Edgar Gamboa RN - 06/14/2024 9:14 AM EDT Form given to patient Edgar Gamboa RN [facility]08-23-2024 Miscellaneous Notes* Telephone Encounter - Edgar Gamboa RN - 06/14/2024 9:14 AM EDT Form given to patient Edgar Gamboa RN * Telephone Encounter - Edgar Gamboa RN - 06/13/2024 10:00 AM EDT Form at [facility] desk for review/signature Edgar Gamboa RN * Telephone Encounter - Edgar Gamboa RN - 06/13/2024 9:54 AM EDT spoke with patient, please message her when form has been completed and she will pick the form up here in the office Edgar Gamboa RN documented in this encounterOhiohealth08-22-2024 Telephone encounter Note * Telephone Encounter - Edgar Gamboa RN - 06/13/2024 10:00 AM EDT Form at [facility]CS desk for review/signature Edgar Gamboa RN [facility]08-22-2024 Telephone encounter Note* Telephone Encounter - Edgar Gamboa RN - 06/13/2024 9:54 AM EDT spoke with patient, please message her when form has been completed and she will pick the form up here in the office Edgar Gamboa RN [facility]08-21-2024 Miscellaneous Notes* Telephone Encounter - Edgar Gamboa RN - 06/12/2024 2:55 PM EDT form given to patient Edgar Gamboa RN * Telephone Encounter - Edgar Gamboa RN - 05/21/2024 8:33 AM EDT Form at 3rd floor nurses desk awaiting instruction from patient Edgar Gamboa RN * Telephone Encounter - Katelin Morel MD - 05/21/2024 7:40 AM EDT This form is signed and given to nurses. IF patient does not need the labwok done, please cancel Katelin Morel MD * Telephone Encounter - Edgar Gamboa RN - 05/20/2024 9:15 AM EDT form printed and at DCS desk for review/signature. Last [facility] 03/21/24, per form, does appear on form that patient needs cbc and ferritin levels drawn, orders pended, message sent to patient Edgar Gamboa RN documented in this encounterOhiohealth08-21-2024 Telephone encounter Note * Telephone Encounter - Edgar Gamboa RN - 06/12/2024 2:55 PM EDT form given to patient Edgar Gamboa RN [facility]08-12-2024 Telephone encounter Note* Telephone Encounter - Char Vera RN - 06/03/2024 4:28 PM EDT Patient reporting her BP is dropping causing more symptoms. Taking midodrine, TID at breakfast, lunch, and dinner. Asking advice. Arti Vera RN, BSN [facility] Work Phone: 1(532) 357-172308-12-2024 Miscellaneous Notes* Telephone Encounter - Char Vera RN - 06/03/2024 4:28 PM EDT Patient reporting her BP is dropping causing more symptoms. Taking midodrine, TID at breakfast, lunch, and dinner. Asking advice. Arti Vera RN, BSN documented in this encounterOhiohealth08-02-2024 Telephone encounter Note * Telephone Encounter - Radha Franco - 05/24/2024 8:58 AM EDT Pharmacy comment: REQUEST FOR 90 DAYS PRESCRIPTION. Last appt: 04-30-24 Next appt: 07-01-24 [facility]08-02-2024 Miscellaneous Notes* Telephone Encounter - Radha Franco - 05/24/2024 8:58 AM EDT Pharmacy comment: REQUEST FOR 90 DAYS PRESCRIPTION. Last appt: 04-30-24 Next appt: 07-01-24 documented in this encounterOhiohealth07-30-2024 Telephone encounter Note * Telephone Encounter - Edgar Gamboa RN - 05/21/2024 8:33 AM EDT Form at 3rd floor nurses desk awaiting instruction from patient Edgar Gamboa RN [facility]07-30-2024 Telephone encounter Note* Telephone Encounter - Katelin Morel MD - 05/21/2024 7:40 AM EDT This form is signed and given to nurses. IF patient does not need the labwok done, please cancel Katelin Morel MD [facility]07-29-2024 Telephone encounter Note* Telephone Encounter - Edgar Gamboa RN - 05/20/2024 9:15 AM EDT form printed and at [facility]CS desk for review/signature. Last [facility] 03/21/24, per form, does appear on form that patient needs cbc and ferritin levels drawn, orders pended, message sent to patient Edgar Gamboa RN [facility]07-17-2024 History and physical note* Timur Bello MD - 05/08/2024 3:00 PM EDT HISTORY AND PHYSICAL Josafat Mcgee 2005 REFERRING PHYSICIAN: Katelin Morel MD CHIEF COMPLAINT: Consult (GERD and chest pain. ) HPI: The patient is a 18 year old female referred for endoscopy. Josafat notes severe heartburn. This has been going on for about a year, but worsening in frequency and severity. She complains of a burning acid sensation and points to her esophagus. She also states that she will regurgitate solid food at times, but tried to prevent this. She notes water brash. She has tried antacid medications without much improved. She denies blood in emesis. She denies swallowing difficulties. She also note intermittent RUQ abdominal pain that radiates to the back. Josafat has not undergone prior endoscopy. PAST MEDICAL HISTORY PAST MEDICAL HISTORY Diagnosis Date Asthma Ovarian cyst POTS (postural orthostatic tachycardia syndrome) Seasonal allergies Vasovagal syncope PAST SURGICAL HISTORY PAST SURGICAL HISTORY Procedure Laterality Date FINGER SURGERY HX CURRENT MEDICATIONS Current Outpatient Medications Medication Sig sodium fluoride 1.1 % dental cream DISPENSE A SMALL AMOUNT INTO TOOTH SLOT TRAY AND WEAR FOR 5 MINUTES albuterol HFA (PROVENTIL HFA, VENTOLIN HFA) 90 mcg/actuation inhaler Inhale 2 Puffs as instructed every 6 hours as needed for wheezing/shortness of breath. midodrine (PROAMATINE) 2.5 mg tablet take 1 tablet by mouth three times a day FLUoxetine (PROZAC) 40 mg capsule Take 1 capsule by mouth once daily. pantoprazole DR (PROTONIX) 40 mg tablet Take 40 mg by mouth once daily. No current facility-administered medications for this visit. ALLERGIES: Seasonal Allergies PERSONAL HISTORY: SOCIAL HISTORY Social History Tobacco Use Smoking status: Never Smokeless tobacco: Never Vaping Use Vaping Use: Never used Substance Use Topics Alcohol use: Not Currently Drug use: Never FAMILY HISTORY FAMILY HISTORY Problem Relation Age of Onset other (Venous insufficiency) Mother No Known Problems Father Arthritis Maternal Grandmother Coronary Artery Disease Maternal Grandfather COPD Maternal Grandfather Diabetes Maternal Grandfather Hypertension Maternal Grandfather Hypoglycemia Paternal Grandmother other (non-Hodgkins lymphoma) Paternal Grandmother Coronary Artery Disease Paternal Grandfather The review of systems data was entered by the nurse and reviewed by de Nursing Notes: Qi Bowman RN 04/08/2024 4:20 PM Signed REVIEW OF SYSTEMS: General: The patient NOTES fatigue, denies weight loss, denies weight gain, denies feeling hot, andNOTES feelings of cold. Eyes: The patient denies glaucoma, denies eye injury/surgery, wears glasses or contacts. Ear/Nose/Throat: The patient denies allergies, NOTES hayfever, denies ear infections, and denies bloody noses. Cardiovascular: The patient NOTES chest pain, denies heart disease, denies high blood pressure,denies cardiac stent, denies prior heart attack, denies irregular heart beat, denies high cholesterol, denies poor circulation, denies heart failure, other cardiac issues, denies claudication, denies coldfeet, denies peripheral arterial stent. Respiratory: The patient denies tuberculosis, NOTES pneumonia, denies frequent cough, denies pulmonary embolism, NOTES shortness of breath, and denies coughing up blood. Gastrointestinal: The patient denies difficulty swallowing, NOTES acid reflux, denies ulcers, denies vomiting, denies jaundice/hepatitis, denies gallbladder problems, denies black or tarry stools, denies hemorrhoids, denies bleeding from rectum, denies diverticulitis, denies constipation, denies diarrhea, denies loss of stool control, and denies hernias. Kidney/Bladder: The patient denies kidney stones, NOTES urine infections, and denies bloody urine. Skin: The patient denies a history of skin cancer, denies bleeding/changing moles, and denies a history of skin rash. Neurologic: The patient denies a history of epilepsy/convulsions, denies headaches, denies head/spinal injuries, and denies stroke/TIA. Psychiatric: The patient denies psychiatric medications, NOTES depression, and denies voices, denies substance abuse. Endocrine: The patient denies thyroid disorders, denies diabetes, and denies hormonal problems. Hematologic: The patient denies a history of bruising, denies bleeding, and denies anemia, denies blood clots. Infections: The patient denies a history of measles and mumps, denies rheumatic fever, and denies sexually transmitted diseases. Musculoskeletal: The patient denies back pain/injury, denies back problems, denies sciatica, deniesknee/foot trouble, denies arthritis, or denies gout. When was patient's last Mammogram screening? N/A Last Colonoscopy: None Qi Bowman RN PHYSICAL EXAMINATION: General: The patient is 18 year old female, well nourished, well hydrated in no acute distress. Thepatient is oriented to time, place, and person. VITALS: Blood pressure 98/58, pulse 86, temperature 36.3 C (97.4 F), height 170.2 cm (5' 7), weight 86 kg (189 lb 9.6 oz), last menstrual period 03/18/2024, SpO2 99%. Body mass index is 29.7 kg/m . Head: Normal cephalic, atraumatic Eyes: pupils are equally round, sclera are clear/anicteric, wearing glasses Neck is supple with no tracheal deviation Cardiac: normal heart sounds, regular Respiratory: Normal respiratory excursion and pattern. Abdominal exam: soft and benign Extremities: no clubbing, cyanosis or edema. Neuro: non focal Psych: normal mood Assessment IMPRESSION: GERD, RUQ abdominal pain PLAN: I have discussed the above with the patient. I have offered EGD, possible biopsies I have explained the procedure to the patient. I have counseled the patient as to the risks of the procedure, including but not limited to: infection, bleeding, injury to any intrabdominal organs such as liver/spleen, perforation of the GI tract,inability to complete the procedure, complications of anesthesia, etc. - the patient understands. I will also order an US RUQ to rule out gallbladder disease The patient wishes to proceed. I have answered all questions to the patient s satisfaction and the patient has no further questions. My clinic staff has educated the patient as to the colon cleansing regimen and I have prescribed Golytely for the colon cleansing solution. The patient will be scheduled for the procedure at [facility]. Diagnoses: (K21.9) Gastroesophageal reflux disease, unspecified whether esophagitis present (R10.11) RUQ abdominal pain I have confirmed and edited as necessary, the PFSH and ROS obtained by others. Consultation requested by Dr. Katelin Morel for an opinion regarding patient's acid reflux symptoms.. My final recommendations will be communicated back to the requesting physician by way of shared Medical record or letter to requesting physician via US mail. Medical Decision Making: Problems: Low: Stable chronic illness Risk: Low: Low risk from testing/treatment Medical Decision Making Level: 3 - Low Leslye Galicia MD UPDATED HISTORY AND PHYSICAL EXAMINATION SERVICE DATE: 05/08/2024 SERVICE TIME: 2:24 PM PHYSICAL EXAM MUST BE COMPLETED ON ADMISSION The History and Physical (completed in the past 30 days) has been reviewed and the patient has beenexamined. The contents accurately reflect the patient's condition with the following additions or revisions since the H&P was completed. Examination indicates no changes. This H&P can be found in the attached. SIGNATURE: Timur Bello III, MD PATIENT NAME: Josafat Mcgee DATE: May 08, 2024 TIME: 2:24 PM [facility]07-17-2024 History and physical note* Timur Bello MD - 05/08/2024 3:00 PM EDT HISTORY AND PHYSICAL Josafat Gregorio Arely 2005 REFERRING PHYSICIAN: Katelin Morel MD CHIEF COMPLAINT: Consult (GERD and chest pain. ) HPI: The patient is a 18 year old female referred for endoscopy. Josafat notes severe heartburn. This has been going on for about a year, but worsening in frequency and severity. She complains of a burning acid sensation and points to her esophagus. She also states that she will regurgitate solid food at times, but tried to prevent this. She notes water brash. She has tried antacid medications without much improved. She denies blood in emesis. She denies swallowing difficulties. She also note intermittent RUQ abdominal pain that radiates to the back. Josafat has not undergone prior endoscopy. PAST MEDICAL HISTORY PAST MEDICAL HISTORY Diagnosis Date Asthma Ovarian cyst POTS (postural orthostatic tachycardia syndrome) Seasonal allergies Vasovagal syncope PAST SURGICAL HISTORY PAST SURGICAL HISTORY Procedure Laterality Date FINGER SURGERY HX CURRENT MEDICATIONS Current Outpatient Medications Medication Sig sodium fluoride 1.1 % dental cream DISPENSE A SMALL AMOUNT INTO TOOTH SLOT TRAY AND WEAR FOR 5 MINUTES albuterol HFA (PROVENTIL HFA, VENTOLIN HFA) 90 mcg/actuation inhaler Inhale 2 Puffs as instructed every 6 hours as needed for wheezing/shortness of breath. midodrine (PROAMATINE) 2.5 mg tablet take 1 tablet by mouth three times a day FLUoxetine (PROZAC) 40 mg capsule Take 1 capsule by mouth once daily. pantoprazole DR (PROTONIX) 40 mg tablet Take 40 mg by mouth once daily. No current facility-administered medications for this visit. ALLERGIES: Seasonal Allergies PERSONAL HISTORY: SOCIAL HISTORY Social History Tobacco Use Smoking status: Never Smokeless tobacco: Never Vaping Use Vaping Use: Never used Substance Use Topics Alcohol use: Not Currently Drug use: Never FAMILY HISTORY FAMILY HISTORY Problem Relation Age of Onset other (Venous insufficiency) Mother No Known Problems Father Arthritis Maternal Grandmother Coronary Artery Disease Maternal Grandfather COPD Maternal Grandfather Diabetes Maternal Grandfather Hypertension Maternal Grandfather Hypoglycemia Paternal Grandmother other (non-Hodgkins lymphoma) Paternal Grandmother Coronary Artery Disease Paternal Grandfather The review of systems data was entered by the nurse and reviewed by de Nursing Notes: Qi Bowman RN 04/08/2024 4:20 PM Signed REVIEW OF SYSTEMS: General: The patient NOTES fatigue, denies weight loss, denies weight gain, denies feeling hot, andNOTES feelings of cold. Eyes: The patient denies glaucoma, denies eye injury/surgery, wears glasses or contacts. Ear/Nose/Throat: The patient denies allergies, NOTES hayfever, denies ear infections, and denies bloody noses. Cardiovascular: The patient NOTES chest pain, denies heart disease, denies high blood pressure,denies cardiac stent, denies prior heart attack, denies irregular heart beat, denies high cholesterol, denies poor circulation, denies heart failure, other cardiac issues, denies claudication, denies coldfeet, denies peripheral arterial stent. Respiratory: The patient denies tuberculosis, NOTES pneumonia, denies frequent cough, denies pulmonary embolism, NOTES shortness of breath, and denies coughing up blood. Gastrointestinal: The patient denies difficulty swallowing, NOTES acid reflux, denies ulcers, denies vomiting, denies jaundice/hepatitis, denies gallbladder problems, denies black or tarry stools, denies hemorrhoids, denies bleeding from rectum, denies diverticulitis, denies constipation, denies diarrhea, denies loss of stool control, and denies hernias. Kidney/Bladder: The patient denies kidney stones, NOTES urine infections, and denies bloody urine. Skin: The patient denies a history of skin cancer, denies bleeding/changing moles, and denies a history of skin rash. Neurologic: The patient denies a history of epilepsy/convulsions, denies headaches, denies head/spinal injuries, and denies stroke/TIA. Psychiatric: The patient denies psychiatric medications, NOTES depression, and denies voices, denies substance abuse. Endocrine: The patient denies thyroid disorders, denies diabetes, and denies hormonal problems. Hematologic: The patient denies a history of bruising, denies bleeding, and denies anemia, denies blood clots. Infections: The patient denies a history of measles and mumps, denies rheumatic fever, and denies sexually transmitted diseases. Musculoskeletal: The patient denies back pain/injury, denies back problems, denies sciatica, deniesknee/foot trouble, denies arthritis, or denies gout. When was patient's last Mammogram screening? N/A Last Colonoscopy: None Qi Bowman RN PHYSICAL EXAMINATION: General: The patient is 18 year old female, well nourished, well hydrated in no acute distress. Thepatient is oriented to time, place, and person. VITALS: Blood pressure 98/58, pulse 86, temperature 36.3 C (97.4 F), height 170.2 cm (5' 7), weight 86 kg (189 lb 9.6 oz), last menstrual period 03/18/2024, SpO2 99%. Body mass index is 29.7 kg/m . Head: Normal cephalic, atraumatic Eyes: pupils are equally round, sclera are clear/anicteric, wearing glasses Neck is supple with no tracheal deviation Cardiac: normal heart sounds, regular Respiratory: Normal respiratory excursion and pattern. Abdominal exam: soft and benign Extremities: no clubbing, cyanosis or edema. Neuro: non focal Psych: normal mood Assessment IMPRESSION: GERD, RUQ abdominal pain PLAN: I have discussed the above with the patient. I have offered EGD, possible biopsies I have explained the procedure to the patient. I have counseled the patient as to the risks of the procedure, including but not limited to: infection, bleeding, injury to any intrabdominal organs such as liver/spleen, perforation of the GI tract,inability to complete the procedure, complications of anesthesia, etc. - the patient understands. I will also order an US RUQ to rule out gallbladder disease The patient wishes to proceed. I have answered all questions to the patient s satisfaction and the patient has no further questions. My clinic staff has educated the patient as to the colon cleansing regimen and I have prescribed Golytely for the colon cleansing solution. The patient will be scheduled for the procedure at [facility]. Diagnoses: (K21.9) Gastroesophageal reflux disease, unspecified whether esophagitis present (R10.11) RUQ abdominal pain I have confirmed and edited as necessary, the PFSH and ROS obtained by others. Consultation requested by Dr. Katelin Morel for an opinion regarding patient's acid reflux symptoms.. My final recommendations will be communicated back to the requesting physician by way of shared Medical record or letter to requesting physician via US mail. Medical Decision Making: Problems: Low: Stable chronic illness Risk: Low: Low risk from testing/treatment Medical Decision Making Level: 3 - Low Leslye Galicia MD UPDATED HISTORY AND PHYSICAL EXAMINATION SERVICE DATE: 05/08/2024 SERVICE TIME: 2:24 PM PHYSICAL EXAM MUST BE COMPLETED ON ADMISSION The History and Physical (completed in the past 30 days) has been reviewed and the patient has beenexamined. The contents accurately reflect the patient's condition with the following additions or revisions since the H&P was completed. Examination indicates no changes. This H&P can be found in the attached. SIGNATURE: Timur Bello III, MD PATIENT NAME: Josafat Mcgee DATE: May 08, 2024 TIME: 2:24 PM documented in this encounterOhiohealth07-17-2024 NoteHNO ID: [id number] Author: JEMMA WHITAKER, TURNER Service: Nursing Author Type: Registered Nurse Type: Nursing Progress Note Filed: 05/08/2024 13:12 Note Text: Other: pt ready for OR, call light in reach, mom called to [facility]07-17-2024 Nurse Note* Jemma Whitaker RN - 05/08/2024 1:11 PM EDT Other: pt ready for OR, call light in reach, mom called to bedside [facility]07-17-2024 Nurse Note* Jemma Whitaker RN - 05/08/2024 1:11 PM EDT Other: pt ready for OR, call light in reach, mom called to bedside documented in this encounterOhiohealth07-11-2024 Telephone encounter Note * Telephone Encounter - Meggan Boyce - 05/02/2024 10:14 AM EDT Patient rescheduled to 06/26/[address] Galicia in [place] [facility]07-11-2024 Telephone encounter Note* Telephone Encounter - Meggan Boyce - 05/02/2024 10:14 AM EDT Agustin Blanchard, RN [place], Dr. Calderon Matias from anesthesia reviewed this patients chart and discussed concerns with Dr. Galicia. They agreed that the patient should be rescheduled to [place] and go through PAT. Would you be able to assist? [facility]07-11-2024 Miscellaneous Notes* Telephone Encounter - Meggan Boyce - 05/02/2024 10:14 AM EDT Patient rescheduled to 06/26/[address] Galicia in [place] * Telephone Encounter - Meggan Boyce - 05/02/2024 10:14 AM EDT Agustin Blanchard RN [place], Breanna Bre, Dr. Griffiths from anesthesia reviewed this patients chart and discussed concerns with Dr. Galicia. They agreed that the patient should be rescheduled to [place] and go through PAT. Would you be able to assist? documented in this encounterOhiohealth07-09-2024 Instructions* Patient Instructions* Ailin Galo APRN.SENIOR BENEFITS ANALYST - 04/30/2024 10:20 AM EDT Maru Alvarado, It was good to talk with you today. Below is a summary of the plan that we discussed during your appointment for reference. Of course, if you have any questions or concerns do not hesitate to reach out to me via a message or call. Ailin Melvin APRN.SENIOR BENEFITS ANALYST PLAN AND FOLLOW UP: 1) Stop Hydroxyzine 25 mg at bedtime. 2) Start Trazodone 50 mg - take 1 tablet at bedtime. 3) Continue Prozac 40 mg daily and Hydroxyzine 10 mg as needed. For those experiencing a suicidal crisis: --call the National Suicide Prevention Lifeline at 421 (402-251-9638) --text the Crisis Text Line (text HOME to 281902) --call 221 and let them know you are having a mental health crisis or go to your nearest Emergency Room for stabilization. --You can also call Mobile Crisis at [phone]. Next appointment: --Schedule in 2 months or sooner if needed -- You may call the department appointment line at [phone] to schedule your appointment. -- Please call my nurse Lisbeth at [phone] or send me a message in [employer] with any questions or concerns between appointments. documented in this encounterOhiohealth07-09-2024 History of Present illness Narrative* Ailin Galo APRN.CNP - 04/30/2024 9:49 AM EDT Images from the original note were not included. FOLLOW UP - PSYCHIATRIC PROGRESS NOTE PATIENT: Josafat Mcgee DATE: April 30, 2024 Visit Type: Virtual Visit utilizing two-way audio and video for at least a portion of the visit. Consent for virtual visit obtained verbally. Confidentiality limitations with virtual visits reviewed with the patient and guardian, if present, who have accepted the risk verbally prior to proceeding wi th encounter. I have communicated my name and active licensure. The patient's identity and physicallocation were verified at the time of this visit. Either the patient or their legal technology sales representative has been informed of the risks and benefits of -- and alternatives to -- treatment through a remote evaluation and consents to proceed with the evaluation remotely. All information is from Patient report except when noted. This evaluation is NOT intended for forensic, disability or child custody purposes. Some elements were copied from the previous note which have been updated where appropriate and reflect current decision making from today April 30, 2024. CC: Presenting today for follow up regarding psychiatric medication management. HPI: Treatment Plan from Last Visit on 11/23/2023: 1. Discussed taking Prozac more consistently. 2. Continue taking Hydroxzyine at the same dose at night and as needed. 3. Discussed coping with stress related to her room mate situation and how it impacts her mental health. Patient aware to reach out to this provider if the situation with the room mate becomes worse and impacts her mental health further. Today Josafat shares that she is at work currently. Sitting in her car. 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 She has been consistent with taking the Prozac. Denies any fatigue and takes it in the morning. Feels that it has helped with her anxiety. She has a history of disordered eating. I am not supposed to be checking my weight. Does not feel that she has to do anything drastic to lose weight. Denies restrictive behaviors. Shares that she has been having difficulty falling and staying asleep. Nothing over the counter has helped. Hydroxyzine helps her fall asleep but not stay asleep. Does wake up feeling groggy whether she takes the hydroxyzine or not. Sometimes she will still utilize hydroxyzine 10 mg during the day if needed. It is hard for her to recognize when she feels anxious. Struggling with acid reflux. Getting an upper endoscopy in April. Has told her PCP that pantoprazole is not helping. Has not taken it in a while and has not noticed a worsening of her symptoms. Whenever she is eating, she is experiencing cramping, nausea, and burning. Interval Progress: Slightly worse PATIENT DATA: Generalized Anxiety Disorder Scale (EFRAÍN-7) 01/10/2024 03/21/2024 04/30/2024 EFRAÍN - 7 SCORES Score 9 9 14 (0-4) minimal anxiety, (5-9) mild anxiety, (10-14) moderate anxiety, (15-21) severe anxiety Patient Health Questionnaire (PHQ-9) 01/10/2024 03/19/2024 04/30/2024 PHQ-9 Score 15 15 14 (0-4) minimal depression, (5-9) mild depression, (10-14) moderate depression, (15-19) moderately severe depression, (20-27) severe depression PAST MEDICAL HISTORY Diagnosis Date Asthma Ovarian cyst POTS (postural orthostatic tachycardia syndrome) Seasonal allergies Vasovagal syncope PAST SURGICAL HISTORY Procedure Laterality Date FINGER SURGERY HX ALLERGIES Allergen Reactions Seasonal Allergies Cough Current Outpatient Medications on File Prior to Visit Medication Sig sodium fluoride 1.1 % dental cream DISPENSE A SMALL AMOUNT INTO TOOTH SLOT TRAY AND WEAR FOR 5 MINUTES albuterol HFA (PROVENTIL HFA, VENTOLIN HFA) 90 mcg/actuation inhaler Inhale 2 Puffs as instructed every 6 hours as needed for wheezing/shortness of breath. midodrine (PROAMATINE) 2.5 mg tablet take 1 tablet by mouth three times a day pantoprazole DR (PROTONIX) 40 mg tablet Take 40 mg by mouth once daily. FLUoxetine (PROZAC) 40 mg capsule Take 1 capsule by mouth once daily. No current facility-administered medications on file prior to visit. ROS: See HPI PFSH: See HPI VITAL SIGNS: There were no vitals filed for this visit. Last 3 Encounter BP Readings: Date: BP: 04/08/2024 98/58 03/21/2024 106/72 02/16/2024 108/78 MENTAL STATUS EXAMINATION: Mental Status Exam General/Sensorium: Alert Orientation: AAOx3 Appearance: Appropriately groomed and casually dressed Eye contact: Appropriate Demeanor: Appropriately interactive Motor activity: Normal Speech: Articulate with appropriate rhythm and volume Mood: Anxious Affect: Congruent with mood Thought process: Linear, logical, and goal-directed Associations: Normal Thought content: Discussing stressors, future goals or plans and focused on history, symptoms, and management Suicidal ideation: none Homicidal ideation: none Perceptions: She does not appear internally stimulated. Intelligence: Average Attention: Intact Memory: Short-term: Intact Long-term: Intact Language: Intact Fund of knowledge: Fair Insight: Fair Judgment: Fair Gait: Not observed Station: Sitting DATA REVIEWED: Psychiatric scales, Electronic medical record, Labs DIAGNOSIS: Efraín (generalized anxiety disorder) (primary encounter diagnosis) Major depressive disorder, recurrent episode, moderate (hcc) Sleep difficulties GAF: -60-51 Moderate symptoms or moderate difficulty in social, occupational or school functioning. TREATMENT PLAN: Continue Prozac at the same dose. Discontinue Hydroxyzine 25 mg at bedtime due to lack of efficacy in helping patient stay asleep. Start Trazodone to help with sleep difficulties. Discussed taking it with a snack if patient notices concerns with sleep initiation. Continue Hydroxyzine 10 mg to address anxiety as needed. MEDICATION CHANGES: 1) Stop Hydroxyzine 25 mg at bedtime. 2) Start Trazodone 50 mg - take 1 tablet at bedtime. Risks and benefits of the medication, including any black box warnings, were discussed with the patient. Patient is aware to reach out with any questions, concerns, or worsening of symptoms prior to the next appointment. Patient educated on risks of substance use in combination with medications and advised that any substance use along with medications may alter their effectiveness. Follow Up: 2 months I spent a total of 36 minutes on the date of the service which included preparing to see the patient, [id number] patient care, completing clinical documentation, and counseling and educating the patient/family/caregiver, ordering medications/labs. ADD ON PSYCHOTHERAPY CODE : No SIGNATURE: Ailin Galo APRN.CNP PATIENT NAME: Josafat Mcgee DATE: April 30, 2024 TIME: 9:49 AM documented in this encounterOhiohealth06-17-2024 History of Present illness Narrative* Leslye Galicia MD - 04/08/2024 4:30 PM EDT HISTORY AND PHYSICAL Josafat Stocktonlucero 2005 REFERRING PHYSICIAN: Katelin Morel MD CHIEF COMPLAINT: Consult (GERD and chest pain. ) HPI: The patient is a 18 year old female referred for endoscopy. Josafat notes severe heartburn. This has been going on for about a year, but worsening in frequency and severity. She complains of a burning acid sensation and points to her esophagus. She also states that she will regurgitate solid food at times, but tried to prevent this. She notes water brash. She has tried antacid medications without much improved. She denies blood in emesis. She denies swallowing difficulties. She also note intermittent RUQ abdominal pain that radiates to the back. Josafat has not undergone prior endoscopy. PAST MEDICAL HISTORY Diagnosis Date Asthma Ovarian cyst POTS (postural orthostatic tachycardia syndrome) Seasonal allergies Vasovagal syncope PAST SURGICAL HISTORY Procedure Laterality Date FINGER SURGERY HX Current Outpatient Medications Medication Sig sodium fluoride 1.1 % dental cream DISPENSE A SMALL AMOUNT INTO TOOTH SLOT TRAY AND WEAR FOR 5 MINUTES albuterol HFA (PROVENTIL HFA, VENTOLIN HFA) 90 mcg/actuation inhaler Inhale 2 Puffs as instructed every 6 hours as needed for wheezing/shortness of breath. midodrine (PROAMATINE) 2.5 mg tablet take 1 tablet by mouth three times a day FLUoxetine (PROZAC) 40 mg capsule Take 1 capsule by mouth once daily. pantoprazole DR (PROTONIX) 40 mg tablet Take 40 mg by mouth once daily. No current facility-administered medications for this visit. ALLERGIES: Seasonal Allergies PERSONAL HISTORY: Social History Tobacco Use Smoking status: Never Smokeless tobacco: Never Vaping Use Vaping Use: Never used Substance Use Topics Alcohol use: Not Currently Drug use: Never FAMILY HISTORY Problem Relation Age of Onset other (Venous insufficiency) Mother No Known Problems Father Arthritis Maternal Grandmother Coronary Artery Disease Maternal Grandfather COPD Maternal Grandfather Diabetes Maternal Grandfather Hypertension Maternal Grandfather Hypoglycemia Paternal Grandmother other (non-Hodgkins lymphoma) Paternal Grandmother Coronary Artery Disease Paternal Grandfather The review of systems data was entered by the nurse and reviewed by de Nursing Notes: Qi Bowman RN 04/08/2024 4:20 PM Signed REVIEW OF SYSTEMS: General: The patient NOTES fatigue, denies weight loss, denies weight gain, denies feeling hot, andNOTES feelings of cold. Eyes: The patient denies glaucoma, denies eye injury/surgery, wears glasses or contacts. Ear/Nose/Throat: The patient denies allergies, NOTES hayfever, denies ear infections, and denies bloody noses. Cardiovascular: The patient NOTES chest pain, denies heart disease, denies high blood pressure,denies cardiac stent, denies prior heart attack, denies irregular heart beat, denies high cholesterol, denies poor circulation, denies heart failure, other cardiac issues, denies claudication, denies coldfeet, denies peripheral arterial stent. Respiratory: The patient denies tuberculosis, NOTES pneumonia, denies frequent cough, denies pulmonary embolism, NOTES shortness of breath, and denies coughing up blood. Gastrointestinal: The patient denies difficulty swallowing, NOTES acid reflux, denies ulcers, denies vomiting, denies jaundice/hepatitis, denies gallbladder problems, denies black or tarry stools, denies hemorrhoids, denies bleeding from rectum, denies diverticulitis, denies constipation, denies diarrhea, denies loss of stool control, and denies hernias. Kidney/Bladder: The patient denies kidney stones, NOTES urine infections, and denies bloody urine. Skin: The patient denies a history of skin cancer, denies bleeding/changing moles, and denies a history of skin rash. Neurologic: The patient denies a history of epilepsy/convulsions, denies headaches, denies head/spinal injuries, and denies stroke/TIA. Psychiatric: The patient denies psychiatric medications, NOTES depression, and denies voices, denies substance abuse. Endocrine: The patient denies thyroid disorders, denies diabetes, and denies hormonal problems. Hematologic: The patient denies a history of bruising, denies bleeding, and denies anemia, denies blood clots. Infections: The patient denies a history of measles and mumps, denies rheumatic fever, and denies sexually transmitted diseases. Musculoskeletal: The patient denies back pain/injury, denies back problems, denies sciatica, deniesknee/foot trouble, denies arthritis, or denies gout. When was patient's last Mammogram screening? N/A Last Colonoscopy: None Qi Bowman RN PHYSICAL EXAMINATION: General: The patient is 18 year old female, well nourished, well hydrated in no acute distress. Thepatient is oriented to time, place, and person. VITALS: Blood pressure 98/58, pulse 86, temperature 36.3 C (97.4 F), height 170.2 cm (5' 7), weight 86 kg (189 lb 9.6 oz), last menstrual period 03/18/2024, SpO2 99%. Body mass index is 29.7 kg/m . Head: Normal cephalic, atraumatic Eyes: pupils are equally round, sclera are clear/anicteric, wearing glasses Neck is supple with no tracheal deviation Cardiac: normal heart sounds, regular Respiratory: Normal respiratory excursion and pattern. Abdominal exam: soft and benign Extremities: no clubbing, cyanosis or edema. Neuro: non focal Psych: normal mood Assessment IMPRESSION: GERD, RUQ abdominal pain PLAN: I have discussed the above with the patient. I have offered EGD, possible biopsies I have explained the procedure to the patient. I have counseled the patient as to the risks of the procedure, including but not limited to: infection, bleeding, injury to any intrabdominal organs such as liver/spleen, perforation of the GI tract,inability to complete the procedure, complications of anesthesia, etc. - the patient understands. I will also order an US RUQ to rule out gallbladder disease The patient wishes to proceed. I have answered all questions to the patient s satisfaction and the patient has no further questions. My clinic staff has educated the patient as to the colon cleansing regimen and I have prescribed Golytely for the colon cleansing solution. The patient will be scheduled for the procedure at [facility]. Diagnoses: (K21.9) Gastroesophageal reflux disease, unspecified whether esophagitis present (R10.11) RUQ abdominal pain I have confirmed and edited as necessary, the PFSH and ROS obtained by others. Consultation requested by Dr. Katelin Morel for an opinion regarding patient's acid reflux symptoms.. My final recommendations will be communicated back to the requesting physician by way of shared Medical record or letter to requesting physician via US mail. Medical Decision Making: Problems: Low: Stable chronic illness Risk: Low: Low risk from testing/treatment Medical Decision Making Level: 3 - Low Leslye Galicia MD documented in this encounterOhiohealth06-17-2024 Nurse Note* Qi Bowman RN - 04/08/2024 4:19 PM EDT REVIEW OF SYSTEMS: General: The patient NOTES fatigue, denies weight loss, denies weight gain, denies feeling hot, andNOTES feelings of cold. Eyes: The patient denies glaucoma, denies eye injury/surgery, wears glasses or contacts. Ear/Nose/Throat: The patient denies allergies, NOTES hayfever, denies ear infections, and denies bloody noses. Cardiovascular: The patient NOTES chest pain, denies heart disease, denies high blood pressure,denies cardiac stent, denies prior heart attack, denies irregular heart beat, denies high cholesterol, denies poor circulation, denies heart failure, other cardiac issues, denies claudication, denies coldfeet, denies peripheral arterial stent. Respiratory: The patient denies tuberculosis, NOTES pneumonia, denies frequent cough, denies pulmonary embolism, NOTES shortness of breath, and denies coughing up blood. Gastrointestinal: The patient denies difficulty swallowing, NOTES acid reflux, denies ulcers, denies vomiting, denies jaundice/hepatitis, denies gallbladder problems, denies black or tarry stools, denies hemorrhoids, denies bleeding from rectum, denies diverticulitis, denies constipation, denies diarrhea, denies loss of stool control, and denies hernias. Kidney/Bladder: The patient denies kidney stones, NOTES urine infections, and denies bloody urine. Skin: The patient denies a history of skin cancer, denies bleeding/changing moles, and denies a history of skin rash. Neurologic: The patient denies a history of epilepsy/convulsions, denies headaches, denies head/spinal injuries, and denies stroke/TIA. Psychiatric: The patient denies psychiatric medications, NOTES depression, and denies voices, denies substance abuse. Endocrine: The patient denies thyroid disorders, denies diabetes, and denies hormonal problems. Hematologic: The patient denies a history of bruising, denies bleeding, and denies anemia, denies blood clots. Infections: The patient denies a history of measles and mumps, denies rheumatic fever, and denies sexually transmitted diseases. Musculoskeletal: The patient denies back pain/injury, denies back problems, denies sciatica, deniesknee/foot trouble, denies arthritis, or denies gout. When was patient's last Mammogram screening? N/A Last Colonoscopy: None Qi Bowman RN [facility]06-17-[facility]24 Nurse Note* Qi Bowman RN - 04/08/2024 4:19 PM EDT REVIEW OF SYSTEMS: General: The patient NOTES fatigue, denies weight loss, denies weight gain, denies feeling hot, andNOTES feelings of cold. Eyes: The patient denies glaucoma, denies eye injury/surgery, wears glasses or contacts. Ear/Nose/Throat: The patient denies allergies, NOTES hayfever, denies ear infections, and denies bloody noses. Cardiovascular: The patient NOTES chest pain, denies heart disease, denies high blood pressure,denies cardiac stent, denies prior heart attack, denies irregular heart beat, denies high cholesterol, denies poor circulation, denies heart failure, other cardiac issues, denies claudication, denies coldfeet, denies peripheral arterial stent. Respiratory: The patient denies tuberculosis, NOTES pneumonia, denies frequent cough, denies pulmonary embolism, NOTES shortness of breath, and denies coughing up blood. Gastrointestinal: The patient denies difficulty swallowing, NOTES acid reflux, denies ulcers, denies vomiting, denies jaundice/hepatitis, denies gallbladder problems, denies black or tarry stools, denies hemorrhoids, denies bleeding from rectum, denies diverticulitis, denies constipation, denies diarrhea, denies loss of stool control, and denies hernias. Kidney/Bladder: The patient denies kidney stones, NOTES urine infections, and denies bloody urine. Skin: The patient denies a history of skin cancer, denies bleeding/changing moles, and denies a history of skin rash. Neurologic: The patient denies a history of epilepsy/convulsions, denies headaches, denies head/spinal injuries, and denies stroke/TIA. Psychiatric: The patient denies psychiatric medications, NOTES depression, and denies voices, denies substance abuse. Endocrine: The patient denies thyroid disorders, denies diabetes, and denies hormonal problems. Hematologic: The patient denies a history of bruising, denies bleeding, and denies anemia, denies blood clots. Infections: The patient denies a history of measles and mumps, denies rheumatic fever, and denies sexually transmitted diseases. Musculoskeletal: The patient denies back pain/injury, denies back problems, denies sciatica, deniesknee/foot trouble, denies arthritis, or denies gout. When was patient's last Mammogram screening? N/A Last Colonoscopy: None Qi Bowman, RN documented in this encounterOhiohealth05-30-2024 History of Present illness Narrative* Katelin Morel MD - 03/21/2024 11:32 AM EDT WELL VISIT PEDIATRIC 18+ YRS OLD Josafat is a 18 year old who presents today for well exam. SUBJECTIVE CONCERNS: Would like to see medicare contact specialist for possible GE reflux disease has problems with regurgitation and chest pain. Currently taking pantoprazole once a day. Several different types of food trigger symptoms including chocolate. She is trying to make lifestyle changes by avoiding foods that trigger her symptoms. HISTORY There is no problem list on file for this patient. PAST MEDICAL HISTORY Diagnosis Date Asthma Ovarian cyst POTS (postural orthostatic tachycardia syndrome) Seasonal allergies Vasovagal syncope PAST SURGICAL HISTORY Procedure Laterality Date FINGER SURGERY HX ALLERGIES Allergen Reactions Seasonal Allergies Cough Medications: sodium fluoride 1.1 % dental cream DISPENSE A SMALL AMOUNT INTO TOOTH SLOT TRAY AND WEAR FOR 5 MINUTES midodrine (PROAMATINE) 2.5 mg tablet take 1 tablet by mouth three times a day FLUoxetine (PROZAC) 40 mg capsule Take 1 capsule by mouth once daily. fluticasone (FLOVENT HFA) 110 mcg/actuation inhaler Inhale 2 Puffs as instructed two times a day asneeded (seasonal allergies). pantoprazole DR (PROTONIX) 40 mg tablet Take 40 mg by mouth once daily. albuterol HFA (PROVENTIL HFA, VENTOLIN HFA) 90 mcg/actuation inhaler Inhale 2 Puffs as instructed every 6 hours as needed for wheezing/shortness of breath. FAMILY HISTORY Problem Relation Age of Onset other (Venous insufficiency) Mother No Known Problems Father Arthritis Maternal Grandmother Coronary Artery Disease Maternal Grandfather COPD Maternal Grandfather Diabetes Maternal Grandfather Hypertension Maternal Grandfather Hypoglycemia Paternal Grandmother other (non-Hodgkins lymphoma) Paternal Grandmother Coronary Artery Disease Paternal Grandfather Social History Social History Narrative Not on file Smoking Exposure: Do you spend a significant amount of time with anyone who smokes? No School: Presently in College. No academic or school related concerns No behavioral concerns Any concerns regarding peer interactions? No Recreational Screen Time totaling more than 2 hours of screen time per day. Physical Activity: more than 1 hour of physical activity per day Fainting, dizziness, significant shortness of breath or chest pain with sports or exercise: No History of concussion in the last year: No Safety: Reviewed seat belts and smoke detectors Diet: -Diet is well balanced and appropriate for age -Fruits are eaten with most meals -Vegetables are eaten with most meals -Drinks none -Drinks water daily -Excessive intake of sugar containing beverages -Regularly eats meals with family Elimination: no concerns, normal size and consistency Dental: dental care current Sleep: -doesn't sleep well throughout the night Vision: No vision concerns Hearing: No hearing concerns Growth: No growth concerns Gynecological history: LMP: 03/18/24 Cycles are regular and last 7 days. Dysmenorrhea: moderate Heavy periods: yes Substance use: none Screening tools reviewed and discussed with patient/[id number]-9 and Social Determinants of Health.Please see Patient Entered Data. SDOH: Food Insecurity: No Food Insecurity (03/19/2024) Hunger Vital Sign Worried About Running Out of Food in the Last Year: Never true Ran Out of Food in the Last Year: Never true Financial Resource Strain: Low Risk (03/19/2024) Overall Financial Resource Strain (CARDIA) Difficulty of Paying Living Expenses: Not hard at all Transportation Needs: No Transportation Needs (03/19/2024) PRAPARE - Transportation Lack of Transportation (Medical): No Lack of Transportation (Non-Medical): No Housing Stability: Low Risk (03/19/2024) Housing Stability Vital Sign Unable to Pay for Housing in the Last Year: No Number of Places Lived in the Last Year: 1 Unstable Housing in the Last Year: No Discussed SDOH results with patient/family. SDOH needs identified: no concerns identified OBJECTIVE Physical Exam: BP 106/72 Pulse 70 Temp 36.4 C (97.5 F) (Temporal) Resp 16 Ht 166 cm (5' 5.35) Wt 84.5 kg (186 lb 4 oz) LMP 03/18/2024 (Exact Date) BMI 30.66 kg/m General: Well developed, No acute distress Head: normocephalic Eyes: conjunctivae/corneas clear Ears: TMs translucent bilaterally, normal landmarks noted Nose: no erythema or rhinorrhea Oropharynx: moist mucous membranes, no erythema or exudate Neck: supple, no adenopathy Spine: Back symmetric, no curvature. Resp: lungs clear to auscultation Heart: Normal rate, regular rhythm, no murmur Abdomen: Soft, nontender, nondistended, no palpable organomegaly or masses, normal bowel sounds Extremities: Full ROM and no swelling, erythema or tenderness Neuro: No focal deficits or abnormal findings present Skin: no rashes ASSESSMENT/PLAN: 1. Encounter for general adult medical examination without abnormal findings - ICD9: V70.9, ICD10: Z00.00 (primary diagnosis) - Counseled on healthy diet and regular exercise Based on PHQ-9 Score: 15 and interview, presentation is consistent with possible depression: -Continue current psychiatry management. Based on EFRAÍN-7 Score: 9 and interview, presentation is consistent with anxiety: -Continue current psychiatry management. - Discussed diet and safety. - Dental care discussed. - [employer] handout given (See Patient Instructions). - No immunizations were recommended to be given at this visit. - Follow up in one year for routine physical. MENTAL HEALTH PLAN: - sees Ailin De - needs followp appt. - Continue current medication. - Psychiatry follow up for depression and anxiety 2. Screening-pulmonary TB - ICD9: V74.1, ICD10: Z11.1 - BLOOD TB SCREEN - 3. Gastroesophageal reflux disease, unspecified whether esophagitis present - ICD9: 530.81, ICD10: K21.9 - Discussed lifestyle modifications including losing weight, limiting caffeine, no meals three hours before sleep, and head of bed elevation - Continue treatment with pantaprozole QD - CONSULT TO GENERAL SURGERY Katelin Morel MD documented in this encounterOhiohealth05-30-2024 Instructions* Patient Instructions* Katelin Morel MD - 03/21/2024 11:31 AM EDT Images from the original note were not included. What is GERD? When you swallow, food passes down your throat and through your esophagus to your stomach. A musclecalled the lower esophageal sphincter controls the opening between the esophagus and the stomach. The muscle remains tightly closed except when you swallow food. When this muscle fails to close, the acid-containing contents of the stomach can travel back up into the esophagus. This backward movement is called reflux. When stomach acid enters the lower part ofthe esophagus, it can produce a burning sensation, commonly referred to as heartburn. What are the symptoms of GERD? The main symptom of GERD in adults is frequent heartburn, also called acid indigestion--burning-type pain in the lower part of the mid-chest, behind the breast bone, and in the mid-abdomen. Most children under 12 years with GERD, and some adults, have GERD without heartburn. Instead, they may experience a dry cough, asthma symptoms, or trouble swallowing. Other factors that may contribute to GERD include obesity smoking Common foods that can worsen reflux symptoms include-- citrus fruits chocolate drinks with caffeine or alcohol fatty and fried foods garlic and onions mint flavorings spicy foods tomato-based foods, like spaghetti sauce, salsa, chili, and pizza sodas that contain caffeine carbonated beverages chocolate peppermint spicy foods acidic foods like oranges, tomatoes, and pizza fried and fatty foods Lifestyle changes that are recommended. -smaller meals more often. -Avoid eating or drinking 2-3 hours before bedtime. -Avoid eating large meals before periods of heavy or stressful activities such as exercise or test taking. Elevate the head of the bed with books or bricks about 30 degrees during sleep. Avoid tight waistbands. Avoid drinking alcohol. Avoid cigarettes and all types of tobacco smoke. NO THC Avoid carbonated drinks, chocolate, caffeine, and foods that are high in fat (For example, pizza and iranian fries). Limit foods that are spicy or contain lots of acid (pickles, tomatoes, citrus). Medications. Antacids, such as Dina-Oconto, Maalox, Mylanta, Rolaids, and Riopan, are usually the first drugs recommended to relieve heartburn and other mild GERD symptoms. Many brands on the market use different combinations of three basic salts--magnesium, calcium, and aluminum--with hydroxide or bicarbonateions to neutralize the acid in your stomach. Antacids, however, can have side effects. Magnesium salt can lead to diarrhea, and aluminum salt may cause constipation. Aluminum and magnesium salts are often combined in a single product to balance these effects. Calcium carbonate antacids, such as Tums, Titralac, and Dina-2, can also be a supplemental source of calcium. They can cause constipation as well. Proton pump inhibitors (PPI) include omeprazole (Prilosec) lansoprazole (Prevacid), pantoprazole (Protonix), rabeprazole (Aciphex), and esomeprazole (Nexium), Proton pump inhibitors relieve symptoms and heal the esophageal lining in almost everyone who has GERD. 5 to Go!TM Healthy Kids Inside & Out 5 Eat FIVE fruits and veggies a day 4 Give and get FOUR compliments a day 3 Consume THREE calcium products a day 2 Limit media time to TWO hours a day 1 Get at least ONE hour of exercise a day 0 Consume ZERO sugar-sweetened drinks Go! Be healthy, inside and out! [email or web address] Adolescent to Adult Transition Program [facility] cares about helping you and each of our adolescents and young adults make a smoothtransition to adult care. If your current doctor is a over short and damage clerk, we will work with you to decide the correct age for moving your care to a doctor or other provider who takes care of adults. We suggest that this move take place before age 22. Our office policy is to prepare you to move to a doctor or other provider who takes care of adults. This includes helping you find a doctor or other provider, sending medical records, and talking about any special needs with the new doctor or other provider. If your current doctor is in family medicine, [facility] will prepare you and your family forthe transition to being an adult patient. You will be able to make your own healthcare decisions and will have an adult care team that meets your personal healthcare needs. At age 18, by law, we need your agreement to discuss personal health information with your family. We understand and respect that you may want to include your family in healthcare choices and will partner with you on how and when to include your family in decisions. We will make sure you know what changes to expect. We will also strive to make sure that all care team providers know your needs. We will help you find community resources and specialty care, if needed. Having your information before you come for the first time helps us be sure we do not miss any details. If joining our practice from outside [facility], we will help you request your medical record from past doctor(s) before your first visit. We will make every effort to work with your past providers to ensure a smooth transition and experience. We are always here for you. If you have any questions or concerns, please contact your primary careteam or e-mail Got Transition is the federally funded national resource center on health care transition (HCT). Its aim is to improve transition from pediatric to adult health care through the use of evidence-driven strategies for health career services manager, youth, young adults, and their families. www.gottransition.org [email or web address]://[email or web address]/resource/?amq-bzgtwf-puwygkh documented in this encounterOhiohealth04-26-2024 Instructions* Patient Instructions* Kristen Pedraza MD - 02/16/2024 4:52 PM EDT Will check 24 hr urine for catecholamines again documented in this encounterOhiohealth04-26-2024 History of Present illness Narrative* Kristen Pedraza MD - 02/16/2024 4:45 PM EDT [facility] Follow up Note HPI: This is a 18 year old female who is referred to endocrine for possible hypoglycemia. She was last seen 3 weeks ago for evaluation of possible hypoglycemia and now is presenting with lab results PMH: Asthma, seasonal allergies, ovarian cyst, POTS, vasovagal syncope She was diagnosed with POTS in Oct 2022 with tilt table test- was using salt tablets for managementof episodes, but was started on midodrine in Sep 2023 Se had symptoms of lightheadedness, weak, shaky, headache- for the last one month, since Nov 2022, also reports pallor and zoning out Episodes occur randomly, not related to food intake, sometimes within with sometime of meals Started checking BG when symptoms occur for the last 2 weeks on recommendation by her PCP 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 She eats only 2 meals a day, but snacks throughout the day 2 to 3 times Tried to eat which sometimes resolved her symptoms, many times did not resolve Lowest BG was 76 mg/dl so far- download of reading available Repeated checking within 10 minutes of eating a sugary snack, but would start going down within 1 to 2 hours She denies any weight loss, nausea, vomiting, diarrhea, abdominal pain. She reports occasional night sweats. Denies alcohol, hx of gastric surgery. She denies any recent illness She is a student, lives on campus but goes home frequently, denies any friend with DM Her grand father and his mom - type 2 DM Interval history: She does not fulfill any criteria for Whipple triad but due to multiple symptoms, we discussed about checking for 24 hr metanephrines and catecholamines. Her results show normal metanephrines but catecholamines were not run PAST MEDICAL HISTORY: PAST MEDICAL HISTORY Diagnosis Date Asthma Ovarian cyst POTS (postural orthostatic tachycardia syndrome) Seasonal allergies Vasovagal syncope PAST SURGICAL HISTORY: PAST SURGICAL HISTORY Procedure Laterality Date FINGER SURGERY HX FAMILY HISTORY: FAMILY HISTORY Problem Relation Age of Onset other (Venous insufficiency) Mother No Known Problems Father Arthritis Maternal Grandmother Coronary Artery Disease Maternal Grandfather COPD Maternal Grandfather Diabetes Maternal Grandfather Hypertension Maternal Grandfather Hypoglycemia Paternal Grandmother other (non-Hodgkins lymphoma) Paternal Grandmother Coronary Artery Disease Paternal Grandfather SOCIAL HISTORY: Social History Tobacco Use Smoking status: Never Smokeless tobacco: Never Vaping Use Vaping Use: Never used Substance Use Topics Alcohol use: Not Currently Drug use: Never MEDICATIONS: Current Outpatient Medications Medication Sig midodrine (PROAMATINE) 2.5 mg tablet take 1 tablet by mouth three times a day hydrOXYzine HCl (ATARAX) 25 mg tablet Take 1 tablet by mouth at bedtime as needed. fluticasone (FLOVENT HFA) 110 mcg/actuation inhaler Inhale 2 Puffs as instructed two times a day asneeded (seasonal allergies). pantoprazole DR (PROTONIX) 40 mg tablet Take 40 mg by mouth once daily. albuterol HFA (PROVENTIL HFA, VENTOLIN HFA) 90 mcg/actuation inhaler Inhale 2 Puffs as instructed every 6 hours as needed for wheezing/shortness of breath. FLUoxetine (PROZAC) 40 mg capsule Take 1 capsule by mouth once daily. (Patient not taking: Reportedon 02/16/2024) No current facility-administered medications for this visit. ALLERGIES: ALLERGIES Allergen Reactions Seasonal Allergies Cough REVIEW OF SYSTEMS: As per HPI PHYSICAL EXAM: BP 108/78 (BP Site: Right Arm, BP Position: Sitting, BP Cuff Size: Regular Adult) Pulse 74 Resp18 Ht 167.6 cm (5' 6) Wt 84.4 kg (186 lb) LMP 02/13/2024 (Exact Date) SpO2 98% BMI 30.02kg/m Body mass index is 30.02 kg/m . deferred LAB: BG ranging from 74-122, Avg 102 mg/dl, readings per day 1.6/day Latest Ref Rng 02/11/2024 Metanephrine 52 - 341 ug/24 hr 119 Normetanephrine 88 - 444 ug/24 hr 369 Tot Metanephrine 140 - 785 ug/24 hr 488 Urine Volume 24 hour mL 2,425 Urine Volume 24 hour 2,425 Period hr 24 Period 24 Creatinine 24 hr Ur 0.800 - 1.800 g/24 hr 1.996 (H) Legend: (H) High ASSESSMENT : 18 year old female who is presenting for evaluation of hypoglycemia, which has been ruled out from further investigation due to blood glucose levels recorded on glucometer, showing lowest being 74 mg/dl which is normal. Due to multiple symptoms, we checked 24 hr urine catecholamines and metanephrines however the lab only ran metanephrines which are normal. I discussed repeating 24 hr urine catecholamines to rule out the reason for her symptoms related toendocrine issues. Also discussed this is a rare entity that we are checking for. I explained that we checked metabolites of two neurotransmitters, but not the other one (dopamine) She prefers to not do the urine collection again for the test due to rarity of the condition and metabolites being normal expecting the catecholamines will also be normal. I have reordered the labs in case she would liek to do, as she was okay to do the test initially She asks again about hypoglycemia due to blood glucose levels in 70s, and again I explained this isnot concerning for hypoglycemia especially in a non-diabetic. FOLLOW UP: 1 week if doing labs, otherwise PRN Medical Decision Making: Problems: Moderate: New problem with uncertain prognosis Data: Unique test result(s) reviewed: 2 Unique test(s) ordered: 1 Risk: Low: Low risk from testing/treatment Medical Decision Making Level: 4 - Moderate Kristen Pedraza MD Endocrinology Associate Staff [facility] Endocrinology and Metabolism [place] [phone] documented in this encounterOhiohealth04-03-2024 Miscellaneous Notes* Telephone Encounter - Kristen Pedraza MD - 01/24/2024 2:09 PM EDT Labs ordered again. Will provide the instructions again here, if they will have access to this: To collect the 24 hour urine you start by waking up in the morning the day of collection and emptyyour bladder in the toilet. Then you start to collect all the urine for the next 24 hours in the container provided by the lab. The next day at the end of the 24 hour collection please urinate in the container. Keep in a cool place And take container to the lab. NICHOLE Ferrera * Telephone Encounter - Radha Jim MA - 01/23/2024 8:22 AM EDT Patients mother phoned to reports the lab had rejected the 24 hour urine her daughter has collected. The patient had not collected the last urine at the same time as she started. The patients mother reports she followed the directions, and was asking for clarification. I assured her the lab is correct and that the title of the test is 24 hour. The patient had returned to college and could not finish the sample. I asked the mom to look into other facilities that the patient could do the test again. New orders will need to be placed. The mother would like a return call if the lab is incorrect. Radha Jim MA documented in this encounterOhiohealth04-03-2024 History of Present illness Narrative* Ailin Galo APRN.CNP - 01/24/2024 9:54 AM EDT Patient did not log in for her virtual visit with the provider today. She did not corn picker her phone when contacted prior to the appointment time. documented in this encounterOhiohealth03-25-2024 Miscellaneous Notes* Telephone Encounter - Char Vera RN - 01/15/2024 9:46 AM EDT Patient asking if normal for systolic BP to be normal and diastolic BP be low still after taking medication. Arti Vera RN, BSN documented in this encounterOhiohealth03-22-2024 Instructions* Patient Instructions* Beau Pineda APRN.CNP - 01/12/2024 11:45 AM EDT 1) Labs 2) Consult to endocrinology 3) Dietary considerations: -Try to eat smaller, more frequent meals (4-6x per day). -Try for lower carb diet. documented in this encounterOhiohealth03-22-2024 History of Present illness Narrative* Beau Pineda APRN.CNP - 01/12/2024 11:30 AM EDT Images from the original note were not included. [facility] Follow-Up/Established Patient Visit Chief Complaint/Issues: Josafat Mcgee is a 18 year old handed right-handed [facility]: Follow up POTS Brief HPI /Most Recent Department Assessment and Plan: Seen initially for symptom onset after undiagnosed viral illness in 2019. EPS tilt in 10/2022 demonstrating POTS and vasovagal syncope. Also reported vertiginous symptoms consistent with BPPV, as well as aural fullness and L sided tinnitus. Reportedly had unilateral hearing loss on local audiogram, but ENT did not recommend MRI IAC. I requested ENT records and did not receive these. Seen most recently for follow up 10/17/2023: I recommended follow up locally with established ENT / audiogram. Unilateral hearing loss should warrant MRI IAC but deferred to local ENT. She reports she did see her local ENT and they will be completing another hearing test. WE discuss she did not complete local vestibular PT and I do recommend this as she has continued dizziness. She reports she continues to pass out a few times per week, typically with positional changes. Evenprogressing from supine to seated can cause her to pass out. She has prodromal staring and sometimes people will struggle to get her attention. She has LOC 30 seconds - 1 minute, no incontinence ormouth maceration. No post-ictal state. I do think her staring is more consistent with cerebral hypoperfusion rather than seizure. She reports the sodium chloride is not relieving her symptoms and she has intolerable swelling. Sheis hypotensive in the office today and has to sit down within 1 minute of standing due to lightheadedness despite hydration. We discuss using the thigh high compression. I think it is reasonable to try midodrine for her. She is having some frequent headaches, will address more in depth if not dissipating with the midodrine (discuss chronic hypotension can contribute to orthostatic headache symptoms). 1) Recommend completing local vestibular PT as ordered. 2) Send me ENT notes (My ) - Not received 3) Midodrine 2.5 mg 3x daily 4) Headache log Today, January 12, 2024: She reports she has been tolerating the midodrine well. She is passing out on average more like once per week. She was dizzy at cheer, and had some low blood sugar. PMH PAST MEDICAL HISTORY Diagnosis Date Asthma Ovarian cyst POTS (postural orthostatic tachycardia syndrome) Seasonal allergies Vasovagal syncope PAST SURGICAL HISTORY Procedure Laterality Date FINGER SURGERY HX ALLERGIES Allergen Reactions Seasonal Allergies Shortness of Breath Social History Tobacco Use Smoking status: Never Smokeless tobacco: Never Vaping Use Vaping Use: Never used Substance Use Topics Alcohol use: Not Currently Drug use: Never FAMILY HISTORY Problem Relation Age of Onset other (Venous insufficiency) Mother No Known Problems Father Arthritis Maternal Grandmother Coronary Artery Disease Maternal Grandfather COPD Maternal Grandfather Diabetes Maternal Grandfather Hypertension Maternal Grandfather Hypoglycemia Paternal Grandmother other (non-Hodgkins lymphoma) Paternal Grandmother Coronary Artery Disease Paternal Grandfather Current management of orthostatic condition Conservative Measures: Increased water intake (2-2.5 liters of water daily) Increased salt intake (3-5 grams daily) Compression stockings Cardiac Rehab / Progressive exercise Shared medical appointment with Dr. Ean Webb head of bed Continue with mental health care Medications Current Outpatient Medications on File Prior to Visit Medication Sig midodrine (PROAMATINE) 2.5 mg tablet take 1 tablet by mouth three times a day FLUoxetine (PROZAC) 40 mg capsule Take 1 capsule by mouth once daily. hydrOXYzine HCl (ATARAX) 25 mg tablet Take 1 tablet by mouth at bedtime as needed. fluticasone (FLOVENT HFA) 110 mcg/actuation inhaler Inhale 2 Puffs as instructed twice daily. pantoprazole DR (PROTONIX) 40 mg tablet Take 40 mg by mouth once daily. albuterol HFA (PROVENTIL HFA, VENTOLIN HFA) 90 mcg/actuation inhaler Inhale 2 Puffs as instructed every 6 hours as needed for wheezing/shortness of breath. No current facility-administered medications on file prior to visit. Medications tried previously (failed): Sodium chloride tablets Midodrine Relevant Work Up To Date EPS Tilt 11/01/22 * FINAL IMPRESSIONS * - The test was stopped early at 10 out of 45 minutes of 70 degree tilt. - Systolic blood pressures were initially stable then decreased from 94 mmHg at start to 78 mmHg atend of tilt. - Diastolic blood pressures were initially stable then decreased from 60 mmHg at start to 50 mmHg at end of tilt. - Blood pressure upon return to supine position was 122/73 mmHg. - Heart rates increased from 80 bpm at start to 130 bpm at end of tilt. - Heart rate upon return to supine position was 80 bpm. - ECGs showed: sinus. - Patient signs/symptoms included: BLURRY VISION, CH. PAIN, DIZZINESS, FATIGUE, HEADACHE, HOT, LEG FATIGUE, SHORTNESS OF BREATH. - Overall: The test is positive and diagnostic for reflex vasovagal syncope with predominant vasodepressor response. The test is diagnostic for accentuated postural tachycardia. --- Echo 10/03/2022 CONCLUSIONS: - Exam indication: Syncope - The left ventricle is normal in size. Left ventricular systolic function is normal. EF = 65 5% (2D biplane) Normal left ventricular diastolic function. - The right ventricle is normal in size. Right ventricular systolic function is normal. - There are no significant valvular abnormalities. - Estimated right ventricular systolic pressure is 15 mmHg consistent with normal pulmonary artery pressures. Estimated right atrial pressure is 3 mmHg based on IVC assessment. - The patient has not had a prior CC echocardiographic exam for comparison. --- QSART 01/12/2023 QSART responses at left forearm, proximal leg, distal leg, and foot are normal. There is no evidence of a significant postganglionic sympathetic sudomotor abnormality like that seen in autonomic or small fiber neuropathy. --- ANS w/o 01/12/2023 Heart rate response to deep breathing is normal via the mean heart rate range (MHRR) and the E:I ratio. Heart rate response to the Valsalva maneuver, as assessed by the Valsalva ratio, is normal. Blood pressure responses to phase II and phase IV of the Valsalva maneuver are normal, in the setting of poor effort. Tilt portion of the test was not performed as per referring physician's request. This is a normal cardiovascular autonomic test panel. There is no evidence of a significant cardiovagal or cardiovascular adrenergic abnormality. --- General Examination: BP 103/57 (BP Site: Right Arm, BP Position: Sitting, BP Cuff Size: Regular Adult) Pulse (!) 59 Ht 167.6 cm (5' 6) Wt 72.6 kg (160 lb) LMP 10/17/2023 SpO2 99% BMI 25.82 kg/m 01/12/24 1118 BP: 103/57 BP Site: Right Arm BP Position: Sitting BP Cuff Size: Regular Adult Pulse: (!) 59 SpO2: 99% Weight: 72.6 kg (160 lb) Height: 167.6 cm (5' 6) Neurological Examination: Cognition The patient is alert and attentive during conversation. Able to provide detailed medical hx. Speech Speech is normal in fluency, volume, and clarity. No dysarthria. Content and syntax are coherent. Cranial Nerves No ptosis. No gross asymmetry. Tone and Bulk No apparent muscle atrophy. Gait Able to stand without upper body assistance. Normal casual gait. Subjective Patient-Entered Data: PROMIS-10 01/08/2024 10/17/2023 PROMIS 10 Health, in general Fair Fair Quality of life, in general Fair Fair Physical health, in general Good Good Mental health, in general Poor Poor Social activities satisfaction Fair Fair Performing ADL's Moderately Moderately Social role satisfaction Good Good Pain, on average 5 5 Fatigue, on average Very severe Very severe Emotional problems Always Always PHYSICAL Score 34.9 (Poor) 34.9 (Poor) MENTAL Score 28.4 (Poor) 28.4 (Poor) PHQ-9 01/10/2024 11/21/2023 PHQ-9 All Questions Little interest or pleasure in doing things 1 3 Feeling down, depressed, or hopeless 1 3 Trouble falling or staying asleep, or sleeping too much 3 3 Feeling tired or having little energy 3 3 Poor appetite or overeating 2 3 Feeling bad about yourself - or that you are a failure or have let yourself or your family down 1 3 Trouble concentrating on things, such as reading the newspaper or watching television 2 3 Moving or speaking so slowly that other people could have noticed. Or the opposite - being so fidgety or restless that you have been moving around a lot more than usual 1 3 Thoughts that you would be better off , or of hurting yourself in some way 1 1 PHQ-9 Score 15 25 (0-4) minimal depression (5-9) mild depression (10-14) moderate depression (15-19) moderately severe depression (20-27) severe depression EFRAÍN-7 01/10/2024 11/21/2023 EFRAÍN-7 All Questions Feeling nervous, anxious, or on edge Several days Nearly Everyday Not being able to stop or control worrying Several days Nearly Everyday Worrying too much about different things Several days Nearly Everyday Trouble relaxing More than half the days Nearly Everyday Being so restless that it is hard to sit still Several days Several days Becoming easily annoyed or irritable Several days Several days Feeling afraid, as if something awful might happen More than half the days Nearly Everyday EFRAÍN-7 Score 9 17 (0-5) mild anxiety (6-10) moderate anxiety (11-15) moderately severe anxiety (16-21) severe anxiety Sleep 01/10/2023 -- Snore Loudly No Tired, fatigued or sleepy in daytime Yes Stop breathing or choking/gasping during sleep No High blood pressure No Probability of moderate-severe sleep apnea (%) SAPS V2 3 (Sleep study not recommended) No data to display Assessment & Plan 01/12/2024 - Neuromuscular, Beau Pineda, KAMAR.SENIOR BENEFITS ANALYST ASSESSMENT Josafat Mcgee is a 18 year old here today for follow up. Josafat Mcgee has a has a pastmedical history of Asthma, Ovarian cyst, POTS (postural orthostatic tachycardia syndrome), Seasonalallergies, and Vasovagal syncope. Seen initially for symptom onset after undiagnosed viral illness in 2019. EPS tilt in 10/2022 demonstrating POTS and vasovagal syncope. Also reported vertiginous symptoms consistent with BPPV, as well as aural fullness and L sided tinnitus. Reportedly had unilateral hearing loss on local audiogram, but ENT did not recommend MRI IAC. I requested ENT records and did not receive these. Midodrine 2.5 mg TID started last visit, and working very well in the interim. She reports having syncopal episodes only ~1x per week. She does note more issues with low BG. We discuss reactive hypoglycemia is a common occurrence withPOTS and ANS dysfunction. She does endorse some intermittent paresthesias, will monitor BG at home (does have a monitor). PLAN 1) Labs 2) Consult to endocrinology 3) Dietary considerations: -Try to eat smaller, more frequent meals (4-6x per day). -Try for lower carb diet. 4) Reactive hypoglycemia info sent via [facility] Return in about 3 months (around 04/13/2024). My impression and recommendations were discussed at length with the patient (and family members, ifpresent). The patient and family (if present) voiced understanding to my recommendations. All questions were answered. Medication side effects discussed as applicable. The patient was provided with adetailed after visit summary highlighting my impression and recommendations. I spent a total of 20 minutes on the date of the service which included preparing to see the patient, [id number] patient care, completing clinical documentation, obtaining and/or reviewing separately obtained history, counseling and educating the patient/family/caregiver, and ordering medications, tests, or procedures. Beau Pineda APRN.[facility] General Neurology [address] [place]. [address] Appointment: [phone] During our face to face clinical encounter we discussed my concerns neurologically in terms of diagnosis, impact on health and activities of living, and addressed questions. I tried to reassure the patient and also address questions. I explained to the patient to call if any questions, to review res ults, and I want to see them return for neurological follow up as mychart as next steps of communication is agreed upon Patient verbalizes understanding and I have addressed concerns and questions at this visit Patient has my contacts, educational material provided, and my chart sign up. After visit summary discussed. 1. This office note has been dictated and may contain minor typographic errors that escaped review. 2. The nursing staff and medical assistants are a major part of YOUR TREATMENT TEAM and will be handling your phone calls and inquiries, if any. Unless explicitly told otherwise at the time of your office visit, your study results and ensuing treatment plans will be discussed during your follow-up appointment. If you do not have a follow-up appointment and wish to discuss any issues directly withme, please feel free to obtain one. 3. It is my practice to not fill disability or any other insurance-related forms/documention. All of the office notes, study results, and other pertinent documentation generated as part of your evaluation will be available to you and to your Primary Care Physician (PCP). Use of this material to complete such forms will be at the discretion of your PCP/referring physician documented in this encounterOhiohealth03-19-2024 Miscellaneous Notes* Telephone Encounter - Char Vera RN - 01/09/2024 10:04 AM EDT Last OV: 10/17/23 Last Refill: 10/17/23 FU OV: 01/12/24 Appropriate for refill routed to for review Arti Vera RN documented in this encounterOhiohealth02-29-2024 Miscellaneous Notes* Telephone Encounter - Katelin Morel MD - 12/21/2023 12:55 PM EST This has already been fully completed by Neurology SENIOR BENEFITS ANALYST and is in the medical records. * Telephone Encounter - Susana Pérez Ma - 12/14/2023 10:20 AM EST Form in bin for review Susana Pérez Ma documented in this encounterOhiohealth02-27-2024 Miscellaneous Notes* Telephone Encounter - Beau Pineda APRN.BLU - 12/19/2023 1:39 PM EST I completed this for her, it is in my box. I am in a research meeting but Clarice if you are able to come grab and please send for her. Let her know in the future we may take up to 4 weeks for paperwork, as this is our office policy. ES * Telephone Encounter - Char Vera RN - 12/19/2023 12:41 PM EST Patient [facility] to be able to have her own room with a personal shower. Arti Vera RN, BSN documented in this encounterOhiohealth02-01-2024 History of Present illness Narrative* Ailin Galo APRN.BLU - 11/23/2023 8:02 AM EST FOLLOW UP - PSYCHIATRIC PROGRESS NOTE Visit Type:Virtual Visit utilizing two-way audio and video for at least a portion of the visit. Consent for virtual visit obtained verbally. Confidentiality limitations with virtual visits reviewed with the patient and guardian, if present, who have accepted the risk verbally prior to proceeding with encounter. I have communicated my name and active licensure. The patient's identity and physical location were verified at the time of this visit. Either the patient or their legal technology sales representative has been informed of the risks and benefits of -- and alternatives to -- treatment through a remote evaluation and consents to proceed with the evaluation remotely. Reason for Visit: Outpatient follow-up and safety monitoring of previously prescribed psychiatric medication, psychotherapy or other treatment CC: Follow up regarding psychiatric medication management. HPI: Treatment plan from last visit on 08/24/2023: 1. Utilize hydroxyzine 10 mg dose during the day time to manage breakthrough anxiety symptoms. 2. Increase Prozac to 40 mg to address anxiety and mood symptoms. 3. Continue Hydroxyzine 25 mg at bedtime. Today Nicole shares that I am goof. Discussed elevated EFRAÍN-7 and PHQ-9 scores. I am a college student and the whole roommate situation is tough. Roommate tends to cuss a lot. I am very much a goody goody and she is not. Has talked to her roommate about her concerns and she has not been responsive. She is trying to cope with the situation. Cannot afford a different room. Does have friends who she can be with if she does not want to be in her room. A family friend was recently placed on hospice due to advancement of cancer. She can't see her as the family friend does not want visitors. Does feel that the situation has impacted her mood and anxiety. She has cheer practice. Tournament are every weekend. They travel to [place] and [place]. Feels like it is stressful and stress relief at the same time. 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 She does feel that Prozac has been helpful. Shares that she has struggled with taking it consistently. Is planning to use a pill box so she can take it more consistently. Asked about weight gain side side effects related to Prozac. She has been taking hydroxyzine to help with sleep. Has been recovering from a neck injury due to cheer. Has done accupuncture and it has helped relieve some pain. Takes hydroxyzine at the lower dose just as needed. Risks and benefits of the medication, including any black box warnings, were discussed with the patient. Interval Progress: Slightly worse PATIENT DATA: Generalized Anxiety Disorder Scale (EFRAÍN-7) EFRAÍN - 7 SCORES 08/24/2023 10/17/2023 11/21/2023 EFRAÍN-7 Score 10 17 17 (0-4) minimal anxiety, (5-9) mild anxiety, (10-14) moderate anxiety, (15-21) severe anxiety Patient Health Questionnaire (PHQ-9) PHQ-9 08/24/2023 10/17/2023 11/21/2023 Score 9 19 25 (0-4) minimal depression, (5-9) mild depression, (10-14) moderate depression, (15-19) moderately severe depression, (20-27) severe depression PROMIS Global Health PROMIS Global Health - (T-Scores - the mean of general population = 50. Five points is a clinicallymeaningful difference.) 09/28/2022 07/09/2023 10/17/2023 Physical T-Score 42.3 50.8 34.9 Mental T-Score 38.8 41.1 28.4 PAST MEDICAL HISTORY Diagnosis Date Asthma Ovarian cyst POTS (postural orthostatic tachycardia syndrome) Seasonal allergies Vasovagal syncope PAST SURGICAL HISTORY Procedure Laterality Date FINGER SURGERY HX Current Outpatient Medications Medication Sig Dispense Refill midodrine (PROAMATINE) 2.5 mg tablet Take 1 tablet by mouth three times a day. 270 tablet 0 FLUoxetine (PROZAC) 40 mg capsule Take 1 capsule by mouth once daily. 90 capsule 0 cetirizine (ZYRTEC) 10 mg tablet Take 1 tablet by mouth once daily. fluticasone (FLOVENT HFA) 110 mcg/actuation inhaler Inhale 2 Puffs as instructed twice daily. pantoprazole DR (PROTONIX) 40 mg tablet Take 40 mg by mouth once daily. albuterol HFA (PROVENTIL HFA, VENTOLIN HFA) 90 mcg/actuation inhaler Inhale 2 Puffs as instructed every 6 hours as needed for wheezing/shortness of breath. 1 Each 0 Current Facility-Administered Medications Medication Dose Route Frequency Provider Last Rate Last Admin perflutren lipid microspheres 1.3 mL in NaCl (PF) 0.9% 10 mL injection (DEFINITY) INTRAVENOUS DIRECTED PRN Dean Jackson MD sodium chloride 0.9 % (flush) 10 mL (BD POSIFLUSH) 10 mL INTRAVENOUS DIRECTED PRN Dean Jackson MD ROS: See HPI PFSH: See HPI VITAL SIGNS: There were no vitals filed for this visit. MENTAL STATUS EXAM: CONSTITUTIONAL: Well groomed, Appropriately dressed ORIENTATION: Person, Place, Time and Situation MEMORY: Recent intact, Remote intact, Immediate intact CONCENTRATION: Normal MOOD: sad AFFECT: Full and appropriate to topic SPEECH : Clear & distinct LANGUAGE : Normal ASSOCIATIONS: Intact THOUGHT PROCESS : Logical, Coherent, and Rational PROGRESSION : There was no evidence of disturbance in thought perception or progression. FUND OF KNOWLEDGE : Appropriate and Adequate SUICIDE: None HOMICIDE: None DATA REVIEWED: Psychiatric scales and Electronic medical record DIAGNOSIS: PRIMARY: Generalized Anxiety Disorder Secondary : MDD, recurrent, moderate Other : none GAF: -60-51 Moderate symptoms or moderate difficulty in social, occupational or school functioning. TREATMENT PLAN: 1. Discussed taking Prozac more consistently. 2. Continue taking Hydroxzyine at the same dose at night and as needed. 3. Discussed coping with stress related to her room mate situation and how it impacts her mental health. Patient aware to reach out to this provider if the situation with the room mate becomes worse and impacts her mental health further. MEDICATION CHANGES: Current medication regimen unchanged. Prescriptions given Follow Up: 3 months I spent a total of 28 minutes on the date of the service which included preparing to see the patient, [id number] patient care, completing clinical documentation, obtaining and/or reviewing separately obtained history, counseling and educating the patient/family/caregiver, ordering medications, deon ts, or procedures, communicating with other HCPs (not separately reported), independently interpreting results (not separately reported), and communicating results to the patient/family/caregiver. ADD ON PSYCHOTHERAPY CODE : No SIGNATURE: Ailin Galo APRN.CNP PATIENT NAME: Josafat Mcgee DATE: November 23, 2023 TIME: 8:02 AM documented in this encounterOhiohealth09-21-2023 Instructions* Patient Instructions* Ailin Galo APRN.CNP - 07/13/2023 4:02 PM EDT Maru Alvarado, It was good to meet and talk with you today. Below is a summary of the plan that we discussed during your appointment for reference. Of course, if you have any questions or concerns do not hesitate to reach out to me via a message or call. Best, Ailin Galo APRN.CNP PLAN AND FOLLOW UP: YOU SHOULD SEEK IMMEDIATE MEDICAL ATTENTION AT THE NEAREST EMERGENCY DEPARTMENT OR BY CALLING 911, IF ANY OF THE FOLLOWING OCCURS: - New or worsening thoughts of harming yourself (suicidal thoughts) or others (homicidal thoughts) - Not feeling safe at home or worrying about your ability to remain safe at home If you are having thoughts of harming yourself or others, then you can: - Call the National Suicide Hotline at 7-262-YZUHXAK ( ) or 2-585-929-TALK (8695) - Text 4HOPE to 162486 Medication Update: - Prozac 10 mg - take 2 tablets once daily for 7 days, then take 3 tablets once daily after that. - Hydroxyzine 25 mg - take 1/2 to 1 tablet during the day for anxiety symptoms as needed and 1 to 2tablets at bedtime to manage difficulty sleeping and anxiety. Next appointment: --Schedule in 6 weeks or sooner if needed -- You may call the department appointment line at [phone] to schedule your appointment. -- Please call my nurse Lisbeth at [phone] or send me a message in [employer] with any questions or concerns between appointments. documented in this encounterOhiohealth09-21-2023 History of Present illness Narrative* Ailin Galo APRN.CNP - 07/13/2023 3:01 PM EDT Images from the original note were not included. PSYC NEW - PSYCHIATRIC ASSESSMENT Patient was seen for an initial evaluation. With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 must be at an angle. Raising only the head portion of the bed at waist level or using pillows will not be effective. Raising the head of the bed will reduce urine formation overnight and there will be more volume in the circulation in the morning. Use physical counter maneuvers such as leg crossing, or leg raising and resting the leg on a chair.These maneuvers increase blood pressure and can improve orthostatic intolerance quickly and transiently. documented in this encounterOhiohealth03-23-2023 History of Present illness Narrative* Beau Pineda APRN.[facility] - 01/12/2023 10:08 AM EDT Images from the original note were not included. [facility] New Patient Evaluation Chief Complaint/Issues: Josafat Mcgee is a 17 year old right-handed female seen in the [facility] for: New patient POTS HPI: Seen by Dr. Jackson 01/02/2023: Today 01/02/2023: Discussed that the Tilt Table Test 10/2022 showed accentuated postural tachycardia that can be interpreted in her clinical context as consistent with Postural Tachycardia Syndrome (POTS), as well as ablood pressure decrease possibly from vasovagal syncope though her starting blood pressures were already on the lower side around 94/60 mmHg supine. She reports she was diagnosed with sensory neuropathy. QSART and Autonomic Reflex testing will be requested to assess for autonomic neuropathy / autonomicdysfunction. We discussed evaluation by the Neuro Autonomic Section for possible autonomic neuropathy / autonomic dysfunction and the patient agrees. Today we discuss her symptoms: Her mom, Corrine handy. Her symptoms started in 2019. She thinks maybe she had COVID around that time, she had a significant respiratory illness in the end of 2018. Her biggest ongoing symptoms are: 1) Dizziness -Spinning -When standing or just after sitting -Comes with lightheadedness; Occasionally gets dizzy without lightheadedness -Sometimes head turns can trigger, sometimes rolling in bed -Lasts for a few minutes -Sometimes tinnitus, usually L +Aural fullness -Did fail hearing test at school, saw ENT locally 2) Lightheadedness 3) Fatigue -Waking up and has trouble falling asleep -Sometimes wakes up with heart racing -No snoring 4) Tremulousness -With lightheadedness -Feels weak sometimes 5) Fainting -Around the same time as other orthostatic onset (2019) -1-2 x per week -Quick standing, over-heating (shower) -Never while supine, a few while sitting after prolonged standing -Prodromal lightheadedness, dizziness, spaces out (can stare off with no reaction) -Typical LOC 1 minute or less -No incontinence, no mouth maceration -She often has a headache afterwards, usually no confusion 6) Headaches Headache Description Onset: Since childhood, had headaches with allergies previously Total headache days per month: 12 per month, rarely getting a severe headache Headache free days: Yes Duration of attacks: hours Severity of headaches? moderate Onset to Peak: can be sudden or gradual Location: frontal region bilateral and occipital region bilateral. Aura: Sparkles only before severe headache Prodrome:none. Accompanying symptoms: none. Quality:throbbing. Worse with activity: No Triggers: none. Cough/sneeze/valsalva as trigger: No Positional changes: No Most common time of day for headache to begin:anytime. -Takes ibuprofen 1-2 x per week; works okay for her PMH PAST MEDICAL HISTORY Diagnosis Date Asthma Ovarian cyst POTS (postural orthostatic tachycardia syndrome) Seasonal allergies Vasovagal syncope PAST SURGICAL HISTORY Procedure Laterality Date FINGER SURGERY HX ALLERGIES Allergen Reactions Seasonal Allergies Shortness of Breath Social History Tobacco Use Smoking status: Never Smokeless tobacco: Never Vaping Use Vaping Use: Never used Substance Use Topics Alcohol use: Not Currently Drug use: Never FAMILY HISTORY Problem Relation Age of Onset other (Venous insufficiency) Mother No Known Problems Father Arthritis Maternal Grandmother Coronary Artery Disease Maternal Grandfather COPD Maternal Grandfather Diabetes Maternal Grandfather Hypertension Maternal Grandfather Hypoglycemia Paternal Grandmother other (non-Hodgkins lymphoma) Paternal Grandmother Coronary Artery Disease Paternal Grandfather ROS Review of Systems Autonomic Screening Do you become dizzy or lightheaded with standing? yes Do you notice your heart racing (tachycardia) with postural change? yes Do you have syncope? yes In the past month, did you have any falls? no How long can you stand (in minutes) before becoming symptomatic? yes within 30 seconds - 1 minute Are symptoms worse after consuming a meal? no Are symptoms alleviated by sitting/laying down? yes Autonomic check list: YES (Y) or NO (N) Dry mouth: no Dry eyes: no Change in sweat: has never sweated much Constipation: no Abdominal Bloating with shortly after eating: no Fluctuation of diarrhea and constipation: no Urination: no Change in taste: no Challenge swallowing foods: no Skin changes of blue or redness to distal limbs: Raynaud's, hands turn white / blue Fainting /near syncope/syncope: yes Dizziness: yes Light headiness: yes Chest pain: yes Challenge in breathing: yes Tachycardia: yes Temperature Regulation: yes cold often Bright lights: no Numbness / tingling: yes comes and goes but happens often Hx of head/neck trauma? No Hx of severe viral illness? ? COVID 2019 Hx of autoimmune disease? No History of emotional or physical abuse? No Current management of orthostatic condition Diet: Standard Exercise: Lifting weights, walking Water: ~60 ounces Salt: Adding liquid IV and salt tablets Stockings: Does not wear Elevated HOB: mildly elevated Medications Current Outpatient Medications on File Prior to Visit Medication Sig pantoprazole DR (PROTONIX) 40 mg tablet Take 40 mg by mouth once daily. albuterol HFA (PROVENTIL HFA, VENTOLIN HFA) 90 mcg/actuation inhaler Inhale 2 Puffs as instructed every 6 hours as needed for wheezing/shortness of breath. Current Facility-Administered Medications on File Prior to Visit Medication perflutren lipid microspheres 1.3 mL in NaCl (PF) 0.9% 10 mL injection (DEFINITY) sodium chloride 0.9 % (flush) 10 mL (BD POSIFLUSH) Relevant Current Medications: None Medications tried previously (failed): None Relevant Work Up To Date Labs B12 WNL B1 WNL Hgb A1C Component Ref Range & Units 8 mo ago Sed Rate, Westergren 0 - 20 mm/hr 27 High Component Ref Range & Units 8 mo ago JUANITA by EIA, Qual Negative Positive Abnormal EPS Tilt 11/01/22 * FINAL IMPRESSIONS * - The test was stopped early at 10 out of 45 minutes of 70 degree tilt. - Systolic blood pressures were initially stable then decreased from 94 mmHg at start to 78 mmHg atend of tilt. - Diastolic blood pressures were initially stable then decreased from 60 mmHg at start to 50 mmHg at end of tilt. - Blood pressure upon return to supine position was 122/73 mmHg. - Heart rates increased from 80 bpm at start to 130 bpm at end of tilt. - Heart rate upon return to supine position was 80 bpm. - ECGs showed: sinus. - Patient signs/symptoms included: BLURRY VISION, CH. PAIN, DIZZINESS, FATIGUE, HEADACHE, HOT, LEG FATIGUE, SHORTNESS OF BREATH. - Overall: The test is positive and diagnostic for reflex vasovagal syncope with predominant vasodepressor response. The test is diagnostic for accentuated postural tachycardia. Echo 10/03/2022 CONCLUSIONS: - Exam indication: Syncope - The left ventricle is normal in size. Left ventricular systolic function is normal. EF = 65 5% (2D biplane) Normal left ventricular diastolic function. - The right ventricle is normal in size. Right ventricular systolic function is normal. - There are no significant valvular abnormalities. - Estimated right ventricular systolic pressure is 15 mmHg consistent with normal pulmonary artery pressures. Estimated right atrial pressure is 3 mmHg based on IVC assessment. - The patient has not had a prior CC echocardiographic exam for comparison. General Examination: BP 93/64 Pulse 84 Ht 170.2 cm (5' 7) Wt 74.8 kg (165 lb) LMP 11/06/2021 BMI 25.84 kg/m 01/12/23 0921 01/12/23 1036 01/12/23 1038 01/12/23 1039 BP: 93/64 Orthostatic BP: 106/54 119/47 103/61 BP Position: Supine Standing Standing Pulse: 84 Orthostatic Pulse: 64 104 105 Weight: 74.8 kg (165 lb) Height: 170.2 cm (5' 7) Neurological Examination: Cognition The patient is alert and oriented times four. Lucid and organized in conversation. Able to provide detailed medical hx. Speech Speech is Normal in fluency, volume, and clarity. No dysarthria. Content and syntax are coherent. Comprehension: Able to follow several step commands. Cranial Nerves PERRLA No ptosis. Visual mcdowell are full to confrontation. Extraocular movements are intact. Smooth saccades and pursuits. L beating nystagmus. Facial motor exam is strong and symmetric. Equal sensation of trigeminal nerve - V1,V2, and V3. Soft palate elevation is symmetric, tongue is in midline, no tongue fasciculation. Neck range of motion is full. Trapezius Strength is symmetric, graded 5/5. Tone and Bulk Tone and bulk is normal and preserved bilaterally of arms. Tone and bulk is normal and preserved bilaterally of legs. No apparent muscle atrophy. No pes cavus or hammer toes. Strength Right Left Shoulder Abduction 5/5 5/5 Elbow Flexion 5/5 5/5 Elbow Extension 5/5 5/5 Wrist Flexion 5/5 5/5 Wrist Extension 5/5 5/5 Finger Extension 5/5 5/5 Finger Flexion 5/5 5/5 Finger Abduction 5/5 5/5 Hip Flexion 5/5 5/5 Hip Adduction 5/5 5/5 Hip Abduction 5/5 5/5 Knee Flexion 5/5 5/5 Knee Extension 5/5 5/5 Ankle Dorsiflexion 5/5 5/5 Ankle Plantarflexion 5/5 5/5 Movement/Coordination Finger-to- nose-finger intact bilaterally. No evidence of ataxia arms. No limb dysmetria of arms and legs. No tremors. No extrapyramidal findings or dystonia. Sensation Intact to light touch, pinprick, and temperature sensation at toes and fingers, bilaterally. Normal proprioception (toe position and thumb). Normal finger vibration and toe vibration. Reflexes Right Left Bicep 1+/4 1+/4 Tricep 1+/4 1+/4 Brachioradialis 1+/4 1+/4 Patella 1+/4 1+/4 Ankle 1+/4 1+/4 No Clonus. Negative Babinski (toes curl down). Wilcox sign not present. Gait Able to stand without upper body assistance. Normal station and stride. No festination or retropulsion. Good arm swing and body turn. Normal toe, heel, and tandem walk. Romberg's sign is negative, but with axial sway. Assessment & Plan 01/12/2023 - Neuromuscular, Beau Pineda, SCALES INSPECTOR.SENIOR BENEFITS ANALYST ASSESSMENT Josafat Mcgee is a 17 year old here today for initial evaluation. Josafat Mcgee has a has a past medical history of Asthma, Ovarian cyst, POTS (postural orthostatic tachycardia syndrome),Seasonal allergies, and Vasovagal syncope. She has onset of POTS symptoms after undiagnosed viral illness in 2019. She has POTS and vasovagal syncope diagnosed via EPS tilt in 10/2022. Biggest ongoing symptoms of orthostatic lightheadedness, fatigue. Will check fatigue labs. She has approximately 12 headaches per month, consistent with tension headache. Getting migraines few and far between. Using ibuprofen 1-2 x per week with good relief. Ibuprofen working for migraine relief PRN as well. She has episodes of TLOC a few times per week. Most consistent with vasovagal syncope. No concern for seizure. On ROS she does not have any concerning symptoms for autonomic dysfunction. She has no small or large fiber neuropathy on exam. Although autonomic testing and QSART not finalized, we review in the office today these look normal. She has vertiginous symptoms consistent with BPPV. She has L sided tinnitus and aural fullness, hasdecreased hearing on audiogram per reports, I recommend follow up locally with established ENT. Unilateral hearing loss should warrant MRI IAC but I will defer to them. She can follow up PRN. PLAN 1) Labs (fasting) 2) Follow up with your ENT for dizziness and recommend audiogram 3) Vestibular therapy 4) SMA Return if symptoms worsen or fail to improve. My impression and recommendations were discussed at length with the patient (and family members, ifpresent). The patient and family (if present) voiced understanding to my recommendations. All questions were answered. Medication side effects discussed as applicable. The patient was provided with adetailed after visit summary highlighting my impression and recommendations. I spent a total of 45 minutes on the date of the service which included preparing to see the patient, [id number] patient care, completing clinical documentation, obtaining and/or reviewing separately obtained history, performing a medically appropriate examination, counseling and educating the pat ient/family/caregiver, and ordering medications, tests, or procedures. Beau Pineda APRN.[facility] General Neurology [address] [place]. [address] Appointment: [phone] CONSULT: Consultation requested by Dr. Jackson for an opinion regarding POTS; transient loss of consciousness. My final recommendations will be communicated back to the requesting physician by way of shared Medical record or letter to requesting physician via US mail. During our face to face clinical encounter we discussed my concerns neurologically in terms of diagnosis, impact on health and activities of living, and addressed questions. I tried to reassure the patient and also address questions. I explained to the patient to call if any questions, to review res ults, and I want to see them return for neurological follow up as mychart as next steps of communication is agreed upon Patient verbalizes understanding and I have addressed concerns and questions at this visit Patient has my contacts, educational material provided, and my chart sign up. After visit summary discussed. 1. This office note has been dictated and may contain minor typographic errors that escaped review. 2. The nursing staff and medical assistants are a major part of YOUR TREATMENT TEAM and will be handling your phone calls and inquiries, if any. Unless explicitly told otherwise at the time of your office visit, your study results and ensuing treatment plans will be discussed during your follow-up appointment. If you do not have a follow-up appointment and wish to discuss any issues directly withme, please feel free to obtain one. 3. It is my practice to not fill disability or any other insurance-related forms/documention. All of the office notes, study results, and other pertinent documentation generated as part of your evaluation will be available to you and to your Primary Care Physician (PCP). Use of this material to complete such forms will be at the discretion of your PCP/referring physician documented in this encounterOhiohealth03-23-2023 History of Present illness Narrative* Zeenat Zaidi - 01/12/2023 7:37 AM EDT UNIVERSAL PROTOCOL / SAFETY CHECKLIST Procedure to be Performed: QSART & ANS W/O TILT Sign In: A Moment of CARE was completed. Personnel directly involved with the procedure wore the appropriate PPE (Personal Protective Equipment). Patient/Surrogate Stated/Verified: PATIENT VERIFIED(optional for EMERGENT procedures): Patient name, Date of , Relevant allergies, and The intended procedure Time Out Communication: Intended patient and procedure match the source documents. Correct side/site marked and visible. Medications required for procedure verified. Sign Out: SIGN OUT (optional for EMERGENT procedures): Post-procedure follow-up management communicated and Plan of Care Visit completed when applicable. Zeenat Zaidi documented in this [facility]03-20-2023 Miscellaneous Notes* Telephone Encounter - Zeenat Zaidi - 01/09/2023 11:35 AM EDTSummary: IMPORTANT MEDICATION INSTRUCTIONS FOR AUTONOMIC TESTING 01/12-QSART & ANS W/O TILT Spoke with Corrine ragsdale mother (OK per patient) on 01/09/2023 regarding testing and medication instructions. The medication(s) listed below will need to be stopped prior to Autonomic testing. Patient was instructed to contact their prescribing physician to ensure it is safe to discontinue the medication(s) and to receive the proper tapering instructions, if necessary. Patient instructed to not discontinueany medications without consulting their prescribing physician. [facility] recommended the following medication discontinuation lengths andinstructions: The following medications need to be stopped for 2 days prior to testing -Zyrtec -sodium chloride No Cannabidiol (CBD) oil or inhaled marijuana 7 days prior to testing No OVER THE COUNTER cold and cough medications, antihistamines, allergy medications, aspirin, or diuretics 48 hours prior to testing No alcohol 14 hours prior to testing No smoking/vaping or any form of nicotine 4 hours prior to testing No food or drinks that contain caffeine 4 hours prior to testing No lotion the day of testing Wear loose clothing in order to have arms and legs accessible for testing Bring your medications with you to take after the test, if necessary documented in this encounterOhiohealth03-13-2023 History of Present illness Narrative* Dean Jackson MD - 01/02/2023 4:15 PM EDT [facility] [place] Department of Cardiovascular Medicine VIRTUAL VIDEO VISIT ESTABLISHED OUTPATIENT VISIT SERVICE DATE: 01/02/2023 Patient: Josafat Mcgee SERVICE TIME: 3:30 PM : 2005 This is a virtual video visit. It required patient-provider interaction for the medical decision making as documented below. Josafat Mcgee has consented to this video encounter. CHIEF COMPLAINT syncope HISTORY OF PRESENT ILLNESS Josafat Mcgee is a 17 year old female who presents today for dizziness and TLOC. She presentsto review her TILT test results. Her medical history is significant for asthma r/t seasonal allergies, untreated anxiety, insomnia, and COVID-19 infection 06/2021. She follow with Pediatric Neurology for suspected dysautonomia and has been referred to Rheumatology (positive JUANITA, borderline ESR, negative antibodies). Patient also reports hypermobile joints. She was last seen 09/13 following which she underwent a TILT test 11/01/22 that was positive and diagnostic for reflex vasovagal syncope with predominant vasodepressor response. The test is diagnosticfor accentuated postural tachycardia. She reports one recent episode of syncope that occurred last week. Overall, she denies any significant change in her symptoms since her last office visit. She is currently involved in drama class at school and has been increasingly busy due to this. Echo 10/03/22 showed her LVEF at 65%. PAST MEDICAL HISTORY Diagnosis Date Asthma Ovarian cyst Seasonal allergies PAST SURGICAL HISTORY Procedure Laterality Date FINGER SURGERY HX FAMILY HISTORY Problem Relation Age of Onset other (Venous insufficiency) Mother No Known Problems Father Arthritis Maternal Grandmother Coronary Artery Disease Maternal Grandfather COPD Maternal Grandfather Diabetes Maternal Grandfather Hypertension Maternal Grandfather Hypoglycemia Paternal Grandmother other (non-Hodgkins lymphoma) Paternal Grandmother Coronary Artery Disease Paternal Grandfather Social History Tobacco Use Smoking status: Never Smokeless tobacco: Never Vaping Use Vaping Use: Never used Substance Use Topics Alcohol use: Not Currently Drug use: Never ALLERGIES Allergen Reactions Seasonal Allergies Shortness of Breath CURRENT MEDICATIONS predniSONE (DELTASONE) 10 mg tablet^^Disp: ^Rfl: pantoprazole (PROTONIX) 40 mg tablet^Take 40 mg by mouth once daily.^Disp: ^Rfl: albuterol HFA (PROVENTIL HFA, VENTOLIN HFA) 90 mcg/actuation inhaler^Inhale 2 Puffs as instructed every 6 hours as needed for wheezing/shortness of breath.^Disp: 1 Each^Rfl: 0 TILT TEST: 11/01/22 * FINAL IMPRESSIONS * - The test was stopped early at 10 out of 45 minutes of 70 degree tilt. - Systolic blood pressures were initially stable then decreased from 94 mmHg at start to 78 mmHg atend of tilt. - Diastolic blood pressures were initially stable then decreased from 60 mmHg at start to 50 mmHg at end of tilt. - Blood pressure upon return to supine position was 122/73 mmHg. - Heart rates increased from 80 bpm at start to 130 bpm at end of tilt. - Heart rate upon return to supine position was 80 bpm. - ECGs showed: sinus. - Patient signs/symptoms included: BLURRY VISION, CH. PAIN, DIZZINESS, FATIGUE, HEADACHE, HOT, LEG FATIGUE, SHORTNESS OF BREATH. - Overall: The test is positive and diagnostic for reflex vasovagal syncope with predominant vasodepressor response. The test is diagnostic for accentuated postural tachycardia. Echo: 10/03/2022 CONCLUSIONS: - Exam indication: Syncope - The left ventricle is normal in size. Left ventricular systolic function is normal. EF = 65 5% (2D biplane) Normal left ventricular diastolic function. - The right ventricle is normal in size. Right ventricular systolic function is normal. - There are no significant valvular abnormalities. - Estimated right ventricular systolic pressure is 15 mmHg consistent with normal pulmonary artery pressures. Estimated right atrial pressure is 3 mmHg based on IVC assessment. - The patient has not had a prior CC echocardiographic exam for comparison. Ashleigh Norwood RN January 02, 2023 3:00 PM * Dean Jackson MD - 01/02/2023 4:09 PM EDT I personally reviewed the above information as obtained by the nurse and confirmed the findings. Additional HPI: 17 year old female with a past medical history of: PAST MEDICAL HISTORY Diagnosis Date Asthma Ovarian cyst Seasonal allergies PAST SURGICAL HISTORY Procedure Laterality Date FINGER SURGERY HX History as taken on 09/01/2022: TLOC this year dizziness / lightheadedness for the past couple years has dizziness upon standing LOC 7 to 10 episodes this year LOC duration unknown, maybe a minute, has had an episode while sitting, but now while lying down per her mother, she likely had COVID in the beginning of the pandemic but no testing this is occurred prior to symptoms also had Influenza A couple months later 11/2019 Symptoms worsened with menstruation? n Currently ?: n. 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 Mcgee is a 17 year old female who is seen today for orthostatic hypotension. Her medical history is significant for asthma r/t seasonal allergies, untreated anxiety, insomnia, and COVID-19 infection 06/2021. She follow with Pediatric Neurology for suspected dysautonomia and has been referred to Rheumatology (positive JUANITA, borderline ESR, negative antibodies). Patient also reports hypermobile joints. She reports intermittent lightheadedness and dizziness over the past few years with first presyncopal episode in 12/2016. She has also reported tachypalpitations and intermittent sharp chest pains. Echo (11/2020) and Holter monitor (09/2021) were normal. Blood pressure was stable with orthostatic VS; slight increase in heart rate noted upon standing. Patient reports postural dizziness. She reports episodes of transient loss of conscious that are becoming more frequent - recently 1-2 times weekly. She gets prodromal symptoms of blurred vision and she zones out and can't hear or respond to people. Loss of consciousness is unknown (though witnesses report a few minutes). She gets hea daches when she wakes up. She denies convulsions, tongue biting, or loss of bowel or bladder. She reports daily symptoms of near loss of consciousness with lightheadedness and dizziness. She drinks 96 oz of water, occasional Body Thompson daily. She uses salt tablets (1 g daily) and eatssalty snacks. She abstains from caffeine and alcohol. She occasionally wears knee-high compression socks. She exercises at [employer] 6 days a week with weight lifting, cardio (elliptical, bike, etc.) She notes occasional non-exertional chest pressure or sharp pain (when lying down), shortness of breath, orthopnea, rare palpitations, and edema (attributes to salt tabes). She denies cough or PND. Prior testing (including outside reports) has included: OSH 24-HR HOLTER 09/22/2021: Interpretive Statements 1. Predominant rhythm: normal sinus rhythm (heart rate 53-150, mean 85 BPM). 2. No atrial ectopy. 3. No ventricular ectopy. 4. No atrioventricular block. Longest pause 1.5 seconds. 5. During symptoms of chest pain, dizziness, and palpitations, the rhythm was normal sinus and sinus tachycardia. Impression: Normal 24 hour Holter monitor study. No dysrhythmia during noted symptoms. OSH ECHO 12/18/2020: SUMMARY: Normal echocardiogram. TILT TEST: 11/01/22 * FINAL IMPRESSIONS * - The test was stopped early at 10 out of 45 minutes of 70 degree tilt. - Systolic blood pressures were initially stable then decreased from 94 mmHg at start to 78 mmHg atend of tilt. - Diastolic blood pressures were initially stable then decreased from 60 mmHg at start to 50 mmHg at end of tilt. - Blood pressure upon return to supine position was 122/73 mmHg. - Heart rates increased from 80 bpm at start to 130 bpm at end of tilt. - Heart rate upon return to supine position was 80 bpm. - ECGs showed: sinus. - Patient signs/symptoms included: BLURRY VISION, CH. PAIN, DIZZINESS, FATIGUE, HEADACHE, HOT, LEG FATIGUE, SHORTNESS OF BREATH. - Overall: The test is positive and diagnostic for reflex vasovagal syncope with predominant vasodepressor response. The test is diagnostic for accentuated postural tachycardia. Echo: 10/03/2022 CONCLUSIONS: - Exam indication: Syncope - The left ventricle is normal in size. Left ventricular systolic function is normal. EF = 65 5% (2D biplane) Normal left ventricular diastolic function. - The right ventricle is normal in size. Right ventricular systolic function is normal. - There are no significant valvular abnormalities. - Estimated right ventricular systolic pressure is 15 mmHg consistent with normal pulmonary artery pressures. Estimated right atrial pressure is 3 mmHg based on IVC assessment. - The patient has not had a prior CC echocardiographic exam for comparison. Interval History as taken today 01/02/2023 : here as followup VIDEO EXAM: (if completed, performed via video enabled technology) No exam performed Lab Results Component Value Date/Time HB 12.8 01/12/2022 01:18 PM K 4.1 01/12/2022 01:18 PM CREAT 0.70 01/12/2022 01:18 PM TSH 1.350 01/12/2022 01:18 PM Assessment and Recommendations Virtual/Phone visit provided today 01/02/2023. #. Transient loss of consciousness (TLOC). Tilt Table Test 10/2022 showed accentuated postural tachycardia that can be interpreted in her clinical context as consistent with Postural Tachycardia Syndrome (POTS), as well as a blood pressure decrease possibly from vasovagal syncope though her starting blood pressures were already on the lower side around 94/60 mmHg supine. On last (initial) visit 09/01/2022: The differential diagnosis includes orthostatic intolerance / reflex syncope vs neurologic etiologyvs cardiac etiology vs other. We discussed the importance of symptom correlation. A 45-minute passive Tilt Table Test (to the point of TLOC / near LOC) will be requested for furtherassessment; the risks, benefits, and alternatives were discussed with the patient and the patient consents to proceed. An Echocardiogram will be requested to assess for structural abnormalities. If ev aluation is unrevealing, then can consider regional intermodal truck driver cardiac monitoring (eg Event monitor). Today 01/02/2023: Discussed that the Tilt Table Test 10/2022 showed accentuated postural tachycardia that can be interpreted in her clinical context as consistent with Postural Tachycardia Syndrome (POTS), as well as ablood pressure decrease possibly from vasovagal syncope though her starting blood pressures were already on the lower side around 94/60 mmHg supine. She reports she was diagnosed with sensory neuropathy. QSART and Autonomic Reflex testing will be requested to assess for autonomic neuropathy / autonomicdysfunction. We discussed evaluation by the Neuro Autonomic Section for possible autonomic neuropathy / autonomic dysfunction and the patient agrees. We discussed POTS, its symptomatic implications, as well as the therapeutic options. Recommend increased sodium intake 5 grams sodium daily, and increased fluid intake at least 2 liters daily (eg water or sports drinks). The patient prefers a non-pharmacologic approach to POTS at this time. We discussed the possible benefit of cardiac rehabilitation / structured exercise using the protocol for POTS and the patient agrees; a referral was sent. Discussed that if medical therapy is needed in the future, can consider blood pressure support withmidodrine. #. Dizziness / lightheadedness. The following are also recommended: -Sit down or lie down when symptomatic -Caution with assuming upright position, especially at night and with use of the toilet. -Avoid dehydration -Adequate fluid hydration (eg Gatorade) -Avoid substances that cause vasodilation (eg alcohol) -Liberalize salt intake -Exercise regimen -Counter-pressure maneuvers -Consider using a Home Medical Alert System / Personal Emergency Response System -Local / state laws should be followed regarding driving. Otherwise, general recommendations include: -No private driving if symptoms occur while driving -No private driving for 1 month following an episode of syncope. [ACC/AHA Syncope Guidelines 2017. PMID 14849240] -If syncope is frequent (more than 6 episodes in 1 year), then no private driving until symptoms are controlled. [ACC/AHA Syncope Guidelines 2017. PMID [id number]] -For professional or commercial driving, driving recommendations may differ depending upon company or governmental regulations. The Nurses and Nurse Practitioners at [facility] are integral to your care. -*Test results will be available on [employer].* -For brief questions regarding the test results, please send a [employer] message or call the office ([phone]), and a Nurse will be in contact. -If you would prefer more extensive discussions of the test results and recommendations, you can request a follow up visit (which can be a Virtual Visit) with a Nurse Practitioner or with Dr Jackson. Dean Jackson MD, [facility], [facility] Cardiac Electrophysiology [facility] Thank you for your visit today. Our hope is to be able to provide you with further appropriate evaluation of your symptoms in order to arrive at a diagnosis, and to provide guidance for you and your primary physician as you continue to work together for your ongoing care. Our hope is to help guide you towards the best of health. Virtual Visit: I spent (Est Level 3) 13-19 minutes in total time involved in the care of this patient. documented in this encounterOhiohealth01-10-2023 History of Present illness Narrative* Monserrat Jauregui RN - 11/01/2022 12:00 PM EST UNIVERSAL PROTOCOL / SAFETY CHECKLIST Procedure to be performed: [facility]: TILT Sign in Communication: Completed Time Out: Team Confirms the Correct Patient, Correct Procedure, Correct Site and Site Marking, Correct Position (if applicable). Time: 1205 STAFF: NIHARIKA FISHMAN Affirmation of Time Out: YES Sign Out Discussion: Completed Addison Garcia RN Orders placed 09/01/[address] Dean Jackson MD Allergies: Seasonal Allergies Test done in consult with Dr. Dean Jackson MD . Procedure Start Time: 1205 Height 167.6 cm Weight 76.5 kg Patient fasting for 4 hours: Yes Support stockings taken off for procedure: Not applicable Pain Assessment: Patient states none Comfort Measures: Added pillow for head/shoulders Pacemaker: No IV Placement: in by Baseline: BP 94/60 HR 80 Pre-Max Tilt : 9 degrees 70 min BP 85/85 HR 132 Max Tilt: 10 degrees 70 min BP 78/50 HR 130 Test was stopped early at the 10 min into 70 degree HUT due to decrease in blood pressure, patient symptoms, and patient request to stop test and resume supine positioning. See Final Report for Diagnosis. IV discontinued at 1300 by . Staff involved in procedure: TURNER Vo RN Procedure Finish Time: 1249 documented in this encounterOhiohealth12-08-2022 History of Present illness Narrative* Shantell Albright MD - 09/29/2022 9:09 AM EST Images from the original note were not included. Rheumatology Clinic Date of Service: 09/29/2022 Patient: Josafat Mcgee Medical Record: [id number] Last Rheumatology visit: 09/29/2022 (with Shantell Albright) History of Present Illness Josafat Mcgee is a 17 year old White female who presents on 09/29/2022 for an in-person visit for evaluation of Positive JUANITA. Her most recent JUANITA was positive (04/26/2022). HISTORY OF PRESENT ILLNESS 17 year old female who presents for evaluation of Positive JUANITA completed in the setting of neuropathy work up. Past medical history: eczema, allergic asthma, seasonal allergies Medications: pantoprazole 10mg daily, albuterol as needed Surgical hx: vascular tumor She is being tested for possible POTs. She is being seen by neurology for evaluation of neuropathy. JUANITA was drawn for this work up which was notable to be 1:80. She was initially seen due to dizziness. She feels dizziness is dependant on position. She has alsohad variation in heart rate and blood pressure. She feels like when she is lying her heart rate is low, but when she is standing even for 10 minutes her heart rate has been in the 140s. When she stands up her blood pressure gets lower. This is when she feels dizziness. She does not have any dizziness when lying down. This has been going on for about 2 years. Noticed newly had to several cavities. She was seeing a new dentist at that time. ++acid reflux. No joint pain Hair is not growing Mild dry eye No oral or nasal ulcers No photosensitivity +Raynauds No fevers +headaches No seizures No malar rash No discoid rash No blood clots SOB: related to asthma No lower GI symptoms Family history: Maternal aunt: psoriasis, PsA, microscopic colitis Patient-Entered Data PROMIS Assessments PROMIS Global Health - (T-Scores - the mean of general population = 50. Five points is a clinicallymeaningful difference.) 09/28/2022 Physical T-Score 42.3 Mental T-Score 38.8 PROMIS CAT Pain Interference 09/28/2022 PROMIS Pain Interference T-Score (range: 10 - 90) 64 (moderate) PROMIS Pain Interference Percentile 8 % PROMIS CAT Fatigue 09/28/2022 PROMIS Fatigue T-Score 67 (moderate) PROMIS Fatigue Percentile 4 % PROMIS PHYSICAL FUNCTION T-SCORE 09/27/2022 PROMIS Physical Function T-Score 53 (within normal limits) Physical Function Percentile 62 % RAPID 3 [place] Activities of Daily Living 09/28/2022 11:23 AM Dress self? Without ANY difficulty Get in and out of bed? With SOME difficulty Walk outdoors? Without ANY difficulty Wash and dry body? With SOME difficulty Get in and out of car? Without ANY difficulty RAPID 3 Disease Activity Weighed Score Levels: 0 - 1: Near Remission 1.3 - 2.0: Low Severity 2.3 - 4.0: Moderate Severity 4.3 - 10.0: High Severity RAPID-3 Weighed Score 09/28/2022 RAPID 3 Weighed Score 3.56 (Moderate Severity (MS)) Patient Health Questionnaire (PHQ-9) PHQ-9 09/28/2022 Score 16 (0-4) minimal depression, (5-9) mild depression, (10-14) moderate depression, (15-19) moderately severe depression, (20-27) severe depression Review of Systems Review of Systems CONSTITUTION: Negative for: Fever and Recent weight change HEENT: Negative for: Nosebleeds, Mouth sores, Trouble swallowing and Dry mouth RESPIRATORY: Positive for: Cough, Shortness of breath and Pain with breathing Negative for: Coughing up blood GASTROINTESTINAL: Positive for: Heartburn and Abdominal pain Negative for: Melena and Diarrhea MUSCULOSKELETAL: Positive for: Myalgias Negative for: Arthralgias, Muscle weakness, Joint swelling and Morning Joint Stiffness NEUROLOGICAL: Positive for: Headaches, Numbness and Memory loss SKIN: Positive for: Skin changes Negative for: Rash, Hair loss and Nail changes EYES: Positive for: Eye pain, Eye dryness and Visual disturbance Negative for: Eye redness CARDIOVASCULAR: Positive for: Chest pain and Leg swelling GENITOURINARY: Negative for: Dysuria and Hematuria HEMATOLOGIC/LYMPHATIC: Negative for: Swollen glandsAll other reviewed and negative other than HPI. Current Medications Current Outpatient Medications on File Prior to Visit Medication Sig predniSONE (DELTASONE) [address] (PROTONIX) 40 mg tablet Take 40 mg by mouth once daily. albuterol HFA (PROVENTIL HFA, VENTOLIN HFA) 90 mcg/actuation inhaler Inhale 2 Puffs as instructed every 6 hours as needed for wheezing/shortness of breath. Current Facility-Administered Medications on File Prior to Visit Medication perflutren lipid microspheres 1.3 mL in NaCl (PF) 0.9% 10 mL injection (DEFINITY) sodium chloride 0.9 % (flush) 10 mL (BD POSIFLUSH) Labs Antibodies Latest Ref Rng & Units 04/19/2022 04/26/2022 JUANITA Negative - Positive(A) JUANITA BY EIA, QUAL Negative Positive(A) - JUANITA TITER - - 1:80 JUANITA PATTERN - - Nuclear homogenous DNA ANTIBODY W/CONFIRMATION <30 IU/mL - <12 FILTER MACHINE OPERATOR ANTIBODY QUAL Negative - Negative SSA ANTIBODY QUAL Negative - Negative EARLINE-1 ANTIBODY, IGG <1.0 AI - <0.2 EARLINE 1 ANTIBODY QUAL Negative - Negative RIBOSOMAL FILTER MACHINE OPERATOR AB <1.0 AI - <0.2 RIBOSOMAL FILTER MACHINE OPERATOR QUAL Negative - Negative ANTI-SSA <1.0 AI - <0.2 ANTI-SSB <1.0 AI - <0.2 ANTI-SM <1.0 AI - <0.2 SM ANTIBODY Negative - Negative SCL-70 AB QUAL Negative - Negative SCL-70 ABS, EIA <1.0 AI - <0.2 CENTROMERE AB <1.0 AI - <0.2 CENTROMERE AB QUAL Negative - Negative CHROMATIN AB <1.0 AI - <0.2 CHROMATIN AB QUAL Negative - Negative Imaging XR Foot 07/19/17: IMPRESSION: Mild tibiotalar joint effusion with no left foot fracture. Physical Exam BP 107/63 Pulse 78 Temp (Src) 97.2 (Temporal) Ht 5' 6 (1.68m) Wt 168 lb 9.6 oz (76.5kg) LMP 11/06/2021 BMI 27.23 kg/(m^2). Exam: GENERAL: Well appearing HEENT: NCAT, PERRLA, EOMI, no scleral icterus, oropharynx clear and without lesions/ulcers. CV: Normal rate, regular rhythm. No appreciable murmur/rub/gallop. PULM: Normal WOB and RR on RA. Lung mcdowell CTA bilaterally without appreciable wheezes or crackles. SKIN: Warm, dry, no significant rashes, no significant bruising. NEURO: A&Ox3. Mental status and speech normal. MSK: Shoulders: Intact ROM without reported pain. No appreciable swelling or tenderness with palpation. Elbows: No flexion contractures. No appreciable swelling, deformities, or tenderness with palpation. Wrists: No limitation of flexion or extension. No appreciable swelling or tenderness with palpation. Hands: No evidence of synovitis or tenderness with palpation. Able to make full fist bilaterally. Hips: Intact ROM. No tenderness with palpation. Knees: No gross deformity. No appreciable effusion. No tenderness with palpation of joint lines. Nojoint laxity and intact ROM. Ankles: No limitation of plantarflexion or dorsiflexion. No appreciable effusion. No tenderness with palpation. Feet: No evidence of synovitis or tenderness with palpation. Impression and Plan Diagnoses: (R76.8) Positive JUANITA (antinuclear antibody) (primary encounter diagnosis) (G62.9) Neuropathy 17 year old female who presents for evaluation of Positive JUANITA completed in the setting of neuropathy work up. Past medical history: eczema, allergic asthma, seasonal allergies Her JUANITA ROS was positive for neuropathy, possible Raynauds, mild dry eye and acid reflux. Negative for photosensitive rash, oral ulcers, serositis, arthritis, malar or discoid rash. Her JUANITA was 1:80 with negative YESSICA panel and negative dsDNA. We discussed low suspicion for rheumatologic disease causing her symptoms at this time. Would recommend no further work up at this time. Can follow up as needed. Orders this visit: Office Visit on 09/29/22 predniSONE (DELTASONE) 10 mg tablet No follow-ups on file. CC: PCP: Katelin Morel MD [address] [place], [place] [id number] Phone #: [phone] I spent a total of 30 minutes on the date of the service which included preparing to see the patient, [id number] patient care, completing clinical documentation, obtaining and/or reviewing separately obtained history, performing a medically appropriate examination, and counseling and educating the patient/family/caregiver. Shantell Albright MD Rheumatology Date: September 29, 2022 Time: 9:09 AM documented in this encounterOhiohealth11-10-2022 History of Present illness Narrative* Dean Jackson MD - 09/01/2022 9:51 AM EST Images from the original note were not included. I personally reviewed the above information as obtained by the nurse and confirmed the findings. Chief Complaint: Transient loss of consciousness (TLOC) Additional HPI: 17 year old female with a past medical history of: PAST MEDICAL HISTORY Diagnosis Date Asthma Ovarian cyst Seasonal allergies PAST SURGICAL HISTORY Procedure Laterality Date FINGER SURGERY HX History as taken on 09/01/2022: TLOC this year dizziness / lightheadedness for the past couple years has dizziness upon standing LOC 7 to 10 episodes this year LOC duration unknown, maybe a minute, has had an episode while sitting, but now while lying down per her mother, she likely had COVID in the beginning of the pandemic but no testing this is occurred prior to symptoms also had Influenza A couple months later 11/2019 Symptoms worsened with menstruation? n Currently ?: n. 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 Mcgee is a 17 year old female who is seen today for orthostatic hypotension. Her medical history is significant for asthma r/t seasonal allergies, untreated anxiety, insomnia, and COVID-19 infection 06/2021. She follow with Pediatric Neurology for suspected dysautonomia and has been referred to Rheumatology (positive JUANITA, borderline ESR, negative antibodies). Patient also reports hypermobile joints. She reports intermittent lightheadedness and dizziness over the past few years with first presyncopal episode in 12/2016. She has also reported tachypalpitations and intermittent sharp chest pains. Echo (11/2020) and Holter monitor (09/2021) were normal. Blood pressure was stable with orthostatic VS; slight increase in heart rate noted upon standing. Patient reports postural dizziness. She reports episodes of transient loss of conscious that are becoming more frequent - recently 1-2 times weekly. She gets prodromal symptoms of blurred vision and she zones out and can't hear or respond to people. Loss of consciousness is unknown (though witnesses report a few minutes). She gets hea daches when she wakes up. She denies convulsions, tongue biting, or loss of bowel or bladder. She reports daily symptoms of near loss of consciousness with lightheadedness and dizziness. She drinks 96 oz of water, occasional Body Thompson daily. She uses salt tablets (1 g daily) and eatssalty snacks. She abstains from caffeine and alcohol. She occasionally wears knee-high compression socks. She exercises at [employer] 6 days a week with weight lifting, cardio (elliptical, bike, etc.) She notes occasional non-exertional chest pressure or sharp pain (when lying down), shortness of breath, orthopnea, rare palpitations, and edema (attributes to salt tabes). She denies cough or PND. Prior testing (including outside reports) has included: 24-HR HOLTER 09/22/2021: Interpretive Statements 1. Predominant rhythm: normal sinus rhythm (heart rate 53-150, mean 85 BPM). 2. No atrial ectopy. 3. No ventricular ectopy. 4. No atrioventricular block. Longest pause 1.5 seconds. 5. During symptoms of chest pain, dizziness, and palpitations, the rhythm was normal sinus and sinus tachycardia. Impression: Normal 24 hour Holter monitor study. No dysrhythmia during noted symptoms. ECHO 12/18/2020: SUMMARY: Normal echocardiogram. Family history: FAMILY HISTORY Problem Relation Age of Onset other (Venous insufficiency) Mother No Known Problems Father Arthritis Maternal Grandmother Coronary Artery Disease Maternal Grandfather COPD Maternal Grandfather Diabetes Maternal Grandfather Hypertension Maternal Grandfather Hypoglycemia Paternal Grandmother other (non-Hodgkins lymphoma) Paternal Grandmother Coronary Artery Disease Paternal Grandfather Pulse (!) 55 Ht 167.6 cm (5' 6) Wt 77.1 kg (170 lb) LMP 11/06/2021 BMI 27.44 kg/m BP w/Orthostatic Vitals Date and Time Orthostatic BP Orthostatic Pulse BP Pulse BP Position BP Site BP Cuff Size 09/01/22 0859 95/64 83 -- -- Standing -- -- 09/01/22 0857 101/67 68 -- -- Sitting -- -- 09/01/22 0855 99/63 64 -- -- Supine -- -- 09/01/22 0851 -- -- -- 55 -- -- -- General/Constitutional: no acute distress, well appearing Psych: alert and oriented Skin: intact Eyes: EOMI ENT: mask worn Cardiovascular: regular, normal S1 and S2 without S3 or S4, no significant murmurs, no significant lower extremity edema, no carotid bruit Resp: lungs generally clear to auscultation bilaterally, lungs with equal air entry bilaterally Neuro: no obvious focal motor deficits Musculoskeletal: normal musculature Lab Results Component Value Date/Time HB 12.8 01/12/2022 01:18 PM K 4.1 01/12/2022 01:18 PM CREAT 0.70 01/12/2022 01:18 PM TSH 1.350 01/12/2022 01:18 PM ECG 09/01/2022 : sinus 55 bpm, sinus arrhythmia, jeremy 158, qrs 94, qt 392/375 Assessment and Recommendations #. Transient loss of consciousness (TLOC). 09/01/2022: The differential diagnosis includes orthostatic intolerance / reflex syncope vs neurologic etiologyvs cardiac etiology vs other. We discussed the importance of symptom correlation. A 45-minute passive Tilt Table Test (to the point of TLOC / near LOC) will be requested for furtherassessment; the risks, benefits, and alternatives were discussed with the patient and the patient consents to proceed. An Echocardiogram will be requested to assess for structural abnormalities. If ev aluation is unrevealing, then can consider regional intermodal truck driver cardiac monitoring (eg Event monitor). #. Dizziness / lightheadedness. Evaluation as above. The following are also recommended: -Sit down or lie down when symptomatic -Caution with assuming upright position, especially at night and with use of the toilet. -Avoid dehydration -Adequate fluid hydration (eg Gatorade) -Local / state laws should be followed regarding driving. Otherwise, general recommendations include: -No private driving if symptoms occur while driving. No operating heavy machinery or working from heights if symptoms occur. -No private driving for 1 month following an episode of syncope. [ACC/AHA Syncope Guidelines 2017. PMID 78380904] -If syncope is frequent (more than 6 episodes in 1 year), then no private driving until symptoms are controlled. [ACC/AHA Syncope Guidelines 2017. PMID 07272568] -For professional or commercial driving, driving recommendations may differ depending upon company or governmental regulations. The Nurses and Nurse Practitioners at [facility] are integral to your care. -*Test results will be available on [employer].* -For brief questions regarding the test results, please send a [employer] message or call the office ([phone]), and a Nurse will be in contact. -If you would prefer more extensive discussions of the test results and recommendations, you can request a follow visit (which can be a Virtual Visit) with a Nurse Practitioner or with Dr Jackson. A copy of this note will be made available to your referring or primary physician. Please contact your referring or primary physician to process any needed documentation (such as work forms, disability forms, etc.). Tests or evaluations performed here can be made available upon request. Thank you for your visit today. Our hope is to be able to provide you with further appropriate evaluation of your symptoms in order to arrive at a diagnosis, and to provide guidance for you and your primary physician as you continue to work together for your ongoing care. Our hope is to help guide you towards the best of health. Thank you for your consultation. Sincerely, Dean Jackson MD, [facility], [facility] Cardiac Electrophysiology [facility] * Emma Mckeon RN - 09/01/2022 8:45 AM EST Images from the original note were not included. [facility] Department of Cardiovascular Medicine SECTION OF CARDIAC PACING and ELECTROPHYSIOLOGY OUTPATIENT VISIT DATE September 01, 2022 PRIMARY CARE PHYSICIAN: Katelin Morel [address] [place] [address] REFERRING PHYSICIAN: SELF NURSING INTAKE HISTORY: Ms. Mcgee is a 17 year old female who is seen today for orthostatic hypotension. Her medical history is significant for asthma r/t seasonal allergies, untreated anxiety, insomnia, and COVID-19 infection 06/2021. She follow with Pediatric Neurology for suspected dysautonomia and has been referred to Rheumatology (positive JUANITA, borderline ESR, negative antibodies). Patient also reports hypermobile joints. She reports intermittent lightheadedness and dizziness over the past few years with first presyncopal episode in 12/2016. She has also reported tachypalpitations and intermittent sharp chest pains. Echo (11/2020) and Holter monitor (09/2021) were normal. Blood pressure was stable with orthostatic VS; slight increase in heart rate noted upon standing. Patient reports postural dizziness. She reports episodes of transient loss of conscious that are becoming more frequent - recently 1-2 times weekly. She gets prodromal symptoms of blurred vision and she zones out and can't hear or respond to people. Loss of consciousness is unknown (though witnesses report a few minutes). She gets hea daches when she wakes up. She denies convulsions, tongue biting, or loss of bowel or bladder. She reports daily symptoms of near loss of consciousness with lightheadedness and dizziness. She drinks 96 oz of water, occasional Body Thompson daily. She uses salt tablets (1 g daily) and eatssalty snacks. She abstains from caffeine and alcohol. She occasionally wears knee-high compression socks. She exercises at [employer] 6 days a week with weight lifting, cardio (elliptical, bike, etc.) She notes occasional non-exertional chest pressure or sharp pain (when lying down), shortness of breath, orthopnea, rare palpitations, and edema (attributes to salt tabes). She denies cough or PND. 24-HR HOLTER 09/22/2021: Interpretive Statements 1. Predominant rhythm: normal sinus rhythm (heart rate 53-150, mean 85 BPM). 2. No atrial ectopy. 3. No ventricular ectopy. 4. No atrioventricular block. Longest pause 1.5 seconds. 5. During symptoms of chest pain, dizziness, and palpitations, the rhythm was normal sinus and sinus tachycardia. Impression: Normal 24 hour Holter monitor study. No dysrhythmia during noted symptoms. ECHO 12/18/2020: SUMMARY: Normal echocardiogram. PAST MEDICAL HISTORY Diagnosis Date Asthma Ovarian cyst Seasonal allergies PAST SURGICAL HISTORY Procedure Laterality Date FINGER SURGERY HX SOCIAL HISTORY Social History Tobacco Use Smoking status: Never Smokeless tobacco: Never Vaping Use Vaping Use: Never used Substance Use Topics Alcohol use: Not Currently Drug use: Never FAMILY HISTORY Problem Relation Age of Onset other (Venous insufficiency) Mother No Known Problems Father Arthritis Maternal Grandmother Coronary Artery Disease Maternal Grandfather COPD Maternal Grandfather Diabetes Maternal Grandfather Hypertension Maternal Grandfather Hypoglycemia Paternal Grandmother other (non-Hodgkins lymphoma) Paternal Grandmother Coronary Artery Disease Paternal Grandfather ALLERGIES: ALLERGIES Allergen Reactions Seasonal Allergies Shortness of Breath MEDICATIONS: pantoprazole (PROTONIX) 40 mg tablet Take 40 mg by mouth once daily. albuterol HFA (PROVENTIL HFA, VENTOLIN HFA) 90 mcg/actuation inhaler Inhale 2 Puffs as instructed every 6 hours as needed for wheezing/shortness of breath. Pulse 55 Ht 5' 6 (1.68m) Wt 170 lb (77.1kg) LMP 11/06/2021 BMI 27.45 kg/(m^2). BP w/Orthostatic Vitals Date and Time Orthostatic BP Orthostatic Pulse BP Pulse BP Position BP Site BP Cuff Size 09/01/22 0859 95/64 83 -- -- Standing -- -- 09/01/22 0857 101/67 68 -- -- Sitting -- -- 09/01/22 0855 99/63 64 -- -- Supine -- -- 09/01/22 0851 -- -- -- 55 -- -- -- REVIEW OF SYSTEMS: GENERAL: Positive for:Sleep difficulties HEENT: Positive for:Glasses and Poor Dental Care NECK: Negative for: Swelling, Pain, Stiffness RESPIRATORY: Positive for: Cough, Shortness of breath, and Wheezing GASTROINTESTINAL: Positive for: Heartburn MUSCULOSKELETAL: Positive for: Muscle or joint pain, Stiffness, and Joint swelling NEUROLOGIC/PSYCHIATRIC: Positive for: Numbness, Tingling, Nervousness or anxiety, Depressed mood, Memory loss SKIN: Positive for: Rashes and Itching HEMATOLOGICAL/LYMPHATIC: Positive for: Easy bruising ENDOCRINE: Positive for: Heat or cold intolerance and Frequent thirst Emma Mckeon RN documented in this encounterOhiohealth07-01-2022 Miscellaneous Notes* Telephone Encounter - Milagro Henderson MD - 04/22/2022 5:24 PM EDT Talked to mom that JUANITA can be +ve in 20% of general population however, since the ESR is borderlineraised will go ahead with the f/u antibodies. She voiced understanding. Milagro Henderson MD * Telephone Encounter - Maria Del Rosario Kraus RN - 04/22/2022 3:04 PM EDT PEDS NEURO CARE COORDINATION QUICK NOTE Patient identified by name and date of : Yes Spoke to : [facility] Client Services Reason for call : JUANITA+ result Called and inquired if since JUANITA result was + if the test would be reflexed to relevant antibodies Was advised the +JUANITA will not automatically reflex Was advised to order the JUANITA by IFA reflex and have sample re-drawn Follow -up visit scheduled : Yes Additional Notes : Dr Henderson updated Order entered in orders only encounter Maria Del Rosario Kraus RN Head Of Academic Technology, Pediatric Neurology documented in this encounterOhiohealth06-28-2022 History of Present illness Narrative* Milagro Henderson MD - 04/19/2022 2:00 PM EDT Orders signed. SM documented in this encounterOhiohealth06-16-2022 NoteHNO ID: [id number] Author: Milagro Henderson MD Service: ? Author Type: Physician Type: Progress Notes Filed: 04/09/2022 10:36 AM Note Text: 16 1/2 year old Nicole Mcgee was seen in Pediatric Neurology clinic on 04/07/22 as a f/u of her prior visit on 01/12/22. She was accompanied by her mother. Background history: Nicole is a 16 1/2 year old girl with the following: ? - suspected dysautonomia symptomatic from 12/2016 when she had her first presyncope, she had covid in 06/2021 hence symptoms were not temporally related to covid - anxiety, never in counseling - LD in reading comprehension, gets extra help in school - hypermobility of joints - easy bruisability ? In the first visit with me in 12/2021 her neurological exam was normal except for impaired vibration sense distally in the LEs which brings up a possibility of neuropathy ( although it is somewhat odd that she has no other concomitant abnormality on exam and also that this would mean she has both small and large fiber involvement which is again odd ). Orthostatic vitals showed postural hypotension but I had a suspicion the very first SBP done in supine was slightly high owing to some anxiety as she came into the clinic. On recheck at the cardiology visit there vitals did not show any abnormal orthostatic change. Labs that day showed vit D borderline low, was advised supplementation, also TIBC was slightly high, hence advised MV+iron. ? ? ? Interval history: Cardiology eval with review of echo and Holter from previous hospital normal. On review it was noted that she uses a dieting ted, that she cannot keep up with regular meals owing to her schedule. Was suggested to see Adolescent Med which was not done. Borderline vit D level, iron studies normal except slightly high TIBC. Not started MV+iron or vit D. Had a syncope in 01/2022, was on a cruise to the [facility], was with her friends, felt dizzy and light-headed, vision became blurry, passed out when she got up to standing, does not recall any more details. Continues to feel dizzy ~ 2 times a week, always related to getting to upright posture. Drinks 60-70 oz water a day. Takes salt tabs daily. Did not start compression stockings. ROS: Constitutional: appetite normal, insomnia Eyes: glasses for myopia and astigmatism ENT: failed hearing test at ENT visit, will be rechecked GI: neg : neg Resp: neg Cardio: chest pain or palpitations postural or on walking better Hem: easy bruising no longer Allergy: as above Endocrine: 11 lbs weight gain in the last 3 months Musculoskeletal: right shoulder pops, hypermobility of some joints Neuro: as above Psych: anxiety and sadness just the same, did not see psychology as advised Skin: neg Home meds: Omeprazole Cetirizine Albuterol PRN Salt sticks 2 tabs in AM Social: She lives with both parents. Has a brother. Will start 12th grade at [employer] and [employer]. Will continue to be on IEP for reading comprehension. Last report card shows As and Bs. 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 Exam: General: Well-looking Weight 77 kg Orthostatic vitals: Supine BP 103/59, HR 78 Standing BP 99/59, HR 89 Spine normal curvature Neurologic: Mental state: alert and co-operative Cranial nerves: B/L pupils equal and reactive, visual mcdowell and fundi normal, ocular movts normal, V-motor and sensory normal, no facial weakness, grossly hearing normal, palatal movts normal, XI-normal, tongue normal Motor: bulk, tone and strength normal in all extremities Sensory: normal light touch, temp and position sense, vibration sense impaired in the distal LEs, also diminished pinprick sensation in the distal LEs compared to UEs DTRs: normal and symmetric Plantars: B/L flexor No abnormal cerebellar signs Gait: normal including stressed gait and tandem Romberg: negative Impression: Nicole is a 16 1/2 year old girl with the following: ? - suspected dysautonomia symptomatic from 12/2016 when she had her first presyncope, she had covid in 06/2021 hence symptoms were not temporally related to covid, continues to feel postural dizziness, in the interim had 1 syncope - anxiety, not started counseling - LD in reading comprehension, gets extra help in school - hypermobility of joints - easy bruisability, no longer an issue Her neurological exam is significant for diminution of pinprick and vibration sense in the distal LEs bringing up a possibility of peripheral neuropathy. Plan: Start MV+iron Start vit D 2000 u a day Start compression stockings Start counseling Increase salt to 2 tabs salt sticks BID Labs for cause of neuropathy F/u in 6 months I spent a total of 30 minutes which included preparing to see the patient, face (more content not included)...[facility] [id number] History of Present illness Narrative* Milagro Henderson MD - 04/07/2022 1:00 PM EDT 16 1/2 year old Nicole Mcgee was seen in Pediatric Neurology clinic on 04/07/22 as a f/u of her prior visit on 01/12/22. She was accompanied by her mother. Background history: Nicole is a 16 1/2 year old girl with the following: - suspected dysautonomia symptomatic from 12/2016 when she had her first presyncope, she had covid in 06/2021 hence symptoms were not temporally related to covid - anxiety, never in counseling - LD in reading comprehension, gets extra help in school - hypermobility of joints - easy bruisability In the first visit with me in 12/2021 her neurological exam was normal except for impaired vibrationsense distally in the LEs which brings up a possibility of neuropathy ( although it is somewhat oddthat she has no other concomitant abnormality on exam and also that this would mean she has both small and large fiber involvement which is again odd ). Orthostatic vitals showed postural hypotensionbut I had a suspicion the very first SBP done in supine was slightly high owing to some anxiety as she came into the clinic. On recheck at the cardiology visit there vitals did not show any abnormal orthostatic change. Labs that day showed vit D borderline low, was advised supplementation, also TIBC was slightly high, hence advised MV+iron. Interval history: Cardiology eval with review of echo and Holter from previous hospital normal. On review it was noted that she uses a dieting ted, that she cannot keep up with regular meals owing toher schedule. Was suggested to see Adolescent Med which was not done. Borderline vit D level, iron studies normal except slightly high TIBC. Not started MV+iron or vit D. Had a syncope in 01/2022, was on a cruise to the [facility], was with her friends, felt dizzy and light-headed, vision became blurry, passed out when she got up to standing, does not recall any more details. Continues to feel dizzy ~ 2 times a week, always related to getting to upright posture. Drinks 60-70 oz water a day. Takes salt tabs daily. Did not start compression stockings. ROS: Constitutional: appetite normal, insomnia Eyes: glasses for myopia and astigmatism ENT: failed hearing test at ENT visit, will be rechecked GI: neg : neg Resp: neg Cardio: chest pain or palpitations postural or on walking better Hem: easy bruising no longer Allergy: as above Endocrine: 11 lbs weight gain in the last 3 months Musculoskeletal: right shoulder pops, hypermobility of some joints Neuro: as above Psych: anxiety and sadness just the same, did not see psychology as advised Skin: neg Home meds: Omeprazole Cetirizine Albuterol PRN Salt sticks 2 tabs in AM Social: She lives with both parents. Has a brother. Will start 12th grade at [employer]. Will continue to be on IEP for reading comprehension. Last report card shows As and Bs. 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 Exam: General: Well-looking Weight 77 kg Orthostatic vitals: Supine BP 103/59, HR 78 Standing BP 99/59, HR 89 Spine normal curvature Neurologic: Mental state: alert and co-operative Cranial nerves: B/L pupils equal and reactive, visual mcdowell and fundi normal, ocular movts normal,V-motor and sensory normal, no facial weakness, grossly hearing normal, palatal movts normal, XI-normal, tongue normal Motor: bulk, tone and strength normal in all extremities Sensory: normal light touch, temp and position sense, vibration sense impaired in the distal LEs, also diminished pinprick sensation in the distal LEs compared to UEs DTRs: normal and symmetric Plantars: B/L flexor No abnormal cerebellar signs Gait: normal including stressed gait and tandem Romberg: negative Impression: Nicole is a 17 1/2 year old girl with the following: - suspected dysautonomia symptomatic from 12/2016 when she had her first presyncope, she had covid in 06/2021 hence symptoms were not temporally related to covid, continues to feel postural dizziness, in the interim had 1 syncope - anxiety, not started counseling - LD in reading comprehension, gets extra help in school - hypermobility of joints - easy bruisability, no longer an issue Her neurological exam is significant for diminution of pinprick and vibration sense in the distal LEs bringing up a possibility of peripheral neuropathy. Plan: Start MV+iron Start vit D 2000 u a day Start compression stockings Start counseling Increase salt to 2 tabs salt sticks BID Labs for cause of neuropathy F/u in 6 months I spent a total of 30 minutes which included preparing to see the patient, [id number] patient care, performing a medically appropriate examination, completing clinical documentation, and on counseling/educating the patient/family. Milagro Henderson MD Staff physician [facility] Appt [phone] CC: Family of Nicole Mcgee documented in this encounterOhiohealth03-25-2022 Miscellaneous Notes* Telephone Encounter - Milagro Henderson MD - 01/14/2022 10:19 AM EDT Left a vmm for mom to call me back about lab results. Plan to start MV+iron and 2000 unit(s) vit D daily. Milagro Henderson MD documented in this encounterOhiohealth03-23-2022 Miscellaneous Notes* Telephone Encounter - Maria Del Rosario Kraus RN - 01/12/2022 2:19 PM EDT PEDS NEURO CARE COORDINATION QUICK NOTE Patient identified by name and date of : Yes Spoke to : Mom Reason for call : Non-pharmacologic treatment recommendations Called mom to review treatment recommendations Mom advised treatment is centered around increasing vascular volume and support; rationale providedfor each recommendation Advised re daily water intake -- advised to avoid caffeine- drinks and foods, advised of Drink Water ted to track water consumption throughout the day vs overall number Provided information re SaltStick Vitassium capsules- purchasing and administration [employer] - 20-30 mmHg should wear while Nicole is awake should not sleep in them, advised re sizing and purchasing Exercise- currently walking on treadmill ~10 minutes 3-4 times per week and lifts weights; 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 - advised re regular exercise routine -- goal will be exercise 6 days per week 20-30 minutes; Advised re cardiovascular exercises, to gradually build foundation, recommend increasing one aspect of exercise every 1-2 weeks (time, distance, speed , resistance); Reviewed resistance training exercises- examples provided Mom advised above information will be sent in [facility] message and to call the office in 6 weeks with update Advised mom Dr Henderson would like to see Nicole in 3 months for follow up appt; appt to be coordinated with Dr Gudino ([facility]) appt -- Reviewed appt availability with Mom who selected 04.18.22 at [place]-- 1330 Dr Gudino and 1440 Dr Henderson Mom verbalized understanding and denied further questions/needs at this time Follow -up visit scheduled : Yes Additional Notes : Staff message to S6 front counter attendant to schedule appt as noted above Dr Henderson Called Peds Hem-onc and appt with Dr Gudino is scheduled for 04.18.22 at [place] at 1330 message sent to mom re treatment recommendations Maria Del Rosario Kraus, RN Head Of Academic Technology, Pediatric Neurology documented in this encounterOhiohealth03-23-2022 Instructions* Patient Instructions* Vlad Boyce MD - 01/12/2022 12:58 PM EDT People with autonomic dysfunction (inadequate regulation of blood pressure, heart rate, sweating) can see improvement of symptoms with the following measures: 1. Effective Hydration - typically 2-3 liters, but you know when it is effective when your urine isconsistently clear 2. Good Nutrition - regular meals and snacks including breakfast. Two salty snacks are recommended to keep a higher blood volume in your blood vessels. 3. Effective Sleep - practice good sleep hygiene for effective sleep (regular bedtime routine, at least 7-8 hours of sleep each night, do not oversleep) 4. Regular Exercise - get your heart rate up every day for a consistent period of time (recommend 60 minutes each day) - whatever you do, be consistent 5. Good Mental Health - if you are feeling stressed, anxious, or depressed, these symptoms can worsen your autonomic dysfunction. We recommend that you utilize the services of behavioral health specialists to address and improve these symptoms. Above all, please listen to your body and recognize when you feel like you may pass out and get into a safe position to avoid injury. Please call with any concerns or questions. Thank you, Dr. Daren Boyce [phone] documented in this encounterOhiohealth03-23-2022 Nurse Note* Amanda Zepeda LPN - 01/12/2022 11:52 AM EDT Time required to prepare patient and parent/s for examination greater than 5 mins documented in this encounterOhiohealth03-23-2022 History of Present illness Narrative* Vlad Boyce MD - 01/12/2022 11:20 AM EDT [facility] Patient Name: Nicole Mcgee Date of : 2005 Date of Visit: 01/12/[address] Katelin Morel for an opinion regarding dizziness. My final recommendations will be communicated back to the requesting physician by way of shared Medical record or letterto requesting physician via US mail. Reason for Consultation: dizziness The history is provided by Nicole and her parents, Brady and Corrine. External notes from Pediatrics andPediatric neurology were reviewed. History of Present Illness: Nicole Mcgee is a 16 year old female seen by Pediatric Cardiology at the [facility] on January 12, 2022 in consultation for dizziness. Nicole reports she has felt dizzy intermittently for the past 2 years. This is not constant, but she feels it frequently on the days when she is affected. She feels lightheadedness as well. 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 She reports her heart rate tends to be elevated in the 100's and her blood pressure tends to be low in the 90's. She feels cold most of the time and her arms and feet fall asleep quickly. She feels intermittent sharp pains in her chest that cause her significant discomfort. 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 She has felt more dizzy when going from seated to standing positions. She has felt dizzy while driving at least once, causing her to taffy puller. She has had one syncopal event, while in the shower last summer. She reports vision changes in addition to dizziness preceding the event. Nicole feels anxious frequently and feels that it holds her back, pushing herself away from people. She has anxiety attacks once a week. She does not see anyone for her anxiety. She reports she stays well-hydrated, drinking 64 ounces of water a day. She tries to eat salty foods intermittently. She exercises regularly, most days for 1.5 hours at a time with a mixture of cardiovascular exercise and weight lifting. She is a poor sleeper, having trouble quieting her racing mind and ends up getting only 5 hours of sleep a night. She is conscientious about her body image but does not feel that she restricts her eating for this. She is using a dieting ted on her phone and shares her caloric intake from yesterday which shows she took in less than the recommended intake for the day. She says that itis difficult to have regular meals given her busy high school schedule. 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 Cardiac Review of Systems: Nicole complains of syncope (once) and dizziness. Nicole is otherwise asymptomatic from a cardiovascular standpoint including no palpitations, chest pain, dyspnea, cyanosis, edema or exercise intolerance. Review of Systems: PSYCH: Positive for anxiety The remainder of the review of systems is negative. Past Medical History: No past medical history on file. Social History: Nicole lives with her parents and a dog and is currently in 11th grade. No Cardiac Family History: Mother's side - heart disease in their 60's Maternal grandfather - early CAD in 50's Vasovagal syncope - father (kal), paternal grandmother No additional history of syncope, seizures, arrhythmias, drownings, single car accidents, sudden cardiac , early pacemaker or ICD implantation, congenital deafness, aneurysms, early CAD, cardiomyopathies, or congenital heart disease. Medications: albuterol HFA (PROVENTIL HFA, VENTOLIN HFA) 90 mcg/actuation inhaler Inhale 2 Puffs as instructed every 6 hours as needed for wheezing/shortness of breath. FLOVENT HFA 110 mcg/actuation inhaler Omeprazole Magnesium 20 mg tablet Take 20 mg by mouth. albuterol HFA (PROVENTIL HFA, VENTOLIN HFA) 90 mcg/actuation inhaler Inhale 2 Puffs as instructed. Allergies: ALLERGIES No Known Allergies Physical Examination: Temp 36.6 C (97.9 F) (Tympanic) Resp 20 Ht 166.4 cm (5' 5.51) Wt 71.8 kg (158 lb 4.6 oz) LMP 11/06/2021 SpO2 100% BMI 25.93 kg/m General appearance: alert, oriented and in no apparent distress Skin: Skin color, texture, turgor normal, no suspicious rashes or lesions HEENT: normocephalic, non-dysmorphic, moist mucous membranes, no central cyanosis and conjuctivae clear Lungs: clear to auscultation, without rales or wheeze, good air exchange Heart: quiet precordium with no heave or thrill, regular rate, normal S1, normal and physiologically splitting S2, no systolic murmur, diastole quiet and no clicks, rubs or gallops Abdomen: soft, nontender and liver not enlarged Extremities: upper and lower extremity pulses normal with no brachio-femoral delay, no cyanosis, clubbing or peripheral edema and no obvious skeletal deformities Musculoskeletal: No joint swelling, deformity, or tenderness Electrocardiogram: I have reviewed and interpreted the ECG 01/12/2022 - sinus bradycardia with sinus arrhythmia Echocardiogram: outside echo report 12/18/2020 Normal echocardiogram (see full report in Care Everywhere) Ambulatory Monitor: outside monitor report 09/30/2021 1. Predominant rhythm: normal sinus rhythm (heart rate 53-150, mean 85 BPM). 2. No atrial ectopy. 3. No ventricular ectopy. 4. No atrioventricular block. Longest pause 1.5 seconds. 5. During symptoms of chest pain, dizziness, and palpitations, the rhythm was normal sinus and sinus tachycardia. Impression: Normal 24 hour Holter monitor study. No dysrhythmia during noted symptoms. Impression: Nicole is a 16 year old female with history of dizziness for ~2 years that is more pronounces with position changes consistent with orthostatic changes and likely dysautonomia. She has several contributing factors including inconsistent nutrition and salt intake, insomnia, and untreated anxiety. Her anxiety is likely contributing to her insomnia and I recommended that she seek treatmentfor the anxiety as an important first step. I suggested that her anxiety and inconsistent nutritionwere issues that could be well addressed by the adolescent medicine clinic. I will suggest to her PCP, Dr. Morel, that we refer her to their clinic where she can have consultation with a customer account manager and a psychologist through their resources and potentially delve further into whether there is more that she is dealing with in this regard. I agreed with Dr. Henderson's recommendation to increase fluid and salt intake and praised Nicole for her consistent exercise. I believe that she will do well if sheimproves her sleep and nutrition. Given that she has had a normal cardiac evaluation thus far and that she continues to have a normal ECG and exam today, we will see her back only as needed in the future. Recommendations: 1. Adolescent medicine referral - will confirm with Dr. Morel - recommend psychologist and customer account manager involvement 2. Increase hydration, have consistent nutrition with regular meals, agree with salt recommendations from Dr. Henderson 3. Encouraged to continue to follow with Dr. Henderson, with cardiology only PRN at this time Thank you very much for allowing us to participate in Nicole's care. Please do not hesitate to contact our clinic with any questions regarding Nicole's management. Sincerely, Vlad Boyce MD Pediatric/ Congenital Cardiology & Electrophysiology I spent a total of 90 minutes on the date of the service which included preparing to see the patient, [id number] patient care, completing clinical documentation, obtaining and/or reviewing separately obtained history, performing a medically appropriate examination, counseling and educating the pat ient/family/caregiver, ordering medications, tests, or procedures, communicating with other HCPs (not separately reported), independently interpreting results (not separately reported) and communicating results to the patient/family/caregiver. [facility] Miscellaneous Notes* Telephone Encounter - Padmini Owens RN - 01/12/2022 8:28 AM EDT proair respiclick not covered by insurance plan. Requesting regaular Proair. Padmini Owens RN documented in [facility] encounter[facility]22 Miscellaneous Notes* Telephone Encounter - Edgar Gamboa RN - 01/10/2022 10:06 AM EDT Last WCC: greater than one year ago Verify RX Benefits Completed Last medication refill date: not refilled here, patient just lost inhaler, per mom it is as needed only-didn't know specific name of med Requesting 30 day supply Retail pharmacy updated: Completed Patient aware RX will be sent to pharmacy. No need to notify patient. Immunizations due: HEPATITIS B(1 of 3 - 3-dose primary series) Never done POLIO(1 of 3 - 4-dose series) Never done MMR(1 of 2 - Standard series) Never done VARICELLA(1 of 2 - 2-dose childhood series) Never done DTAP,TDAP,TD(1 - Tdap) Never done MENINGOCOCCAL B: Consider based on risk(1 of 2 - Risk Bexsero 2-dose series) Never done HPV VACCINE(1 - 2-dose series) Never done DEPRESSION SCREENING Never done GC (GONORRHEA) SCREENING (<18) Never done CHLAMYDIA SCREENING (<18) Never done MENINGOCOCCAL CONJUGATE(1 - 2-dose series) Never done INFLUENZA(1) due on 06/23/2021 COVID-19 VACCINE(3 - Booster for Pfizer series) due on 07/28/2021 Edgar Gamboa RN [facility]Reason for visit Narrative* Chief Complaint COVID TEST TRAVEL dysphagia Reason for Visit Encounter for screen ing for COVID-19 [facility] Work Phone: Evaluation + Plan note Future Appointments Appointment Date:06/30/2025 08:30:00 AM Scheduled Provider:ALYSSIA GOLDMAN Location:[facility] App[facility] Future Scheduled Tests Laboratory* Estradiol Level 06/24/25 * Luteinizing Hormone 06/24/25 * Follicle Stimulating Hormone Level 06/24/25 Radiology* US Pelvis Non-OB Limited 06/25/25 [facility] Evaluation note* Diagnosis Dysautonomia (HCC)- Primary Unspecified disorder of autonomic nervous system Generalized anxiety disorder Poor nutrition Unspecified nutritional deficiency Insomnia, unspecified type Tachycardia Tachycardia, unspecified [facility]* Diagnosis Onset Date Resolution Status Encounter for screening for COVID-19 acute [facility] Work Phone: Evaluation note* Diagnosis Idiopathic peripheral neuropathy- Primary Unspecified hereditary and idiopathic peripheral neuropathy Dysautonomia (HCC) Unspecified disorder of autonomic nervous system documented in this encounter [facility] note* Diagnosis Peripheral polyneuropathy- Primary Unspecified hereditary and idiopathic peripheral neuropathy documented in this encounter [facility] note* Diagnosis Transient loss of consciousness- Primary Syncope and collapse Dizziness Dizziness and giddiness Lightheaded Dizziness and giddiness [facility] Diagnosis Positive JUANITA (antinuclear antibody)- Primary Other and unspecified nonspecific immunological findings Neuropathy Mononeuritis of unspecified site documented in this encounter [facility] note* Diagnosis Transient loss of consciousness- Primary Syncope and collapse Dizziness Dizziness and giddiness Lightheaded Dizziness and giddiness documented [facility]* Diagnosis POTS (postural orthostatic tachycardia syndrome)- Primary Tachycardia, unspecified Transient loss of consciousness Syncope and collapse documented in this encounter [facility] note* Diagnosis Disorder of the autonomic nervous system, unspecified- Primary documented in this encounter [facility] note* Diagnosis Disorder of the autonomic nervous system, unspecified- Primary documented in this encounter [facility] note* Diagnosis POTS (postural orthostatic tachycardia syndrome)- Primary Tachycardia, unspecified Transient loss of consciousness Syncope and collapse Dizziness Dizziness and giddiness Orthostatic lightheadedness Dizziness and giddiness Left-sided tinnitus Unspecified tinnitus Disturbance of skin sensation Fatigue, unspecified type Tremulousness Abnormal involuntary movements Tension headache Migraine with aura and without status migrainosus, not intractable Migraine with aura, without mention of intractable migraine without mention of status migrainosus documented in this encounter [facility] note* Diagnosis POTS (postural orthostatic tachycardia syndrome)- Primary Tachycardia, unspecified documented in this encounter [facility] note* Diagnosis Current severe episode of major depressive disorder without psychotic features without prior episode (HCC)- Primary documented in this encounter [facility] note* Diagnosis OPENED IN ERROR- Primary To allow closing an encounter opened in error (used in SmartSet) documented in this encounter [facility] note* Diagnosis EFRAÍN (generalized anxiety disorder)- Primary Generalized anxiety disorder Severe episode of recurrent major depressive disorder, without psychotic features (HCC) documented in this encounter [facility] note* Diagnosis EFRAÍN (generalized anxiety disorder)- Primary Generalized anxiety disorder Major depressive disorder, recurrent episode, moderate (HCC) Major depressive disorder, recurrent episode, moderate documented in this encounter [facility] note* Diagnosis POTS (postural orthostatic tachycardia syndrome)- Primary Tachycardia, unspecified Hypoglycemia Hypoglycemia, unspecified Vasovagal syncope Syncope and collapse documented in this encounter [facility] note* Diagnosis NO SHOW- Primary documented in this encounter [facility] note* Diagnosis Occasional tremors- Primary Abnormal involuntary movements Pallor documented in this encounter [facility] note* Diagnosis Occasional tremors- Primary Abnormal involuntary movements documented in this encounter [facility] note* Diagnosis Encounter for general adult medical examination without abnormal findings- Primary Unspecified general medical examination Screening-pulmonary TB Screening examination for pulmonary tuberculosis Gastroesophageal reflux disease, unspecified whether esophagitis present documented in this encounter [facility] note* Diagnosis PPD screening test- Primary Screening examination for pulmonary tuberculosis documented in this encounter [facility] note* Diagnosis PPD screening test- Primary Screening examination for pulmonary tuberculosis documented in this encounter [facility] note* Diagnosis Encounter for TB tricia test- Primary Screening examination for pulmonary tuberculosis documented in this encounter [facility] note* Diagnosis Screening-pulmonary TB- Primary Screening examination for pulmonary tuberculosis documented in this encounter [facility] note* Diagnosis Gastroesophageal reflux disease, unspecified whether esophagitis present RUQ abdominal pain Abdominal pain, right upper quadrant documented in this encounter [facility] note* Diagnosis RUQ abdominal pain Abdominal pain, right upper quadrant documented in this encounter [facility] note* Diagnosis EFRAÍN (generalized anxiety disorder)- Primary Generalized anxiety disorder Major depressive disorder, recurrent episode, moderate (HCC) Major depressive disorder, recurrent episode, moderate Sleep difficulties Sleep disturbance, unspecified documented in this encounter [facility] note* Diagnosis Gastroesophageal reflux disease, unspecified whether esophagitis present documented in this encounter [facility] note* Diagnosis Screening for iron deficiency anemia- Primary documented in this encounter [facility] note* Diagnosis POTS (postural orthostatic tachycardia syndrome)- Primary Tachycardia, unspecified Hypotension, unspecified hypotension type documented in this encounter [facility] note* Diagnosis Iron deficiency- Primary Iron deficiency anemia, unspecified documented in this encounter [facility] note* Diagnosis EFRAÍN (generalized anxiety disorder)- Primary Generalized anxiety disorder Recurrent major depressive disorder, in partial remission (HCC) Sleep difficulties Sleep disturbance, unspecified [facility]* Diagnosis POTS (postural orthostatic tachycardia syndrome)- Primary Tachycardia, unspecified Vision loss Unspecified visual loss Chronic migraine with aura without status migrainosus, not intractable Transient loss of consciousness Syncope and collapse Transient alteration of awareness [facility]* Diagnosis Syncope, unspecified syncope type- Primary Transient loss of consciousness Syncope and collapse Transient alteration of awareness [facility]* Diagnosis Nasal injury, initial encounter- Primary Contusion of nose, initial encounter Injury of head, initial encounter Nasal injury, initial encounter [facility]* Diagnosis Nasal injury, initial encounter documented in this encounter [facility]* Diagnosis Onset Date Resolution Status Admit Date Physical exam, pre-employment acute April 30, 2025 3:33pm [facility] Work Phone: Evaluation note* Diagnosis Routine medical exam- Primary Routine general medical examination at a health care facility History of iron deficiency Personal history of diseases of blood and blood-forming organs Irregular menses Irregular menstrual cycle POTS (postural orthostatic tachycardia syndrome) Tachycardia, unspecified Screening for depression Encounter for screening examination for other mental health and behavioral disorders Encounter for immunization Need for other specified prophylactic vaccination against single bacterial disease Screening for STD (sexually transmitted disease) Screening examination for venereal disease Special screening examination for viral disease Special screening examination for unspecified viral disease Anxiety and depression Dysthymic disorder Menorrhagia with irregular cycle Excessive or frequent menstruation [facility] N[facility] No data available for this section [facility] Discharge instructions No data available for this section [facility] Progress note No data available for this section [facility] Reason for referral (narrative)* Outpatient Procedure (Routine) - Authorized Specialty Diagnoses / Procedures Referred By Contac t [facility] Diagnoses Transient loss of consciousness Dizziness Lightheaded Procedures ECHO ECHO TTHRC R-T 2D W/WOM-MODE COMPL SPEC&COLR D Dean Jackson MD [address] [place] [address] [facility] [address] [place] [address] Referral ID Status Reason Start Date Expiration Date Visits Requested Visits Authorized [id number] Authorized Auto-Generat ed Referral 09/01/2023 1 1 * Outpatient Procedure (Routine) - Closed Specialty Diagnoses / Procedures Referred By Sherrie macias Referred To Contact [facility] Diagnoses Orthostatic hypotension Procedures ECG COMPLETE ECG ROUTINE ECG W/LEAST 12 LDS W/I&R Dean Jackson MD [address] [place] [address] [address] Referral ID Status Reason Start Date Expiration Date V isits Requested Visits Authorized [id number] Closed Auto-Generate d Referral 08/31/2022 08/31/2023 1 1 [facility] for referral (narrative)* Outpatient Procedure (Routine) - Authorized Specialty Diagnoses / Procedures Referred By Sherrie macias Referred To Contact [facility] Diagnoses POTS (postural orthostatic tachycardia syndrome) Procedures ECG COMPLETE ECG ROUTINE ECG W/LEAST 12 LDS W/I&R Dean Jackson MD [address] [place] [address] [address] Referral ID Status Reason Start Date Expiration Date Visits Requested Visits Authorized [id number] Authorized Auto-Generat ed Referral 01/23/2023 01/23/2024 1 1 [facility] Outpatient Procedure (Routine) - Pending Review Specialty Diagnoses / Procedures Referred By Sherrie macias Referred To Contact [facility] Diagnoses Gastroesophageal reflux disease, unspecified whether esophagitis present Procedures EGD DIAGNOSTIC ESOPHAGOGASTRODUODENOSC OPY TRANSORAL DIAGNOSTIC Leslye Galicia MD [address] [place] [address] [facility] [address] [place] [id number] Referral ID Status Reason Start Date Expiration Date Visits Requested Visits Authorized [id number] Pending Review Auto-Generat ed Referral 04/09/2024 04/09/2025 1 1 * Diagnostic Procedure Only (Routine) - Authorized Specialty Diagnoses / Procedures Referred By Contac t Referred To Contact [facility] Diagnoses RUQ abdominal pain Procedures US ABD RIGHT UPPER QUADRANT US ABDOMINAL REAL TIME W/IMAGE LIMITED Leslye Galicia MD [address] [place] [address] [place] [address] Referral ID Status Reason Start Date Expiration Date Visits Requested Visits Authorized [id number] Authorized Auto-Generat ed Referral 04/08/2024 05/08/2025 1 1 [facility] for referral (narrative)* Diagnostic Procedure Only (Routine) - Closed Specialty Diagnoses / Procedures [facility] Diagnoses RUQ abdominal pain Procedures US ABD RIGHT UPPER QUADRANT US ABDOMINAL REAL TIME W/IMAGE LIMITED Leslye Galicia MD [address] [place] [address] [place] [address] Referral ID Status Reason Start Date Expiration Date V isits Requested Visits Authorized [id number] Closed Auto-Generate d Referral 04/08/2024 05/08/2025 1 1 [facility] for referral (narrative)* Outpatient Procedure (Routine) - Closed Specialty Diagnoses / Procedures [facility] Diagnoses Gastroesophageal reflux disease, unspecified whether esophagitis present Procedures EGD DIAGNOSTIC ESOPHAGOGASTRODUODENOSC OPY TRANSORAL DIAGNOSTIC Leslye Galicia MD [address] [place] [address] [facility] [address] [place] [address] Referral ID Status Reason Start Date Expiration Date V isits Requested Visits Authorized [id number] Closed Auto-Generate d Referral 04/12/2024 10/22/2024 1 1 [facility] for referral (narrative)No reason for referral [facility] Narrative* Diagnostic Procedure Only (Routine) - Closed Specialty Diagnoses / Procedures Referred By Contac t Referred To Contact [facility] Diagnoses RUQ abdominal pain Procedures US ABD RIGHT UPPER QUADRANT US ABDOMINAL REAL TIME W/IMAGE LIMITED Leslye Galicia MD [address] [place] [address] [id number] Referral ID Status Reason Start Date Expiration Date V isits Requested Visits Authorized [id number] Closed Auto-Generate d Referral 04/08/2024 05/08/2025 1 1 [facility] for visit Narrative* Outpatient Procedure (Routine) - Closed Specialty Diagnoses / Procedures Referred By Contac t Referred To Contact [facility] Diagnoses Gastroesophageal reflux disease, unspecified whether esophagitis present Procedures EGD DIAGNOSTIC ESOPHAGOGASTRODUODENOSC OPY TRANSORAL DIAGNOSTIC Leslye Galicia MD [address] [place] [address] [facility] [address] [place] [address] Referral ID Status Reason Start Date Expiration Date V isits Requested Visits Authorized [id number] Closed Auto-Generate d Referral 04/12/2024 10/22/2024 1 1 [facility] [facility] for [facility] Narrative* Diagnostic Procedure Only (Urgent) - Pending Review Specialty Diagnoses / Procedures Referred By Contac t Referred To Contact XR IMAGING Diagnoses Nasal injury, initial encounter Procedures XR NASAL BONES 3V PA/BOTH LAT RADEX NASAL BONES COMPLETE MINIMUM 3 VIEWS Jemma Palumbo APRN.BLU [address] [place] [address] Phone: tel: fax: [place] [phone] Referral ID Status Reason Start Date Expiration Date Visits Requested Visits Authorized [id number] Pending Review Auto-Generate d Referral Clearance Not Met -Financial Clearance Bypassed 12/27/2024 01/26/2026 1 1 [facility] Summary Purpose Family History No Family History Records Found Relationship Condition Age at Onset Recorded Date/T godwin Not Specified Diabetes mellitus Unknown Hypertension Unknown Coronary artery disease Unknown Malignant neoplasm Unknown Cardiac disease Unknown Cerebrovascular accident (CVA) Unknown Non-Hodgkin's lymphoma Unknown Alzheimer's dementia Unknown Relationship Condition Age at Onset Recorded Date/T godwin unrelated friend Diabetes mellitus Unknown Hypertension Unknown Coronary artery disease Unknown Malignant neoplasm Unknown Cardiac disease Unknown Cerebrovascular accident (CVA) Unknown Non-Hodgkin's lymphoma Unknown Alzheimer's dementia Unknown Advance Directives No Advanced Directives Records FoundNo Advanced Directives Records FoundNo Advanced Directives Records FoundNo Advanced Directives Records FoundNo Advanced Directives Records FoundNo Advanced Directives Records FoundNo Advanced Directives Records Found Reason for Referral Specialty Diagnoses / Procedures Referred By Contac t Referred To Contact Neurology Diagnoses POTS (postural orthostatic tachycardia syndrome) Transient loss of consciousness Procedures CONSULT TO NEUROLOGY OFFICE/OUTPATIENT [facility] 60-74 MINUTES Dean Jackson MD [address] [id number] Referral ID Status Reason Start Date Expiration Date Visits Requested Visits Authorized [id number] Authorized PCP Requested Referral 01/02/2023 04/02/2023 1 1 Specialty Diagnoses / Procedures Referred By Contac t Referred To Contact Diagnoses Current severe episode of major depressive disorder without psychotic features without prior episode (HCC) Procedures CONSULT TO PSYCHIATRY OFFICE/OUTPATIENT [facility] 60-74 MINUTES Katelin Morel MD [address] [place] [address] Referral ID Status Reason Start Date Expiration Date Visits Requested Visits Authorized [id number] Pending Review PCP Requested Referral 06/08/2023 06/07/2024 1 1 Specialty Diagnoses / Procedures Referred By Contac t Referred To Contact Endocrinology Diagnoses Hypoglycemia Procedures CONSULT TO ENDOCRINOLOGY OFFICE/OUTPATIENT [facility] 60 MINUTES Beau Pineda APRN.CNP [address] [place] [address] Referral ID Status Reason Start Date Expiration Date Visits Requested Visits Authorized [id number] Authorized PCP Requested Referral 01/12/2024 01/11/2025 1 1 Specialty Diagnoses / Procedures Referred By Contac t Referred To Contact General Surgery Diagnoses Gastroesophageal reflux disease, unspecified whether esophagitis present Procedures CONSULT TO GENERAL SURGERY OFFICE/OUTPATIENT [facility] 60 MINUTES Katelin Morel MD [address] [place] [id number] Referral ID Status Reason Start Date Expiration Date Visits Requested Visits Authorized [id number] Authorized PCP Requested Referral 03/21/2024 03/21/2025 1 1 Specialty Diagnoses / Procedures Referred By Contac t Referred To Contact Gastroenterology Diagnoses Gastroesophageal reflux disease, unspecified whether esophagitis present Procedures CONSULT TO GASTROENTEROLOGY OFFICE/OUTPATIENT [facility] 60 MINUTES Katelin Morel MD [address] [place] [id number] Referral ID Status Reason Start Date Expiration Date Visits Requested Visits Authorized [id number] Authorized PCP Requested Referral 03/21/2024 03/21/2025 1 1 Specialty Diagnoses / Procedures Referred By Contac t Referred To Contact Neurology Diagnoses Transient loss of consciousness Transient alteration of awareness Procedures CONSULT TO NEUROLOGY OFFICE/OUTPATIENT [facility] 60 MINUTES Beau Marie APRN.SENIOR BENEFITS ANALYST [address] [place] [address] Referral ID Status Reason Start Date Expiration Date Visits Requested Visits Authorized [id number] Authorized PCP Requested Referral 10/22/2025 1 1 Specialty Diagnoses / Procedures Referred By Contac t Referred To Contact [facility] Diagnoses Transient loss of consciousness Transient alteration of awareness Procedures EPIL EEG LONG EEG EXTENDED MONITORING 61-119 MINUTES ELECTROENCEPHALOGRAM REC COMA/SLEEP ONLY Beau Marie APRN.SENIOR BENEFITS ANALYST [address] [place] [address] Neurological [place] [address] [phone] Referral ID Status Reason Start Date Expiration Date Visits Requested Visits Authorized [id number] Pending Review Auto-Generat ed Referral 4 10/22/2025 1 1 Specialty Diagnoses / Procedures Referred By Contac t Referred To Contact MR IMAGING Diagnoses Vision loss Chronic migraine with aura without status migrainosus, not intractable Procedures MRV BRAIN WO/W IVCON MRA; HEAD W & WO CONTRAST Beau Marie, SCALES INSPECTOR.SENIOR BENEFITS ANALYST [address] [place] [address] Mr [facility] Referral ID Status Reason Start Date Expiration Date Visits Requested Visits Authorized [id number] New Request Auto-Generat ed Referral 4 11/21/2025 1 1 Specialty Diagnoses / Procedures Referred By Contac t Referred To Contact MR IMAGING Diagnoses Vision loss Chronic migraine with aura without status migrainosus, not intractable Transient loss of consciousness Transient alteration of awareness Procedures MRI BRAIN WO/W IVCON MRI BRAIN BRAIN STEM W/O W/CONTRAST MATERIAL Beau Marie, SCALES INSPECTOR.SENIOR BENEFITS ANALYST [address] [phone] [id number] Referral ID Status Reason Start Date Expiration Date Visits Requested Visits Authorized [id number] Authorized Auto-Generat ed Referral 4 10/22/2025 1 1 Medications Administered Section Inactive Administered Medications - up to 3 most recent administrations Medication Order MAR Action Action Date Dose Rate Site acetylcholine 10% solution - cchs compounding 20 mL, IRRIGATION, ONE TIME, 1 dose, Starting on Mon01/02/23 at 1633, Until Mon01/12/23 at 0740, Protect from Light. Refrigerate Given 01/12/2023 7:40 AM EDT 20 mL Chief Complaint and Reason for Visit Chief Complaint Admit Date PE/NON DOT PHYSICAL/[place] April 30 3:33pm Reason for Visit Admit Date Physical exam, pre-employment April 30, 2025 3:33pm Additional Source Comments INFORMATION SOURCE (unrecogn ized section and content) DATE CREATED AUTHOR 09/29/2021 [facility] DATE CREATED AUTHOR AUTHOR'S ORGANIZ ATION 04/09/2022 [facility] DATE CREATED AUTHOR AUTHOR'S ORGANIZ ATION 05/12/2024 [facility] DATE CREATED AUTHOR AUTHOR'S ORGANIZ ATION 05/04/2025 [facility] DATE CREATED AUTHOR AUTHOR'S ORGANIZ ATION 06/12/2025 [facility] DATE CREATED AUTHOR AUTHOR'S ORGANIZ ATION 06/22/2025 [facility] DATE CREATED AUTHOR AUTHOR'S ORGANIZ ATION 06/26/2025 [facility] Source Comments (unrecognize d section and content) In the event this informatio n is protected by the Federal Confidentiality of Alcohol and Drug Abuse Patient Records regulations: The Federal rules restrict any use of the information to criminally investigate or prosecute any alcohol or drug abuse patient.[facility] the event this information is protected by the Federal Confidentiality of Alcohol and Drug Abuse Patient Records regulations: The Federal rules restrict any use of the information to criminally investigate or prosecute any alcohol or drug abuse patient.[facility]In the event this information is protected by the Federal Confidentiality of Alcohol and Drug Abuse Patient Records regulations: The Federal rules restrict any use of the information to criminally investigate or prosecute any alcohol or drug abuse patient.[facility]In the event this information is protected by the Federal Confidentiality of Alcohol and Drug Abuse Patient Records regulations: The Federal rules restrict any use of the information to criminally investigate or prosecute any alcohol or drug abuse patient.[facility]In the event this information is protected by the Federal Confidentiality of Alcohol and Drug Abuse Patient Records regulations: The Federal rules restrict any use of the information to criminally investigate or prosecute any alcohol or drug abuse patient.[facility]In the event this information is protected by the Federal Confidentiality of Alcohol and Drug Abuse Patient Records regulations: The Federal rules restrict any use of the information to criminally investigate or prosecute any alcohol or drug abuse patient.[facility]In the event this information is protected by the Federal Confidentiality of Alcohol and Drug Abuse Patient Records regulations: The Federal rules restrict any use of the information to criminally investigate or prosecute any alcohol or drug abuse patient.[facility]In the event this information is protected by the Federal Confidentiality of Alcohol and Drug Abuse Patient Records regulations: The Federal rules restrict any use of the information to criminally investigate or prosecute any alcohol or drug abuse patient.[facility]In the event this information is protected by the Federal Confidentiality of Alcohol and Drug Abuse Patient Records regulations: The Federal rules restrict any use of the information to criminally investigate or prosecute any alcohol or drug abuse patient.[facility]In the event this information is protected by the Federal Confidentiality of Alcohol and Drug Abuse Patient Records regulations: The Federal rules restrict any use of the information to criminally investigate or prosecute any alcohol or drug abuse patient.[facility]In the event this information is protected by the Federal Confidentiality of Alcohol and Drug Abuse Patient Records regulations: The Federal rules restrict any use of the information to criminally investigate or prosecute any alcohol or drug abuse patient.[facility]In the event this information is protected by the Federal Confidentiality of Alcohol and Drug Abuse Patient Records regulations: The Federal rules restrict any use of the information to criminally investigate or prosecute any alcohol or drug abuse patient.[facility]In the event this information is protected by the Federal Confidentiality of Alcohol and Drug Abuse Patient Records regulations: The Federal rules restrict any use of the information to criminally investigate or prosecute any alcohol or drug abuse patient.[facility]In the event this information is protected by the Federal Confidentiality of Alcohol and Drug Abuse Patient Records regulations: The Federal rules restrict any use of the information to criminally investigate or prosecute any alcohol or drug abuse patient.[facility]In the event this information is protected by the Federal Confidentiality of Alcohol and Drug Abuse Patient Records regulations: The Federal rules restrict any use of the information to criminally investigate or prosecute any alcohol or drug abuse patient.[facility]In the event this information is protected by the Federal Confidentiality of Alcohol and Drug Abuse Patient Records regulations: The Federal rules restrict any use of the information to criminally investigate or prosecute any alcohol or drug abuse patient.[facility]In the event this information is protected by the Federal Confidentiality of Alcohol and Drug Abuse Patient Records regulations: The Federal rules restrict any use of the information to criminally investigate or prosecute any alcohol or drug abuse patient.[facility]In the event this information is protected by the Federal Confidentiality of Alcohol and Drug Abuse Patient Records regulations: The Federal rules restrict any use of the information to criminally investigate or prosecute any alcohol or drug abuse patient.[facility]In the event this information is protected by the Federal Confidentiality of Alcohol and Drug Abuse Patient Records regulations: The Federal rules restrict any use of the information to criminally investigate or prosecute any alcohol or drug abuse patient.[facility]In the event this information is protected by the Federal Confidentiality of Alcohol and Drug Abuse Patient Records regulations: The Federal rules restrict any use of the information to criminally investigate or prosecute any alcohol or drug abuse patient.[facility]In the event this information is protected by the Federal Confidentiality of Alcohol and Drug Abuse Patient Records regulations: The Federal rules restrict any use of the information to criminally investigate or prosecute any alcohol or drug abuse patient.[facility]In the event this information is protected by the Federal Confidentiality of Alcohol and Drug Abuse Patient Records regulations: The Federal rules restrict any use of the information to criminally investigate or prosecute any alcohol or drug abuse patient.[facility]In the event this information is protected by the Federal Confidentiality of Alcohol and Drug Abuse Patient Records regulations: The Federal rules restrict any use of the information to criminally investigate or prosecute any alcohol or drug abuse patient.[facility]In the event this information is protected by the Federal Confidentiality of Alcohol and Drug Abuse Patient Records regulations: The Federal rules restrict any use of the information to criminally investigate or prosecute any alcohol or drug abuse patient.[facility]In the event this information is protected by the Federal Confidentiality of Alcohol and Drug Abuse Patient Records regulations: The Federal rules restrict any use of the information to criminally investigate or prosecute any alcohol or drug abuse patient.[facility]In the event this information is protected by the Federal Confidentiality of Alcohol and Drug Abuse Patient Records regulations: The Federal rules restrict any use of the information to criminally investigate or prosecute any alcohol or drug abuse patient.[facility]In the event this information is protected by the Federal Confidentiality of Alcohol and Drug Abuse Patient Records regulations: The Federal rules restrict any use of the information to criminally investigate or prosecute any alcohol or drug abuse patient.[facility]In the event this information is protected by the Federal Confidentiality of Alcohol and Drug Abuse Patient Records regulations: The Federal rules restrict any use of the information to criminally investigate or prosecute any alcohol or drug abuse patient.[facility]In the event this information is protected by the Federal Confidentiality of Alcohol and Drug Abuse Patient Records regulations: The Federal rules restrict any use of the information to criminally investigate or prosecute any alcohol or drug abuse patient.[facility]In the event this information is protected by the Federal Confidentiality of Alcohol and Drug Abuse Patient Records regulations: The Federal rules restrict any use of the information to criminally investigate or prosecute any alcohol or drug abuse patient.[facility]In the event this information is protected by the Federal Confidentiality of Alcohol and Drug Abuse Patient Records regulations: The Federal rules restrict any use of the information to criminally investigate or prosecute any alcohol or drug abuse patient.[facility]In the event this information is protected by the Federal Confidentiality of Alcohol and Drug Abuse Patient Records regulations: The Federal rules restrict any use of the information to criminally investigate or prosecute any alcohol or drug abuse patient.[facility]In the event this information is protected by the Federal Confidentiality of Alcohol and Drug Abuse Patient Records regulations: The Federal rules restrict any use of the information to criminally investigate or prosecute any alcohol or drug abuse patient.[facility]In the event this information is protected by the Federal Confidentiality of Alcohol and Drug Abuse Patient Records regulations: The Federal rules restrict any use of the information to criminally investigate or prosecute any alcohol or drug abuse patient.[facility]In the event this information is protected by the Federal Confidentiality of Alcohol and Drug Abuse Patient Records regulations: The Federal rules restrict any use of the information to criminally investigate or prosecute any alcohol or drug abuse patient.[facility]In the event this information is protected by the Federal Confidentiality of Alcohol and Drug Abuse Patient Records regulations: The Federal rules restrict any use of the information to criminally investigate or prosecute any alcohol or drug abuse patient.[facility]In the event this information is protected by the Federal Confidentiality of Alcohol and Drug Abuse Patient Records regulations: The Federal rules restrict any use of the information to criminally investigate or prosecute any alcohol or drug abuse patient.[facility]In the event this information is protected by the Federal Confidentiality of Alcohol and Drug Abuse Patient Records regulations: The Federal rules restrict any use of the information to criminally investigate or prosecute any alcohol or drug abuse patient.[facility]In the event this information is protected by the Federal Confidentiality of Alcohol and Drug Abuse Patient Records regulations: The Federal rules restrict any use of the information to criminally investigate or prosecute any alcohol or drug abuse patient.[facility]In the event this information is protected by the Federal Confidentiality of Alcohol and Drug Abuse Patient Records regulations: The Federal rules restrict any use of the information to criminally investigate or prosecute any alcohol or drug abuse patient.[facility]In the event this information is protected by the Federal Confidentiality of Alcohol and Drug Abuse Patient Records regulations: The Federal rules restrict any use of the information to criminally investigate or prosecute any alcohol or drug abuse patient.[facility]In the event this information is protected by the Federal Confidentiality of Alcohol and Drug Abuse Patient Records regulations: The Federal rules restrict any use of the information to criminally investigate or prosecute any alcohol or drug abuse patient.[facility]In the event this information is protected by the Federal Confidentiality of Alcohol and Drug Abuse Patient Records regulations: The Federal rules restrict any use of the information to criminally investigate or prosecute any alcohol or drug abuse patient.[facility]In the event this information is protected by the Federal Confidentiality of Alcohol and Drug Abuse Patient Records regulations: The Federal rules restrict any use of the information to criminally investigate or prosecute any alcohol or drug abuse patient.[facility]In the event this information is protected by the Federal Confidentiality of Alcohol and Drug Abuse Patient Records regulations: The Federal rules restrict any use of the information to criminally investigate or prosecute any alcohol or drug abuse patient.[facility]In the event this information is protected by the Federal Confidentiality of Alcohol and Drug Abuse Patient Records regulations: The Federal rules restrict any use of the information to criminally investigate or prosecute any alcohol or drug abuse patient.[facility]In the event this information is protected by the Federal Confidentiality of Alcohol and Drug Abuse Patient Records regulations: The Federal rules restrict any use of the information to criminally investigate or prosecute any alcohol or drug abuse patient.[facility]In the event this information is protected by the Federal Confidentiality of Alcohol and Drug Abuse Patient Records regulations: The Federal rules restrict any use of the information to criminally investigate or prosecute any alcohol or drug abuse patient.[facility]In the event this information is protected by the Federal Confidentiality of Alcohol and Drug Abuse Patient Records regulations: The Federal rules restrict any use of the information to criminally investigate or prosecute any alcohol or drug abuse patient.[facility]In the event this information is protected by the Federal Confidentiality of Alcohol and Drug Abuse Patient Records regulations: The Federal rules restrict any use of the information to criminally investigate or prosecute any alcohol or drug abuse patient.[facility]In the event this information is protected by the Federal Confidentiality of Alcohol and Drug Abuse Patient Records regulations: The Federal rules restrict any use of the information to criminally investigate or prosecute any alcohol or drug abuse patient.[facility]In the event this information is protected by the Federal Confidentiality of Alcohol and Drug Abuse Patient Records regulations: The Federal rules restrict any use of the information to criminally investigate or prosecute any alcohol or drug abuse patient.[facility]In the event this information is protected by the Federal Confidentiality of Alcohol and Drug Abuse Patient Records regulations: The Federal rules restrict any use of the information to criminally investigate or prosecute any alcohol or drug abuse patient.[facility]In the event this information is protected by the Federal Confidentiality of Alcohol and Drug Abuse Patient Records regulations: The Federal rules restrict any use of the information to criminally investigate or prosecute any alcohol or drug abuse patient.[facility]In the event this information is protected by the Federal Confidentiality of Alcohol and Drug Abuse Patient Records regulations: The Federal rules restrict any use of the information to criminally investigate or prosecute any alcohol or drug abuse patient.[facility]In the event this information is protected by the Federal Confidentiality of Alcohol and Drug Abuse Patient Records regulations: The Federal rules restrict any use of the information to criminally investigate or prosecute any alcohol or drug abuse patient.[facility]In the event this information is protected by the Federal Confidentiality of Alcohol and Drug Abuse Patient Records regulations: The Federal rules restrict any use of the information to criminally investigate or prosecute any alcohol or drug abuse patient.[facility]In the event this information is protected by the Federal Confidentiality of Alcohol and Drug Abuse Patient Records regulations: The Federal rules restrict any use of the information to criminally investigate or prosecute any alcohol or drug abuse patient.[facility]In the event this information is protected by the Federal Confidentiality of Alcohol and Drug Abuse Patient Records regulations: The Federal rules restrict any use of the information to criminally investigate or prosecute any alcohol or drug abuse patient.[facility]In the event this information is protected by the Federal Confidentiality of Alcohol and Drug Abuse Patient Records regulations: The Federal rules restrict any use of the information to criminally investigate or prosecute any alcohol or drug abuse patient.[facility]In the event this information is protected by the Federal Confidentiality of Alcohol and Drug Abuse Patient Records regulations: The Federal rules restrict any use of the information to criminally investigate or prosecute any alcohol or drug abuse patient.[facility]healthIn the event this information is protected by the [facility] Confidentiality of Alcohol and Drug Abuse Patient Records regulations: The Federal rules restrict any use of the information to criminally investigate or prosecute any alcohol or drug abuse patient.[facility]In the event this information is protected by the Federal Confidentiality of Alcohol and Drug Abuse Patient Records regulations: The Federal rules restrict any use of the information to criminally investigate or prosecute any alcohol or drug abuse patient.[facility] Reason for Visit (unrecogniz ed section and content) Reason Comments Follow Up Specialty Diagnoses / Procedures Referred By Sherrie macias Referred To Contact Psychiatry / ADULT PSYCHIATRY Diagnoses follow up 2 months EFRAÍN/depresson Procedures VIDEO PSYC/PSYL EST Ailin Galo, SCALES INSPECTOR.SENIOR BENEFITS ANALYST [address] [place] [address] Ailin Galo, SCALES INSPECTOR.SENIOR BENEFITS ANALYST [address] [place] [address] Referral ID Status Reason Start Date Expiration Date V isits Requested Visits Authorized [id number] Pending Review 07/01/2024 09/29/2024 1 1 Reason Onset Date Comments Refill Request 01/10/2022 Reason Comments Refill Request Reason Comments Treatment Planning non-pharmacologic tr eatment recommendations Reason Comments Consult Specialty Diagnoses / Procedures Referred By Contac t Referred To Contact Pediatric Cardiology Diagnoses Tachycardia Orthostatic hypotension [id number] condition Procedures CONSULT TO PEDS CARDIOLOGY OFFICE/OUTPATIENT [facility] 60-74 MINUTES Katelin Morel MD [address] [place] [address] Referral ID Status Reason Start Date Expiration Date V isits Requested Visits Authorized [id number] Closed PCP Requested Referral 12/03/2021 12/03/2022 1 1 Reason Comments Results Reason Comments Established Patient Reason Comments Results JUANITA + Reason Comments Positive JUANITA Reason Comments Syncope Reason Comments Procedure Autonomic Med Prep F or Autonomic Testing 01/12-QSART & ANS W/O TILT Reason Comments Procedure Reason Comments New Patient Specialty Diagnoses / Procedures Referred By Contac t Referred To Contact Neurology Diagnoses POTS (postural orthostatic tachycardia syndrome) Transient loss of consciousness Procedures CONSULT TO NEUROLOGY OFFICE/OUTPATIENT [facility] 60-74 MINUTES Dean Jackson MD [address] [place] [address] Referral ID Status Reason Start Date Expiration Date V isits Requested Visits Authorized [id number] Closed PCP Requested Referral 01/02/2023 04/02/2023 1 1 Reason Comments Anxiety Reason Comments Follow Up Depression Specialty Diagnoses / Procedures Referred By Contac t Referred To Contact Diagnoses Current severe episode of major depressive disorder without psychotic features without prior episode (HCC) Procedures CONSULT TO PSYCHIATRY OFFICE/OUTPATIENT [facility] 60-74 MINUTES Katelin Morel MD [address] [place] [address] Referral ID Status Reason Start Date Expiration Date Visits Requested Visits Authorized [id number] Pending Review PCP Requested Referral 06/08/2023 06/07/2024 1 1 Reason Comments Med Change Request Reason Comments Established Patient Follow Up Reason Comments No Show Reason Comments Patient Question Hour urine done inco rrectly Reason Comments Follow Up Labs Reason Comments adult well exam Reason Comments Immunizations Reason Comments PPD Read Reason Comments PPD Screening Or Test Reason Comments PPD Read Reason Comments Consult GERD and chest pain. Specialty Diagnoses / Procedures Referred By Contac t Referred To Contact General Surgery Diagnoses Gastroesophageal reflux disease, unspecified whether esophagitis present Procedures CONSULT TO GENERAL SURGERY OFFICE/OUTPATIENT [facility] 60 MINUTES Katelin Morel MD [address] [place] [address] Referral ID Status Reason Start Date Expiration Date V isits Requested Visits Authorized [id number] Closed PCP Requested Referral 03/21/2024 03/21/2025 1 1 Reason Comments Patient Update Reason Comments Follow Up EFRAÍN and depression Reason Comments Follow Up Established Patient Reason Comments Follow Up Specialty Diagnoses / Procedures Referred By Contac t Referred To Contact Neurology Diagnoses Transient loss of consciousness Transient alteration of awareness Procedures CONSULT TO NEUROLOGY OFFICE/OUTPATIENT [facility] 60 MINUTES Beau Marie SCALES INSPECTOR.SENIOR BENEFITS ANALYST [address] [place] [address] Referral ID Status Reason Start Date Expiration Date V isits Requested Visits Authorized [id number] Closed PCP Requested Referral 10/22/2024 10/22/2025 1 1 Reason Comments Nose Injury X2 days Specialty Diagnoses / Procedures Referred By Contac t Referred To Contact Internal Medicine / [facility] Diagnoses Possible broken nose x2days Procedures EST SAME DAY Self Jemma Palumbo, KAMAR.SENIOR BENEFITS ANALYST [address] [place] [address] Phone: tel: fax: Referral ID Status Reason Start Date Expiration Date V isits Requested Visits Authorized [id number] Pending Review 12/27/2024 03/27/2025 1 1 Reason Comments Establish Care Care Teams (unrecognized sec tion and content) [facility] Relationship Specialty Start Date End Date Katelin Morel MD [address] [place], [place] [id number] PCP - General Pediatrics 11/26/21 [facility] Relationship Specialty Start Date End Date Katelin Morel MD [address] [place], [place] [id number] PCP - General Pediatrics 11/26/21 [facility] Relationship Specialty Start Date End Date Katelin Morel MD [address] [place] [address] PCP - General Pediatrics 11/26/21 [facility] Relationship Specialty Start Date End Date Katelin Morel MD [address] [place] [address] PCP - General Pediatrics 11/26/21 [facility] Relationship Specialty Start Date End Date Katelin Morel MD [address] [place] [address] PCP - General Pediatrics 11/26/21 [facility] Relationship Specialty Start Date End Date Katelin Morel MD [address] [place] [address], [place] [address] PCP - General Pediatrics 11/26/21 Dean Jackson MD [address] [place] [address] Primary Staff Physician Cardiology 09/01/22 [facility] Relationship Specialty Start Date End Date Katelin Morel MD [address] [facility], [place] [id number] PCP - General Pediatrics 11/26/21 Dean Jackson MD [address] [place] [address] Primary Staff Physician Cardiology 09/01/22 [facility] Relationship Specialty Start Date End Date Katelin Morel MD [address] [facility] [place] [id number] PCP - General Pediatrics 11/26/21 Dean Jackson MD [address] [place] [address] Primary Staff Physician Cardiology 09/01/22 [facility] Relationship Specialty Start Date End Date Katelin Morel MD [facility], [place] [id number] PCP - General Pediatrics 11/26/21 Dean Jackson MD [address] [place] [address] Primary Staff Physician Cardiology 09/01/22 [facility] Relationship Specialty Start Date End Date Katelin Morel MD [address] [place], [place] [address] PCP - General Pediatrics 11/26/21 Dean Jackson MD [address] [place] [address] Primary Staff Physician Cardiology 09/01/22 [facility] Relationship Specialty Start Date End Date Katelin Morel MD [address] [place], [place] [id number] PCP - General Pediatrics 11/26/21 Dean Jackson MD [address] [place] [address] Primary Staff Physician Cardiology 09/01/22 [facility] Relationship Specialty Start Date End Date Katelin Morel MD [address] [place] [address] PCP - General Pediatrics 11/26/21 Dean Jackson MD [address] [place], [place] [address] Primary Staff Physician Cardiology 09/01/22 [facility] Relationship Specialty Start Date End Date Katelin Morel MD [address] [place], [place] [id number] PCP - General Pediatrics 11/26/21 Dean Jackson MD [address] [place], [place] [address] Primary Staff Physician Cardiology 09/01/22 [facility] Relationship Specialty Start Date End Date Katelin Morel MD [address] [place], [place] [address] PCP - General Pediatrics 11/26/21 eDan Jackson MD [address] [place] [address] Primary Staff Physician Cardiology 09/01/22 [facility] Relationship Specialty Start Date End Date Katelin Morel MD [address] [place], [place] [address]281 PCP - General Pediatrics 11/26/21 Dean Jackson MD [address] [place] [address] Primary Staff Physician Cardiology 09/01/22 [facility] Relationship Specialty Start Date End Date Katelin Morel MD [address] [place], [place] [address] PCP - General Pediatrics 11/26/21 Dean Jackson MD [address] [place] [address] Primary Staff Physician Cardiology 09/01/22 [facility] Relationship Specialty Start Date End Date Katelin Morel MD [address] [place], [place] 9[address] PCP - General Pediatrics 11/26/21 Dean Jackson MD [address] [place] [address] Primary Staff Physician Cardiology 09/01/22 [facility] Relationship Specialty Start Date End Date Katelin Morel MD [address] [place], [place] 134[address] PCP - General Pediatrics 11/26/21 Dean Jackson MD [address] [place] [address] Primary Staff Physician Cardiology 09/01/22 [facility] Relationship Specialty Start Date End Date Katelin Morel MD [address] [place], [place] 976061 PCP - General Pediatrics 11/26/21 Dean Jackson MD [address] [facility] [place], [place] [id number] Primary Staff Physician Cardiology 09/01/22 [facility] Relationship Specialty Start Date End Date Katelin Morel MD [address] [place], [place] [address] PCP - General Pediatrics 11/26/21 Dean Jackson MD [address] [place] [address] Primary Staff Physician Cardiology 09/01/22 [facility] Relationship Specialty Start Date End Date Katelin Morel MD [address] [place], [place] [address]661 PCP - General Pediatrics 11/26/21 Dean Jackson MD [address] [place] [address] Primary Staff Physician Cardiology 09/01/22 [facility] Relationship Specialty Start Date End Date Katelin Morel MD [address] [place] [address] PCP - General Pediatrics 11/26/21 Dean Jackson MD [address] [place] [address] Primary Staff Physician Cardiology 09/01/22 [facility] Relationship Specialty Start Date End Date Katelin Morel MD [address] [place] [address] PCP - General Pediatrics 11/26/21 Dean Jackson MD [address] [facility] [place] [address] Primary Staff Physician Cardiology 09/01/22 [facility] Relationship Specialty Start Date End Date Katelin Morel MD [address] [place] [address] PCP - General Pediatrics 11/26/21 Dean Jackson MD [address] [facility] [place] [address] Primary Staff Physician Cardiology 09/01/22 [facility] Relationship Specialty Start Date End Date Katelin Morel MD [address] [place] [address] PCP - General Pediatrics 11/26/21 Dean Jackson MD [address] [facility] [place] [address] Primary Staff Physician Cardiology 09/01/22 [facility] Relationship Specialty Start Date End Date Katelin Morel MD [address] [place], [place] 272821 PCP - General Pediatrics 11/26/21 Dean Jackson MD [address] [place] [address] Primary Staff Physician Cardiology 09/01/22 [facility] Relationship Specialty Start Date End Date Katelin Morel MD [address] [place], [place] 024801 PCP - General Pediatrics 11/26/21 Dean Jackson MD [address] [place] [address] Primary Staff Physician Cardiology 09/01/22 [facility] Relationship Specialty Start Date End Date Katelin Morel MD [address] [place], [place] 36[address] PCP - General Pediatrics 11/26/21 Dean Jackson MD [address] [place] [address] Primary Staff Physician Cardiology 09/01/22 [facility] Relationship Specialty Start Date End Date Katelin Morel MD [address] [place], [place] 010921 PCP - General Pediatrics 11/26/21 Dean Jackson MD [address] [facility] [place] [address] Primary Staff Physician Cardiology 09/01/22 [facility] Relationship Specialty Start Date End Date Katelin Morel MD [address] [place], [place] [address]18131 PCP - General Pediatrics 11/26/21 Dean Jackson MD [address] [place], [place] 12[address] Primary Staff Physician Cardiology 09/01/22 [facility] Relationship Specialty Start Date End Date Katelin Morel MD [address] [place], [place] 119691 PCP - General Pediatrics 11/26/21 Dean Jackson MD [address] [place] [address] Primary Staff Physician Cardiology 09/01/22 [facility] Relationship Specialty Start Date End Date Katelin Morel MD [address] [place], [place] [id number] PCP - General Pediatrics 11/26/21 Dean Jackson MD [address] [place], [place] [address] Primary Staff Physician Cardiology 09/01/22 [facility] Relationship Specialty Start Date End Date Katelin Morel MD [address] [place], [place] 851281 PCP - General Pediatrics 11/26/21 Dean Jackson MD [address] [place] [address] Primary Staff Physician Cardiology 09/01/22 [facility] Relationship Specialty Start Date End Date Katelin Morel MD [address] [place], [place] 255231 PCP - General Pediatrics 11/26/21 Dean Jackson MD [address] [place] [address] Primary Staff Physician Cardiology 09/01/22 [facility] Relationship Specialty Start Date End Date Katelin Morel MD [address] [place], [place] 879201 PCP - General Pediatrics 11/26/21 Dean Jackson MD [address] [place] [address] Primary Staff Physician Cardiology 09/01/22 [facility] Relationship Specialty Start Date End Date Katelin Morel MD [address] [place], [place] 560571 PCP - General Pediatrics 11/26/21 Dean Jackson MD [address] [facility] [place] [address] Primary Staff Physician Cardiology 09/01/22 [facility] Relationship Specialty Start Date End Date Katelin Morel MD [address] [place], [place] 625941 PCP - General Pediatrics 11/26/21 Dean Jackson MD [address] [place] [address] Primary Staff Physician Cardiology 09/01/22 [facility] Relationship Specialty Start Date End Date Katelin Morel MD [address] [place], [place] 411671 PCP - General Pediatrics 11/26/21 Dean Jackson MD [address] [facility] [place], [place] [address] Primary Staff Physician Cardiology 09/01/22 [facility] Relationship Specialty Start Date End Date Katelin Morel MD [address] [place] [address] PCP - General Pediatrics 11/26/21 Dean Jackson MD [address] [facility] [place] [place] [address] Primary Staff Physician Cardiology 09/01/22 [facility] Relationship Specialty Start Date End Date Katelin Morel MD [address] [place] [address] PCP - General Pediatrics 11/26/21 Dean Jackson MD [address] [place] [address] Primary Staff Physician Cardiology 09/01/22 [facility] Relationship Specialty Start Date End Date Katelin Morel MD [address] [place] [address] PCP - General Pediatrics 11/26/21 Dean Jackson MD [address] [place] [address] Primary Staff Physician Cardiology 09/01/22 Team Status: Active Member Role/Relationship Status Dates Dr. Mel Fabian MD Family Provider Active Dr. Katelin Morel MD Primary Care Provider Active Team Status: Inactive Member Role/Relationship Status Dates Dr. Katelin Morel MD Primary Care Provider Active Start: April 30, 2025 End: April 30, 2025 Dr. Katelin Morel MD Referring Provider Active Start: April 30, 2025 End: April 30, 2025 Heriberto Molina PA, PA Attending Provider Active Start: April 30, 2025 End: April 30, 2025 [facility] Relationship Specialty Start Date End Date Shaw Lucero MD [address] [place] [address] PCP - General Internal Medicine 06/10/25 Dean Jackson MD [address] [place] [address] Primary Staff Physician Cardiology 09/01/22 Goals (unrecognized section and content) Goals may be documented in a n alternate sectionGoals may be documented in an alternate section No data available for this section No data available for this section FOR RECORDS PERTAINING TO PATIENTS WHO ARE OR HAVE BEEN ENROLLED IN A CHEMICAL DEPENDENCY/SUBSTANCEABUSE PROGRAM, SOME INFORMATION MAY BE OMITTED. This clinical summary was aggregated from multiple sources. Caution should be exercised in using it in the provision of clinical care. This summary normalizes information from multiple sources, and as a consequence, information in this document may materially change the coding, format and clinical context of patient data. In addition, data may be omitted in some cases. CLINICAL DECISIONS SHOULD BE BASED ON THE PRIMARY CLINICAL RECORDS. [employer] [facility]. provides no warranty or guarantee of the accuracy or completeness of information in this document.
[2025-06-28 12:32] LABS: Follicle Stimulating Hormone 6.7 mIU/mL
== END | disposition home or self-care (01) ==
PROVIDERS: PCP Pediatrics; Referring Provider Nurse Practitioner Women's Health; Visit Provider Nurse Practitioner Women's Health
DX: N93.9 Abnormal uterine and vaginal bleeding, unspecified (principal)
CPT/HCPCS: 36415; 82670; 83001; 83002